=== PATIENT | male | born 1955 | race Caucasian/White ===

== ENCOUNTER 2019-09-23 20:50 | Inpatient (IN) ==
--- OUTSIDE RECORDS SUMMARY | 2019-09-23 20:54 | External Medical Summary | Continuity of Care Document ---
:1955 Author Name Todd Yan Address Unavailable Unavailable , Care Team Providers Name Role Phone Unavailable Unavailable Unavailable Manuel [email or web address] PCP, [email or web address] Unavailable Unavailable Unavailable Unavailable Unavailable Problems Gout, joint (274.00) (M10.9) Umbilical hernia (553.1) (K42.9) Restless legs syndrome (333.94) (G25.81) Allergies and Adverse Reactions No Known Drug Allergies (Allergy) Medications Allopurinol 300 MG Oral Tablet; TAKE ONE TABLET BY AG TH EVERY DAY Yuriy Escobar Start: 08-Dec-2012 Quantity: 90 Refills: 3 One-A-Day Mens Oral Tablet Yuriy Refills: 0 Potassimin TABS; as directed for leg cramps Yuriy Refills: 0 Fish Oil Concentrate 1000 MG Oral Capsule; TAKE 1 CAPSULE DAYDAY SALAS M.D. Refills: 0 Aspirin 81 MG TABS Yuriy Refills: 0 Vitamin D3 125 MCG (5000 UT) Oral Capsule; TAKE 1 CAPSULE Dayday rodriguez M.D. Start: 15-Aug-2012 Refills: 0 Procedures History of Knee Surgery Status: Complete d History of Complete Colonoscopy Status: Completed Immunizations Td On: 1996 Fluzone INJ On: 16-Jul-2015 Family History Father Family history of Ankylosing Spondylitis Status: Active Family history of Congestive Heart Failure Status: Active Mother Family history of Diabetes Mellitus (V18.0) Status: Active Brother Family history of Spondylitis Status: Active Sister Family history of Spondylitis Status: Active Family history of Spondylitis Status: Active Social History - Smoking Status Former smoker Plan of Treatment Planned Observations Planned Goals not documented Results No Known Results Results not documented
--- OUTSIDE RECORDS SUMMARY | 2019-09-23 20:54 | External Medical Summary | Continuity of Care Document ---
:1955 Author Name Todd Yan Address Unavailable Unavailable , Care Team Providers Name Role Phone Unavailable Unavailable Unavailable Manuel Escobar [email or web address] PCP, UNKNOWN Unavailable Unavailable Unavailable Unavailable Unavailable Problems Restless legs syndrome (333.94) (G25.81) Umbilical hernia (553.1) (K42.9) Gout, joint (274.00) (M10.9) Allergies and Adverse Reactions No Known Drug Allergies (Allergy) Medications Allopurinol 300 MG Oral Tablet; TAKE ONE TABLET BY GA TH EVERY DAY Yuriy Escobar Start: 08-Dec-2012 Quantity: 90 Refills: 3 Aspirin 81 MG TABS Yuriy Refills: 0 Fish Oil Concentrate 1000 MG Oral Capsule; TAKE 1 CAPSULE DAYDAY SALAS M.D. Refills: 0 Potassimin TABS; as directed for leg cramps Yuriy Refills: 0 One-A-Day Mens Oral Tablet Yuriy Refills: 0 Vitamin D3 125 MCG [...]
[2019-09-23] MEDS ORDERED: FAMOTIDINE 20MG/5ML IV PUSH IV STA (21:50)
[2019-09-23] MEDS ORDERED: SODIUM CHLORIDE 0.9% 1000ML 1,000 ML IV ONE ×2 (21:50→23:04)
[2019-09-23 21:56] LABS: Basophils # (auto) 0.03 K/uL (0-0.2); Basophils % (auto) 0.4 %; Hematocrit (blood only) 33.8 % (42-52); Hemoglobin 11.4 g/dL (14.0-18.0); Immature Granulocytes # (auto) 0.07 K/uL (0.00-0.02); Immature Granulocytes % (auto) 0.9 %; Lymphocytes # (auto) 1.48 K/uL (1.2-3.4); Lymphocytes % (auto) 18.7 %; Mean Corpuscular Hemoglobin 30.6 pg (25-34); Mean Corpuscular Hgb Conc 33.7 g/dL (32-36); Mean Corpuscular Volume 90.6 fL (80-100); Mean Platelet Volume 12.5 fL (7.4-10.4); Monocytes # (auto) 0.45 K/uL (0.11-0.59); Monocytes % (auto) 5.7 %; Neutrophils % (auto) 74.3 %; Platelet Count 176 K/uL (130-400); RDW Coefficient of Variation 13.1 % (11.5-14.5); RDW Standard Deviation 43.4 fL (36.4-46.3); Red Blood Count 3.73 M/uL (4.7-6.1); White Blood Count 7.93 K/uL (4.8-10.8)
[2019-09-23 22:10] LABS: Alanine Aminotransferase 17 U/L (12-78); Albumin Globulin Ratio 0.9 (0.9-2); Albumin Level 3.1 gm/dl (3.4-5.0); Aspartate Aminotransferase 6 U/L (15-37); BUN Creatinine Ratio 51.1 (10-20); Bilirubin,Total 0.4 mg/dl (0.2-1); Blood Urea Nitrogen 55 mg/dl (7-18); Calcium 9.5 mg/dl (8.5-10.1); Carbon Dioxide 19 mmol/L (21-32); Chloride 103 mmol/L (98-107); Creatinine Clr Calc Pharmacy 69.5 ml/min; Est GFR (African American) 86.4; Est GFR (Non-African American) 74.5; Globulin 3.6 gm/dl (2.5-4.0); Glucose 606 mg/dl (70-99); Lipase 116 U/L (73-393); Magnesium 1.8 mg/dl (1.8-2.4); Potassium 3.9 mmol/L (3.5-5.1); Sodium 136 mmol/L (136-145); Total Protein 6.7 gm/dl (6.4-8.2)
[2019-09-23] MEDS ORDERED: PANTOprazole 80 MG in DEXTROSE 5% 100 ML IV STA (22:22)
[2019-09-23] MEDS ORDERED: NovoLIN-R INSULIN PER UNIT CHARGE SC STA (22:27)
[2019-09-23 23:06] LABS: Appearance Urine Clear (Clear); Bilirubin Urine Negative (Negative); Blood Urine Negative (Negative); Color Urine Yellow; Glucose Urine UA 3+ (Negative); Ketones Urine 1+ (Negative); Leukocyte Esterase Urine Negative (Negative); Nitrite Urine Negative (Negative); Protein Urine Negative (Negative); Specific Gravity Urine 1.035 (1.000-1.030); Urobilinogen Urine Negative (Negative)
[2019-09-23 23:13] LABS: NT Pro B Type Natriuretic Pept 40 pg/ml (0-900); Troponin I < 0.015 ng/ml (0-0.045)
[2019-09-23 23:14] LABS: Alkaline Phosphatase 36 U/L (45-117)
[2019-09-23] MEDS ORDERED: IOVERSOL 100ml IV PRN (23:23)
[2019-09-23] MEDS: PANTOprazole 40 MG in DEXTROSE 5% 100 ML IV SCH (23:43)
[2019-09-24] MEDS: fentaNYL citrate 100 MCG/2 ML VIAL IV PRN ×2 (00:12→00:36)
[2019-09-24] MEDS ORDERED: NovoLIN-R INSULIN PER UNIT CHARGE SC STA (01:03)
[2019-09-24 01:09] LABS: BUN Creatinine Ratio 43.3 (10-20); Calcium 8.5 mg/dl (8.5-10.1); Creatinine Clr Calc Pharmacy 72.2 ml/min; Est GFR (African American) 90.4; Potassium 3.8 mmol/L (3.5-5.1)
[2019-09-24 01:21] LABS: Beta-Hydroxybutyrate 5.47 mg/dl (0.2-2.81)
[2019-09-24] MEDS ORDERED: LACTATED RINGER'S 1,000 ML IV ONE (01:40)
[2019-09-24] MEDS ORDERED: POTASSIUM CHLORIDE 20 MEQ TABCR PO STA (01:42)
[2019-09-24] MEDS ORDERED: MAGNESIUM SULFATE / D5W 1 GM/100 ML BAG IV ONE (01:50)
[2019-09-24] MEDS ORDERED: INSULIN PROTOCOL GOAL RANGE STA (01:51)
[2019-09-24] MEDS ORDERED: MODERATE STRESS LEVEL STA (01:51)
[2019-09-24] MEDS ORDERED: MAGNESIUM SULFATE 1GM / D5W BAG IV ONE (01:59)
[2019-09-24] MEDS ORDERED: INSULIN REGULAR 250 UNITS in SODIUM CHLORIDE 0.9% 247.5 ML IV SCH (02:00)
[2019-09-24] MEDS ORDERED: NovoLIN-R BOLUS FROM BAG IV ONE (02:00)
[2019-09-24 02:12] LABS: Thyroid Stimulating Hormone 1.89 uIu/ml (0.300-4.500)
--- NOTE | 2019-09-24 02:28 | History & Physical Report ---
Date of Service September 24, 2019 Assessment & Plan (1) UGIB (upper gastrointestinal bleed): With some degree of hemodynamic instability ddx : gastritis given history NSAID intake, PUD, tumor Anemia secondary to above Hyperglycemia DM2 on oral medications, suboptimal control as of recent outpatient hemoglobin A1c of 14, 09/2018 Outpatient steroid courses contributory for back pain mood disorder, at baseline past tobacco abuse Right lumbar disc herniation Elective surgery at [facility] scheduled 09/27/2019. PCU given hemodynamic instability IV PPI Trend H&H, anemia work-up transfuse PRBC if hemoglobin less than 7 and/or for symptomatic anemia Stop NSAIDs, patient counseled about GI side effects of NSAIDs. Stop home aspirin given lack of current clinical indication for home use. GI consult RE U GIB IVF, IV insulin appropriate while patient n.p.o. in anticipation of endoscopic procedure Diabetic education. May benefit from pharmacy glycemic control consult once diet advanced. DVT prophylaxis. SCDs RE UGIB Full code History of Present Illness Chief Complaint: Melena, not feeling well, high sugars Primary Care Provider: Jude Amezcua MD History obtained from patient, family, and records. Medical history significant for DM 2 on oral medications, hyperlipidemia as per records, osteoarthritis, mood disorder, past tobacco abuse, right hip trochanteric bursitis, right lumbar disc herniation, diverticulosis. Patient has had a poor appetite the last few months. 40 pound weight loss in about 2 months as per patient. Denies depression. 2 months ago patient noted right back discomfort with leg radiation attributed to right paracentral L4-L5 disc herniation/extrusion. Outpatient Rheumatology, pain management evaluations. Steroid course for pain. Patient taking Celebrex along with maximum of 4 tablets of OTC ibuprofen/ daily mostly with meals. Patient seen by [facility] outpatient few days ago. Surgery contemplated this week, September 27, 2019. Yesterday, patient not feeling well. Blood sugar noted to be 430 as per patient. Blood sugars at home 100s, rarely 200s as per patient/. Stools noted to be dark. No abdominal pain, chest pain, no S OB. Denies hematemesis/coffee-ground emesis. At the ER, BSG noted to be 600s. IV insulin 1 dose administered at the ER. IV PPI bolus/ drip initiated at the ER for UGI B. Medical History as above No prior EGDs. 2010 colonoscopy showed diverticulosis. 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 Allergy/AdvReac Type Severity Reaction Status Date / Time No Known Allergies Allergy Unverified 09/23/19 22:05 Home Medications Home Medications Medication Instructions Recorded Confirmed Type aspirin [Aspirin Low Dose] 81 mg PO QPM 09/23/19 09/23/19 History celecoxib 200 mg PO BID 09/23/19 09/23/19 History gabapentin 300 mg PO DIRECTED 09/23/19 09/23/19 History linagliptin [Tradjenta] 5 mg PO QPM 09/23/19 09/23/19 History metformin 1,000 mg PO DAILY 09/23/19 09/23/19 History sertraline 50 mg PO QPM 09/23/19 09/23/19 History Past Med/Surg History Medical History Arthritis Bone spur Diabetes Gout Ruptured lumbar disc Varicose vein of leg Surgical History H/O vein stripping S/P herniorrhaphy Family History Other Cancer Diabetes Heart disease Hypertension Social History Preferred Language: Malay Communication Ability: Effective Visual Impairment: No Limitations Hearing Ability: Normal Beliefs That Will Affect Care: None marital status: Current Living Situation: Spouse current occupational status: employed Other Information That Helps Us Care for You: No Feels Safe at Home: Yes Safety Concerns: Feels Safe At This Time Smoking Status: Former smoker Hx Alcohol Use: No Hx Substance Use: No Review of Systems Review of Systems: As per HPI, all 10 systems reviewed, all other ROS negative Physical Exam Physical Exam: GENERAL: Comfortable, pleasant, no respiratory distress SKIN: Pallor , warm HEENT: Pale palpebral conjunctivae, no ptosis, dry buccal mucosa NECK : Supple, no tenderness CHEST : CTA, no tenderness HEART : Tachycardic , no obvious murmurs ABDOMEN: Some distention, nontender BACK : right hip tenderness EXTREMITIES : No LE swelling/tenderness, no other conspicuous deformities noted NEUROLOGIC : Coherent, no facial asymmetry, no other gross focality Results & Data Vital Signs (Past 12 Hours) Vital Signs Temp Pulse Resp BP Pulse Ox 09/24/19 02:01 132 H 19 99/71 L 95 09/24/19 01:45 126 H 17 113/76 95 09/24/19 01:30 125 H 17 102/74 93 09/24/19 01:25 126 H 18 113/85 97 09/24/19 01:00 124 H 14 111/78 95 09/24/19 00:45 124 H 16 119/86 96 09/24/19 00:30 123 H 16 111/79 94 09/24/19 00:15 121 H 21 142/81 H 95 09/24/19 00:00 120 H 17 114/82 96 09/23/19 23:45 121 H 16 118/90 96 09/23/19 23:30 125 H 20 128/82 95 09/23/19 23:00 129 H 17 113/90 94 09/23/19 22:45 127 H 20 112/81 94 09/23/19 22:30 130 H 17 124/78 94 09/23/19 22:15 127 H 18 123/79 09/23/19 21:30 129 H 18 115/77 94 09/23/19 20:52 36.7 C 128 H 20 120/83 97 Laboratory Results Laboratory Results WBC 7.93 K/uL (4.8-10.8) 09/23/19 21:25 RBC 3.73 M/uL (4.7-6.1) L 09/23/19 21:25 Hgb 11.4 g/dL (14.0-18.0) L 09/23/19 21:25 Hct 33.8 % (42-52) L 09/23/19 21:25 MCV 90.6 fL (80-100) 09/23/19 21:25 MCH 30.6 pg (25-34) 09/23/19 21:25 MCHC 33.7 g/dL (32-36) 09/23/19 21:25 RDW Std Deviation 43.4 fL (36.4-46.3) 09/23/19 21:25 RDW Coeff of Justin 13.1 % (11.5-14.5) 09/23/19 21:25 Plt Count 176 K/uL (130-400) 09/23/19 21:25 MPV 12.5 fL (7.4-10.4) H 09/23/19 21:25 Immature Gran % (Auto) 0.9 % 09/23/19: Neut % (Auto) 74.3 % 09/23/19: Lymph % (Auto) 18.7 % 09/23/19: [place] % (Auto) 5.7 % 09/23/19: Eos % (Auto) 0.0 % 09/23/19: Baso % (Auto) 0.4 % 09/23/19: Immature Gran # (Auto) 0.07 K/uL (0.00-0.02) H 09/23/19: Neut # (Auto) 5.90 K/uL (1.4-6.5) 09/23/19: Lymph # (Auto) 1.48 K/uL (1.2-3.4) 09/23/19: [place] # (Auto) 0.45 K/uL (0.11-0.59) 09/23/19: Eos # (Auto) 0.00 K/uL (0-0.5) 09/23/19: Baso # (Auto) 0.03 K/uL (0-0.2) 09/23/19: Sodium 139 mmol/L (136-145) 09/24/19 00:08 Potassium 3.8 mmol/L (3.5-5.1) 09/24/19 00:08 Chloride 108 mmol/L (98-107) H 09/24/19 00:08 Carbon Dioxide 21 mmol/L (21-32) 09/24/19 00:08 Anion Gap 10.0 (3-11) 09/24/19 00:08 BUN 45 mg/dl (7-18) H 09/24/19 00:08 Creatinine 1.03 mg/dl (0.6-1.4) 09/24/19 00:08 Est Cr Clr Drug Dosing 72.2 ml/min 09/24/19 00:08 Est GFR ( Amer) 90.4 09/24/19 00:08 Est GFR (Non-Af Amer) 78.0 09/24/19 00:08 BUN/Creatinine Ratio 43.3 (10-20) H 09/24/19 00:08 Glucose 411 mg/dl (70-99) H* 09/24/19 00:08 POC Glucose 353 (70-99) H* 09/24/19 01:12 Calcium 8.5 mg/dl (8.5-10.1) 09/24/19 00:08 Magnesium 1.8 mg/dl (1.8-2.4) 09/23/19 21:25 Total Bilirubin 0.4 mg/dl (0.2-1) 09/23/19 21:25 AST 6 U/L (15-37) L 09/23/19 21:25 ALT 17 U/L (12-78) 09/23/19 21:25 Alkaline Phosphatase 36 U/L (45-117) L 09/23/19 21:25 Troponin I < 0.015 ng/ml (0-0.045) 09/23/19 21:25 NT-Pro-B Natriuret Pep 40 pg/ml (0-900) 09/23/19 21:25 Total Protein 6.7 gm/dl (6.4-8.2) 09/23/19 21:25 Albumin 3.1 gm/dl (3.4-5.0) L 09/23/19 21:25 Globulin 3.6 gm/dl (2.5-4.0) 09/23/19 21:25 Albumin/Globulin Ratio 0.9 (0.9-2) 09/23/19 21:25 Lipase 116 U/L (73-393) 09/23/19 21:25 Beta-Hydroxybutyric Acd 5.47 mg/dl (0.2-2.81) H 09/24/19 00:08 TSH 1.890 uIu/ml (0.300-4.500) 09/24/19 00:08 Urine Color Yellow 09/23/19 21:57 Urine Appearance Clear (Clear) 09/23/19 21:57 Urine pH 5.0 (4.5-7.5) 09/23/19 21:57 Ur Specific [place] 1.035 (1.000-1.030) H 09/23/19 21:57 Urine Protein Negative (Negative) 09/23/19 21:57 Urine Glucose (UA) 3+ (Negative) H 09/23/19 21:57 Urine Ketones 1+ (Negative) H 09/23/19 21:57 Urine Blood Negative (Negative) 09/23/19 21:57 Urine Nitrite Negative (Negative) 09/23/19 21:57 Urine Bilirubin Negative (Negative) 09/23/19 21:57 Urine Urobilinogen Negative (Negative) 09/23/19 21:57 Ur Leukocyte Esterase Negative (Negative) 09/23/19 21:57 Blood Type A Positive 09/23/19 21:39 Antibody Screen NEGATIVE 09/23/19 21:39 Diagnostic Findings See pelvis initial read:No colitis, diverticulitis, appendicitis or bowel obstruction. Chest x-ray as per my interpretation : No congestion, elevated right hemidiaphragm EKG as per my interpretation : Rate 125, sinus tachycardia, LAD, LAFB, T wave flattening inferior leads
[2019-09-24] MEDS ORDERED: GLUCOSE 40% GEL 15 GM TUBE PO PRN (02:30)
[2019-09-24] MEDS ORDERED: DEXTROSE 50% 50 ML SYRINGE IV PRN (02:30)
[2019-09-24] MEDS ORDERED: GLUCAGON FOR INJ 1 MG VIAL IM PRN (02:30)
[2019-09-24] MEDS ORDERED: GLUCOSE 10 TABS/TUBE PO PRN (02:30)
[2019-09-24] MEDS ORDERED: LORazepam 0.25 MG/0.5 ML VIAL IV PRN (03:52)
[2019-09-24] MEDS ORDERED: D5W AND LACTATED RINGERS 1,000 ML IV PRN (03:52)
[2019-09-24] MEDS ORDERED: PROMETHAZINE HCL 12.5 MG in SODIUM CHLORIDE 0.9% 50 ML IV PRN (03:52)
[2019-09-24] MEDS ORDERED: NITROGLYCERIN SL 0.4 MG/TAB TAB SL PRN (03:52)
[2019-09-24] MEDS ORDERED: SODIUM CHLORIDE 0.9% 1000ML 1,000 ML IV ONE (04:00)
[2019-09-24] MEDS: PANTOprazole 40 MG in DEXTROSE 5% 100 ML IV SCH ×2 (04:16→09:37)
[2019-09-24] MEDS: TRAMADOL HCL 50 MG TABLET PO PRN (04:19)
[2019-09-24 04:42] LABS: Hematocrit (blood only) 28.6 % (42-52); Hemoglobin 9.6 g/dL (14.0-18.0); Reticulocyte % 2.1 % (0.5-2.0); Reticulocytes # 0.07 10^6/uL (0.02-0.10)
[2019-09-24] MEDS: LIDOCAINE 5% 1 PATCH TD SCH (05:01)
[2019-09-24] MEDS: MoRPHine SULFATE 4 MG/ML 1 ML CARP\\VIAL IV PRN ×5 (05:08→22:28)
[2019-09-24 05:09] LABS: Ferritin 333.8 ng/ml (8-388)
[2019-09-24] MEDS ORDERED: POTASSIUM CHLORIDE 40 MEQ in SODIUM CHLORIDE 0.9% 1000ML 1,000 ML IV SCH (06:00)
--- NOTE | 2019-09-24 07:11 | XRay Report ---
XR chest 1V portable HISTORY: Shortness of breath. Tachycardia. COMPARISON: None. FINDINGS: The lungs are clear. Cardiac silhouette is normal in size. No pleural effusions. No pneumot horax. IMPRESSION: No acute process. ACT 112: Negative or not required by law. Electronically signed by: David Galvan M.D. 09/24/2019 7:10 AM
[2019-09-24] MEDS ORDERED: PHARMACY GLYCEMIC MGMT CONSULT PRN (07:44)
--- NOTE | 2019-09-24 07:45 | CT Scan Report ---
ABDOMEN AND PELVIS CT WITH IV CONTRAST CT DOSE: 642.59 mGy.cm HISTORY: weakness, GI bleed TECHNIQUE: Multiaxial CT images of the abdomen and pelvis were performed following the use of intrave nous contrast. A dose lowering technique was utilized adhering to the principles of ALARA. COMPARISON STUDY: None. FINDINGS: The lung bases are clear. Mild hepatic steatosis. The gallbladder, spleen, adrenal glands, and kidneys are unremarkable. No hydronephrosis. Mild bilateral perinephric edema. This is likely chr onic. No retroperitoneal lymphadenopathy. Normal caliber abdominal aorta. The bladder is unremarkable . A few colonic diverticula. No evidence for diverticulitis. No bowel wall thickening or obstruction. Normal appendix. Large disc herniation at L4-L5 resulting in severe central canal narrowing. Abnorma l density within the uncinate process of the pancreas measuring 4.4 x 1.9 cm. There are few adjacent small peripancreatic lymph nodes. IMPRESSION: 1. An abnormal density within the uncinate process of the pancreas is measures 4.4 x 1.9 cm. This cou ld represent focal acute pancreatitis or an underlying mass. GI consultation with endoscopic ultrasou nd recommended for further evaluation. 2. No bowel wall thickening or obstruction. 3. Normal appendix. 4. Large disc herniation at L4-5 resulting in severe central canal narrowing. 5. These findings were discussed with Dr. Elaine at 7:55 AM on 09/24/2019. ACT 112: Positive. There are findings on this exam that require communication between the performing entity and the patient following Patient Test Result Information Act ([place] Act 112) guidelines. Electronically signed by: David Galvan M.D. 09/24/2019 7:55 AM
[2019-09-24] MEDS ORDERED: INSULIN GLARGINE SOLOSTAR 100 UNITS/ML 3 ML PEN SC ONE ×2 (08:15→12:45)
[2019-09-24] MEDS ORDERED: D5NSS + 20MEQ KCL 20 MEQ/1,000 ML BAG IV SCH (08:15)
[2019-09-24 08:24] LABS: Folate (Folic Acid) 6.31 ng/ml (>5.38)
[2019-09-24 08:27] LABS: Basophils # (auto) 0.03 K/uL (0-0.2); Basophils % (auto) 0.4 %; Eosinophils # (auto) 0.09 K/uL (0-0.5); Eosinophils % (auto) 1.1 %; Hematocrit (blood only) 26.6 % (42-52); Hemoglobin 9.1 g/dL (14.0-18.0); Immature Granulocytes # (auto) 0.03 K/uL (0.00-0.02); Immature Granulocytes % (auto) 0.4 %; Lymphocytes # (auto) 2.58 K/uL (1.2-3.4); Lymphocytes % (auto) 31.3 %; Mean Corpuscular Hemoglobin 30.6 pg (25-34); Mean Corpuscular Hgb Conc 34.2 g/dL (32-36); Mean Corpuscular Volume 89.6 fL (80-100); Mean Platelet Volume 11.5 fL (7.4-10.4); Monocytes # (auto) 0.64 K/uL (0.11-0.59); Monocytes % (auto) 7.8 %; Neutrophils # (auto) 4.87 K/uL (1.4-6.5); Platelet Count 147 K/uL (130-400); RDW Coefficient of Variation 13.2 % (11.5-14.5); RDW Standard Deviation 42.2 fL (36.4-46.3); Red Blood Count 2.97 M/uL (4.7-6.1); White Blood Count 8.24 K/uL (4.8-10.8)
[2019-09-24] MEDS: INSULIN ASPART 100 UNITS/ML 3 ML PEN SC SCH ×5 (08:32→23:36)
[2019-09-24] MEDS: LACTATED RINGER'S 1,000 ML IV SCH ×2 (08:33→17:13)
[2019-09-24 09:08] LABS: Alanine Aminotransferase 12 U/L (12-78); Albumin Level 2.7 gm/dl (3.4-5.0); Alkaline Phosphatase 28 U/L (45-117); Aspartate Aminotransferase 7 U/L (15-37); BUN Creatinine Ratio 40.3 (10-20); Bilirubin Direct < 0.1 mg/dl (0-0.2); Bilirubin,Total 0.2 mg/dl (0.2-1); Blood Urea Nitrogen 28 mg/dl (7-18); Calcium 8.3 mg/dl (8.5-10.1); Carbon Dioxide 23 mmol/L (21-32); Chloride 112 mmol/L (98-107); Creatinine Clr Calc Pharmacy 103.6 ml/min; Est GFR (African American) 118.1; Est GFR (Non-African American) 101.9; Glucose 193 mg/dl (70-99); Lipase 120 U/L (73-393); Potassium 3.8 mmol/L (3.5-5.1); Sodium 141 mmol/L (136-145); Total Protein 5.7 gm/dl (6.4-8.2)
--- NOTE | 2019-09-24 09:54 | Gastrointestinal Consultation ---
Date of Consultation September 24, 2019 Assessment & Plan (1) Melena: (2) Anemia: (3) Mass of pancreas: Pt is a 63 y/o male admitted for hyperglycemia, symptomatic anemia and melena. Has associated poor appetite and lost 40lbs in last [address] abd/pelvis w contrast showed 4 x 2cm mass in uncinate process of pancreas. - Schedule EGD today to r/o PUD given anemia, melena increased BUN in setting of NSAIDs and Celebrex use - Keep NPO - Continue PPI gtt - Monitor H/H and transfuse prn - BSG management per primary team - Will schedule EUS eval for pancreas mass inpt vs outpt Attg add: I interviewed and examined pt, reviewed chart and labs. Pt with recent NSAID and steroid use, now with decreased appetite, anemia melena. CT showed ? HOP mass. EGD today. EUS for panc mass History of Present Illness Reason for Consultation: UGI bleed, pancreas mass Requesting Physician: Dr. Mary Elaine Attending Physician: Dr. Sade Benjamin History of Present Illness Pt is a 63 y/o male w hx of DM II, herniated lumbar disc who presented yesterday w c/o weakness and black tarry stools x 2 days. He was found to be anemic on presentation w Hgb of 11 ->9 after fluid resuscitation, BUN elevated at 55, BSG >600s -> 190s. Baseline blood ct normal a few days ago. He had been on steroid taper 1 month ago, and on Celebrex, NSAIDs (Advil, Ibuprofen) on daily basis. Not taking antiacids while on NSAIDs. He's had associated nausea w/o vomiting. Admitted to have decreased appetite in last 2 months had lost 40lbs unintentionally. He admitted to take a dose of Peptobismol 2 days ago and then Mylanta, not on iron. It's incidentally noted on his CT abd/pelvis w contrast that he has an abnormal density within the uncinate process of the pancreas is measures 4.4 x 1.9 cm. LFTs, lipase normal. He denies any hx of pancreatitis, ETOH abuses. His father has hx of prostate ca, mother has hx of liver/pancreas/stomach ca at age 88 Allergies Allergy/AdvReac Type Severity Reaction Status Date / Time No Known Allergies Allergy Unverified 09/23/19 22:05 Home Medications Home Medications Medication Instructions Recorded Confirmed Type aspirin [Aspirin Low Dose] 81 mg PO QPM 09/23/19 09/23/19 History celecoxib 200 mg PO BID 09/23/19 09/23/19 History gabapentin 300 mg PO DIRECTED 09/23/19 09/23/19 History linagliptin [Tradjenta] 5 mg PO QPM 09/23/19 09/23/19 History metformin 1,000 mg PO DAILY 09/23/19 09/23/19 History sertraline 50 mg PO QPM 09/23/19 09/23/19 History Patient History Medical History Arthritis Bone spur Diabetes Gout Ruptured lumbar disc Varicose vein of leg Surgical History H/O vein stripping S/P herniorrhaphy Family History Other Cancer Diabetes Heart disease Hypertension Social History Preferred Language: Kinyarwanda Communication Ability: Effective Visual Impairment: No Limitations Hearing Ability: Normal Beliefs That Will Affect Care: None marital status: Current Living Situation: Spouse current occupational status: employed Other Information That Helps Us Care for You: No Feels Safe at Home: Yes Safety Concerns: Feels Safe At This Time Smoking Status: Former smoker Hx Alcohol Use: No Hx Substance Use: No Review of Systems Review of Systems: All systems reviewed & are unremarkable except as noted in HPI & below Physical Exam Constitutional: WD/WN, vitals as above well groomed, cooperative and comfortable Eyes: PERRL, conjunctivae normal, anicteric sclerae ENMT: external ear and nose normal, oropharynx normal Respiratory: normal respiratory effort, lungs clear to auscultation Cardiovascular: RRR, no murmur, no edema Gastrointestinal (Abdomen): normal bowel sounds, soft, nontender, no hepatosplenomegaly Skin: no rashes, warm and dry no jaundice Neurologic: Motor/Sensory: no asterixis Psychiatric: A+Ox3, euthymic affect Lymphatic: no lymphedema Results & Data Vital Signs (Past 12 Hours) Vital Signs Temp Pulse Pulse Resp BP BP Pulse Ox 09/24/19 07:52 36.9 C 111 H 18 114/76 93 09/24/19 04:24 117 H 09/24/19 03:30 37.2 C 18 125/77 95 09/24/19 03:00 116 H 17 113/77 93 09/24/19 02:45 117 H 18 110/80 93 09/24/19 02:30 120 H 18 118/80 93 09/24/19 02:15 125 H 21 119/80 94 09/24/19 02:01 132 H 19 99/71 L 95 09/24/19 01:45 126 H 17 113/76 95 09/24/19 01:30 125 H 17 102/74 93 09/24/19 01:25 126 H 18 113/85 97 09/24/19 01:00 124 H 14 111/78 95 09/24/19 00:45 124 H 16 119/86 96 09/24/19 00:30 123 H 16 111/79 94 09/24/19 00:15 121 H 21 142/81 H 95 09/24/19 00:00 120 H 17 114/82 96 09/23/19 23:45 121 H 16 118/90 96 09/23/19 23:30 125 H 20 128/82 95 09/23/19 23:00 129 H 17 113/90 94 09/23/19 22:45 127 H 20 112/81 94 09/23/19 22:30 130 H 17 124/78 94 09/23/19 22:15 127 H 18 123/79
[2019-09-24 10:03] LABS: Estimated Average Glucose 355 mg/dl
--- NOTE | 2019-09-24 11:21 | Anesthesiology Consultation ---
Date of Service September 24, 2019 Assessment & Plan (1) Encounter for pre-operative examination: Chart Review Chart Review: Acceptable Risk for Surgery and Patient NOT seen in Pre Admission Testing Consults Requested none History Surgery Operation Date: 09/24/19 17:45 Proposed Procedures p Esophagogastroduodenoscopy Dr Homar Benjamin Height/Weight Height: 5 ft 7 in Weight: 77.8 kg Allergies Allergy/AdvReac Type Severity Reaction Status Date / Time No Known Allergies Allergy Unverified 09/23/19 22:05 Medications Home Medications Medication Instructions Recorded Confirmed Last Taken aspirin [Aspirin Low Dose] 81 mg PO QPM 09/23/19 09/23/19 09/22/19 celecoxib 200 mg PO BID 09/23/19 09/23/19 09/22/19 gabapentin 300 mg PO DIRECTED 09/23/19 09/23/19 09/22/19 linagliptin [Tradjenta] 5 mg PO QPM 09/23/19 09/23/19 09/22/19 metformin 1,000 mg PO DAILY 09/23/19 09/23/19 09/22/19 sertraline 50 mg PO QPM 09/23/19 09/23/19 09/22/19 Active Medications Generic Name Dose Route Start Last Admin Trade Name Freq PRN Reason Stop Dose Admin Pantoprazole Sodium 40 mg/ 100 mls @ 20 mls/hr 09/23/19 22:30 09/24/19 09:37 Dextrose IV 09/27/19 03:29 20 mls/hr Q5H JHON Administration Insulin Human Regular 250 250 mls @ 2.7 mls/hr 09/24/19 02:00 09/24/19 11:11 units/ Sodium Chloride IV 10/24/19 01:59 2.7 units/hr .Q24H JHON 2.7 mls/hr Titration Protocol 2.7 UNITS/HR Lactated Ringer's 1,000 mls @ 150 mls/hr 09/24/19 08:15 09/24/19 08:33 Lr IV 10/24/19 08:14 150 mls/hr .Q6H40M JHON Administration Insulin Aspart 0 units 09/24/19 07:30 09/24/19 08:32 Novolog Flexpen SC 10/24/19 07:29 Not Given ACHS JHON Lidocaine 1 patch 09/24/19 04:30 09/24/19 05:01 Lidoderm 5% TD 10/24/19 04:29 1 patch QAM JHON Administration Morphine Sulfate 4 mg 09/24/19 03:52 09/24/19 08:52 Morphine Sulfate IV 10/08/19 03:51 4 mg Q4H PRN Administration Pain Tramadol HCl 25 - 50 mg 09/24/19 03:52 09/24/19 04:19 Ultram PO 10/24/19 03:51 50 mg Q4H PRN Administration Pain NPO Date Last Intake of Fluids: 09/24/19 Time Last Intake of Fluids: 10:00 Last Intake of Fluids Comment: "few ice chips" Date Last Intake of Solids: 09/21/19 Past Medical History Medical History Arthritis Bone spur Diabetes Gout Ruptured lumbar disc Varicose vein of leg Past Family History Family History Other Cancer Diabetes Heart disease Hypertension Past Surgical History Surgical History H/O vein stripping S/P herniorrhaphy Social History Smoking Status: Former smoker Hx Alcohol Use: No Hx Substance Use: No Physical Exam Vital Signs Last Vital Signs Temp 36.9 C 09/24/19 10:59 Pulse 104 H 09/24/19 10:59 Resp 16 09/24/19 10:59 BP 120/85 09/24/19 10:59 Pulse Ox 96 09/24/19 10:59 Testing Laboratory Results 09/24/19 08:14 09/24/19 08:14 Hemoglobin A1c 14.0 % (4.5-5.6) H 09/24/19 08:14 Urine Color Yellow 09/23/19 21:57 Urine Appearance Clear (Clear) 09/23/19 21:57 Urine pH 5.0 (4.5-7.5) 09/23/19 21:57 Ur Specific [place] 1.035 (1.000-1.030) H 09/23/19 21:57 Urine Protein Negative (Negative) 09/23/19 21:57 Urine Glucose (UA) 3+ (Negative) H 09/23/19 21:57 Urine Ketones 1+ (Negative) H 09/23/19 21:57 Urine Nitrite Negative (Negative) 09/23/19 21:57 Ur Leukocyte Esterase Negative (Negative) 09/23/19 21:57 Blood Type A Positive 09/23/19 21:39 Antibody Screen NEGATIVE 09/23/19 21:39 09/24/19 09/24/19 09/24/19 10:10 08:58 08:09 POC Glucose 218 H 193 H 220 H 09/24/19 09/24/19 09/24/19 07:04 05:58 04:59 POC Glucose 219 H 222 H 234 H 09/24/19 09/24/19 09/24/19 03:56 02:25 01:12 POC Glucose 298 H 359 H* 353 H* 09/23/19 23:39 POC Glucose 448 H*
[2019-09-24] MEDS ORDERED: ePHEDrine sulfate 50 MG/ML AMP IV PRN (11:23)
[2019-09-24] MEDS ORDERED: ATROPINE SULFATE 0.1 MG/ML 10ML SYR IV PRN (11:23)
[2019-09-24] MEDS ORDERED: PROPOFOL IV EMULSION 10 MG/ML 20 ML VIAL IV ONE (13:04)
[2019-09-24] MEDS ORDERED: LIDOCAINE HCL 2% 2 ML VIAL/AMP(20MG/ML) INFIL ONE (13:04)
--- NOTE | 2019-09-24 13:13 | GI REPORT ---
Patient Name: Gwyn Agee Procedure Date: 09/24/2019 12:32 PM Date of : 1955 Admit Type: Inpatient Age: 63 Gender: Male Attending MD: Sade Benjamin MD Procedure: Upper GI endoscopy Providers: Sade Benjamin MD Referring MD: Mary Elaine Do Indications: Melena Medicines: See the Anesthesia note for documentation of the administered medications Complications: No immediate complications. Estimated Blood Loss: Estimated blood loss: none. Procedure: Pre-Anesthesia Assessment: - ASA Grade Assessment: III - A patient with severe systemic disease. After obtaining informed consent, the endoscope was passed under direct vision. Throughout the procedure, the patient's blood pressure, pulse, and oxygen saturations were monitored continuously. The Scope was introduced through the mouth, and advanced to the second part of duodenum. The upper GI endoscopy was accomplished without difficulty. The patient tolerated the procedure well. Findings: The examined esophagus was normal. There was a small linear ulcer in the pre-pyloric antrum, with marked edema of the surrouding folds. The remainder of the stomach was normal. Biopsies taken from throughout the stomach. There was edema, fissuring, and scalloping of the mucosa in the first and second portion of the duodenum. These changes were not present in the third and fourth portions of the duodenum; the mucosa of this part of the duodenum was normal. I suspect that these changes are from NSAID use, although celiac sprue remains in the differential. There was a 2 mm shallow clean ulcer in the second portion of the duodenum with a small amount of self limited oozing. There was a second large clean based ulcer at the apex of the bulb, on the anterior wall, on the sweep. The papilla was unremarkable. Recommendation: Discharge pt to floor. He is at low risk for further bleeding; will transition to oral BID PPI and adv diet as tolerated. Recommend outpt EGD in 8 weeks to confirm healing of ulceration. Will sign off, but please call with questions. Sade Benjamin M.D. Sade Benjamin MD 09/24/2019 1:12:48 PM This report has been signed electronically. Note Initiated On: 09/24/2019 12:32 PM Number of Addenda: 0 I attest to the content of the Intraoperative Record and orders documented therein, exceptions below {[id number]}
--- NOTE | 2019-09-24 15:05 | Electrocardiogram Report ---
Test Reason : Blood Pressure : / mmHG Vent. Rate : 127 BPM Atrial Rate : 127 BPM P-R Int : 154 ms QRS Dur : 096 ms QT Int : 308 ms P-R-T Axes : 028 -27 021 degrees QTc Int : 447 ms Sinus tachycardia Inferior infarct , age undetermined Cannot rule out Anterior infarct , age undetermined Abnormal ECG No previous ECGs available Confirmed by Abdiaziz Cunningham ([id number]) on 09/24/2019 3:04:41 PM Referred By: REFERRED SELF Confirmed By:Abdiaziz Cunningham
--- NOTE | 2019-09-24 15:20 | Pharmacy Report ---
Glycemic Control Consultation - Date of Service September 24, 2019 - Scope Scope: Glycemic Pharmacist consulted by Dr Elaine on 09/24 for glycemic control and to write orders per [facility] inpatient glycemic control protocol - Objective Weight: 77.8 kg Accuchecks BSG (last 24hrs): 09/23/19 09/23/19 09/23/19 20:58 21:25 23:39 Glucose 606 H* POC Glucose 583 H* 448 H* 09/24/19 09/24/19 09/24/19 00:08 01:12 02:25 Glucose 411 H* POC Glucose 353 H* 359 H* 09/24/19 09/24/19 09/24/19 03:56 04:59 05:58 Glucose POC Glucose 298 H 234 H 222 H 09/24/19 09/24/19 09/24/19 07:04 08:09 08:14 Glucose 193 H POC Glucose 219 H 220 H 09/24/19 09/24/19 09/24/19 08:58 10:10 11:04 Glucose POC Glucose 193 H 218 H 180 H 09/24/19 09/24/19 09/24/19 12:02 13:04 13:59 Glucose POC Glucose 170 H 159 H 151 H Laboratory Data (last 24hrs): 09/23/19 09/24/19 09/24/19 21:25 00:08 08:14 Potassium 3.9 3.8 3.8 Carbon Dioxide 19 L 21 23 Anion Gap 14.0 H 10.0 7.0 Creatinine 1.07 1.03 0.70 D Est Cr Clr Drug Dosing 69.5 72.2 103.6 Beta-Hydroxybutyric Acd 15.30 H 5.47 H HbA1c: Hemoglobin A1c 14.0 % (4.5-5.6) H 09/24/19 08:14 - Recent Pertinent Medications Outpatient Anti-diabetic Regimen: * Tradjenta 5 mg daily * Metformin 1 gm daily * A1c = 14 % 09/24/19 (has been the same since 09/2018) The patient is currently receiving: * Insulin drip @ ~ 2.5 units/hr Risk Factors for Insulin Resistance: * IVF: Protonix drip mixed in dextrose * Recent Surgery: EGD today * Diet: NPO -> full liquid * Baseline resistance d/t significantly elevated A1c - Assessment & Plan Assessment & Plan: ASSESSMENT: * 63 y/o male admitted for GIB and mild DKA. On admission: AG 14, bicarb 19 and BSG 600. Insulin drip was initiated. Spoke with Dr. Elaine this morning when glycemic consult received, as patient appropriate to start transition to SQ. Unable to go off of drip data this AM and patient NPO so gave 0.2 units/kg of basal insulin initially. BSG at noon remained elevated so gave another 0.2 units/kg dose to total insulin calculator estimates using weight and stress of 2. * Patient anxious to get off the drip because he's having trouble sleeping with frequent BSG checks. * Not attempting to be overly aggressive with glycemic control as A1c is so elevated. PLAN FOR INPATIENT GLYCEMIC CONTROL: * Plan for transition to SQ insulin: * Discontinue insulin drip 6 hours after Lantus, or sooner if directed per insulin drip calculator * Basal insulin * Lantus total of 30 units today (~0.4 units/kg) * Further basal dosing in AM * Bolus insulin * NovoLog per scale ACHS + 00, 04 * Goal Range: Low 140 mg/dL - High 180 mg/dL * Correction Factor: 30 mg/dL/unit * Nutritional / Prandial insulin per carb ratio of 1 unit per 10 grams CHO consumed * Please note that the plan above was derived based on current level of insulin resistance and hospital stress. These recommendations are appropriate for inpatient admission only. Plan of care upon discharge will need to be reassessed to avoid potential outpatient hypo/hyperglycemia. Thank you.
[2019-09-24] MEDS ORDERED: Nursing to Pharmacy Communication ONE (18:35)
[2019-09-24] MEDS ORDERED: DC IV INSULIN INFUSION 1 EA DEVI ONE ×2 (19:00→20:00)
--- NOTE | 2019-09-24 19:09 | Hospitalist Progress Note ---
Date of Service September 24, 2019 Assessment & Plan (1) Acute blood loss anemia: Trend CBC in a.m. (2) UGIB (upper gastrointestinal bleed): Recent NSAID use. EGD performed by GI today with shallow based ulcers that are nonbleeding. Avoid NSAIDs altogether. PPI twice daily. Repeat EGD in the future. (3) Mass of pancreas: Requires EUS as outpatient, likely in 2 weeks per GI. Would seriously avoid consideration of elective surgery until after this is performed. (4) Ruptured lumbar disc: Supportive care, orthospine consult (5) Tachycardia: Secondary to recent bleed, cardiac output is appropriate. IV fluids (6) DKA (diabetic ketoacidoses): Insulin drip with transition to basal bolus insulin today. Will likely need to evaluate the possibility of basal bolus insulin going home. (7) DVT prophylaxis: SCDs Full code Dispo-to home when medically stable Mary Elaine DO [facility] Hospitalist Subjective 63-year-old man who presented with dark stools after NSAID use for acute back pain. He has a planned disc herniation surgery later this week. His glucose is very uncontrolled and he presented in a mild DKA which is now resolved. He is tolerating p.o. 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 EGD was performed revealing shallow based ulcers, likely secondary to NSAID use which has been stopped. The patient has been educated against this. He also has used 2 courses of high-dose prednisone in an effort to calm his back pain. This along with the stress of severe pain has likely contributed to his elevated A1c of 14. However, her outpatient records reveal an uncontrolled trend over the past 4 to 5 years. A1c has wavered between 9 and 10. Basal bolus insulin would be preferred at this point. His tachycardia has improved with IV fluids which will be stopped at this time. Per GI has a low risk of bleeding so we will transfer the floor. Patient's requests an orthospine consult while in the hospital as the patient is losing his insurance in October secondary to [place] [facility]. Is unlikely we can consider surgery at this time secondary to all his acute issues. Will comply with consultation request. Review of Systems Review of Systems: All systems reviewed & are unremarkable except as noted in HPI & below Physical Exam Physical Exam: CONSTITUTIONAL: WNWD, vitals as above, generally well- appearing EYES: normal conjunctivae, no scleral icterus ENT: MMM NECK: trachea midline, no lymphadenopathy, normal thyroid RESPIRATORY: clear to auscultation bilaterally, no crackles, rales or wheezes, normal respiratory effort CARDIOVASCULAR: regular rate and rhythm, S1 and 2 heard without murmurs, gallops or rubs, no JVD, no peripheral edema GASTROINTESTINAL: normal bowel sounds, soft, nontender, nondistended MUSCULOSKELETAL: strength 5/5 throughout, head is normocephalic and atraumatic SKIN: warm and dry NEUROLOGIC: CN 2-12 grossly intact, no sensory deficit, normal cognition, normal speech PSYCHIATRIC: alert cooperative and oriented to person, place and time. Results & Data Vital Signs (Past 12 Hours) Vital Signs Temp Pulse Pulse Resp BP Pulse Ox 09/24/19 16:00 104 H 09/24/19 15:00 37.0 C 102 H 20 113/75 96 09/24/19 14:26 36.4 C L 103 H 20 106/70 96 09/24/19 14:07 36.6 C 101 H 20 120/81 97 09/24/19 13:45 36.8 C 95 H 20 119/78 98 09/24/19 13:30 95 H 16 109/71 97 09/24/19 13:15 97 H 16 104/71 98 09/24/19 13:00 97 H 16 83/62 L 96 09/24/19 10:59 36.9 C 104 H 16 120/85 96 09/24/19 08:00 110 H 09/24/19 07:52 36.9 C 111 H 18 114/76 93 Laboratory Results Short CBC 09/23/19 09/24/19 09/24/19 Range/Units 21:25 04:25 08:14 WBC 7.93 8.24 (4.8-10.8) K/uL Hgb 11.4 L 9.6 L 9.1 L (14.0-18.0) g/dL Hct 33.8 L 28.6 L 26.6 L (42-52) % Plt Count 176 147 (130-400) K/uL BMP 09/23/19 09/24/19 09/24/19 21:25 00:08 08:14 Sodium 136 139 141 Potassium 3.9 3.8 3.8 Chloride 103 108 H 112 H Carbon Dioxide 19 L 21 23 BUN 55 H 45 H 28 H Creatinine 1.07 1.03 0.70 D Glucose 606 H* 411 H* 193 H Calcium 9.5 8.5 8.3 L Cardiac Enzymes 09/23/19 Range/Units 21:25 Troponin I < 0.015 (0-0.045) ng/ml Liver Function 09/23/19 09/24/19 Range/Units 21:25 08:14 Total Bilirubin 0.4 0.2 (0.2-1) mg/dl Direct Bilirubin < 0.1 (0-0.2) mg/dl AST 6 L 7 L (15-37) U/L ALT 17 12 (12-78) U/L Alkaline Phosphatase 36 L 28 L (45-117) U/L Albumin 3.1 L 2.7 L (3.4-5.0) gm/dl Urine 09/23/19 Range/Units 21:57 Urine Color Yellow Urine Appearance Clear (Clear) Urine pH 5.0 (4.5-7.5) Ur Specific [place] 1.035 H (1.000-1.030) Urine Protein Negative (Negative) Urine Glucose (UA) 3+ H (Negative) Medications Administered Current Inpatient Medications Acetaminophen (Tylenol) 650 mg PO Q4H PRN PRN Reason: Pain or Fever Stop: 10/24/19 03:51 Dextrose (Dextrose 50%) 25 - 50 ml IV UD PRN; Protocol PRN Reason: Hypoglycemia Protocol Stop: 10/24/19 02:29 Glucagon (Glucagen) 1 mg IM UD PRN; Protocol PRN Reason: Hypoglycemia Protocol Stop: 10/24/19 02:29 Glucose (Glucose 40%) 15 - 30 gm PO UD PRN; Protocol PRN Reason: Hypoglycemia Protocol Stop: 10/24/19 02:29 Glucose (Dex4 Glucose) 4 - 8 tabs PO UD PRN; Protocol PRN Reason: Hypoglycemia Protocol Stop: 10/24/19 02:29 Promethazine HCl 12.5 mg/ (Sodium Chloride) 50.5 mls @ 202 mls/hr IV Q6H PRN PRN Reason: Nausea And Vomiting Stop: 10/24/19 03:51 Lorazepam (Ativan) 0.25 mg in 0.5 mls @ 0.5 mls/min IV Q4H PRN PRN Reason: Anxiety Stop: 10/24/19 03:51 Insulin Aspart (Novolog Flexpen) 0 units SC ACHS [facility] Stop: 09/24/19 20:30 Last Admin: 09/24/19 17:32 Dose: 2 units Documented by: Insulin Aspart (Novolog Flexpen) 0 units SC ACHS [facility] Stop: 10/24/19 20:59 Insulin Aspart (Novolog Flexpen) 0 units SC 0000,[id number] [facility] Stop: 09/25/19 04:01 Lidocaine (Lidoderm 5%) 1 patch TD QAM [facility] Stop: 10/24/19 04:29 Last Admin: 09/24/19 05:01 Dose: 1 patch Documented by: Miscellaneous (Carbohydrates For Hypoglycemia) 15 - 30 gm PO UD PRN PRN Reason: Hypoglycemia Treatment Stop: 10/24/19 02:29 Miscellaneous (Remove Lidoderm Patch) 1 ea N/A DAILY@2100 [facility] Stop: 10/24/19 16:29 Last Admin: 09/24/19 17:13 Dose: 1 ea Documented by: Miscellaneous Information (Consult Glycemic Management Pharmacy) 1 ea N/A UD PRN PRN Reason: Consult Stop: 10/24/19 07:43 Morphine Sulfate (Morphine Sulfate) 4 mg IV Q4H PRN PRN Reason: Pain Stop: 10/08/19 03:51 Last Admin: 09/24/19 18:22 Dose: 4 mg Documented by: Nitroglycerin (Nitrostat) 0.4 mg SL UD PRN PRN Reason: Chest Pain Stop: 10/24/19 03:51 Pantoprazole Sodium (Protonix) 40 mg PO BID [facility] Stop: 10/24/19 20:59 Sertraline HCl (Zoloft) 50 mg PO QPM [facility] Stop: 10/24/19 20:59 Tramadol HCl (Ultram) 25 - 50 mg PO Q4H PRN PRN Reason: Pain Stop: 10/24/19 03:51 Last Admin: 09/24/19 04:19 Dose: 50 mg Documented by:
[2019-09-24] MEDS: SERTRALINE HCL 50 MG TABLET PO SCH (20:32)
[2019-09-24] MEDS: PANTOprazole 40 MG TAB PO SCH (20:32)
[2019-09-24] MEDS: PNEUMOCOCCAL Polysaccharide Vaccine 25mcg/0.5mL vial/Syr IM ONE (23:39)
--- NOTE | 2019-09-25 02:19 | Emergency Department Note ---
Entered by Dorothea Hammond acting as a scribe for Kayla Briseno DO History of Present Illness General Chief complaint: Hyperglycemia Stated complaint: NAUSEA,BLACK STOOL,DIABETES,HIGH BS Time Seen by Provider: 09/23/19 21:16 Source: patient and family () History of Present Illness Onset (ago): day(s) 1 Location: abdomen (hyperglycemia) Maximum Pain Intensity: 10 Associated symptoms: + denies other symptoms (vomiting, abdominal pain, vomiting, abdominal bloating and distension), + diaphoresis (intermittent), + fever/chills (intermittent chills, fever began today (Tmax of 100.1)), + loss of appetite, + weakness and + other (heartburn and belching 1 day ago, incresed thirst, weight loss (40 lbs in 1.5 mo), vision changes, intermittent dizziness and lightheadedness, nausea, constipation, back pain); no chest pain and no shortness of breath The patient is a 63 year old male with a history of DM2 who presents to the Emergency Room with complaints of hyperglycemia. The patient's reports that the patient experienced melena 1 day ago and had a blood glucose of 355. states his last A1C was the highest that it has ever been. Additionally, the patient began to experience severe heartburn 1 day ago associated with belching. The patient reports recent increased thirst, weakness, loss of appetite, and weight loss (40 lbs lost in the last 1.5 months). His states that he looks "aged" and that his eyesight has not been "normal" lately. The patient also complains of recent intermittent lightheadedness, dizziness, diaphoresis, chills, and constipation. states that he began to run a fever today (Tmax 100.1 degrees at home) associated with nausea. He states that PO exacerbates his nausea. However, he was able to eat a sugar free popsicle and ice cream today without vomiting. Of note, the patient has been taking Pepto Bismol and Mylanta for relief of his nausea and constipation. He also has spinal surgery for a ruptured L4 and L5 scheduled in 4 days at [facility]. He has been in constant pain due to the rupture and has taken Tramadol (last week) and now Hydrocodone for pain. He denies abdominal pain, chest pain, shortness of breath, vomiting, and abdominal bloating or distension. Home Medications Home Medications Medication Instructions Recorded Confirmed Type aspirin [Aspirin Low Dose] 81 mg PO QPM 09/23/19 09/23/19 History celecoxib 200 mg PO BID 09/23/19 09/23/19 History gabapentin 300 mg PO DIRECTED 09/23/19 09/23/19 History linagliptin [Tradjenta] 5 mg PO QPM 09/23/19 09/23/19 History metformin 1,000 mg PO DAILY 09/23/19 09/23/19 History sertraline 50 mg PO QPM 09/23/19 09/23/19 History Allergies Allergy/AdvReac Type Severity Reaction Status Date / Time No Known Allergies Allergy Unverified 09/23/19 22:05 Past Med/Surg History Medical History Arthritis Bone spur Diabetes Gout Ruptured lumbar disc Varicose vein of leg Surgical History H/O vein stripping S/P herniorrhaphy Family History Other Cancer Diabetes Heart disease Hypertension Social History Preferred Language: Urdu Communication Ability: Effective Visual Impairment: No Limitations Hearing Ability: Normal Beliefs That Will Affect Care: None marital status: Current Living Situation: Spouse current occupational status: employed Other Information That Helps Us Care for You: No Feels Safe at Home: Yes Safety Concerns: Feels Safe At This Time Smoking Status: Former smoker Hx Alcohol Use: No Hx Substance Use: No Review of Systems See HPI for pertinent positives & negatives. and A total of 10 systems reviewed and were otherwise negative Physical Exam Vital Signs Vital Signs - 24 hr 09/24/19 02:15 09/24/19 02:30 Pulse Rate 125 H 120 H Pulse Rate from SpO2 Sensor 120 H Respiratory Rate 21 18 Blood Pressure 119/80 118/80 Blood Pressure Mean 89 94 Pulse Oximetry 94 93 Oxygen Delivery Method Room Air Room Air GENERAL: alert, well appearing, well nourished, no distress, non-toxic EYE EXAM: normal conjunctiva, PERRL and EOM's grossly intact OROPHARYNX: no exudate, no erythema, lips, buccal mucosa, and tongue normal and mucous membranes are mildly dry. NECK: supple, no nuchal rigidity, no adenopathy, non-tender LUNGS: Clear to auscultation. Normal chest wall mechanics, no w/r/r HEART: no murmurs, S1 normal and S2 normal, tachycardic rate. ABDOMEN: abdomen soft, non-tender, normo-active bowel sounds, no masses, no rebound or guarding. BACK: Back is symmetrical on inspection and there is no deformity, no midline tenderness, no CVA tenderness. SKIN: no rashes and no bruising UPPER EXTREMITIES: upper extremities are grossly normal. FROM, nml pulses b/l. LOWER EXTREMITIES: No pitting edema. FROM, nml pulses b/l. NEURO EXAM: Normal sensorium, cranial nerves II-XII grossly intact, normal speech, no gross weakness of arms, no gross weakness of legs. Course Course 2120: Past medical records reviewed. The patient was evaluated in room B09. A complete history and physical exam was performed. 2129: Rectal exam revealed heme positive melena. 2200: I checked on the patient and updated him on results. Patient still ta chycardic, although reports feeling slightly improved. 2304: I checked on the patient and updated him on test results. He is currently tachycardic at 128 bpm. 0010: I re-checked the patient and updated him on test results. He states that he is feeling improved. I am still waiting on his repeat BMP due to very mild DKA noted initially. 0138: [facility]. Administered Medications Insulin Aspart (Novolog Flexpen) 0 units SC ACHS [facility] Stop: 10/24/19 20:59 Last Admin: 09/24/19 21:14 Dose: Not Given Documented by: [id number] Cosigned by: [id number] Insulin Aspart (Novolog Flexpen) 0 units SC 0000,0400 [facility] Stop: 09/25/19 04:01 Last Admin: 09/24/19 23:36 Dose: 2 units Documented by: [id number] Cosigned by: [id number] Lidocaine (Lidoderm 5%) 1 patch TD QAM [facility] Stop: 10/24/19 04:29 Last Admin: 09/24/19 05:01 Dose: 1 patch Documented by: [id number] Miscellaneous (Remove Lidoderm Patch) 1 ea N/A DAILY@2100 [facility] Stop: 10/24/19 16:29 Last Admin: 09/24/19 17:13 Dose: 1 ea Documented by: [id number] Morphine Sulfate (Morphine Sulfate) 4 mg IV Q4H PRN PRN Reason: Pain Stop: 10/08/19 03:51 Last Admin: 09/24/19 22:28 Dose: 4 mg Documented by: [id number] Admin: 09/24/19 18:22 Dose: 4 mg Documented by: [id number] Admin: 09/24/19 14:01 Dose: 4 mg Documented by: [id number] Admin: 09/24/19 08:52 Dose: 4 mg Documented by: [id number] Admin: 09/24/19 05:08 Dose: 4 mg Documented by: [id number] Pantoprazole Sodium (Protonix) 40 mg PO BID [facility] Stop: 10/24/19 20:59 Last Admin: 09/24/19 20:32 Dose: 40 mg Documented by: [id number] Sertraline HCl (Zoloft) 50 mg PO QPM [facility] Stop: 10/24/19 20:59 Last Admin: 09/24/19 20:32 Dose: 50 mg Documented by: [id number] Tramadol HCl (Ultram) 25 - 50 mg PO Q4H PRN PRN Reason: Pain Stop: 10/24/19 03:51 Last Admin: 09/24/19 04:19 Dose: 50 mg Documented by: [id number] Discontinued Medications Famotidine (Pepcid 20mg Iv Push) 20 mg IV ONE STA Stop: 09/23/19 21:51 Last Admin: 09/23/19 22:05 Dose: 20 mg Documented by: [id number] Fentanyl Citrate (Fentanyl Citrate) 50 mcg IV Q15M PRN PRN Reason: Pain Stop: 10/07/19 23:43 Last Admin: 09/24/19 00:36 Dose: 50 mcg Documented by: [id number] Admin: 09/24/19 00:12 Dose: 50 mcg Documented by: [id number] Sodium Chloride (Nss 1000ml) 1,000 mls @ 999 mls/hr IV .Q1H1M ONE Stop: 09/23/19 22:50 Last Infusion: 09/23/19 22:47 Dose: 0 mls/hr Documented by: [id number] Admin: 09/23/19 21:52 Dose: 999 mls/hr Documented by: [id number] Pantoprazole Sodium 80 mg/ (Dextrose) 120 mls @ 480 mls/hr IV NOW STA Stop: 09/23/19 22:36 Last Infusion: 09/23/19 23:12 Dose: 0 mls/hr Documented by: [id number] Admin: 09/23/19 22:55 Dose: 480 mls/hr Documented by: [id number] Pantoprazole Sodium 40 mg/ (Dextrose) 100 mls @ 20 mls/hr IV Q5H [facility] Stop: 09/27/19 03:29 Last Infusion: 09/24/19 15:23 Dose: 0 mls/hr Documented by: [id number] Admin: 09/24/19 09:37 Dose: 20 mls/hr Documented by: [id number] Infusion: 09/24/19 09:16 Dose: 20 mls/hr Documented by: [id number] Admin: 09/24/19 04:16 Dose: 20 mls/hr Documented by: [id number] Infusion: 09/24/19 04:16 Dose: 20 mls/hr Documented by: [id number] Admin: 09/23/19 23:43 Dose: 20 mls/hr Documented by: [id number] Sodium Chloride (Nss 1000ml) 1,000 mls @ 999 mls/hr IV .Q1H1M ONE Stop: 09/24/19 00:04 Last Infusion: 09/24/19 00:31 Dose: 0 mls/hr Documented by: [id number] Admin: 09/23/19 23:43 Dose: 999 mls/hr Documented by: [id number] Lactated Ringer's (Lr) 1,000 mls @ 500 mls/hr IV .Q2H ONE Stop: 09/24/19 03:39 Last Infusion: 09/24/19 04:05 Dose: 0 mls/hr Documented by: [id number] Admin: 09/24/19 01:57 Dose: 500 mls/hr Documented by: [id number] Insulin Human Regular 250 (units/ Sodium Chloride) 250 mls @ 3.8 mls/hr IV .Q24H [facility]; Protocol Stop: 09/24/19 19:00 Last Titration: 09/24/19 19:10 Dose: 0 units/hr, 0 mls/hr Documented by: [id number] Cosigned by: [id number] Titration: 09/24/19 19:10 Dose: 0 units/hr, 0 mls/hr Documented by: [id number] Cosigned by: [id number] Titration: 09/24/19 18:14 Dose: 3.8 units/hr, 3.8 mls/hr Documented by: [id number] Cosigned by: [id number] Titration: 09/24/19 17:17 Dose: 3.8 units/hr, 3.8 mls/hr Documented by: [id number] Cosigned by: [id number] Titration: 09/24/19 16:11 Dose: 3.8 units/hr, 3.8 mls/hr Documented by: [id number] Cosigned by: [id number] Titration: 09/24/19 15:13 Dose: 3.2 units/hr, 3.2 mls/hr Documented by: [id number] Cosigned by: [id number] Titration: 09/24/19 12:00 Dose: 2.7 units/hr, 2.7 mls/hr Documented by: [id number] Cosigned by: [id number] Titration: 09/24/19 11:11 Dose: 2.7 units/hr, 2.7 mls/hr Documented by: [id number] Cosigned by: [id number] Titration: 09/24/19 10:11 Dose: 3.4 units/hr, 3.4 mls/hr Documented by: [id number] Cosigned by: [id number] Titration: 09/24/19 08:58 Dose: 2.8 units/hr, 2.8 mls/hr Documented by: [id number] Cosigned by: [id number] Titration: 09/24/19 08:10 Dose: 2.8 units/hr, 2.8 mls/hr Documented by: [id number] Cosigned by: [id number] Titration: 09/24/19 07:05 Dose: 2.3 units/hr, 2.3 mls/hr Documented by: [id number] Cosigned by: [id number] Titration: 09/24/19 06:01 Dose: 2.3 units/hr, 2.3 mls/hr Documented by: [id number] Cosigned by: [id number] Titration: 09/24/19 05:02 Dose: 2.3 units/hr, 2.3 mls/hr Documented by: [id number] Cosigned by: [id number] Titration: 09/24/19 03:59 Dose: 2.3 units/hr, 2.3 mls/hr Documented by: [id number] Cosigned by: [id number] Admin: 09/24/19 03:03 Dose: 1.9 units/hr, 1.9 mls/hr Documented by: [id number] Cosigned by: [id number] Magnesium Sulfate/Dextrose (Magnesium Sulfate / D5w) 1 gm in 100 mls @ 100 mls/hr IV ONE ONE Stop: 09/24/19 02:49 Last Admin: 09/24/19 02:10 Dose: Not Given Documented by: [id number] Sodium Chloride (Nss 1000ml) 1,000 mls @ 999 mls/hr IV .Q1H1M ONE Stop: 09/24/19 05:00 Last Infusion: 09/24/19 05:16 Dose: 0 mls/hr Documented by: [id number] Admin: 09/24/19 04:12 Dose: 999 mls/hr Documented by: [id number] Potassium Chloride 40 meq/ (Sodium Chloride) 1,020 mls @ 100 mls/hr IV .[id number] [facility] Stop: 10/24/19 05:59 Last Infusion: 09/24/19 09:38 Dose: 0 mls/hr Documented by: [id number] Admin: 09/24/19 05:15 Dose: 100 mls/hr Documented by: [id number] Lactated Ringer's (Lr) 1,000 mls @ 150 mls/hr IV .Q6H40M [facility] Stop: 10/24/19 08:14 Last Infusion: 09/24/19 19:10 Dose: 0 mls/hr Documented by: [id number] Infusion: 09/24/19 19:09 Dose: 0 mls/hr Documented by: [id number] Admin: 09/24/19 17:13 Dose: 150 mls/hr Documented by: [id number] Infusion: 09/24/19 15:14 Dose: 150 mls/hr Documented by: [id number] Admin: 09/24/19 08:33 Dose: 150 mls/hr Documented by: [id number] Insulin Aspart (Novolog Flexpen) 0 units SC ACHS [facility] Stop: 09/24/19 20:30 Last Admin: 09/24/19 17:32 Dose: 2 units Documented by: [id number] Cosigned by: [id number] Admin: 09/24/19 13:05 Dose: Not Given Documented by: [id number] Cosigned by: [id number] Admin: 09/24/19 08:32 Dose: Not Given Documented by: [id number] Cosigned by: [id number] Insulin Glargine (Lantus Solostar Pen) 15 units SC ONE ONE; Protocol Stop: 09/24/19 08:16 Last Admin: 09/24/19 08:40 Dose: 15 units Documented by: [id number] Cosigned by: [id number] Insulin Glargine (Lantus Solostar Pen) 15 units SC ONE ONE; Protocol Stop: 09/24/19 12:46 Last Admin: 09/24/19 14:03 Dose: 15 units Documented by: [id number] Cosigned by: [id number] Insulin Human Regular (Novolin R U-100 Per Unit) 10 units SC NOW STA Stop: 09/23/19 22:28 Last Admin: 09/23/19 22:46 Dose: 10 units Documented by: [id number] Cosigned by: [id number] Insulin Human Regular (Novolin R U-100 Per Unit) 10 units SC NOW STA Stop: 09/24/19 01:04 Last Admin: 09/24/19 01:39 Dose: Not Given Documented by: [id number] Insulin Human Regular (Novolin R Bolus From Bag) 2 units IV ONE ONE Stop: 09/24/19 02:01 Last Admin: 09/24/19 03:03 Dose: 2 units Documented by: [id number] Cosigned by: [id number] Ioversol (Optiray 320 100ml) 100 ml IV ONCE PRN PRN Reason: Interaction Checking Stop: 09/27/19 23:22 Last Admin: 09/23/19 23:23 Dose: 94 ml Documented by: [id number] Lidocaine HCl (Xylocaine 2%) Confirm Administered Dose 4 ml INFIL .STK-MED ONE Stop: 09/24/19 13:05 Last Admin: 09/24/19 15:35 Dose: Not Given Documented by: [id number] Magnesium Sulfate/Dextrose (Magnesium Sulfate / D5w) Confirm Administered Dose 1 gm IV .STK-MED ONE Stop: 09/24/19 02:00 Last Admin: 09/24/19 02:03 Dose: 1 gm Documented by: [id number] Miscellaneous (Insulin Protocol Goal Range) 1 ea N/A ONE STA Stop: 09/24/19 01:52 Last Admin: 09/24/19 03:07 Dose: Not Given Documented by: [id number] Miscellaneous (Insulin Protocol Moderate Stress Level) 1 ea N/A ONE STA Stop: 09/24/19 01:52 Last Admin: 09/24/19 03:07 Dose: Not Given Documented by: [id number] Miscellaneous Information (Dc Iv Insulin Infusion) 1 ea N/A ONE ONE Stop: 09/24/19 19:01 Last Admin: 09/24/19 19:08 Dose: 1 ea Documented by: [id number] Pneumococcal Polyvalent Vaccine (Pneumovax-23) 25 mcg IM .ONCE ONE Stop: 09/24/19 04:31 Last Admin: 09/24/19 23:39 Dose: Not Given Documented by: [id number] Potassium Chloride (Klor-Con M20) 40 meq PO NOW STA Stop: 09/24/19 01:43 Last Admin: 09/24/19 02:03 Dose: 40 meq Documented by: [id number] Propofol (Diprivan) Confirm Administered Dose 400 mg IV .STK-MED ONE Stop: 09/24/19 13:05 Last Admin: 09/24/19 15:35 Dose: Not Given Documented by: [id number] Critical Care Time Critical Care Time: Yes Total Critical Care Time: 45 I have personally spent 45 minutes of critical care time in the direct management of this patient. This includes bedside care, interpretation of diagnostic studies, and testing, discussion with consultants, patient, and family members, and other required patient management activities. This 45 minutes is in excess of all separately billable procedures. Medical Decision Making Differential Diagnosis Differential diagnosis includes but is not limited to etiologies such as metabolic, infection, hypo/hyperglycemia, electrolyte abnormalities, cardiac sources, intracerebral event, toxicologic, neurologic, as well as others were entertained. Medical Records Attestation: I reviewed the patient's medical records. Home Medications Current Medication List: was personally reviewed by me Laboratory Data Attestation: I reviewed the patient's lab results. Result diagrams: 09/24/19 08:14 09/24/19 08:14 Lab Results 09/23/19 09/23/19 09/23/19 Range/Units 20:58 21:25 21:25 WBC 7.93 (4.8-10.8) K/uL RBC 3.73 L (4.7-6.1) M/uL Hgb 11.4 L (14.0-18.0) g/dL Hct 33.8 L (42-52) % MCV 90.6 (80-100) fL MCH 30.6 (25-34) pg MCHC 33.7 (32-36) g/dL RDW Std Deviation 43.4 (36.4-46.3) fL RDW Coeff of Justin 13.1 (11.5-14.5) % Plt Count 176 (130-400) K/uL MPV 12.5 H (7.4-10.4) fL Immature Gran % (Auto) 0.9 % Neut % (Auto) 74.3 % Lymph % (Auto) 18.7 % [place] % (Auto) 5.7 % Eos % (Auto) 0.0 % Baso % (Auto) 0.4 % Immature Gran # (Auto) 0.07 H (0.00-0.02) K/uL Neut # (Auto) 5.90 (1.4-6.5) K/uL Lymph # (Auto) 1.48 (1.2-3.4) K/uL [place] # (Auto) 0.45 (0.11-0.59) K/uL Eos # (Auto) 0.00 (0-0.5) K/uL Baso # (Auto) 0.03 (0-0.2) K/uL Sodium 136 (136-145) mmol/L Potassium 3.9 (3.5-5.1) mmol/L Chloride 103 (98-107) mmol/L Carbon Dioxide 19 L (21-32) mmol/L Anion Gap 14.0 H (3-11) BUN 55 H (7-18) mg/dl Creatinine 1.07 (0.6-1.4) mg/dl Est Cr Clr Drug Dosing 69.5 ml/min Est GFR ( Amer) 86.4 Est GFR (Non-Af Amer) 74.5 BUN/Creatinine Ratio 51.1 H (10-20) Glucose 606 H* (70-99) mg/dl POC Glucose 583 H* (70-99) Calcium 9.5 (8.5-10.1) mg/dl Magnesium 1.8 (1.8-2.4) mg/dl Total Bilirubin 0.4 (0.2-1) mg/dl AST 6 L (15-37) U/L ALT 17 (12-78) U/L Alkaline Phosphatase 36 L (45-117) U/L Troponin I < 0.015 (0-0.045) ng/ml NT-Pro-B Natriuret Pep 40 (0-900) pg/ml Total Protein 6.7 (6.4-8.2) gm/dl Albumin 3.1 L (3.4-5.0) gm/dl Globulin 3.6 (2.5-4.0) gm/dl Albumin/Globulin Ratio 0.9 (0.9-2) Lipase 116 (73-393) U/L Beta-Hydroxybutyric Acd 15.30 H (0.2-2.81) mg/dl TSH (0.300-4.500) uIu/ml Urine Color Urine Appearance (Clear) Urine pH (4.5-7.5) Ur Specific [place] (1.000-1.030) Urine Protein (Negative) Urine Glucose (UA) (Negative) Urine Ketones (Negative) Urine Blood (Negative) Urine Nitrite (Negative) Urine Bilirubin (Negative) Urine Urobilinogen (Negative) Ur Leukocyte Esterase (Negative) Blood Type Antibody Screen 09/23/19 09/23/19 09/23/19 Range/Units 21:39 21:57 23:39 WBC (4.8-10.8) K/uL RBC (4.7-6.1) M/uL Hgb (14.0-18.0) g/dL Hct (42-52) % MCV (80-100) fL MCH (25-34) pg MCHC (32-36) g/dL RDW Std Deviation (36.4-46.3) fL RDW Coeff of Justin (11.5-14.5) % Plt Count (130-400) K/uL MPV (7.4-10.4) fL Immature Gran % (Auto) % Neut % (Auto) % Lymph % (Auto) % [place] % (Auto) % Eos % (Auto) % Baso % (Auto) % Immature Gran # (Auto) (0.00-0.02) K/uL Neut # (Auto) (1.4-6.5) K/uL Lymph # (Auto) (1.2-3.4) K/uL [place] # (Auto) (0.11-0.59) K/uL Eos # (Auto) (0-0.5) K/uL Baso # (Auto) (0-0.2) K/uL Sodium (136-145) mmol/L Potassium (3.5-5.1) mmol/L Chloride (98-107) mmol/L Carbon Dioxide (21-32) mmol/L Anion Gap (3-11) BUN (7-18) mg/dl Creatinine (0.6-1.4) mg/dl Est Cr Clr Drug Dosing ml/min Est GFR ( Amer) Est GFR (Non-Af Amer) BUN/Creatinine Ratio (10-20) Glucose (70-99) mg/dl POC Glucose 448 H* (70-99) Calcium (8.5-10.1) mg/dl Magnesium (1.8-2.4) mg/dl Total Bilirubin (0.2-1) mg/dl AST (15-37) U/L ALT (12-78) U/L Alkaline Phosphatase (45-117) U/L Troponin I (0-0.045) ng/ml NT-Pro-B Natriuret Pep (0-900) pg/ml Total Protein (6.4-8.2) gm/dl Albumin (3.4-5.0) gm/dl Globulin (2.5-4.0) gm/dl Albumin/Globulin Ratio (0.9-2) Lipase (73-393) U/L Beta-Hydroxybutyric Acd (0.2-2.81) mg/dl TSH (0.300-4.500) uIu/ml Urine Color Yellow Urine Appearance Clear (Clear) Urine pH 5.0 (4.5-7.5) Ur Specific [place] 1.035 H (1.000-1.030) Urine Protein Negative (Negative) Urine Glucose (UA) 3+ H (Negative) Urine Ketones 1+ H (Negative) Urine Blood Negative (Negative) Urine Nitrite Negative (Negative) Urine Bilirubin Negative (Negative) Urine Urobilinogen Negative (Negative) Ur Leukocyte Esterase Negative (Negative) Blood Type A Positive Antibody Screen NEGATIVE 09/24/19 09/24/19 09/24/19 Range/Units 00:08 01:12 02:25 WBC (4.8-10.8) K/uL RBC (4.7-6.1) M/uL Hgb (14.0-18.0) g/dL Hct (42-52) % MCV (80-100) fL MCH (25-34) pg MCHC (32-36) g/dL RDW Std Deviation (36.4-46.3) fL RDW Coeff of Justin (11.5-14.5) % Plt Count (130-400) K/uL MPV (7.4-10.4) fL Immature Gran % (Auto) % Neut % (Auto) % Lymph % (Auto) % [place] % (Auto) % Eos % (Auto) % Baso % (Auto) % Immature Gran # (Auto) (0.00-0.02) K/uL Neut # (Auto) (1.4-6.5) K/uL Lymph # (Auto) (1.2-3.4) K/uL [place] # (Auto) (0.11-0.59) K/uL Eos # (Auto) (0-0.5) K/uL Baso # (Auto) (0-0.2) K/uL Sodium 139 (136-145) mmol/L Potassium 3.8 (3.5-5.1) mmol/L Chloride 108 H (98-107) mmol/L Carbon Dioxide 21 (21-32) mmol/L Anion Gap 10.0 (3-11) BUN 45 H (7-18) mg/dl Creatinine 1.03 (0.6-1.4) mg/dl Est Cr Clr Drug Dosing 72.2 ml/min Est GFR ( Amer) 90.4 Est GFR (Non-Af Amer) 78.0 BUN/Creatinine Ratio 43.3 H (10-20) Glucose 411 H* (70-99) mg/dl POC Glucose 353 H* 359 H* (70-99) Calcium 8.5 (8.5-10.1) mg/dl Magnesium (1.8-2.4) mg/dl Total Bilirubin (0.2-1) mg/dl AST (15-37) U/L ALT (12-78) U/L Alkaline Phosphatase (45-117) U/L Troponin I (0-0.045) ng/ml NT-Pro-B Natriuret Pep (0-900) pg/ml Total Protein (6.4-8.2) gm/dl Albumin (3.4-5.0) gm/dl Globulin (2.5-4.0) gm/dl Albumin/Globulin Ratio (0.9-2) Lipase (73-393) U/L Beta-Hydroxybutyric Acd 5.47 H (0.2-2.81) mg/dl TSH 1.890 (0.300-4.500) uIu/ml Urine Color Urine Appearance (Clear) Urine pH (4.5-7.5) Ur Specific [place] (1.000-1.030) Urine Protein (Negative) Urine Glucose (UA) (Negative) Urine Ketones (Negative) Urine Blood (Negative) Urine Nitrite (Negative) Urine Bilirubin (Negative) Urine Urobilinogen (Negative) Ur Leukocyte Esterase (Negative) Blood Type Antibody Screen Imaging Data Radiologist's Impression: Radiology results as stated below per my review and the radiologist's interpretation: CT ABDOMEN & PELVIS With Contrast: No evidence of colitis, diverticulitis, appendicitis or bowel obstruction. No radiodense gallstones or pancreatitis. Kidneys are unremarkable. Radiologist: Wisam Jha M.D. Study ready at 23:29 and initial results transmitted at 00:00 ECG Data Attestation: I personally reviewed and interpreted this ECG as follows: Indication: + other (hyperglycemia) Rate (beats per minute): 127 Rhythm: + sinus tachycardia ECG [place]: + Left axis deviation ECG Findings: + Other (normal intervals, no acute ischemic changes) Blood Pressure Blood Pressure Findings: Normal blood pressure MDM Narrative Patient presenting here due to concerns for outpatient labs which showed hyperglycemia. Patient's checks at home have revealed elevated levels as well. Patient also admits to recent nausea, fatigue, and slight dyspnea with exertion. Patient does use a daily anti-inflammatory for his chronic back pain as well as daily aspirin. Patient stated he had had black stools recently that he felt were likely from Pepto-Bismol, rectal exam at bedside was heme positive. Due to use of anti-inflammatories, I have a high suspicion for an upper GI bleed. Patient given Protonix bolus and started on a drip. BUN abnormally elevated compared to creatinine consistent with this also. Patient in no prior history of GI bleed and no significant GI past medical history. CT of the patient's abdomen and pelvis was otherwise unremarkable for acute pathology including active bleeding. Patient's initial glucose here greater than 600 with a very small element of anion gap. Patient was given insulin subcu and IV f luids here and a repeat BMP showed resolution of his anion gap and marked improvement of his hyperglycemia. Patient's heart rate did slowly improve although he remained persistently tachycardic while in the emergency room. Patient's H&H were well-appearing on initial draw, however these are lower than the priors that I was able to see in the EMR. I do not feel patient required an insulin drip given his quick resolution of anion gap and improved hyperglycemia. Patient had a type and screen sent in case he would need blood transfusion. I did not feel that was warranted emergently in the emergency room. Case discussed with hospitalist for additional evaluation and management. Patient was otherwise hemodynamically stable. I feel likely the evolution of the patient's GI bleed probably contributed to the evolution of very mild DKA. Impression & Plan GI bleed, Hyperglycemia, Weakness, Tachycardia Discharge Plan Visit Data *Final* Discharge Date/Time: 09/24/19 03:16 Chief Complaint: Hyperglycemia Stated Complaint: NAUSEA,BLACK STOOL,DIABETES,HIGH BS ED Provider: Kayla Briseno Discharge Problem: GI bleed, Hyperglycemia, Weakness, Tachycardia Patient Disposition: Admitted As Inpatient Discharge Instructions Interventions: ED Discharge Assessment Last Done: 09/24/19 03:16 Discharge Problem: GI bleed Qualifiers: GI bleed type/associated pathology: unspecified gastrointestinal hemorrhage type Qualified Code(s): K92.2 - Gastrointestinal hemorrhage, unspecified The scribe's documentation has been prepared under my direction and personally reviewed by me in its entirety. I confirm that the note above accurately reflects all work, treatment, procedures, and medical decision making performed by me.
[2019-09-25] MEDS: INSULIN ASPART 100 UNITS/ML 3 ML PEN SC SCH ×5 (04:11→21:30)
[2019-09-25] MEDS: ACETAMINOPHEN 325 MG TAB PO PRN ×2 (05:46→19:58)
[2019-09-25 07:37] LABS: Basophils # (auto) 0.04 K/uL (0-0.2); Basophils % (auto) 0.7 %; Eosinophils # (auto) 0.19 K/uL (0-0.5); Eosinophils % (auto) 3.2 %; Hematocrit (blood only) 23.5 % (42-52); Hemoglobin 7.8 g/dL (14.0-18.0); Immature Granulocytes # (auto) 0.02 K/uL (0.00-0.02); Immature Granulocytes % (auto) 0.3 %; Lymphocytes # (auto) 1.77 K/uL (1.2-3.4); Lymphocytes % (auto) 29.9 %; Mean Corpuscular Hemoglobin 30.7 pg (25-34); Mean Corpuscular Hgb Conc 33.2 g/dL (32-36); Mean Corpuscular Volume 92.5 fL (80-100); Mean Platelet Volume 11.3 fL (7.4-10.4); Monocytes # (auto) 0.47 K/uL (0.11-0.59); Monocytes % (auto) 7.9 %; Neutrophils # (auto) 3.43 K/uL (1.4-6.5); Platelet Count 142 K/uL (130-400); RDW Coefficient of Variation 13.3 % (11.5-14.5); RDW Standard Deviation 44.8 fL (36.4-46.3); Red Blood Count 2.54 M/uL (4.7-6.1); White Blood Count 5.92 K/uL (4.8-10.8)
[2019-09-25] MEDS: LIDOCAINE 5% 1 PATCH TD SCH (07:45)
[2019-09-25] MEDS: PNEUMOCOCCAL Polysaccharide Vaccine 25mcg/0.5mL vial/Syr IM ONE (07:46)
[2019-09-25 07:56] LABS: RBC Morphology Unremarkable
[2019-09-25 08:16] LABS: BUN Creatinine Ratio 27.9 (10-20); Est GFR (African American) 124.1; Est GFR (Non-African American) 107.1; Potassium 3.4 mmol/L (3.5-5.1)
[2019-09-25] MEDS: PANTOprazole 40 MG TAB PO SCH ×2 (08:48→21:04)
[2019-09-25] MEDS ORDERED: INSULIN GLARGINE SOLOSTAR 100 UNITS/ML 3 ML PEN SC SCH (09:00)
--- NOTE | 2019-09-25 10:15 | Pharmacy Report ---
Pharmacy Glycemic Short Note 2 - Date of Service September 25, 2019 - Glycemic Short BSG Results (Last 24 hours): 09/24/19 09/24/19 09/24/19 10:10 11:04 12:02 Glucose POC Glucose 218 H 180 H 170 H 09/24/19 09/24/19 09/24/19 13:04 13:59 15:05 Glucose POC Glucose 159 H 151 H 189 H 09/24/19 09/24/19 09/24/19 16:07 16:58 18:15 Glucose POC Glucose 192 H 143 H 147 H 09/24/19 09/24/19 09/25/19 20:00 23:33 04:03 Glucose POC Glucose 135 H 216 H 202 H 09/25/19 09/25/19 07:11 08:24 Glucose 218 H POC Glucose 273 H ASSESSMENT: 09/25: * Patient transitioned off insulin drip last evening - correctional insulin added overnight. * Fasting BSG this am 218 mg/dL - received 30 units of basal insulin yesterday; will slightly decrease to 25 units this morning which is a stress of 2 full dose. A1C elevated on admission, therefore more conservative with dosing. BSG taken later in morning 273 mg/dL - will give additional 10 units of basal this morning * Tighten CF/CR with lunch time check - BSGs 250s - add overnight checks 09/24: * 63 y/o male admitted for GIB and mild DKA. On admission: AG 14, bicarb 19 and BSG 600. Insulin drip was initiated. Spoke with Dr. Elaine this morning when glycemic consult received, as patient appropriate to start transition to SQ. Unable to go off of drip data this AM and patient NPO so gave 0.2 units/kg of basal insulin initially. BSG at noon remained elevated so gave another 0.2 units/kg dose to total insulin calculator estimates using weight and stress of 2. * Patient anxious to get off the drip because he's having trouble sleeping with frequent BSG checks. * Not attempting to be overly aggressive with glycemic control as A1c is so elevated. PLAN FOR INPATIENT GLYCEMIC CONTROL: * Basal insulin * Lantus 35 total this morning * Bolus insulin - tighten * NovoLog per scale ACHS + 00, 04 * Goal Range: Low 140 mg/dL - High 180 mg/dL * Correction Factor: 20 mg/dL/unit * Nutritional / Prandial insulin per carb ratio of 1 unit per 7 grams CHO consumed PLAN FOR DISCHARGE: * A1c = 14% on 09/24/19 * A reasonable A1C goal for many non- adults is A1c less than 7% * A1C value may be falsely high in patients with anemia. Patient also reports recent prednisone use which also could be contributing to A1C value on admission * clinical document improvement educator met with patient and patient reports fasting values usually in lower 100s and rarely >200. Stressed importance of SMBG 3-4x/day post discharge to assist with further diabetes medication adjustments * During hospital admission fasting levels so far have been >200. Patient likely benefit from some basal insulin post discharge. Today only day 1 s/p insulin drip. Will trend BSGs over next day or 2 to determine outpatient needs. Would recommend close followup for titration of dose and more frequent SMBG checks throughout the day outpatient. * Please note that the plan above was derived based on current level of insulin resistance and hospital stress. These recommendations are appropriate for inpatient admission only. Plan of care upon discharge will need to be reassessed to avoid potential outpatient hypo/hyperglycemia. Thank you.
--- NOTE | 2019-09-25 11:10 | Anesthesiology Progress Note ---
Date of Service September 25, 2019 Anesthesia Post Procedure Vital Signs Vital Signs: Temp Pulse Pulse Resp BP Pulse Ox 09/25/19 07:28 36.5 C 115 H 18 137/78 97 09/24/19 22:50 37.0 C 104 H 16 119/75 95 09/24/19 22:38 36.5 C 105 H 20 126/79 98 09/24/19 19:28 37.0 C 89 19 118/80 95 09/24/19 16:00 104 H 09/24/19 15:00 37.0 C 102 H 20 113/75 96 09/24/19 14:26 36.4 C L 103 H 20 106/70 96 09/24/19 14:07 36.6 C 101 H 20 120/81 97 09/24/19 13:45 36.8 C 95 H 20 119/78 98 09/24/19 13:30 95 H 16 109/71 97 09/24/19 13:15 97 H 16 104/71 98 09/24/19 13:00 97 H 16 83/62 L 96 Pain Intensity Back: Pain Intensity: 4 Right Hip: Pain Intensity: 8 Notes Mental Status: alert / awake / arousable and participated in evaluation Patient Amnestic to Procedure: Yes Nausea / Vomiting: adequately controlled Pain: adequately controlled Airway Patency, RR, SpO2: stable & adequate BP & HR: stable & adequate Hydration State: stable & adequate Anesthetic Complications: no major complications apparent
--- NOTE | 2019-09-25 11:30 | Gastroenterology Progress Note ---
Date of Service September 25, 2019 Assessment & Plan (1) Melena: (2) Anemia: (3) Mass of pancreas: Pt is a 63 y/o male admitted for hyperglycemia, symptomatic anemia and melena. Has associated poor appetite and lost 40lbs in last [address] abd/pelvis w contrast showed 4 x 2cm mass in uncinate process of pancreas. EGD 09/24/19: small ulcer in pre-pyloric antrum and also on second portion of duodenum w self limited oozing. Large, clean based ulcer on apex of bulb. + edema and fissuring, scalloping of mucosa on 2nd portion of duodenum but not present on 3rd or 4th portions of duodenum suspect to be related to NSAIDs use, though celiac sprue remains in differential. - Will discuss with primary hospitalist about considering a unit of PRBC transfusion given drop in blood ct and pt feeling fatigues, light headed. VS stable. - Continue Protonix 40mg BID - Closely monitor H/H. - Repeat EGD to eval ulcer healing and EUS to eval pancreas mass to be scheduled in 2-4 week's time to allow ulcer time to heal. - No absolute contraindication for back surgery from our standpoint but would recommend avoidance of NSAIDs. Attg add: I interviewed and examined pt, reviewed chart and labs. Pt with tachycardia, fatigue. He does report improvement in stool color, although remains dark. His BP is stable and BUN is not increased. Will transfuse, follow hgb, and plan for repeat scope if hgb cont to fall. Subjective Pt c/o fatigue, light headed, and having abd pain, lower appetite. Had BM that's not as black/tarry. Noted H/H dropped to 7.8/23.5 but BUN normal now. Review of Systems Review of Systems: All systems reviewed & are unremarkable except as noted in HPI & below Physical Exam Constitutional: WD/WN, vitals as above well groomed and cooperative Eyes: PERRL, conjunctivae normal, anicteric sclerae ENMT: external ear and nose normal, oropharynx normal Respiratory: normal respiratory effort, lungs clear to auscultation Cardiovascular: RRR, no murmur, no edema Gastrointestinal (Abdomen): normal bowel sounds, soft, nontender, no hepatosplenomegaly Skin: no rashes, warm and dry no jaundice Neurologic: Motor/Sensory: no asterixis Psychiatric: A+Ox3, euthymic affect Lymphatic: no lymphedema Results & Data Vital Signs (Past 12 Hours) Vital Signs Temp Pulse Resp BP Pulse Ox 09/25/19 07:28 36.5 C 115 H 18 137/78 97
[2019-09-25] MEDS ORDERED: INSULIN GLARGINE SOLOSTAR 100 UNITS/ML 3 ML PEN SC ONE ×2 (12:45→21:15)
--- NOTE | 2019-09-25 15:17 | Orthopedic Consultation ---
Date of Consultation September 25, 2019 Assessment & Plan (1) Lumbar disc herniation with radiculopathy: At this time he had a discussion with the patient and his reviewing his MRI findings and treatment plan. From a surgical perspective he would require a lumbar laminotomy at L4-5 on the right with partial discectomy to relieve his nerve compression. Unfortunately it would require general aesthetic and an obviously surgical procedure in his current medical condition with a very high risk. I have explained to the patient his that I am available and what is determined that he is safe surgical candidate be more than willing to help him with this problem. They understand and agree. Please notify me if there is any changes in her status. Thank you Present on Admission?: Yes History of Present Illness Reason for Consultation: Right sciatica Attending Physician: Mumtaz Rutherford, History of Present Illness This is a 63-year-old male that unfortunately has had multiple medical issues with concurrent large disc herniation at L4-5 on the right with significant radiculopathy. He was planning to have surgery this week in [place] but unfortunately comes the hospital with bleeding ulcers as well as wildly uncontrolled diabetes. Clearly his current state was exacerbated by his underlying radiculopathy and the medical management associated with it. This point he continues to continue to complain of severe right-sided radiculopathy from the buttock posterior thigh below the knee to the lateral aspect of his lower leg. Is concurrent numbness. He is marked limitations with sleeping and prolonged standing walking. Left lower extremity is asymptomatic. He states he has lost 40 pounds since [place] which coincides with the onset of his radiculopathy. Allergies Allergy/AdvReac Type Severity Reaction Status Date / Time No Known Allergies Allergy Unverified 09/23/19 22:05 Home Medications Home Medications Medication Instructions Recorded Confirmed Type aspirin [Aspirin Low Dose] 81 mg PO QPM 09/23/19 09/23/19 History celecoxib 200 mg PO BID 09/23/19 09/23/19 History gabapentin 300 mg PO DIRECTED 09/23/19 09/23/19 History linagliptin [Tradjenta] 5 mg PO QPM 09/23/19 09/23/19 History metformin 1,000 mg PO DAILY 09/23/19 09/23/19 History sertraline 50 mg PO QPM 09/23/19 09/23/19 History Patient History Medical History Arthritis Bone spur Diabetes Gout Ruptured lumbar disc Varicose vein of leg Surgical History H/O vein stripping S/P herniorrhaphy Family History Other Cancer Diabetes Heart disease Hypertension Social History Preferred Language: Welsh Communication Ability: Effective Visual Impairment: No Limitations Hearing Ability: Normal Beliefs That Will Affect Care: None marital status: Life Partner Current Living Situation: Spouse current occupational status: employed Other Information That Helps Us Care for You: No Feels Safe at Home: Yes Safety Concerns: Feels Safe At This Time Smoking Status: Former smoker Hx Alcohol Use: No Hx Substance Use: No Physical Exam Physical Exam: On exam patient does demonstrate evidence of 4/5 extensor hallucis longus on the right compared to 5 5 on the left. Plantar flexion is 5/5 bilaterally. He is marked tension signs with straight leg raising on the right as well as contralateral signs on the left. There is sensory deficits to the right lower extremity compared to the left. She is in obvious distress throughout her exam. Results & Data Vital Signs (Past 12 Hours) Vital Signs Temp Pulse Resp BP BP Pulse Ox 09/25/19 14:56 36.7 C 134 H 18 108/72 97 09/25/19 07:28 36.5 C 115 H 18 137/78 97
[2019-09-25] MEDS ORDERED: SODIUM CHLORIDE 0.9% 250 ML IV PRN ×3 (15:52→17:15)
[2019-09-25] MEDS: TRAMADOL HCL 50 MG TABLET PO PRN (16:15)
--- NOTE | 2019-09-25 16:20 | Electrocardiogram Report ---
Test Reason : Blood Pressure : / mmHG Vent. Rate : 125 BPM Atrial Rate : 125 BPM P-R Int : 138 ms QRS Dur : 092 ms QT Int : 304 ms P-R-T Axes : 036 -14 025 degrees QTc Int : 438 ms Sinus tachycardia Otherwise normal ECG When compared with ECG of 23-SEP-2019 21:45, Minimal criteria for Anterior infarct are no longer Present No significant change was found Confirmed by Abdiaziz Cunningham ([id number]) on 09/25/2019 4:19:58 PM Referred By: REFERRED SELF Confirmed By:Abdiaziz Cunningham
--- NOTE | 2019-09-25 16:20 | Hospitalist Progress Note ---
Date of Service September 25, 2019 Assessment & Plan (1) Acute blood loss anemia: Trend CBC (2) UGIB (upper gastrointestinal bleed): Recent NSAID use. EGD performed by GI revealed shallow based ulcers that are nonbleeding. Avoid NSAIDs altogether. PPI twice daily. Repeat EGD in the future. Transfuse 2 units today (3) Mass of pancreas: Requires EUS as outpatient, likely in 2 weeks per GI. (4) Ruptured lumbar disc: Ortho spine on case, will try to get surgery done later this week c Dr Baig (5) Tachycardia: Secondary to recent bleed, cardiac output is appropriate. IV fluids, Transfuse q ubits since Hb now 7.8 (6) DKA (diabetic ketoacidoses): Insulin drip with transition to basal bolus insulin today. Will likely need to evaluate the possibility of basal bolus insulin going home. (7) DVT prophylaxis: Labs Checked SCDs Full code Dispo-to home when medically stable Add elavil at HS to help sleep, Pain control c Narcotics, Blood, GI Blood loss anemia sec to UGIB from Bleeding Gastric Ulcers ROS-No Headache, No Visual Changes, No Nausea, No Vomiting, No Fever, No Chills, No Neck Pain or Stiffness, No Chest Pain, No Palpitations, No SOB, No TOTH, No Cough, No Sputum, No Wheezing, No Abdominal Pain, + Diarrhea, No Hematemesis, No Hemoptysis, +Weight Loss, No Flank pain, + Melena, No Hematochezia, No Benny quency, No Urgency, No Burning, No Hematuria, No Rashes, No Diaphoresis. C/O Rapid HR, Not able to sleep, Back and RLE pain, Decreased Appetite, 40 lb weight loss since Aug 11 2017 Physical Exam Gen-AAO x 3, NAD, Depressed, Afebrile, Pale Head-NCAT, EOMI, PERRLA, Anicteric Sclera, No Posterior Pharyngeal Erythema Neck-Supple, No JVD, No Thyromegaly, No Masses, No LAD, No Bruits Lungs-Clear to Auscultation Bilaterally, No Rales, No Rhonchi, No Wheezing, No Crepitus Chest-Tachy, No S4, +S1, +S2, No S3, No Murmurs, No Rubs, No Gallops, No Ectopy Abdomen-Soft, Bowel Sounds Present, Non Tender, Non Distended, No Hepatomegaly, No Splenomegaly, No Palpable Masses, No Rebound, No Rigidity, No Guarding Musculoskeletal-Full Range of Motion Bilaterally, No CVAT Extremities-No Cyanosis, No Clubbing, No Edema Nuero-Cranial Nerves II-XII grossly intact, Motor WNL, DTRs WNL, Strength WNL, Non Focal Psych-Depressed Results & Data Vital Signs (Past 12 Hours) Vital Signs Temp Pulse Resp BP BP Pulse Ox 09/25/19 14:56 36.7 C 134 H 18 108/72 97 09/25/19 07:28 36.5 C 115 H 18 137/78 97
[2019-09-25 16:36] LABS: Hematocrit (blood only) 23.2 % (42-52); Hemoglobin 7.8 g/dL (14.0-18.0)
[2019-09-25] MEDS: AMITRIPTYLINE HCL 25 MG TAB PO SCH (21:04)
[2019-09-25] MEDS: SERTRALINE HCL 50 MG TABLET PO SCH (21:04)
[2019-09-25] MEDS: MoRPHine SULFATE 4 MG/ML 1 ML CARP\\VIAL IV PRN (21:39)
[2019-09-26] MEDS: INSULIN ASPART 100 UNITS/ML 3 ML PEN SC SCH ×7 (00:23→20:59)
[2019-09-26 00:39] LABS: Hematocrit (blood only) 31.2 % (42-52); Hemoglobin 10.3 g/dL (14.0-18.0)
[2019-09-26] MEDS: MoRPHine SULFATE 4 MG/ML 1 ML CARP\\VIAL IV PRN (01:41)
[2019-09-26 06:46] LABS: Hematocrit (blood only) 26.6 % (42-52); Hemoglobin 9.1 g/dL (14.0-18.0); Mean Corpuscular Hemoglobin 30.2 pg (25-34); Mean Corpuscular Hgb Conc 34.2 g/dL (32-36); Mean Corpuscular Volume 88.4 fL (80-100); Nucleated RBC # (auto) 0.04 K/uL (0-0); Nucleated RBC % (auto) 0.7 %; Platelet Count 141 K/uL (130-400); RDW Coefficient of Variation 14.4 % (11.5-14.5); RDW Standard Deviation 45.5 fL (36.4-46.3); Red Blood Count 3.01 M/uL (4.7-6.1); White Blood Count 5.85 K/uL (4.8-10.8)
[2019-09-26] MEDS: NSS + 20MEQ KCL 20 MEQ/1,000 ML BAG IV SCH ×2 (06:53→14:55)
[2019-09-26 07:16] LABS: BUN Creatinine Ratio 32.1 (10-20); Calcium 8.3 mg/dl (8.5-10.1); Creatinine Clr Calc Pharmacy 105.1 ml/min; Est GFR (African American) 118.8; Est GFR (Non-African American) 102.5; Potassium 3.1 mmol/L (3.5-5.1)
[2019-09-26] MEDS: LIDOCAINE 5% 1 PATCH TD SCH (08:21)
[2019-09-26] MEDS: PANTOprazole 40 MG TAB PO SCH ×2 (08:24→21:01)
[2019-09-26] MEDS ORDERED: Nursing to Pharmacy Communication ONE ×2 (08:26→09:02)
--- NOTE | 2019-09-26 08:58 | Hospitalist Progress Note ---
Date of Service September 26, 2019 Assessment & Plan (1) Acute blood loss anemia: Trend CBC, Hb up to 10.3 after 2 units given (2) UGIB (upper gastrointestinal bleed): Recent NSAID use. EGD performed by GI revealed shallow based ulcers that are nonbleeding. Avoid NSAIDs altogether. PPI twice daily. Repeat EGD in the future. Transfused 2 units on 09/25 (3) Mass of pancreas: Requires EUS as outpatient, likely in 2 weeks per GI. (4) Ruptured lumbar disc: Ortho spine on case, will try to get surgery done later this week c Dr Baig, May proceed to OR from IM perspective, Periop Lantus and SSI (5) Tachycardia: Secondary to recent bleed, cardiac output is appropriate. IV fluids, Blood, HR now 106 (6) DKA (diabetic ketoacidoses): Insulin Protocol (7) DVT prophylaxis: Labs Checked SCDs Full code Dispo-to home when medically stable Added elavil at HS to help sleep, Pain control c Narcotics, Blood Given on 09/25, GI Blood loss anemia sec to UGIB from Bleeding Gastric Ulcers ROS-No Headache, No Visual Changes, No Nausea, No Vomiting, No Fever, No Chills, No Neck Pain or Stiffness, No Chest Pain, No Palpitations, No SOB, No TOTH, No Cough, No Sputum, No Wheezing, No Abdominal Pain, + Diarrhea, No Hematemesis, No Hemoptysis, +Weight Loss, No Flank pain, No more Melena, No Hematochezia, No Frequency, No Urgency, No Burning, No Hematuria, No Rashes, No Diaphoresis. Feeling a lot better Physical Exam Gen-AAO x 3, NAD, Depressed, Afebrile, Color is back Head-NCAT, EOMI, PERRLA, Anicteric Sclera, No Posterior Pharyngeal Erythema Neck-Supple, No JVD, No Thyromegaly, No Masses, No LAD, No Bruits Lungs-Clear to Auscultation Bilaterally, No Rales, No Rhonchi, No Wheezing, No Crepitus Chest-Tachy, No S4, +S1, +S2, No S3, No Murmurs, No Rubs, No Gallops, No Ectopy Abdomen-Soft, Bowel Sounds Present, Non Tender, Non Distended, No Hepatomegaly, No Splenomegaly, No Palpable Masses, No Rebound, No Rigidity, No Guarding Musculoskeletal-Full Range of Motion Bilaterally, No CVAT Extremities-No Cyanosis, No Clubbing, No Edema Nuero-Cranial Nerves II-XII grossly intact, Motor WNL, DTRs WNL, Strength WNL, Non Focal Psych-Normal Results & Data Vital Signs (Past 12 Hours) Vital Signs Temp Pulse Pulse Pulse Resp BP BP 09/26/19 07:26 36.8 C 106 H 18 122/75 09/25/19 23:55 100 H 09/25/19 23:50 36.9 C 123 H 16 126/74 09/25/19 23:16 36.6 C 125 H 18 143/86 H 09/25/19 22:44 36.7 C 124 H 18 122/81 09/25/19 21:45 36.7 C 128 H 128 H 18 128/84 128/84 09/25/19 21:27 37 C 125 H 18 115/80 09/25/19 21:13 36.7 C 131 H 18 134/84 Pulse Ox 09/26/19 07:26 96 09/25/19 23:55 09/25/19 23:50 98 09/25/19 23:16 97 09/25/19 22:44 97 09/25/19 21:45 97 09/25/19 21:27 95 09/25/19 21:13 99
[2019-09-26] MEDS ORDERED: INSULIN GLARGINE SOLOSTAR 100 UNITS/ML 3 ML PEN SC SCH ×3 (09:00)
[2019-09-26] MEDS ORDERED: INSULIN GLARGINE SOLOSTAR 100 UNITS/ML 3 ML PEN SC ONE (09:00)
--- NOTE | 2019-09-26 10:04 | Gastroenterology Progress Note ---
Date of Service September 26, 2019 Assessment & Plan (1) Melena: (2) Anemia: (3) Mass of pancreas: Pt is a 63 y/o male admitted for hyperglycemia, symptomatic anemia and melena. Has associated poor appetite and lost 40lbs in last [address] abd/pelvis w contrast showed 4 x 2cm mass in uncinate process of pancreas. EGD 09/24/19: small ulcer in pre-pyloric antrum and also on second portion of duodenum w self limited oozing. Large, clean based ulcer on apex of bulb. + edema and fissuring, scalloping of mucosa on 2nd portion of duodenum but not present on 3rd or 4th portions of duodenum suspect to be related to NSAIDs use, though celiac sprue remains in differential. Yesterday received 2U PRBC transfusion w appropriate response, H/H improved, tachycardia resolved. He isn't having overt signs of GI bleeding. - Continue Protonix 40mg BID - Closely monitor H/H. - Repeat EGD to eval ulcer healing and EUS to eval pancreas mass to be scheduled in 2-4 week's time to allow ulcer time to heal. - No absolute contraindication for back surgery from our standpoint but would recommend avoidance of NSAIDs. Attg add: I interviewed and examined pt, reviewed chart and labs. Pt feels much improved post transfusion, although has persistent tachycardia. His BUN remains ok, and he describes his stool as dark but improving in color. Will cont to follow. Subjective Pt received 2U PRBC transfusion yesterday. Hgb up from 7.8 -> 9.1. He reports feeling increased energy, denies any abd pain, n/v. Feels hungry. Had BM this morning which is forming up, less black in color. Review of Systems Review of Systems: All systems reviewed & are unremarkable except as noted in HPI & below Physical Exam Constitutional: WD/WN, vitals as above well groomed and cooperative Eyes: PERRL, conjunctivae normal, anicteric sclerae ENMT: external ear and nose normal, oropharynx normal Respiratory: normal respiratory effort, lungs clear to auscultation Cardiovascular: RRR, no murmur, no edema Gastrointestinal (Abdomen): normal bowel sounds, soft, nontender, no hepatosplenomegaly Skin: no rashes, warm and dry no jaundice Neurologic: Motor/Sensory: no asterixis Psychiatric: A+Ox3, euthymic affect Lymphatic: no lymphedema Results & Data Vital Signs (Past 12 Hours) Vital Signs Temp Pulse Pulse Pulse Resp BP BP 09/26/19 07:26 36.8 C 106 H 18 122/75 09/25/19 23:55 100 H 09/25/19 23:50 36.9 C 123 H 16 126/74 09/25/19 23:16 36.6 C 125 H 18 143/86 H 09/25/19 22:44 36.7 C 124 H 18 122/81 Pulse Ox 09/26/19 07:26 96 09/25/19 23:55 09/25/19 23:50 98 09/25/19 23:16 97 09/25/19 22:44 97
[2019-09-26] MEDS ORDERED: INSULIN ASPART 100 UNITS/ML 3 ML PEN SC SCH (12:00)
[2019-09-26] MEDS: TRAMADOL HCL 50 MG TABLET PO PRN ×2 (12:00→16:00)
--- NOTE | 2019-09-26 12:15 | Pharmacy Report ---
Pharmacy Glycemic Short Note 2 - Date of Service September 26, 2019 - Glycemic Short BSG Results (Last 24 hours): 09/25/19 09/25/19 09/25/19 12:12 17:04 17:06 Glucose POC Glucose 257 H 305 H* 270 H 09/25/19 09/26/19 09/26/19 20:36 00:14 04:04 Glucose POC Glucose 240 H 224 H 227 H 09/26/19 09/26/19 06:04 08:16 Glucose 229 H POC Glucose 291 H ASSESSMENT: 09/26: * Patient received total of 77 units of insulin yesterday, of which 40 were basal insulin * Fasting this AM still elevated at 229 mg/dL - patient NPO had ordered 35 units, however changed to diet therefore ordered additional 15 units (total 50 units of basal) * CF/CR tightened overnight - will continue same 09/25: * Patient transitioned off insulin drip last evening - correctional insulin added overnight. * Fasting BSG this am 218 mg/dL - received 30 units of basal insulin yesterday; will slightly decrease to 25 units this morning which is a stress of 2 full dose. A1C elevated on admission, therefore more conservative with dosing. BSG taken later in morning 273 mg/dL - will give additional 10 units of basal this morning * Tighten CF/CR with lunch time check - BSGs 250s - add overnight checks 09/24: * 63 y/o male admitted for GIB and mild DKA. On admission: AG 14, bicarb 19 and BSG 600. Insulin drip was initiated. Spoke with Dr. Elaine this morning when glycemic consult received, as patient appropriate to start transition to SQ. Unable to go off of drip data this AM and patient NPO so gave 0.2 units/kg of basal insulin initially. BSG at noon remained elevated so gave another 0.2 units/kg dose to total insulin calculator estimates using weight and stress of 2. * Patient anxious to get off the drip because he's having trouble sleeping with frequent BSG checks. * Not attempting to be overly aggressive with glycemic control as A1c is so elevated. PLAN FOR INPATIENT GLYCEMIC CONTROL: * Basal insulin * Lantus 50 units total this morning * Bolus insulin - tighten * NovoLog per scale ACHS * Goal Range: Low 120 mg/dL - High 160 mg/dL * Correction Factor: 15 mg/dL/unit * Nutritional / Prandial insulin per carb ratio of 1 unit per 5 grams CHO consumed PLAN FOR DISCHARGE: TO BE FURTHER DETERMINED * A1c = 14% on 09/24/19 * A reasonable A1C goal for many non- adults is A1c less than 7% * A1C value may be falsely high in patients with anemia. Patient also reports recent prednisone use which also could be contributing to A1C value on admission * breastfeeding educator met with patient and patient reports fasting values usually in lower 100s and rarely >200. Stressed importance of SMBG 3-4x/day post discharge to assist with further diabetes medication adjustments * During hospital admission fasting levels so far have been >200. Patient likely benefit from some basal and bolus insulin post discharge. Would recommend close followup for titration of dose and more frequent SMBG checks throughout the day outpatient. * Per discussion with diabetic educator - patient resistant to bolus insulin but agreeable to basal. Likely will need to maximize oral agents if this is the case * Please note that the plan above was derived based on current level of insulin resistance and hospital stress. These recommendations are appropriate for inpatient admission only. Plan of care upon discharge will need to be reassessed to avoid potential outpatient hypo/hyperglycemia. Thank you.
[2019-09-26] MEDS: POTASSIUM CHLORIDE / WTR 10 MEQ/100 ML PLCT IV SCH ×4 (17:37→22:39)
[2019-09-26 20:33] LABS: Hematocrit (blood only) 23.7 % (42-52); Hemoglobin 8.2 g/dL (14.0-18.0)
[2019-09-26] MEDS: SERTRALINE HCL 50 MG TABLET PO SCH (21:01)
[2019-09-26] MEDS: AMITRIPTYLINE HCL 25 MG TAB PO SCH (21:01)
[2019-09-26] MEDS: ACETAMINOPHEN 325 MG TAB PO PRN (21:09)
[2019-09-27] MEDS: NSS + 20MEQ KCL 20 MEQ/1,000 ML BAG IV SCH ×4 (01:52→23:10)
[2019-09-27 03:09] LABS: Hematocrit (blood only) 21.6 % (42-52); Hemoglobin 7.4 g/dL (14.0-18.0); Mean Corpuscular Hemoglobin 30.6 pg (25-34); Mean Corpuscular Hgb Conc 34.3 g/dL (32-36); Mean Corpuscular Volume 89.3 fL (80-100); Mean Platelet Volume 11.3 fL (7.4-10.4); Nucleated RBC # (auto) 0.06 K/uL (0-0); Platelet Count 145 K/uL (130-400); RDW Coefficient of Variation 14.8 % (11.5-14.5); RDW Standard Deviation 46.6 fL (36.4-46.3); Red Blood Count 2.42 M/uL (4.7-6.1); White Blood Count 5.97 K/uL (4.8-10.8)
[2019-09-27 03:19] LABS: BUN Creatinine Ratio 25.9 (10-20); Calcium 7.9 mg/dl (8.5-10.1); Est GFR (African American) 127.5; Potassium 3.2 mmol/L (3.5-5.1)
[2019-09-27] MEDS ORDERED: POTASSIUM CHLORIDE 20 MEQ TABCR PO STA (03:49)
[2019-09-27] MEDS ORDERED: SODIUM CHLORIDE 0.9% 250 ML IV PRN ×2 (06:06→07:09)
[2019-09-27 08:21] LABS: Hematocrit (blood only) 22.9 % (42-52); Hemoglobin 7.8 g/dL (14.0-18.0)
[2019-09-27] MEDS ORDERED: INSULIN GLARGINE SOLOSTAR 100 UNITS/ML 3 ML PEN SC ONE ×2 (08:45→14:30)
[2019-09-27] MEDS: LIDOCAINE 5% 1 PATCH TD SCH (08:51)
--- NOTE | 2019-09-27 08:52 | Gastroenterology Progress Note ---
Date of Service September 27, 2019 Assessment & Plan (1) Melena: (2) Anemia: (3) Mass of pancreas: Pt is a 63 y/o male admitted for hyperglycemia, symptomatic anemia and melena. Has associated poor appetite and lost 40lbs in last [address] abd/pelvis w contrast showed 4 x 2cm mass in uncinate process of pancreas. EGD 09/24/19: small ulcer in pre-pyloric antrum and also on second portion of duodenum w self limited oozing. Large, clean based ulcer on apex of bulb. + edema and fissuring, scalloping of mucosa on 2nd portion of duodenum but not present on 3rd or 4th portions of duodenum suspect to be related to NSAIDs use, though celiac sprue remains in differential. 09/25/19: Received 2U PRBC transfusion w appropriate response, H/H improved, tachycardia resolved. Blood ct dropped again overnight w persistent dark sticky stools per pt's report. - Continue Protonix 40mg BID - Closely monitor H/H, transfuse prn - Plan to repeat EGD today to eval for continued bleeding - Repeat EGD to eval ulcer healing and EUS to eval pancreas mass to be scheduled in 2-4 week's time to allow ulcer time to heal. - No absolute contraindication for back surgery from our standpoint but would recommend avoidance of NSAIDs. Attg add: I interviewed and examined pt, reviewed chart and labs. Pt with dark stool, although color cont to improve. His BP has been stable, but pulse remains mildly increased. Labs show normal BUN, but drop in Hgb compared to yesterday. A/P: PUD - Possible ongoing GI blood loss -- EGD to evaluate Subjective Pt's Hgb dropped down to 7.8 again today, he's getting another unit of PRBC transfusion. He denies feeling as fatigued as 2 days prior. He denies any abd pain, n/v. Stools are dark, sticky. Review of Systems Review of Systems: All systems reviewed & are unremarkable except as noted in HPI & below Physical Exam Constitutional: WD/WN, vitals as above well groomed and cooperative Eyes: PERRL, conjunctivae normal, anicteric sclerae ENMT: external ear and nose normal, oropharynx normal Respiratory: normal respiratory effort, lungs clear to auscultation Cardiovascular: RRR, no murmur, no edema Gastrointestinal (Abdomen): normal bowel sounds, soft, nontender, no hepatosplenomegaly Skin: no rashes, warm and dry no jaundice Neurologic: Motor/Sensory: no asterixis Psychiatric: A+Ox3, euthymic affect Lymphatic: no lymphedema Results & Data Vital Signs (Past 12 Hours) Vital Signs Temp Pulse Pulse Resp BP BP Pulse Ox 09/27/19 08:30 36.6 C 97 H 16 122/80 96 09/27/19 08:11 36.7 C 99 H 16 123/71 09/27/19 07:36 36.7 C 88 15 123/75 96 09/26/19 23:35 36.7 C 102 H 18 122/75 96
[2019-09-27] MEDS: PANTOprazole 40 MG TAB PO SCH (08:54)
[2019-09-27] MEDS: INSULIN ASPART 100 UNITS/ML 3 ML PEN SC SCH ×4 (09:05→21:42)
[2019-09-27] MEDS ORDERED: PROPOFOL IV EMULSION 10 MG/ML 20 ML VIAL IV ONE (10:57)
[2019-09-27] MEDS ORDERED: LIDOCAINE HCL 2% 2 ML VIAL/AMP(20MG/ML) INFIL ONE (10:57)
[2019-09-27] MEDS ORDERED: fentaNYL citrate 100 MCG/2 ML VIAL ONE (10:57)
--- NOTE | 2019-09-27 11:20 | Hospitalist Progress Note ---
Date of Service September 27, 2019 Assessment & Plan (1) Acute blood loss anemia: Trend CBC, Hb down to 7.8 after 2 more units ordered (2) UGIB (upper gastrointestinal bleed): Recent NSAID use. EGD performed by GI revealed shallow based ulcers that are nonbleeding. Avoid NSAIDs altogether. PPI twice daily. Repeat EGD today. Transfused 2 units on 09/25, 2 more ordered today (3) Mass of pancreas: Requires EUS as outpatient, likely in 2 weeks per GI. (4) Ruptured lumbar disc: Ortho spine on case, will try to get surgery done this week c Dr Baig, May proceed to OR from IM perspective, Periop Lantus and SSI, Scope today, Possible Back surgery today or am 09/29 (5) Tachycardia: Secondary to recent bleed, cardiac output is appropriate. IV fluids, Blood, HR now 104 (6) DKA (diabetic ketoacidoses): Insulin Protocol (7) DVT prophylaxis: Labs Checked SCDs Full code Dispo-to home when medically stable Added elavil at HS to help sleep, Pain control c Narcotics, Blood Given on 09/25, GI Blood loss anemia sec to UGIB from Bleeding Gastric Ulcers, Repeat EGD, 2 more units RBCs today ROS-No Headache, No Visual Changes, No Nausea, No Vomiting, No Fever, No Chills, No Neck Pain or Stiffness, No Chest Pain, No Palpitations, No SOB, No TOTH, No Cough, No Sputum, No Wheezing, No Abdominal Pain, + Diarrhea, No Hematemesis, No Hemoptysis, +Weight Loss, No Flank pain, + Melena, No Hematochezia, No Frequency, No Urgency, No Burning, No Hematuria, No Rashes, No Diaphoresis. Feeling a lot better Physical Exam Gen-AAO x 3, NAD, Depressed, Afebrile, Color is back Head-NCAT, EOMI, PERRLA, Anicteric Sclera, No Posterior Pharyngeal Erythema Neck-Supple, No JVD, No Thyromegaly, No Masses, No LAD, No Bruits Lungs-Clear to Auscultation Bilaterally, No Rales, No Rhonchi, No Wheezing, No Crepitus Chest-Tachy, No S4, +S1, +S2, No S3, No Murmurs, No Rubs, No Gallops, No Ectopy Abdomen-Soft, Bowel Sounds Present, Non Tender, Non Distended, No Hepatomegaly, No Splenomegaly, No Palpable Masses, No Rebound, No Rigidity, No Guarding Musculoskeletal-Full Range of Motion Bilaterally, No CVAT Extremities-No Cyanosis, No Clubbing, No Edema Nuero-Cranial Nerves II-XII grossly intact, Motor WNL, DTRs WNL, Strength WNL, Non Focal Psych-Normal Results & Data Vital Signs (Past 12 Hours) Vital Signs Temp Pulse Pulse Resp BP BP Pulse Ox 09/27/19 10:53 36.8 C 104 H 18 135/84 98 09/27/19 10:29 36.6 C 102 H 18 143/79 H 97 09/27/19 09:51 36.4 C L 104 H 18 124/77 95 09/27/19 09:15 36.7 C 102 H 18 125/80 96 09/27/19 08:45 36.7 C 102 H 17 128/81 95 09/27/19 08:30 36.6 C 97 H 16 122/80 96 09/27/19 08:11 36.7 C 99 H 16 123/71 09/27/19 07:36 36.7 C 88 15 123/75 96 09/26/19 23:35 36.7 C 102 H 18 122/75 96
--- NOTE | 2019-09-27 11:37 | Anesthesiology Consultation ---
Date of Service September 27, 2019 Assessment & Plan Chart Review Chart Review: Acceptable Risk for Surgery and Patient NOT seen in Pre Admission Testing Consults Requested none History Surgery Operation Date: 09/24/19 17:45 Proposed Procedures p Esophagogastroduodenoscopy Dr Homar Benjamin Operation Date: 09/27/19 09:35 Proposed Procedures p L4-L5 Laminectomy on the Right - Emmett Baig DO Operation Date: 09/27/19 16:30 Proposed Procedures p Esophagogastroduodenoscopy Dr Homar Benjamin Height/Weight Height: 5 ft 7 in Weight: 77.8 kg Allergies Allergy/AdvReac Type Severity Reaction Status Date / Time No Known Allergies Allergy Unverified 09/23/19 22:05 Medications Home Medications Medication Instructions Recorded Confirmed Last Taken aspirin [Aspirin Low Dose] 81 mg PO QPM 09/23/19 09/23/19 09/22/19 celecoxib 200 mg PO BID 09/23/19 09/23/19 09/22/19 gabapentin 300 mg PO DIRECTED 09/23/19 09/23/19 09/22/19 linagliptin [Tradjenta] 5 mg PO QPM 09/23/19 09/23/19 09/22/19 metformin 1,000 mg PO DAILY 09/23/19 09/23/19 09/22/19 sertraline 50 mg PO QPM 09/23/19 09/23/19 09/22/19 Active Medications Generic Name Dose Route Start Last Admin Trade Name Freq PRN Reason Stop Dose Admin Acetaminophen 650 mg 09/24/19 03:52 09/26/19 21:09 Tylenol PO 10/24/19 03:51 650 mg Q4H PRN Administration Pain or Fever Amitriptyline HCl 25 mg 09/25/19 21:00 09/26/19 21:01 Elavil PO 10/25/19 20:59 25 mg HS JHON Administration Potassium Chloride/Sodium Chloride 20 meq in 1,000 mls @ 125 mls/hr 09/26/19 06:30 09/27/19 08:13 Normal Saline W/20 Meq Kcl IV 10/26/19 06:29 0 mls/hr .Q8H JHON Infusion Insulin Aspart 0 units 09/26/19 11:30 09/27/19 09:05 Novolog Flexpen SC 10/26/19 11:29 4 units ACHS JHON Administration Lidocaine 1 patch 09/24/19 04:30 09/27/19 08:51 Lidoderm 5% TD 10/24/19 04:29 1 patch QAM JHON Administration Miscellaneous 1 ea 09/24/19 16:30 09/26/19 21:01 Remove Lidoderm Patch N/A 10/24/19 16:29 1 ea DAILY@2100 JHON Administration Morphine Sulfate 4 mg 09/24/19 03:52 09/26/19 01:41 Morphine Sulfate IV 10/08/19 03:51 4 mg Q4H PRN Administration Pain Pantoprazole Sodium 40 mg 09/24/19 21:00 09/27/19 08:54 Protonix PO 10/24/19 20:59 40 mg BID JHON Administration Sertraline HCl 50 mg 09/24/19 21:00 09/26/19 21:01 Zoloft PO 10/24/19 20:59 50 mg QPM JHON Administration Tramadol HCl 25 - 50 mg 09/24/19 03:52 09/26/19 16:00 Ultram PO 10/24/19 03:51 50 mg Q4H PRN Administration Pain NPO Date Last Intake of Fluids: 09/26/19 Time Last Intake of Fluids: 12:00 Last Intake of Fluids Comment: "few ice chips" Date Last Intake of Solids: 09/26/19 Time Last Intake of Solids: 12:00 Past Medical History Medical History Arthritis Bone spur Diabetes Gout Ruptured lumbar disc Varicose vein of leg Past Family History Family History Other Cancer Diabetes Heart disease Hypertension Past Surgical History Surgical History H/O vein stripping S/P herniorrhaphy Social History Smoking Status: Former smoker Hx Alcohol Use: No Hx Substance Use: No Physical Exam Vital Signs Last Vital Signs Temp 36.8 C 09/27/19 10:53 Pulse 104 H 09/27/19 10:53 Resp 18 09/27/19 10:53 BP 135/84 09/27/19 10:53 Pulse Ox 98 09/27/19 10:53 Testing Laboratory Results 09/27/19 06:32 09/27/19 02:14 Hemoglobin A1c 14.0 % (4.5-5.6) H 09/24/19 08:14 Urine Color Yellow 09/23/19 21:57 Urine Appearance Clear (Clear) 09/23/19 21:57 Urine pH 5.0 (4.5-7.5) 09/23/19 21:57 Ur Specific [place] 1.035 (1.000-1.030) H 09/23/19 21:57 Urine Protein Negative (Negative) 09/23/19 21:57 Urine Glucose (UA) 3+ (Negative) H 09/23/19 21:57 Urine Ketones 1+ (Negative) H 09/23/19 21:57 Urine Nitrite Negative (Negative) 09/23/19 21:57 Ur Leukocyte Esterase Negative (Negative) 09/23/19 21:57 Blood Type A Positive 09/27/19 06:27 Antibody Screen NEGATIVE 09/27/19 06:27 09/27/19 06:00 POC Glucose 207 H
[2019-09-27] MEDS ORDERED: ATROPINE SULFATE 0.1 MG/ML 10ML SYR IV PRN (11:39)
--- NOTE | 2019-09-27 12:21 | GI REPORT ---
Patient Name: Gwyn Agee Procedure Date: 09/27/2019 11:09 AM Date of : 1955 Admit Type: Inpatient Age: 63 Gender: Male Attending MD: Sade Benjamin MD Procedure: Upper GI endoscopy Providers: Sade Benjamin MD Referring MD: Mumtaz Rutherford Do Indications: Melena Medicines: See the Anesthesia note for documentation of the administered medications Complications: No immediate complications. Estimated Blood Loss: Estimated blood loss: none. Procedure: Pre-Anesthesia Assessment: - ASA Grade Assessment: III - A patient with severe systemic disease. After obtaining informed consent, the endoscope was passed under direct vision. Throughout the procedure, the patient's blood pressure, pulse, and oxygen saturations were monitored continuously. The Endoscope was introduced through the mouth, and advanced to the second part of duodenum. The upper GI endoscopy was accomplished without difficulty. The patient tolerated the procedure well. Findings: The examined esophagus was normal. The stomach exam was unchanged from previous - again there was a pre-pyloric channel ulcer seen. There were no ulcers from the biopsy sites. The remainder of the stomach was normal. Again, there was fissuring and scalloping of the mucosa of the bulb and second portion of the duodenum. This was improved from previous. Again, there was a small shallow clean based ulcer in the second portion of the duodenum. There was a large shallow ulcer at the duodenal sweep, on the wall opposite to the papilla. There was a non-bleeding visible vessel seen at the base of this ulcer that was treated with 3 injections of 1 cc of 1:100,000 epinephrine. Bipolar cautery was applied to the vessel with a 7 Fr Gold probe at 15 W. Hemostasis was achieved. Impression: Duodenal ulcer with non bleeding visible vessel s/p epi injection and cautery. Recommendation: - Discharge patient to floor. PPI gtt and clear liquids. Follow hgb q 12. Yuriy Valdivia MD 09/27/2019 12:21:08 PM This report has been signed electronically. Note Initiated On: 09/27/2019 11:09 AM Number of Addenda: 0 I attest to the content of the Intraoperative Record and orders documented therein, exceptions below {[id number]}
--- NOTE | 2019-09-27 12:24 | Orthopedic Progress Note ---
Date of Service September 27, 2019 Assessment & Plan (1) Lumbar disc herniation with radiculopathy: At this time we are considering a lumbar laminotomy with excision of herniated free fragment. Unfortunately continues to struggle with gastric bleeding. Will again be available if he becomes stabilized and we feel it safe for him to proceed with surgery. In the interim we will cancel his surgery for today. Present on Admission?: Yes Subjective Patient still struggling with significant right sciatica. Physical Exam Physical Exam: Patient is in bed. Tension signs to the right lower extremity with weakness to dorsiflexion extensor hallucis longus on the right. Results & Data Vital Signs (Past 12 Hours) Vital Signs Temp Pulse Pulse Resp BP BP Pulse Ox 09/27/19 12:15 97 H 18 118/73 97 09/27/19 12:00 36.6 C 91 H 18 99/61 L 96 09/27/19 10:53 36.8 C 104 H 18 135/84 98 09/27/19 10:29 36.6 C 102 H 18 143/79 H 97 09/27/19 09:51 36.4 C L 104 H 18 124/77 95 09/27/19 09:15 36.7 C 102 H 18 125/80 96 09/27/19 08:45 36.7 C 102 H 17 128/81 95 09/27/19 08:30 36.6 C 97 H 16 122/80 96 09/27/19 08:11 36.7 C 99 H 16 123/71 09/27/19 07:36 36.7 C 88 15 123/75 96
[2019-09-27] MEDS: PANTOprazole 40 MG in DEXTROSE 5% 100 ML IV SCH ×3 (14:28→23:10)
--- NOTE | 2019-09-27 14:29 | Pharmacy Report ---
Pharmacy Glycemic Short Note 2 - Date of Service September 27, 2019 - Glycemic Short BSG Results (Last 24 hours): 09/26/19 09/26/19 09/27/19 17:20 20:38 02:14 Glucose 137 H POC Glucose 159 H 173 H 09/27/19 09/27/19 06:00 13:05 Glucose POC Glucose 207 H 193 H ASSESSMENT: 09/27: * Patient received total of 95 units of insulin yesterday, of which 50 were basal insulin. * Fasting this AM still elevated at 207 mg/dL. Patient has been NPO since midnight for EGD today. Since fasting BSG elevated, it indicates patient needs more basal insulin. * Basal insulin 35 units was ordered this AM. Lunch BSG at 193 and clear liquid diet ordered, therefore additional 15 units (to total 50 units of basal) ordered for this afternoon. Patient may need further increase in basal Lantus dose tomorrow. * Novolog bolus CR tightened with dinner tonight. PLAN FOR INPATIENT GLYCEMIC CONTROL: * Basal insulin: continued * Lantus 50 units total this morning/afternoon. * Bolus insulin - tighten CR * NovoLog per scale ACHS * Goal Range: Low 120 mg/dL - High 160 mg/dL * Correction Factor: 15 mg/dL/unit * Nutritional / Prandial insulin per carb ratio of 1 unit per 4 grams CHO consumed PLAN FOR DISCHARGE: TO BE FURTHER DETERMINED * A1c = 14% on 09/24/19 * A reasonable A1C goal for many non- adults is A1c less than 7% * A1C value may be falsely high in patients with anemia. Patient also reports recent prednisone use which also could be contributing to A1C value on admission * case specialist met with patient and patient reports fasting values usually in lower 100s and rarely >200. Stressed importance of SMBG 3-4x/day post discharge to assist with further diabetes medication adjustments * During hospital admission fasting levels so far have been >200. Patient likely benefit from some basal and bolus insulin post discharge. Would recommend close followup for titration of dose and more frequent SMBG checks throughout the day outpatient. * Per discussion with vp of customer experience strategy - patient resistant to bolus insulin but agreeable to basal. Likely will need to maximize oral agents if this is the case * Please note that the plan above was derived based on current level of insulin resistance and hospital stress. These recommendations are appropriate for inpatient admission only. Plan of care upon discharge will need to be reassessed to avoid potential outpatient hypo/hyperglycemia. Thank you.
[2019-09-27] MEDS: MoRPHine SULFATE 4 MG/ML 1 ML CARP\\VIAL IV PRN ×2 (15:25→20:12)
--- NOTE | 2019-09-27 15:38 | Anesthesiology Progress Note ---
Date of Service September 27, 2019 Anesthesia Post Procedure Vital Signs Vital Signs: Temp Pulse Pulse Resp BP BP Pulse Ox 09/27/19 14:59 36.6 C 104 H 18 135/83 97 09/27/19 14:15 36.8 C 100 H 17 127/79 96 09/27/19 13:45 36.6 C 102 H 18 127/76 95 09/27/19 13:28 36.8 C 95 H 18 126/80 96 09/27/19 13:12 36.6 C 96 H 18 121/81 09/27/19 12:29 95 H 18 123/75 96 09/27/19 12:15 97 H 18 118/73 97 09/27/19 12:00 36.6 C 91 H 18 99/61 L 96 09/27/19 10:53 36.8 C 104 H 18 135/84 98 09/27/19 10:29 36.6 C 102 H 18 143/79 H 97 09/27/19 09:51 36.4 C L 104 H 18 124/77 95 09/27/19 09:15 36.7 C 102 H 18 125/80 96 09/27/19 08:45 36.7 C 102 H 17 128/81 95 09/27/19 08:30 36.6 C 97 H 16 122/80 96 09/27/19 08:11 36.7 C 99 H 16 123/71 09/27/19 07:36 36.7 C 88 15 123/75 96 09/26/19 23:35 36.7 C 102 H 18 122/75 96 09/26/19 19:08 116 H 114/69 94 Pain Intensity Back: Pain Intensity: 0 Right Hip: Pain Intensity: 4 Transfer of Care Handoff Completed per policy Notes Mental Status: alert / awake / arousable Patient Amnestic to Procedure: Yes Nausea / Vomiting: adequately controlled Pain: adequately controlled Airway Patency, RR, SpO2: stable & adequate BP & HR: stable & adequate Hydration State: stable & adequate Anesthetic Complications: no major complications apparent and Pt Satisfied with anesthetic care
[2019-09-27 17:33] LABS: Hematocrit (blood only) 27.6 % (42-52); Hemoglobin 9.5 g/dL (14.0-18.0)
[2019-09-27] MEDS: SERTRALINE HCL 50 MG TABLET PO SCH (21:45)
[2019-09-27] MEDS: AMITRIPTYLINE HCL 25 MG TAB PO SCH (21:45)
--- NOTE | 2019-09-27 22:40 | Electrocardiogram Report ---
Test Reason : Blood Pressure : / mmHG Vent. Rate : 115 BPM Atrial Rate : 115 BPM P-R Int : 146 ms QRS Dur : 100 ms QT Int : 332 ms P-R-T Axes : 048 -11 -02 degrees QTc Int : 459 ms Sinus tachycardia Inferior infarct , age undetermined Cannot rule out Anterior infarct , age undetermined Abnormal ECG When compared with ECG of 25-SEP-2019 16:00, T wave amplitude has decreased in Anterior leads Confirmed by Joshua Colvin ([id number]) on 09/27/2019 10:40:43 PM Referred By: REFERRED SELF Confirmed By:Joshua Colvin
[2019-09-27] MEDS: ACETAMINOPHEN 325 MG TAB PO PRN (23:44)
[2019-09-28 03:36] LABS: Hemoglobin 8.9 g/dL (14.0-18.0); Mean Corpuscular Hemoglobin 30.8 pg (25-34); Mean Corpuscular Hgb Conc 34.2 g/dL (32-36); Mean Platelet Volume 10.7 fL (7.4-10.4); Nucleated RBC % (auto) 1.6 %; Platelet Count 156 K/uL (130-400); RDW Coefficient of Variation 15.6 % (11.5-14.5); RDW Standard Deviation 47.5 fL (36.4-46.3); Red Blood Count 2.89 M/uL (4.7-6.1); White Blood Count 6.34 K/uL (4.8-10.8)
[2019-09-28 04:02] LABS: BUN Creatinine Ratio 8.1 (10-20); Calcium 7.8 mg/dl (8.5-10.1); Creatinine Clr Calc Pharmacy 134.3 ml/min; Est GFR (African American) 131.3; Est GFR (Non-African American) 113.3
[2019-09-28] MEDS: PANTOprazole 40 MG in DEXTROSE 5% 100 ML IV SCH ×5 (04:22→23:12)
[2019-09-28] MEDS: POTASSIUM CHLORIDE / WTR 10 MEQ/100 ML PLCT IV SCH ×6 (06:11→14:14)
[2019-09-28] MEDS: LIDOCAINE 5% 1 PATCH TD SCH (07:50)
[2019-09-28] MEDS: INSULIN ASPART 100 UNITS/ML 3 ML PEN SC SCH ×4 (08:33→21:15)
[2019-09-28] MEDS ORDERED: INSULIN GLARGINE SOLOSTAR 100 UNITS/ML 3 ML PEN SC SCH (09:00)
--- NOTE | 2019-09-28 10:20 | Hospitalist Progress Note ---
Date of Service September 28, 2019 Assessment & Plan (1) Acute blood loss anemia: Trend CBC, Hb down to 7.8 after 2 more units ordered (2) UGIB (upper gastrointestinal bleed): Recent NSAID use. EGD performed by GI revealed shallow based ulcers that are nonbleeding. Avoid NSAIDs altogether. PPI twice daily. Repeat EGD today. Transfused 2 units on 09/25, 2 more ordered today (3) Mass of pancreas: Requires EUS as outpatient, likely in 2 weeks per GI. (4) Ruptured lumbar disc: Ortho spine on case, will try to get surgery done this week c Dr Baig, May proceed to OR from IM perspective on Sunday 10/01, Periop Lantus and SSI, Scope today, Possible Back surgery today or am 09/29 (5) Tachycardia: Secondary to recent bleed, cardiac output is appropriate. IV fluids, Blood, HR now 104 (6) DKA (diabetic ketoacidoses): Insulin Protocol (7) DVT prophylaxis: Labs Checked SCDs Full code Dispo-to home when medically stable Added Elavil at HS to help sleep, Pain control c Narcotics, Blood Given on 09/25, GI Blood loss anemia sec to UGIB from Bleeding Gastric Ulcers, Repeat EGD, 2 more units RBCs 09/27 Monitor progress through weekend-Surgery c Dr Baig Tuesday, NPO p MN Tuesday night ROS-No Headache, No Visual Changes, No Nausea, No Vomiting, No Fever, No Chills, No Neck Pain or Stiffness, No Chest Pain, No Palpitations, No SOB, No TOTH, No Cough, No Sputum, No Wheezing, No Abdominal Pain, + Diarrhea, No Hematemesis, No Hemoptysis, +Weight Loss, No Flank pain, No Melena, No Hematochezia, No Frequency, No Urgency, No Burning, No Hematuria, No Rashes, No Diaphoresis. Feeling a lot better Physical Exam Gen-AAO x 3, NAD, Depressed, Afebrile, Color is back Head-NCAT, EOMI, PERRLA, Anicteric Sclera, No Posterior Pharyngeal Erythema Neck-Supple, No JVD, No Thyromegaly, No Masses, No LAD, No Bruits Lungs-Clear to Auscultation Bilaterally, No Rales, No Rhonchi, No Wheezing, No Crepitus Chest-Tachy, No S4, +S1, +S2, No S3, No Murmurs, No Rubs, No Gallops, No Ectopy Abdomen-Soft, Bowel Sounds Present, Non Tender, Non Distended, No Hepatomegaly, No Splenomegaly, No Palpable Masses, No Rebound, No Rigidity, No Guarding Musculoskeletal-Full Range of Motion Bilaterally, No CVAT Extremities-No Cyanosis, No Clubbing, No Edema Nuero-Cranial Nerves II-XII grossly intact, Motor WNL, DTRs WNL, Strength WNL, Non Focal Psych-Normal Results & Data Vital Signs (Past 12 Hours) Vital Signs Temp Pulse Pulse Resp BP Pulse Ox 09/28/19 07:42 36.3 C L 91 H 17 124/75 97 09/28/19 03:01 36.7 C 86 16 125/78 96 09/27/19 23:25 36.8 C 99 H 16 144/78 H 97
--- NOTE | 2019-09-28 10:37 | Gastroenterology Progress Note ---
Date of Service September 28, 2019 Assessment & Plan (1) Melena: (2) Anemia: (3) Mass of pancreas: Pt is a 63 y/o male admitted for hyperglycemia, symptomatic anemia and melena. Has associated poor appetite and lost 40lbs in last [address] abd/pelvis w contrast showed 4 x 2cm mass in uncinate process of pancreas. EGD 09/24/19: small ulcer in pre-pyloric antrum and also on second portion of duodenum w self limited oozing. Large, clean based ulcer on apex of bulb. + edema and fissuring, scalloping of mucosa on 2nd portion of duodenum but not present on 3rd or 4th portions of duodenum suspect to be related to NSAIDs use, though celiac sprue remains in differential. Repeat EGD done 09/27/19: Duodenal ulcer with non bleeding visible vessel s/p epi injection and cautery. He is having now brown stools, no overt signs of GI bleeding, not tachycardic - Continue Protonix gtt x 1 more day then may convert to Protonix 40mg PO BID - Closely monitor H/H, transfuse prn. Total 4U PRBC transfusion so far this admission - Repeat EGD to eval ulcer healing and EUS to eval pancreas mass to be scheduled in 2-4 week's time to allow ulcer time to heal. - Avoid NSAIDs Attg add: I interviewed and examined pt, reviewed chart and labs. Pt feeling well, dana PO, denies abd pain. Reports brown stool, much improved from prior. BUN, Hgb both improved. Please cont PPI gtt through Tuesday and switch to oral BID PPI on Tuesday. Diet as dana. Outpt scopes as above. No contra-indication to back surgery, although will need to avoid NSAIDs in the devon-operative period. Please call with questions. Subjective Pt received additional 2U PRBC transfusion yesterday, Hgb 8.9 this AM. He is having brown, formed stools now. Denies any abd pain, n/v. Review of Systems Review of Systems: All systems reviewed & are unremarkable except as noted in HPI & below Physical Exam Constitutional: WD/WN, vitals as above well groomed and cooperative Eyes: PERRL, conjunctivae normal, anicteric sclerae ENMT: external ear and nose normal, oropharynx normal Respiratory: normal respiratory effort, lungs clear to auscultation Cardiovascular: RRR, no murmur, no edema Gastrointestinal (Abdomen): normal bowel sounds, soft, nontender, no hepatosplenomegaly Skin: no rashes, warm and dry no jaundice Neurologic: Motor/Sensory: no asterixis Psychiatric: A+Ox3, euthymic affect Lymphatic: no lymphedema Results & Data Vital Signs (Past 12 Hours) Vital Signs Temp Pulse Pulse Resp BP Pulse Ox 09/28/19 07:42 36.3 C L 91 H 17 124/75 97 09/28/19 03:01 36.7 C 86 16 125/78 96 09/27/19 23:25 36.8 C 99 H 16 144/78 H 97
[2019-09-28 11:21] LABS: Hematocrit (blood only) 28.3 % (42-52); Hemoglobin 9.7 g/dL (14.0-18.0)
[2019-09-28] MEDS: TRAMADOL HCL 50 MG TABLET PO PRN ×3 (11:54→21:50)
[2019-09-28] MEDS: NSS + 20MEQ KCL 20 MEQ/1,000 ML BAG IV SCH ×2 (11:54→19:59)
--- NOTE | 2019-09-28 13:39 | Pharmacy Report ---
Pharmacy Glycemic Short Note 2 - Date of Service September 28, 2019 - Glycemic Short BSG Results (Last 24 hours): 09/27/19 09/27/19 09/28/19 16:33 20:45 03:26 Glucose 90 POC Glucose 185 H 114 H 09/28/19 09/28/19 08:25 11:56 Glucose POC Glucose 145 H 149 H ASSESSMENT: 09/28: * Patient received total 60 units of insulin yesterday: 50 units basal and only 10 units bolus. * He was NPO until lunch yesterday. Fasting BSG today was 145 which is within goal and lower than yesterday. Post prandial today was also same. * Lantus dose was reduced by 20% this AM and Novolog carb ratio loosened since BSGs today are lower and patient received part of his Lantus dose yesterday in the afternoon. * Carb intake has been lower. 09/27: * Patient received total of 95 units of insulin yesterday, of which 50 were basal insulin. * Fasting this AM still elevated at 207 mg/dL. Patient has been NPO since midnight for EGD today. Since fasting BSG elevated, it indicates patient needs more basal insulin. * Basal insulin 35 units was ordered this AM. Lunch BSG at 193 and clear liquid diet ordered, therefore additional 15 units (to total 50 units of basal) ordered for this afternoon. Patient may need further increase in basal Lantus dose tomorrow. * Novolog bolus CR tightened with dinner tonight. PLAN FOR INPATIENT GLYCEMIC CONTROL: * Basal insulin: reduced * Lantus 40 units x1 this morning. * Bolus insulin - loosened CR * NovoLog per scale ACHS * Goal Range: Low 120 mg/dL - High 160 mg/dL * Correction Factor: 15 mg/dL/unit * Nutritional / Prandial insulin per carb ratio of 1 unit per 5 grams CHO consumed PLAN FOR DISCHARGE: TO BE FURTHER DETERMINED * A1c = 14% on 09/24/19 * A reasonable A1C goal for many non- adults is A1c less than 7% * A1C value may be falsely high in patients with anemia. Patient also reports recent prednisone use which also could be contributing to A1C value on admission * tucking machine operator met with patient and patient reports fasting values usually in lower 100s and rarely >200. Stressed importance of SMBG 3-4x/day post discharge to assist with further diabetes medication adjustments * During this hospital admission, patient has been needing between 30-50 units of Lantus every day. He would likely benefit from some basal insulin post discharge. Would recommend close followup with provider for titration of dose and frequent SMBG checks throughout the day as outpatient. * Per discussion with fitness instructor - patient resistant to bolus insulin but agreeable to basal. * Please note that the plan above was derived based on current level of insulin resistance and hospital stress. These recommendations are appropriate for inpatient admission only. Plan of care upon discharge will need to be reassessed to avoid potential outpatient hypo/hyperglycemia. Thank you.
--- NOTE | 2019-09-28 15:26 | Orthopedic Progress Note ---
Date of Service September 28, 2019 Assessment & Plan (1) Lumbar disc herniation with radiculopathy: At this time we can allow him to recover throughout the weekend. And most likely continue with the laminotomy partial discectomy L4-5 early next week. Present on Admission?: Yes Subjective Patient is seen today with his . He continues to have right sciatica. He is feeling much improved from the status yesterday. Physical Exam Physical Exam: Patient is sitting up in bed. Still tension signs to testing the right lower extremity. Results & Data Vital Signs (Past 12 Hours) Vital Signs Temp Pulse Resp BP Pulse Ox 09/28/19 07:42 36.3 C L 91 H 17 124/75 97
[2019-09-28 17:33] LABS: Hematocrit (blood only) 27.9 % (42-52); Hemoglobin 9.6 g/dL (14.0-18.0)
[2019-09-28] MEDS: CARBOHYDRATES FOR HYPOGLYCEMIA PO PRN ×2 (20:38→20:40)
[2019-09-28] MEDS: AMITRIPTYLINE HCL 25 MG TAB PO SCH (21:18)
[2019-09-28] MEDS: SERTRALINE HCL 50 MG TABLET PO SCH (21:18)
[2019-09-29 01:46] LABS: Hematocrit (blood only) 27.2 % (42-52); Hemoglobin 9.2 g/dL (14.0-18.0); Mean Corpuscular Hemoglobin 30.6 pg (25-34); Mean Corpuscular Hgb Conc 33.8 g/dL (32-36); Mean Corpuscular Volume 90.4 fL (80-100); Mean Platelet Volume 11.1 fL (7.4-10.4); Nucleated RBC # (auto) 0.07 K/uL (0-0); Nucleated RBC % (auto) 0.9 %; Platelet Count 197 K/uL (130-400); RDW Coefficient of Variation 16.4 % (11.5-14.5); RDW Standard Deviation 48.7 fL (36.4-46.3); Red Blood Count 3.01 M/uL (4.7-6.1); White Blood Count 7.57 K/uL (4.8-10.8)
[2019-09-29 02:04] LABS: BUN Creatinine Ratio 7.7 (10-20); Calcium 8.4 mg/dl (8.5-10.1); Creatinine Clr Calc Pharmacy 96.7 ml/min; Est GFR (African American) 114.8; Potassium 3.4 mmol/L (3.5-5.1)
[2019-09-29] MEDS: NSS + 20MEQ KCL 20 MEQ/1,000 ML BAG IV SCH ×3 (03:42→19:58)
[2019-09-29] MEDS: TRAMADOL HCL 50 MG TABLET PO PRN ×3 (03:45→22:45)
[2019-09-29] MEDS: PANTOprazole 40 MG in DEXTROSE 5% 100 ML IV SCH ×3 (03:49→13:20)
[2019-09-29] MEDS: LIDOCAINE 5% 1 PATCH TD SCH (08:35)
[2019-09-29] MEDS: INSULIN ASPART 100 UNITS/ML 3 ML PEN SC SCH ×4 (08:46→22:00)
[2019-09-29] MEDS: INSULIN GLARGINE SOLOSTAR 100 UNITS/ML 3 ML PEN SC SCH (08:47)
[2019-09-29] MEDS: SUCRALFATE 1 GM/10 ML UDC PO SCH ×4 (08:53→20:23)
[2019-09-29 08:59] LABS: Hematocrit (blood only) 29.2 % (42-52); Hemoglobin 9.8 g/dL (14.0-18.0)
--- NOTE | 2019-09-29 09:45 | Hospitalist Progress Note ---
Date of Service September 29, 2019 Assessment & Plan (1) Acute blood loss anemia: Trend CBC, Hb rising (2) UGIB (upper gastrointestinal bleed): Recent NSAID use. EGD performed by GI revealed shallow based ulcers that are nonbleeding. Avoid NSAIDs altogether. PPI twice daily. Repeat EGD today. Transfused 2 units on 09/25, 2 more ordered 09/28 (3) Mass of pancreas: Requires EUS as outpatient, likely in 2 weeks per GI. (4) Ruptured lumbar disc: Ortho spine on case, will try to get surgery done this week c Dr Baig, May proceed to OR from IM perspective on Sunday 10/01, Periop Lantus and SSI (5) Tachycardia: Resolved (6) DKA (diabetic ketoacidoses): Insulin Protocol (7) DVT prophylaxis: Labs Checked SCDs Full code Dispo-to home when medically stable Added Elavil at HS to help sleep, Pain control c Narcotics, Blood Given on 09/25, GI Blood loss anemia sec to UGIB from Bleeding Gastric Ulcers, Repeat EGD, 2 more units RBCs 09/27 Monitor progress through weekend-Surgery c Dr Baig Tuesday, NPO p MN Tuesday night ROS-No Headache, No Visual Changes, No Nausea, No Vomiting, No Fever, No Chills, No Neck Pain or Stiffness, No Chest Pain, No Palpitations, No SOB, No TOTH, No Cough, No Sputum, No Wheezing, No Abdominal Pain, no Diarrhea, No Hematemesis, No Hemoptysis, +Weight Loss, No Flank pain, No Melena, No Hematochezia, No Frequency, No Urgency, No Burning, No Hematuria, No Rashes, No Diaphoresis. Feeling a lot better Physical Exam Gen-AAO x 3, NAD, Depressed, Afebrile, Color is back Head-NCAT, EOMI, PERRLA, Anicteric Sclera, No Posterior Pharyngeal Erythema Neck-Supple, No JVD, No Thyromegaly, No Masses, No LAD, No Bruits Lungs-Clear to Auscultation Bilaterally, No Rales, No Rhonchi, No Wheezing, No Crepitus Chest-Tachy, No S4, +S1, +S2, No S3, No Murmurs, No Rubs, No Gallops, No Ectopy Abdomen-Soft, Bowel Sounds Present, Non Tender, Non Distended, No Hepatomegaly, No Splenomegaly, No Palpable Masses, No Rebound, No Rigidity, No Guarding Musculoskeletal-Full Range of Motion Bilaterally, No CVAT Extremities-No Cyanosis, No Clubbing, No Edema Nuero-Cranial Nerves II-XII grossly intact, Motor WNL, DTRs WNL, Strength WNL, Non Focal Psych-Normal Results & Data Vital Signs (Past 12 Hours) Vital Signs Temp Pulse Resp BP BP Pulse Ox 09/29/19 06:49 36.6 C 88 19 121/79 96 09/28/19 23:15 36.8 C 100 H 18 111/73 95
[2019-09-29] MEDS: POTASSIUM CHLORIDE / WTR 10 MEQ/100 ML PLCT IV SCH ×2 (10:45→11:48)
--- NOTE | 2019-09-29 14:50 | Pharmacy Report ---
Pharmacy Glycemic Short Note 2 - Date of Service September 29, 2019 - Glycemic Short BSG Results (Last 24 hours): 09/28/19 09/28/19 09/28/19 17:05 20:28 20:34 Glucose POC Glucose 200 H 76 67 L* 09/28/19 09/29/19 09/29/19 20:57 01:19 08:11 Glucose 118 H POC Glucose 86 140 H 09/29/19 11:50 Glucose POC Glucose 189 H ASSESSMENT: 09/29 * Patient is currently receiving an average of 70 units of insulin per day * 40 units of basal insulin * 30 units of prandial/correctional insulin * BSGs ranging 67-200 over the past 24hrs * Risk factors for insulin resistance are DECREASING over the past 24hrs * Dextrose containing IVF (Protonix drip) D/C ~1430 * Hypoglycemia last evening, which may have been the result of over-correction. All other BSGs slightly above goal range; however, would expect to improve with Protonix drip stopped 09/28: * Patient received total 60 units of insulin yesterday: 50 units basal and only 10 units bolus. * He was NPO until lunch yesterday. Fasting BSG today was 145 which is within goal and lower than yesterday. Post prandial today was also same. * Lantus dose was reduced by 20% this AM and Novolog carb ratio loosened since BSGs today are lower and patient received part of his Lantus dose yesterday in the afternoon. * Carb intake has been lower. 09/27: * Patient received total of 95 units of insulin yesterday, of which 50 were basal insulin. * Fasting this AM still elevated at 207 mg/dL. Patient has been NPO since midnight for EGD today. Since fasting BSG elevated, it indicates patient needs more basal insulin. * Basal insulin 35 units was ordered this AM. Lunch BSG at 193 and clear liquid diet ordered, therefore additional 15 units (to total 50 units of basal) ordered for this afternoon. Patient may need further increase in basal Lantus dose tomorrow. * Novolog bolus CR tightened with dinner tonight. PLAN FOR INPATIENT GLYCEMIC CONTROL: * Basal insulin * Lantus 40 units daily * May need to adjust 10/01 dose as patient scheduled for surgery * Bolus insulin - loosen CF * NovoLog per scale ACHS * Goal Range: Low 120 mg/dL - High 160 mg/dL * Correction Factor: 18 mg/dL/unit * Nutritional / Prandial insulin per carb ratio of 1 unit per 5 grams CHO consumed PLAN FOR DISCHARGE: TO BE FURTHER DETERMINED * A1c = 14% on 09/24/19 * A reasonable A1C goal for many non- adults is A1c less than 7% * A1C value may be falsely high in patients with anemia. Patient also reports recent prednisone use which also could be contributing to A1C value on admission * diabetic educator met with patient and patient reports fasting values usually in lower 100s and rarely >200. Stressed importance of SMBG 3-4x/day post discharge to assist with further diabetes medication adjustments * During this hospital admission, patient has been needing between 30-50 units o f Lantus every day. He would likely benefit from some basal insulin post discharge. Would recommend close followup with provider for titration of dose and frequent SMBG checks throughout the day as outpatient. * Per discussion with primary special educator - patient resistant to bolus insulin but agreeable to basal. * Please note that the plan above was derived based on current level of insulin resistance and hospital stress. These recommendations are appropriate for inpatient admission only. Plan of care upon discharge will need to be reassessed to avoid potential outpatient hypo/hyperglycemia. Thank you.
[2019-09-29] MEDS: SERTRALINE HCL 50 MG TABLET PO SCH (20:23)
[2019-09-29] MEDS: AMITRIPTYLINE HCL 25 MG TAB PO SCH (20:23)
[2019-09-29] MEDS: PANTOprazole 40 MG TAB PO SCH (20:23)
[2019-09-30] MEDS: MoRPHine SULFATE 4 MG/ML 1 ML CARP\\VIAL IV PRN ×2 (00:58→19:50)
[2019-09-30] MEDS: NSS + 20MEQ KCL 20 MEQ/1,000 ML BAG IV SCH ×2 (03:42→10:52)
[2019-09-30 05:49] LABS: Hematocrit (blood only) 26.7 % (42-52); Mean Corpuscular Hemoglobin 30.7 pg (25-34); Mean Corpuscular Hgb Conc 33.7 g/dL (32-36); Mean Corpuscular Volume 91.1 fL (80-100); Mean Platelet Volume 11.4 fL (7.4-10.4); Platelet Count 199 K/uL (130-400); RDW Standard Deviation 51.1 fL (36.4-46.3); Red Blood Count 2.93 M/uL (4.7-6.1); White Blood Count 5.68 K/uL (4.8-10.8)
[2019-09-30 06:13] LABS: BUN Creatinine Ratio 6.9 (10-20); Calcium 8.7 mg/dl (8.5-10.1); Creatinine Clr Calc Pharmacy 105.1 ml/min; Est GFR (African American) 118.8; Est GFR (Non-African American) 102.5; Potassium 3.6 mmol/L (3.5-5.1)
[2019-09-30] MEDS: TRAMADOL HCL 50 MG TABLET PO PRN ×3 (08:03→23:16)
[2019-09-30] MEDS: SUCRALFATE 1 GM/10 ML UDC PO SCH ×4 (08:04→20:08)
[2019-09-30] MEDS: PANTOprazole 40 MG TAB PO SCH ×2 (08:04→20:08)
[2019-09-30] MEDS: LIDOCAINE 5% 1 PATCH TD SCH (09:02)
[2019-09-30] MEDS: ACETAMINOPHEN 325 MG TAB PO PRN ×2 (09:03→23:15)
[2019-09-30] MEDS: INSULIN ASPART 100 UNITS/ML 3 ML PEN SC SCH ×4 (09:05→21:16)
[2019-09-30] MEDS: INSULIN GLARGINE SOLOSTAR 100 UNITS/ML 3 ML PEN SC SCH (09:07)
--- NOTE | 2019-09-30 09:26 | Hospitalist Progress Note ---
Date of Service September 30, 2019 Assessment & Plan (1) Acute blood loss anemia: Trend CBC, Hb down to 9 today (2) UGIB (upper gastrointestinal bleed): Recent NSAID use. EGD performed by GI revealed shallow based ulcers that are nonbleeding. Avoid NSAIDs altogether. PPI twice daily. Repeat EGD showed exposed vessel that lost its scar, it was cauterized. Transfused 2 units on 09/25, 2 more on 09/28 (3) Mass of pancreas: Requires EUS as outpatient, likely in 2 weeks per GI. (4) Ruptured lumbar disc: Ortho spine on case, will try to get surgery done this week c Dr Baig, May proceed to OR from IM perspective on Sunday 10/01, Periop Lantus and SSI, PPI (5) Tachycardia: Resolved (6) DKA (diabetic ketoacidoses): Resolved (7) DVT prophylaxis: Labs Checked SCDs Full code Dispo-to home when medically stable Added Elavil at HS to help sleep, Pain control c Narcotics, Blood Given on 09/25 and 09/27, GI Blood loss anemia sec to UGIB from Bleeding Gastric Ulcers, Repeat EGD, 2 more units RBCs 09/27 Monitor progress through weekend-Surgery c Dr Baig Tuesday, NPO p MN Tuesday night ROS-No Headache, No Visual Changes, No Nausea, No Vomiting, No Fever, No Chills, No Neck Pain or Stiffness, No Chest Pain, No Palpitations, No SOB, No TOTH, No Cough, No Sputum, No Wheezing, No Abdominal Pain, no Diarrhea, No Hematemesis, No Hemoptysis, +Weight Loss, No Flank pain, No Melena, No Hematochezia, No Frequency, No Urgency, No Burning, No Hematuria, No Rashes, No Diaphoresis. Feeling a lot better Physical Exam Gen-AAO x 3, NAD, Depressed, Afebrile, Color is back Head-NCAT, EOMI, PERRLA, Anicteric Sclera, No Posterior Pharyngeal Erythema Neck-Supple, No JVD, No Thyromegaly, No Masses, No LAD, No Bruits Lungs-Clear to Auscultation Bilaterally, No Rales, No Rhonchi, No Wheezing, No Crepitus Chest-Tachy, No S4, +S1, +S2, No S3, No Murmurs, No Rubs, No Gallops, No Ectopy Abdomen-Soft, Bowel Sounds Present, Non Tender, Non Distended, No Hepatomegaly, No Splenomegaly, No Palpable Masses, No Rebound, No Rigidity, No Guarding Musculoskeletal-Full Range of Motion Bilaterally, No CVAT Extremities-No Cyanosis, No Clubbing, No Edema Nuero-Cranial Nerves II-XII grossly intact, Motor WNL, DTRs WNL, Strength WNL, Non Focal Psych-Normal Results & Data Vital Signs (Past 12 Hours) Vital Signs Temp Pulse Resp BP BP Pulse Ox 09/30/19 07:25 36.6 C 89 18 121/79 95 09/29/19 22:28 36.7 C 92 H 16 124/74 96
--- NOTE | 2019-09-30 11:34 | Orthopedic Progress Note ---
Date of Service September 30, 2019 Assessment & Plan (1) Lumbar disc herniation with radiculopathy: This time we will be made n.p.o. after midnight tonight hopefully we can proceed with a lumbar laminectomy L4-5 Present on Admission?: Yes Subjective Patient continues complain of right leg pain Physical Exam Physical Exam: Continues to have tension signs to the right lower extremity. Results & Data Vital Signs (Past 12 Hours) Vital Signs Temp Pulse Resp BP Pulse Ox 09/30/19 07:25 36.6 C 89 18 121/79 95
--- NOTE | 2019-09-30 13:53 | Pharmacy Report ---
Pharmacy Glycemic Short Note 2 - Date of Service September 30, 2019 - Glycemic Short BSG Results (Last 24 hours): 09/29/19 09/29/19 09/30/19 17:06 20:35 04:46 Glucose 125 H POC Glucose 102 H 121 H 09/30/19 09/30/19 08:14 12:07 Glucose POC Glucose 131 H 159 H ASSESSMENT: 09/30 * Mr. Agee' BSGs have ranged from 102-159 mg/dL in the past 24 hours * He's receiving 40 units of basal and 30-35 units of bolus insulin * Plan for lumbar laminectomy on Tuesday, 10/01 so will reduce basal dose by 20% (closer to 50% of TDD) 09/29 * Patient is currently receiving an average of 70 units of insulin per day * 40 units of basal insulin * 30 units of prandial/correctional insulin * BSGs ranging 67-200 over the past 24hrs * Risk factors for insulin resistance are DECREASING over the past 24hrs * Dextrose containing IVF (Protonix drip) D/C ~1430 * Hypoglycemia last evening, which may have been the result of over-correction. All other BSGs slightly above goal range; however, would expect to improve with Protonix drip stopped 09/28: * Patient received total 60 units of insulin yesterday: 50 units basal and only 10 units bolus. * He was NPO until lunch yesterday. Fasting BSG today was 145 which is within goal and lower than yesterday. Post prandial today was also same. * Lantus dose was reduced by 20% this AM and Novolog carb ratio loosened since BSGs today are lower and patient received part of his Lantus dose yesterday in the afternoon. * Carb intake has been lower. 09/27: * Patient received total of 95 units of insulin yesterday, of which 50 were basal insulin. * Fasting this AM still elevated at 207 mg/dL. Patient has been NPO since midnight for EGD today. Since fasting BSG elevated, it indicates patient needs more basal insulin. * Basal insulin 35 units was ordered this AM. Lunch BSG at 193 and clear liquid diet ordered, therefore additional 15 units (to total 50 units of basal) ordered for this afternoon. Patient may need further increase in basal Lantus dose tomorrow. * Novolog bolus CR tightened with dinner tonight. PLAN FOR INPATIENT GLYCEMIC CONTROL: * Basal insulin * Lantus 40 units daily * Give 32 units on 10/01 for NPO status * Bolus insulin - no change * NovoLog per scale ACHS * Goal Range: Low 120 mg/dL - High 160 mg/dL * Correction Factor: 18 mg/dL/unit * Nutritional / Prandial insulin per carb ratio of 1 unit per 5 grams CHO consumed PLAN FOR DISCHARGE: * A1c = 14% on 09/24/19 * A reasonable A1C goal for many non- adults is A1c less than 7% * A1C value may be falsely high in patients with anemia. Patient also reports recent prednisone use which also could be contributing to A1C value on admission * asthma educator met with patient and patient reports fasting values usually in lower 100s and rarely >200. Stressed importance of SMBG 3-4x/day post discharge to assist with further diabetes medication adjustments * During this hospital admission, patient has been needing between 30-50 units of Lantus every day. He would likely benefit from some basal insulin post discharge. Would recommend close followup with provider for titration of dose and frequent SMBG checks throughout the day as outpatient. * Per discussion with conservation educator - patient resistant to bolus insulin but agreeable to basal. * Update 09/30: Recommend Lantus/Basaglar 40 units once daily on discharge Thank you.
[2019-09-30] MEDS: SERTRALINE HCL 50 MG TABLET PO SCH (20:08)
[2019-09-30] MEDS: AMITRIPTYLINE HCL 25 MG TAB PO SCH (20:08)
[2019-10-01] MEDS: MoRPHine SULFATE 4 MG/ML 1 ML CARP\\VIAL IV PRN ×3 (00:33→14:25)
[2019-10-01] MEDS ORDERED: Nursing to Pharmacy Communication ONE ×2 (01:10→20:09)
[2019-10-01] MEDS: INSULIN ASPART 100 UNITS/ML 3 ML PEN SC SCH ×4 (05:52→21:07)
[2019-10-01 06:58] LABS: Hematocrit (blood only) 28.7 % (42-52); Hemoglobin 9.4 g/dL (14.0-18.0); Mean Corpuscular Hgb Conc 32.8 g/dL (32-36); Mean Corpuscular Volume 91.7 fL (80-100); Mean Platelet Volume 10.7 fL (7.4-10.4); Platelet Count 226 K/uL (130-400); RDW Coefficient of Variation 16.6 % (11.5-14.5); RDW Standard Deviation 53.3 fL (36.4-46.3); Red Blood Count 3.13 M/uL (4.7-6.1)
[2019-10-01 07:26] LABS: BUN Creatinine Ratio 12.8 (10-20); Calcium 8.6 mg/dl (8.5-10.1); Creatinine Clr Calc Pharmacy 103.6 ml/min; Est GFR (African American) 118.1; Est GFR (Non-African American) 101.9; Potassium 3.3 mmol/L (3.5-5.1)
[2019-10-01] MEDS: SUCRALFATE 1 GM/10 ML UDC PO SCH ×4 (08:40→21:01)
[2019-10-01] MEDS: PANTOprazole 40 MG TAB PO SCH ×2 (08:40→21:01)
[2019-10-01] MEDS: LIDOCAINE 5% 1 PATCH TD SCH (08:40)
[2019-10-01] MEDS ORDERED: INSULIN GLARGINE SOLOSTAR 100 UNITS/ML 3 ML PEN SC SCH (09:00)
[2019-10-01] MEDS ORDERED: POTASSIUM CHLORIDE 40 MEQ in SODIUM CHLORIDE 0.9% 1000ML 1,000 ML IV SCH (10:15)
--- NOTE | 2019-10-01 14:36 | Anesthesiology Consultation ---
Date of Service October 01, 2019 Assessment & Plan (1) Encounter for pre-operative examination: Chart Review Chart Review: Acceptable Risk for Surgery and Patient NOT seen in Pre Admission Testing Consults Requested none History Surgery Operation Date: 09/24/19 17:45 Proposed Procedures p Esophagogastroduodenoscopy Dr Homar Benjamin Operation Date: 09/27/19 09:35 Proposed Procedures p L4-L5 Laminectomy on the Right - Emmett Baig DO Operation Date: 09/27/19 16:30 Proposed Procedures p Esophagogastroduodenoscopy Dr Homar Benjamin Operation Date: 10/01/19 07:15 Proposed Procedures p L4-L5 Right Lumbar Laminectomy - Emmett Baig DO Height/Weight Height: 5 ft 7 in Weight: 77.8 kg Allergies Allergy/AdvReac Type Severity Reaction Status Date / Time No Known Allergies Allergy Unverified 09/23/19 22:05 Medications Home Medications Medication Instructions Recorded Confirmed Last Taken aspirin [Aspirin Low Dose] 81 mg PO QPM 09/23/19 09/23/19 09/22/19 celecoxib 200 mg PO BID 09/23/19 09/23/19 09/22/19 gabapentin 300 mg PO DIRECTED 09/23/19 09/23/19 09/22/19 linagliptin [Tradjenta] 5 mg PO QPM 09/23/19 09/23/19 09/22/19 metformin 1,000 mg PO DAILY 09/23/19 09/23/19 09/22/19 sertraline 50 mg PO QPM 09/23/19 09/23/19 09/22/19 Active Medications Generic Name Dose Route Start Last Admin Trade Name Freq PRN Reason Stop Dose Admin Acetaminophen 650 mg 09/24/19 03:52 09/30/19 23:15 Tylenol PO 10/24/19 03:51 650 mg Q4H PRN Administration Pain or Fever Amitriptyline HCl 25 mg 09/25/19 21:00 09/30/19 20:08 Elavil PO 10/25/19 20:59 25 mg HS JHON Administration Potassium Chloride 40 meq/ 1,020 mls @ 100 mls/hr 10/01/19 10:15 10/01/19 11:11 Sodium Chloride IV 10/01/19 20:26 100 mls/hr .[id number] JHON Administration Insulin Aspart 0 units 10/01/19 06:00 10/01/19 12:46 Novolog Flexpen SC 10/31/19 05:59 Not Given Q6 JHON Insulin Glargine 40 units 09/29/19 09:00 09/30/19 09:07 Lantus Solostar Pen SC 10/29/19 08:59 40 units QAM JHON Administration Protocol Lidocaine 1 patch 09/24/19 04:30 10/01/19 08:40 Lidoderm 5% TD 10/24/19 04:29 1 patch QAM JHON Administration Miscellaneous 15 - 30 gm 09/24/19 02:30 09/28/19 20:40 Carbohydrates For Hypoglycemia PO 10/24/19 02:29 15 gm UD PRN Administration Hypoglycemia Treatment Miscellaneous 1 ea 09/24/19 16:30 09/30/19 20:08 Remove Lidoderm Patch N/A 10/24/19 16:29 1 ea DAILY@2100 JHON Administration Morphine Sulfate 4 mg 09/24/19 03:52 10/01/19 14:25 Morphine Sulfate IV 10/08/19 03:51 4 mg Q4H PRN Administration Pain Pantoprazole Sodium 40 mg 09/29/19 21:00 10/01/19 08:40 Protonix PO 10/29/19 20:59 Not Given BID JHON Sertraline HCl 50 mg 09/24/19 21:00 09/30/19 20:08 Zoloft PO 10/24/19 20:59 50 mg QPM JHON Administration Sucralfate 1 gm 09/29/19 07:30 10/01/19 11:18 Carafate PO 10/29/19 07:29 Not Given ACHS JHON Tramadol HCl 25 - 50 mg 09/24/19 03:52 09/30/19 23:16 Ultram PO 10/24/19 03:51 50 mg Q4H PRN Administration Pain NPO Date Last Intake of Fluids: 09/30/19 Time Last Intake of Fluids: 23:59 Last Intake of Fluids Comment: "few ice chips" Date Last Intake of Solids: 09/30/19 Time Last Intake of Solids: 23:59 Past Medical History Medical History Arthritis Bone spur Diabetes Gout Ruptured lumbar disc Varicose vein of leg Past Family History Family History Other Cancer Diabetes Heart disease Hypertension Past Surgical History Surgical History H/O vein stripping S/P herniorrhaphy Social History Smoking Status: Former smoker Hx Alcohol Use: No Hx Substance Use: No Physical Exam Vital Signs Last Vital Signs Temp 36.4 C L 10/01/19 07:37 Pulse 87 10/01/19 07:37 Resp 15 10/01/19 07:37 BP 121/82 10/01/19 07:37 Pulse Ox 94 10/01/19 07:37 Testing Laboratory Results 10/01/19 06:31 10/01/19 06:31 Hemoglobin A1c 14.0 % (4.5-5.6) H 09/24/19 08:14 Urine Color Yellow 09/23/19 21:57 Urine Appearance Clear (Clear) 09/23/19 21:57 Urine pH 5.0 (4.5-7.5) 09/23/19 21:57 Ur Specific [place] 1.035 (1.000-1.030) H 09/23/19 21:57 Urine Protein Negative (Negative) 09/23/19 21:57 Urine Glucose (UA) 3+ (Negative) H 09/23/19 21:57 Urine Ketones 1+ (Negative) H 09/23/19 21:57 Urine Nitrite Negative (Negative) 09/23/19 21:57 Ur Leukocyte Esterase Negative (Negative) 09/23/19 21:57 Blood Type A Positive 10/01/19 09:38 Antibody Screen NEGATIVE 10/01/19 09:38 10/01/19 10/01/19 11:49 05:32 POC Glucose 144 H 195 H Electrocardiogram Date: 09/26/19 Findings: + ST @ (115) Inferior infarct, age undetermined, cannot rule out anterior infarct, age unde termined, when compared to ECG 09/25/2019, T wave amplitude has decreased in Anterior leads Chest X-Ray Date: 09/27/19 Findings: + NAD
[2019-10-01] MEDS ORDERED: HYDROmorphone INJ 2 MG/ML SYR/VIAL IV PRN (15:37)
[2019-10-01] MEDS ORDERED: ePHEDrine sulfate 50 MG/ML AMP IV PRN (15:37)
[2019-10-01] MEDS ORDERED: fentaNYL citrate 100 MCG/2 ML VIAL IV PRN (15:37)
[2019-10-01] MEDS ORDERED: ONDANSETRON INJ 2 MG/ML 2 ML VIAL IV PRN (15:37)
[2019-10-01] MEDS ORDERED: ATROPINE SULFATE 0.1 MG/ML 10ML SYR IV PRN (15:37)
[2019-10-01] MEDS ORDERED: PROMETHAZINE HCL 6.25 MG in SODIUM CHLORIDE 0.9% 50 ML IV PRN (15:37)
[2019-10-01] MEDS ORDERED: PROPOFOL IV EMULSION 10 MG/ML 20 ML VIAL IV ONE (16:15)
[2019-10-01] MEDS ORDERED: LIDOCAINE HCL 2% 2 ML VIAL/AMP(20MG/ML) INFIL ONE (16:15)
[2019-10-01] MEDS ORDERED: DEXAMETHASONE SOD INJ 4 MG/ML VIAL ONE (16:15)
[2019-10-01] MEDS ORDERED: PHENYLEPHRINE 100MCG/ML 5ML SYR ONE (16:15)
[2019-10-01] MEDS ORDERED: NEOSTIGMINE METHYLSULFATE 5 MG/5 ML SYR ONE (16:15)
[2019-10-01] MEDS ORDERED: GLYCOPYRROLATE 0.2 MG/ML VIAL ONE (16:15)
[2019-10-01] MEDS ORDERED: ONDANSETRON INJ 2 MG/ML 2 ML VIAL ONE (16:15)
[2019-10-01] MEDS ORDERED: ePHEDrine sulfate 50 MG/ML SYR ONE (16:15)
[2019-10-01] MEDS ORDERED: LARYING-O-JET KIT (LTA) ONE (16:16)
[2019-10-01] MEDS ORDERED: ROCURONIUM BROMIDE 10 MG/ML 5 ML VIAL ONE (16:16)
[2019-10-01] MEDS ORDERED: fentaNYL citrate 100 MCG/2 ML VIAL ONE (16:20)
[2019-10-01] MEDS ORDERED: MIDAZOLAM HCL 1 MG/ML 2ML VIAL ONE (16:20)
[2019-10-01] MEDS ORDERED: BACITRACIN INJ 50,000 UNIT VIAL ONE (16:21)
[2019-10-01] MEDS ORDERED: BUPIVACAINE/EPINEPHRINE 0.5% MPF 1:200,000 10 ML VIAL ONE (16:21)
--- NOTE | 2019-10-01 16:58 | History & Physical Bridge Note ---
Date of Service October 01, 2019 History & Physical Bridge Note I have examined the patient, reviewed the History & Physical and in the interval since the performance of the History & Physical I have noted the following changes of clinical significance: no changes noted
[2019-10-01] MEDS ORDERED: CEFAZOLIN 2,000 MG/15 ML IV PUSH IV ONE (17:02)
[2019-10-01] MEDS ORDERED: HYDROmorphone INJ 2 MG/ML SYR/VIAL ONE (17:26)
[2019-10-01] MEDS ORDERED: FLOSEAL HEMOSTATIC MATRIX 10ML TOP ONE (17:42)
--- NOTE | 2019-10-01 18:18 | Operative Report ---
Post Operative Report Pre & Post Diagnosis Operation Date: 09/24/19 17:45 Pre-Op Diagnosis: ANEMIA, GI BLEED, HYPOTENSION Post-Op Diagnosis: Duodenal and gastric ulcers, duodenitis Operation Date: 09/27/19 09:35 <No data on this case meets the specified criteria> Operation Date: 09/27/19 16:30 Pre-Op Diagnosis: ANEMIA, GI BLEED Post-Op Diagnosis: duodenal ulcer Operation Date: 10/01/19 07:15 Pre-Op Diagnosis: Lumbar disc herniation with radiculopathy L4-L5 Post-Op Diagnosis: Lumbar disc herniation with radiculopathy L4-L5 I identified the patient and participated in the time-out.: Yes Procedure Operation Date: 09/24/19 17:45 Actual Procedures p EGD Biopsy Cytology - Irphan E Gaslightwala Operation Date: 09/27/19 09:35 <No data on this case meets the specified criteria> Operation Date: 09/27/19 16:30 Actual Procedures p EGD Hemostasis - Irphan E Gaslightwala Operation Date: 10/01/19 07:15 Actual Procedures p L4-L5 Right Lumbar Laminectomy(Right) - Emmett Baig DO Surgeon Emmett Baig DO [employer] Kesha Little Estimated Blood Loss 25 Findings Consistent with Post-Op Diagnosis Specimens L4-5 disc fragments Indications This is a 63-year-old male presents with above-mentioned diagnosis after failing extensive course of nonoperative care having continued decline in ability to ambulate and uncontrolled pain elected to go with above-mentioned procedure. Description of Procedure Patient was met with identified informed consent obtained. Patient was then taken to the operative suite underwent intubation placed in a prone position the Jamal table on top of the Kain frame. All bony prominences well-padded eyes inspected to ensure no external pressure placed upon the peer at this point the lumbar spine was prepped and draped in a sterile fashion. The assistance of fluoroscopy identified the L4-5 disc space and a midline incision was created overlying this region. Sharp dissection with the assistance of Bovie cautery was performed down to and exposing the interlaminar space at L4-5 on the right. We created a small laminotomy partial medial facetectomy to expose it markedly compressed traversing nerve root. It was mobilized medially and several cartilaginous fragments of disc material identified and removed. This created significant decompression. The area was explored several times to ensure all fragments were addressed. Was then copiously irrigated and closed with 1 Vicryl in the fascia 2-0 Vicryl subcutaneously and 4 Monocryl for final skin closure. Steri-Strips dressings placed. Patient will continue PACU stable condition. Please note Kesha Little was present at the entire procedure involved the patient positioning complex portions of the surgery and final skin closure. I attest to the content of the Intraoperative Record and any orders documented therein. Any exceptions are noted below.
--- NOTE | 2019-10-01 18:29 | Fluoroscopy Report ---
FL spine 1V any level HISTORY: Laminectomy. FLUOROSCOPY TIME: 3 seconds. FINDINGS: Intraoperative fluoroscopy was provided for the lumbar spine. 1 fluoroscopic spot images we re obtained. IMPRESSION: Fluoroscopy provided for a L4-L5 laminectomy. ACT 112: Negative or not required by law. The above report was generated using voice recognition software. It may contain grammatical, syntax or spelling errors. Electronically signed by: Ehsan Soto M.D. 10/01/2019 6:28 PM
--- NOTE | 2019-10-01 18:58 | Anesthesiology Progress Note ---
Date of Service October 01, 2019 Anesthesia Post Procedure Vital Signs Vital Signs: Temp Pulse Pulse Resp BP Pulse Ox 10/01/19 18:55 75 12 115/70 97 10/01/19 18:45 74 15 102/55 L 100 10/01/19 18:35 79 12 119/81 100 10/01/19 18:26 36.7 C 76 12 90/64 L 91 10/01/19 15:07 36.7 C 102 H 18 138/81 94 10/01/19 07:37 36.4 C L 87 15 121/82 94 09/30/19 23:05 36.6 C 95 H 16 123/73 96 Pain Intensity Back: Pain Intensity: 0 Right Hip: Pain Intensity: 3 Transfer of Care Handoff Completed per policy Notes Mental Status: alert / awake / arousable Patient Amnestic to Procedure: Yes Nausea / Vomiting: adequately controlled Pain: adequately controlled Airway Patency, RR, SpO2: stable & adequate BP & HR: stable & adequate Hydration State: stable & adequate Anesthetic Complications: no major complications apparent
--- NOTE | 2019-10-01 19:50 | Hospitalist Progress Note ---
Date of Service October 01, 2019 Assessment & Plan (1) Acute blood loss anemia: Acute blood loss anemia Upper gastrointestinal bleeding Likely related to NSAIDs use S/P EGD:Duodenal ulcer with non bleeding visible vessel s/p epi injection and cautery. S/P 4 units PRBCs --Continue PPI twice daily --Monitor H&H, transfuse as needed Appreciate GI input Avoid NSAIDs Needs repeat to evaluate ulcer healing and EUS to evaluate pancreatic mass (2) UGIB (upper gastrointestinal bleed): As above (3) Mass of pancreas: Requires EUS as outpatient, likely in 2 weeks per GI. (4) Ruptured lumbar disc: Lumbar disc herniation with radiculopathy L4-L5 S/P L4-L5 Right Lumbar Laminectomy POD #0 Orthopedics on board Pain control Avoid NSAIDs (5) Tachycardia: Resolved (6) DKA (diabetic ketoacidoses): DM II: Uncontrolled Hb A1C: 14.0 Continue insulin sliding scale, Lantus Monitor BGs Appreciate pharmacy glycemic management (7) DVT prophylaxis: SCDs Re: GI bleed Code Status Full code Disposition Expect to discharge home when medically stable Subjective Patient seen and examined at bedside Complains of right hip pain radiating down the leg Plan for right lumbar laminectomy today No recurrence of bleeding issues Denies any chest pain, shortness of breath, dizziness, nausea, abdominal pain Family at bedside Review of Systems Review of Systems: All systems reviewed & are unremarkable except as noted in HPI & below Physical Exam Physical Exam: Physical Exam: Vitals signs as noted above General Appearance:Moderately built and nourished, no apparent distress Head: normocephalic, Atraumatic Eyes: normal inspection, EOMI Neck: supple, Trachea midline Respiratory/Chest: Normal breath sounds, CTA Cardiovascular: S1, S2, No murmur Abdomen/GI:Soft, Non tender, Bowel sounds present Extremities/Musculoskelatal:normal inspection, no edema Neurologic/Psych:AAOX3, grossly no focal neurological deficits Skin: normal color, warm Results & Data Vital Signs (Past 12 Hours) Vital Signs Temp Pulse Pulse Resp BP Pulse Ox 10/01/19 19:10 82 13 124/81 98 10/01/19 19:05 36.6 C 76 12 122/77 98 10/01/19 18:55 75 12 115/70 97 10/01/19 18:45 74 15 102/55 L 100 10/01/19 18:35 79 12 119/81 100 10/01/19 18:26 36.7 C 76 12 90/64 L 91 10/01/19 15:07 36.7 C 102 H 18 138/81 94 Laboratory Results Short CBC 10/01/19 Range/Units 06:31 WBC 5.90 (4.8-10.8) K/uL Hgb 9.4 L (14.0-18.0) g/dL Hct 28.7 L (42-52) % Plt Count 226 (130-400) K/uL BMP 10/01/19 06:31 Sodium 138 Potassium 3.3 L Chloride 106 Carbon Dioxide 26 BUN 9 Creatinine 0.70 Glucose 186 H Calcium 8.6
[2019-10-01] MEDS: HYDROmorphone INJ 1 MG/ML SYRINGE IV PRN (20:54)
[2019-10-01] MEDS: SERTRALINE HCL 50 MG TABLET PO SCH (21:01)
[2019-10-01] MEDS: AMITRIPTYLINE HCL 25 MG TAB PO SCH (21:01)
[2019-10-02] MEDS: HYDROmorphone INJ 1 MG/ML SYRINGE IV PRN ×3 (00:30→22:40)
[2019-10-02] MEDS: CEFAZOLIN 2000MG 2,000 MG/15 ML SYR IV SCH ×3 (01:44→19:05)
[2019-10-02] MEDS: OXYCODONE/ACETAMINOPHEN 5mg/325mg TAB PO PRN ×3 (01:44→13:11)
[2019-10-02 06:48] LABS: Hematocrit (blood only) 30.8 % (42-52)
[2019-10-02 07:12] LABS: Calcium 8.9 mg/dl (8.5-10.1); Creatinine Clr Calc Pharmacy 102.1 ml/min; Est GFR (African American) 117.4; Est GFR (Non-African American) 101.3; Potassium 3.6 mmol/L (3.5-5.1)
--- NOTE | 2019-10-02 07:38 | Anesthesiology Progress Note ---
Date of Service October 02, 2019 Anesthesia Post Procedure Vital Signs Vital Signs: Temp Pulse Pulse Resp BP Pulse Ox 10/02/19 06:48 36.6 C 117 H 18 111/68 91 10/02/19 03:24 36.7 C 100 H 18 110/69 91 10/01/19 23:57 36.8 C 109 H 17 107/65 90 10/01/19 22:20 36.5 C 107 H 16 115/72 93 10/01/19 21:18 36.6 C 108 H 16 119/74 92 10/01/19 20:25 36.5 C 107 H 16 127/82 98 10/01/19 19:54 36.4 C L 91 H 16 126/81 97 10/01/19 19:10 82 13 124/81 98 10/01/19 19:05 36.6 C 76 12 122/77 98 10/01/19 18:55 75 12 115/70 97 10/01/19 18:45 74 15 102/55 L 100 10/01/19 18:35 79 12 119/81 100 10/01/19 18:26 36.7 C 76 12 90/64 L 91 10/01/19 15:07 36.7 C 102 H 18 138/81 94 Pain Intensity Back: Pain Intensity: 5 Right Hip: Pain Intensity: 3 Notes Mental Status: alert / awake / arousable and participated in evaluation Patient Amnestic to Procedure: Yes Nausea / Vomiting: adequately controlled Pain: adequately controlled Airway Patency, RR, SpO2: stable & adequate BP & HR: stable & adequate Hydration State: stable & adequate Anesthetic Complications: no major complications apparent and Pt Satisfied with anesthetic care
[2019-10-02] MEDS: PANTOprazole 40 MG TAB PO SCH ×2 (08:59→20:47)
[2019-10-02] MEDS: LIDOCAINE 5% 1 PATCH TD SCH (08:59)
[2019-10-02] MEDS: SUCRALFATE 1 GM/10 ML UDC PO SCH ×4 (08:59→20:47)
[2019-10-02] MEDS ORDERED: INSULIN GLARGINE SOLOSTAR 100 UNITS/ML 3 ML PEN SC ONE (09:00)
--- NOTE | 2019-10-02 09:01 | Orthopedic Progress Note ---
Date of Service October 02, 2019 Assessment & Plan (1) Lumbar disc herniation with radiculopathy: This time we continue with physical therapy avoid any heavy bending lifting or twisting. Present on Admission?: Yes Subjective Patient's back pain is controlled right leg symptoms are markedly improved. Physical Exam Physical Exam: Patient is in bed but has good strength testing to the right lower extremity. Results & Data Vital Signs (Past 12 Hours) Vital Signs Temp Pulse Pulse Resp BP Pulse Ox 10/02/19 06:48 36.6 C 117 H 18 111/68 91 10/02/19 03:24 36.7 C 100 H 18 110/69 91 10/01/19 23:57 36.8 C 109 H 17 107/65 90 10/01/19 22:20 36.5 C 107 H 16 115/72 93 10/01/19 21:18 36.6 C 108 H 16 119/74 92
[2019-10-02] MEDS: INSULIN ASPART 100 UNITS/ML 3 ML PEN SC SCH ×4 (09:03→20:49)
--- NOTE | 2019-10-02 11:52 | Pharmacy Report ---
Pharmacy Glycemic Short Note 2 - Date of Service October 02, 2019 - Glycemic Short BSG Results (Last 24 hours): 10/01/19 10/01/19 10/01/19 11:49 18:30 19:59 Glucose POC Glucose 144 H 150 H 146 H 10/02/19 10/02/19 06:00 07:52 Glucose 196 H POC Glucose 221 H ASSESSMENT: 10/02 * Mr. Agee received 32 units of basal and 16 units of bolus insulin yesterday * He was NPO for a majority of the day for lumbar laminectomy * BSGs were stable yesterday with 80% of usual basal dose administered (remained in the 140s for a majority of the day) * Fasting BSG now 221 mg/dL, due to intraop dose of Decadron 4 mg IV administer ed * Will increase basal dose for today by 20% (from usual dose of 40 units) and tighten bolus parameters for breakfast and lunch, then resume previous parameters since Decadron will start to wear off 09/30 * Mr. Agee' BSGs have ranged from 102-159 mg/dL in the past 24 hours * He's receiving 40 units of basal and 30-35 units of bolus insulin * Plan for lumbar laminectomy on Tuesday, 10/01 so will reduce basal dose by 20% (closer to 50% of TDD) 09/29 * Patient is currently receiving an average of 70 units of insulin per day * 40 units of basal insulin * 30 units of prandial/correctional insulin * BSGs ranging 67-200 over the past 24hrs * Risk factors for insulin resistance are DECREASING over the past 24hrs * Dextrose containing IVF (Protonix drip) D/C ~1430 * Hypoglycemia last evening, which may have been the result of over-correction. All other BSGs slightly above goal range; however, would expect to improve with Protonix drip stopped 09/28: * Patient received total 60 units of insulin yesterday: 50 units basal and only 10 units bolus. * He was NPO until lunch yesterday. Fasting BSG today was 145 which is within goal and lower than yesterday. Post prandial today was also same. * Lantus dose was reduced by 20% this AM and Novolog carb ratio loosened since BSGs today are lower and patient received part of his Lantus dose yesterday in the afternoon. * Carb intake has been lower. 09/27: * Patient received total of 95 units of insulin yesterday, of which 50 were basal insulin. * Fasting this AM still elevated at 207 mg/dL. Patient has been NPO since midnight for EGD today. Since fasting BSG elevated, it indicates patient needs more basal insulin. * Basal insulin 35 units was ordered this AM. Lunch BSG at 193 and clear liquid diet ordered, therefore additional 15 units (to total 50 units of basal) ordered for this afternoon. Patient may need further increase in basal Lantus dose tomorrow. * Novolog bolus CR tightened with dinner tonight. PLAN FOR INPATIENT GLYCEMIC CONTROL: * Basal insulin * Lantus 40 units daily (give 48 units today for steroid coverage) * Bolus insulin - tighten for breakfast and lunch to cover steroid dose * NovoLog per scale ACHS * Goal Range: Low 120 mg/dL - High 160 mg/dL * Correction Factor: 15 mg/dL/unit -> 18 mg/dL/unit starting at dinner * Nutritional / Prandial insulin per carb ratio of 1 unit per 4 grams (3 with lunch) CHO consumed -> 1 unit per 5 gm CHO starting at dinner PLAN FOR DISCHARGE: * A1c = 14% on 09/24/19 * A reasonable A1C goal for many non- adults is A1c less than 7% * A1C value may be falsely high in patients with anemia. Patient also reports recent prednisone use which also could be contributing to A1C value on admission * nurse informatics educator met with patient and patient reports fasting values usually in lower 100s and rarely >200. Stressed importance of SMBG 3-4x/day post discharge to assist with further diabetes medication adjustments * During this hospital admission, patient has been needing between 30-50 units of Lantus every day. He would likely benefit from some basal insulin post discharge. Would recommend close followup with provider for titration of dose and frequent SMBG checks throughout the day as outpatient. * Per discussion with informatics educator - patient resistant to bolus insulin but agreeable to basal. * Update 09/30: Recommend Lantus/Basaglar 40 units once daily on discharge IN ADDITION TO Tradjenta + metformin Thank you.
[2019-10-02] MEDS ORDERED: NSS + 20MEQ KCL 20 MEQ/1,000 ML BAG IV ONE (14:45)
[2019-10-02] MEDS: TRAMADOL HCL 50 MG TABLET PO PRN (14:49)
--- NOTE | 2019-10-02 14:58 | Electrocardiogram Report ---
Test Reason : Blood Pressure : / mmHG Vent. Rate : 113 BPM Atrial Rate : 113 BPM P-R Int : 154 ms QRS Dur : 100 ms QT Int : 332 ms P-R-T Axes : 037 -10 033 degrees QTc Int : 455 ms Sinus tachycardia Minimal voltage criteria for LVH, may be normal variant ( R in aVL ) Cannot rule out Anterior infarct (cited on or before 23-SEP-2019) Abnormal ECG When compared with ECG of 26-SEP-2019 18:40, No significant change was found Confirmed by Nirmal Sharma ([id number]) on 10/02/2019 2:58:21 PM Referred By: REFERRED SELF Confirmed By:Nirmal Sharma
--- NOTE | 2019-10-02 15:12 | Hospitalist Progress Note ---
Date of Service October 02, 2019 Assessment & Plan (1) Acute blood loss anemia: Acute blood loss anemia Upper gastrointestinal bleeding Likely related to NSAIDs use S/P EGD:Duodenal ulcer with non bleeding visible vessel s/p epi injection and cautery. S/P 4 units PRBCs --Continue PPI 40mg BID --Also on Sucralfate --Monitor H&H, transfuse as needed Appreciate GI input Avoid NSAIDs Monitor CBC Needs repeat to evaluate ulcer healing and EUS to evaluate pancreatic mass (2) UGIB (upper gastrointestinal bleed): As above (3) Mass of pancreas: Requires EUS as outpatient, likely in 2 weeks per GI. (4) Ruptured lumbar disc: Lumbar disc herniation with radiculopathy L4-L5 S/P L4-L5 Right Lumbar Laminectomy POD #1 Appreciate Orthopedics help Pain control Avoid NSAIDs Needs FU with Ortho upon discharge Continue PT/OT (5) Tachycardia: Resolved (6) DKA (diabetic ketoacidoses): DM II: Uncontrolled Hb A1C: 14.0 Continue insulin sliding scale, Lantus Monitor BGs Appreciate pharmacy glycemic management Plan to discharge on Lantus upon discharge (7) DVT prophylaxis: SCDs Re: GI bleed Code Status Full code Disposition Expect to discharge home when medically stable Subjective Patient seen and examined at bedside No significant back pain at surgical site Right leg pain improved No bleeding issues Denies any chest pain, shortness of breath, dizziness, nausea, abdominal pain Family at bedside No other complaints Review of Systems Review of Systems: All systems reviewed & are unremarkable except as noted in HPI & below Physical Exam Physical Exam: Physical Exam: Vitals signs as noted above General Appearance:Moderately built and nourished, no apparent distress Head: normocephalic, Atraumatic Eyes: normal inspection, EOMI Neck: supple, Trachea midline Respiratory/Chest: Normal breath sounds, CTA Cardiovascular: S1, S2, No murmur Abdomen/GI:Soft, Non tender, Bowel sounds present Back: Surgical site in dressing Extremities/Musculoskelatal:normal inspection, no edema Neurologic/Psych:AAOX3, grossly no focal neurological deficits Skin: normal color, warm Results & Data Vital Signs (Past 12 Hours) Vital Signs Temp Pulse Resp BP Pulse Ox 10/02/19 15:03 37.1 C 119 H 18 104/59 L 96 10/02/19 14:12 113 H 10/02/19 11:35 36.7 C 137 H 18 102/50 L 95 10/02/19 06:48 36.6 C 117 H 18 111/68 91 10/02/19 03:24 36.7 C 100 H 18 110/69 91 Laboratory Results Short CBC 10/02/19 Range/Units 06:00 Hgb 10.0 L (14.0-18.0) g/dL Hct 30.8 L (42-52) % BMP 10/02/19 06:00 Sodium 137 Potassium 3.6 Chloride 102 Carbon Dioxide 30 BUN 9 Creatinine 0.71 Glucose 196 H Calcium 8.9
[2019-10-02] MEDS: ACETAMINOPHEN 325 MG TAB PO PRN (18:51)
[2019-10-02] MEDS: OXYCODONE HCL IR 5 MG TAB (IMMEDIATE RELEASE) PO PRN (18:51)
[2019-10-02] MEDS ORDERED: PIPERACILL/TAZOBAC CONSULT ACTIVE PRN (19:48)
[2019-10-02] MEDS ORDERED: PIPERACILLIN/TAZOBACTAM 3.375 GM in DEXTROSE 5% 100 ML IV ONE (20:00)
[2019-10-02] MEDS: AMITRIPTYLINE HCL 25 MG TAB PO SCH (20:47)
[2019-10-02] MEDS: SERTRALINE HCL 50 MG TABLET PO SCH (20:47)
--- NOTE | 2019-10-02 22:33 | Ultrasound Report ---
ULTRASOUND BILATERAL LOWER EXTREMITY VENOUS CLINICAL HISTORY: Bilateral leg pain. COMPARISON STUDY: No priors. TECHNIQUE: Real-time, grayscale, and color Doppler sonography of the deep veins of the right and left lower extremity was performed from the inguinal crease to the calf. Compression and augmentation wer e utilized. FINDINGS: There is no sonographic evidence of deep venous thrombosis identified in the right or left lower extremity. The common femoral, superficial femoral, and popliteal veins are patent and normally compressible bilaterally. The greater saphenous vein and the profunda femoris vein at the junction w ith the common femoral vein are clear in both legs. The visualized calf veins are patent bilaterally. IMPRESSION: There is no sonographic evidence of deep venous thrombosis identified in the right or lef t lower extremity. ACT 112: Negative or not required by law. Electronically signed by: Joe Fritz M.D. 10/02/2019 10:32 PM
[2019-10-03] MEDS: OXYCODONE/ACETAMINOPHEN 5mg/325mg TAB PO PRN ×3 (00:03→12:04)
[2019-10-03] MEDS: OXYCODONE HCL IR 5 MG TAB (IMMEDIATE RELEASE) PO PRN (02:24)
[2019-10-03] MEDS: PIPERACILLIN/TAZOBACTAM 3.375 GM in DEXTROSE 5% 100 ML IV SCH ×2 (02:24→13:26)
[2019-10-03] MEDS ORDERED: POLYETHYLENE (MIRALAX) 17 GM PACK PO PRN (05:09)
[2019-10-03 05:34] LABS: Hematocrit (blood only) 29.9 % (42-52); Hemoglobin 9.9 g/dL (14.0-18.0)
[2019-10-03] MEDS: HYDROmorphone INJ 1 MG/ML SYRINGE IV PRN (05:38)
[2019-10-03 05:59] LABS: BUN Creatinine Ratio 10.9 (10-20); Calcium 8.9 mg/dl (8.5-10.1); Creatinine Clr Calc Pharmacy 80.6 ml/min; Est GFR (African American) 106.5; Est GFR (Non-African American) 91.9; Potassium 3.5 mmol/L (3.5-5.1)
[2019-10-03] MEDS: LIDOCAINE 5% 1 PATCH TD SCH (07:46)
[2019-10-03] MEDS: PANTOprazole 40 MG TAB PO SCH (07:46)
[2019-10-03] MEDS: SUCRALFATE 1 GM/10 ML UDC PO SCH ×2 (07:46→12:04)
[2019-10-03] MEDS: INSULIN ASPART 100 UNITS/ML 3 ML PEN SC SCH ×2 (07:51→13:27)
[2019-10-03] MEDS: TRAMADOL HCL 50 MG TABLET PO PRN (07:54)
[2019-10-03] MEDS ORDERED: INSULIN GLARGINE SOLOSTAR 100 UNITS/ML 3 ML PEN SC SCH (09:00)
[2019-10-03] MEDS ORDERED: DOCUSATE SODIUM 100 MG CAP PO SCH (09:00)
--- NOTE | 2019-10-03 09:47 | Pharmacy Report ---
Pharmacy Glycemic Short Note 2 - Date of Service October 03, 2019 - Glycemic Short BSG Results (Last 24 hours): 10/02/19 10/02/19 10/02/19 11:39 17:11 20:42 Glucose POC Glucose 233 H 97 174 H 10/03/19 10/03/19 04:52 06:31 Glucose 165 H POC Glucose 189 H ASSESSMENT: 10/03 * Mr. Agee received 48 units of basal and 54 units of bolus insulin yesterday (TDD = 102) * His requirements were higher secondary to Decadron given on 10/01 * Fasting BSG = 189 this AM; ? if this is caused by a new infection. Zosyn initiated overnight for postop fevers. Insulins given early this AM due to early PT/breakfast tray so changes could not be made this AM. If BSGs remain high at lunch, will adjust then. * -> BSG improved at lunchtime so no further changes necessary 10/02 * Mr. Agee received 32 units of basal and 16 units of bolus insulin yesterday * He was NPO for a majority of the day for lumbar laminectomy * BSGs were stable yesterday with 80% of usual basal dose administered (remained in the 140s for a majority of the day) * Fasting BSG now 221 mg/dL, due to intraop dose of Decadron 4 mg IV administered * Will increase basal dose for today by 20% (from usual dose of 40 units) and tighten bolus parameters for breakfast and lunch, then resume previous parameters since Decadron will start to wear off 09/30 * Mr. Agee' BSGs have ranged from 102-159 mg/dL in the past 24 hours * He's receiving 40 units of basal and 30-35 units of bolus insulin * Plan for lumbar laminectomy on Tuesday, 10/01 so will reduce basal dose by 20% (closer to 50% of TDD) 09/29 * Patient is currently receiving an average of 70 units of insulin per day * 40 units of basal insulin * 30 units of prandial/correctional insulin * BSGs ranging 67-200 over the past 24hrs * Risk factors for insulin resistance are DECREASING over the past 24hrs * Dextrose containing IVF (Protonix drip) D/C ~1430 * Hypoglycemia last evening, which may have been the result of over-correction. All other BSGs slightly above goal range; however, would expect to improve with Protonix drip stopped 09/28: * Patient received total 60 units of insulin yesterday: 50 units basal and only 10 units bolus. * He was NPO until lunch yesterday. Fasting BSG today was 145 which is within goal and lower than yesterday. Post prandial today was also same. * Lantus dose was reduced by 20% this AM and Novolog carb ratio loosened since BSGs today are lower and patient received part of his Lantus dose yesterday in the afternoon. * Carb intake has been lower. 09/27: * Patient received total of 95 units of insulin yesterday, of which 50 were basal insulin. * Fasting this AM still elevated at 207 mg/dL. Patient has been NPO since midnight for EGD today. Since fasting BSG elevated, it indicates patient needs more basal insulin. * Basal insulin 35 units was ordered this AM. Lunch BSG at 193 and clear liquid diet ordered, therefore additional 15 units (to total 50 units of basal) ordered for this afternoon. Patient may need further increase in basal Lantus dose tomorrow. * Novolog bolus CR tightened with dinner tonight. PLAN FOR INPATIENT GLYCEMIC CONTROL: * Basal insulin - no change * Lantus 40 units daily * Bolus insulin - tighten goal range only * NovoLog per scale ACHS * Goal Range: Low 120 mg/dL - High 150 mg/dL * Correction Factor: 18 mg/dL/unit * Nutritional / Prandial insulin per carb ratio of 1 unit per 5 gm CHO PLAN FOR DISCHARGE: * A1c = 14% on 09/24/19 * A reasonable A1C goal for many non- adults is A1c less than 7% * A1C value may be falsely high in patients with anemia. Patient also reports recent prednisone use which also could be contributing to A1C value on admission * silk worker met with patient and patient reports fasting values usually in lower 100s and rarely >200. Stressed importance of SMBG 3-4x/day post discharge to assist with further diabetes medication adjustments * During this hospital admission, patient has been needing between 30-50 units of Lantus every day. He would likely benefit from some basal insulin post discharge. Would recommend close followup with provider for titration of dose and frequent SMBG checks throughout the day as outpatient. * Per discussion with concrete floor installer - patient resistant to bolus insulin but agreeable to basal. * Update 09/30: Recommend Lantus/Basaglar 40 units once daily on discharge IN ADDITION TO Tradjenta + metformin. Could also consider increasing metformin ER to 1500 mg daily, with a goal of increasing to max of 2000 mg daily. Thank you.
--- NOTE | 2019-10-03 10:40 | Orthopedic Progress Note ---
Date of Service October 03, 2019 Assessment & Plan (1) Lumbar disc herniation with radiculopathy: From an orthopedic standpoint he is safe for discharge home. He is to follow-up in the office in the next 2 weeks. Present on Admission?: Yes Subjective Patient's right leg symptoms are markedly improved. Back pain controlled. Physical Exam Physical Exam: Patient is in the chair at the bedside. Is good strength testing. No tension signs. Results & Data Vital Signs (Past 12 Hours) Vital Signs Temp Pulse Resp BP Pulse Ox 10/03/19 06:23 36.7 C 107 H 17 114/68 93 10/02/19 23:00 36.9 C 110 H 18 117/73 93
--- NOTE | 2019-10-03 12:51 | Hospitalist Progress Note ---
Date of Service October 03, 2019 Assessment & Plan (1) Acute blood loss anemia: Acute blood loss anemia Upper gastrointestinal bleeding Likely related to NSAIDs use S/P EGD:Duodenal ulcer with non bleeding visible vessel s/p epi injection and cautery. S/P 4 units PRBCs --Continue PPI 40mg BID --Also on Sucralfate --Monitor H&H, transfuse as needed Appreciate GI input Avoid NSAIDs Monitor CBC Needs repeat to evaluate ulcer healing and EUS to evaluate pancreatic mass No recurrence of bleeding (2) UGIB (upper gastrointestinal bleed): As above (3) Mass of pancreas: Requires EUS as outpatient, likely in 2 weeks per GI. (4) Ruptured lumbar disc: Lumbar disc herniation with radiculopathy L4-L5 S/P L4-L5 Right Lumbar Laminectomy POD #2 Appreciate Orthopedics help Pain control Avoid NSAIDs Needs FU with Ortho upon discharge Continue PT/OT (5) Tachycardia: Resolved (6) DKA (diabetic ketoacidoses): DM II: Uncontrolled Hb A1C: 14.0 Continue insulin sliding scale, Lantus Monitor BGs Appreciate pharmacy glycemic management Plan to discharge on Lantus upon discharge (7) DVT prophylaxis: SCDs Re: GI bleed Code Status Full code Disposition Plan to discharge home today Subjective Patient seen and examined at bedside Have fever overnight which resolved No new complaints Back pain is controlled No bleeding issues Denies any chest pain, SOB, dizziness, nausea, abdominal pain Family at bedside Eager to get discharged Review of Systems Review of Systems: All systems reviewed & are unremarkable except as noted in HPI & below Physical Exam Physical Exam: Physical Exam: Vitals signs as noted above General Appearance:Moderately built and nourished, no apparent distress Head: normocephalic, Atraumatic Eyes: normal inspection, EOMI Neck: supple, Trachea midline Respiratory/Chest: Normal breath sounds, CTA Cardiovascular: S1, S2, No murmur Abdomen/GI:Soft, Non tender, Bowel sounds present Back: Surgical site in dressing Extremities/Musculoskelatal:normal inspection, Trace edema Neurologic/Psych:AAOX3, grossly no focal neurological deficits Skin: normal color, warm Results & Data Vital Signs (Past 12 Hours) Vital Signs Temp Pulse Resp BP Pulse Ox 10/03/19 06:23 36.7 C 107 H 17 114/68 93 Laboratory Results Short CBC 10/03/19 Range/Units 04:52 Hgb 9.9 L (14.0-18.0) g/dL Hct 29.9 L (42-52) % BMP 10/03/19 04:52 Sodium 137 Potassium 3.5 Chloride 102 Carbon Dioxide 29 BUN 10 Creatinine 0.90 Glucose 165 H Calcium 8.9
--- NOTE | 2019-10-03 16:35 | Discharge Summary ---
Date of Service October 03, 2019 Admission HPI Per Admitting Provider History obtained from patient, family, and records. Medical history significant for DM 2 on oral medications, hyperlipidemia as per records, osteoarthritis, mood disorder, past tobacco abuse, right hip trochanteric bursitis, right lumbar disc herniation, diverticulosis. Patient has had a poor appetite the last few months. 40 pound weight loss in about 2 months as per patient. Denies depression. 2 months ago patient noted right back discomfort with leg radiation attributed to right paracentral L4-L5 disc herniation/extrusion. Outpatient Rheumatology, pain management evaluations. Steroid course for pain. Patient taking Celebrex along with maximum of 4 tablets of OTC ibuprofen/ daily mostly with meals. Patient seen by [facility] [place] Orthopedics outpatient few days ago. Surgery contemplated this week, September 27, 2019. Yesterday, patient not feeling well. Blood sugar noted to be 430 as per patient. Blood sugars at home 100s, rarely 200s as per patient/. Stools noted to be dark. No abdominal pain, chest pain, no S OB. Denies hematemesis/coffee-ground emesis. At the ER, BSG noted to be 600s. IV insulin 1 dose administered at the ER. IV PPI bolus/ drip initiated at the ER for UGI B. Medical History as above No prior EGDs. 2010 colonoscopy showed diverticulosis. 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 Exam Per Admitting Provider Physical Exam Physical Exam: GENERAL: Comfortable, pleasant, no respiratory distress SKIN: Pallor , warm HEENT: Pale palpebral conjunctivae, no ptosis, dry buccal mucosa NECK : Supple, no tenderness CHEST : CTA, no tenderness HEART : Tachycardic , no obvious murmurs ABDOMEN: Some distention, nontender BACK : right hip tenderness EXTREMITIES : No LE swelling/tenderness, no other conspicuous deformities noted NEUROLOGIC : Coherent, no facial asymmetry, no other gross focality Principal Diagnosis Acute Gastrointestinal bleeding Pancreatic Mass Lumbar disc herniation with radiculopathy L4-L5 Diabetic Ketoacidosis Discharge Data Allergies Allergy/AdvReac Type Severity Reaction Status Date / Time No Known Allergies Allergy Unverified 09/23/19 22:05 Consultations 09/24/19 01:36 ED Decision to Admit Stat 09/24/19 03:52 Consult Gastroenterology Routine 09/24/19 19:09 Consult Orthopedic Surgery Routine ABD CT: 1. An abnormal density within the uncinate process of the pancreas is measures 4.4 x 1.9 cm. This could represent focal acute pancreatitis or an underlying mass. GI consultation with endoscopic ultrasound recommended for further evaluation. 2. No bowel wall thickening or obstruction. 3. Normal appendix. 4. Large disc herniation at L4-5 resulting in severe central canal narrowing. 5. These findings were discussed with Dr. Elaine at 7:55 AM on 09/24/2019. Venous Doppler: There is no sonographic evidence of deep venous thrombosis identified in the right or left lower extremity. EGD: Impression: Duodenal ulcer with non bleeding visible vessel s/p epi injection and cautery. Recommendation: - Discharge patient to floor. PPI gtt and clear liquids. Follow hgb q 12. Procedures Performed Operation Date: 09/24/19 17:45 Actual Procedures p EGD Biopsy Cytology - Irsonia E Gaslightwala Operation Date: 09/27/19 09:35 <No data on this case meets the specified criteria> Operation Date: 09/27/19 16:30 Actual Procedures p EGD Hemostasis - Irphan E Gaslightwala Operation Date: 10/01/19 07:15 Actual Procedures p L4-L5 Right Lumbar Laminectomy(Right) - Emmett Baig DO Ordered Studies 09/23/19 22:28 CT abd pelvis IV con only Urgent 10/01/19 14:00 FL fluoroscopy <1hr Routine FL spine 1V any level Routine 10/02/19 19:27 US venous doppler LE BI Routine Hospital Course (1) Acute blood loss anemia: Acute blood loss anemia Upper gastrointestinal bleeding Likely related to NSAIDs use S/P EGD:Duodenal ulcer with non bleeding visible vessel s/p epi injection and cautery. S/P 4 units PRBCs --Continue PPI 40mg BID --Also on Sucralfate --Monitor H&H, transfuse as needed Appreciate GI input Avoid NSAIDs Monitor CBC Needs repeat to evaluate ulcer healing and EUS to evaluate pancreatic mass No recurrence of bleeding (2) UGIB (upper gastrointestinal bleed): As above (3) Mass of pancreas: Requires EUS as outpatient, likely in 2 weeks per GI. (4) Ruptured lumbar disc: Lumbar disc herniation with radiculopathy L4-L5 S/P L4-L5 Right Lumbar Laminectomy POD #2 Appreciate Orthopedics help Pain control Avoid NSAIDs Needs FU with Ortho upon discharge Continue PT/OT (5) Tachycardia: Resolved (6) DKA (diabetic ketoacidoses): DM II: Uncontrolled Hb A1C: 14.0 Continue insulin sliding scale, Lantus Monitor BGs Appreciate pharmacy glycemic management Plan to discharge on Lantus upon discharge (7) DVT prophylaxis: SCDs Re: GI bleed Code Status Full code Disposition Plan to discharge home today Total Time Total Time Spent Total Time Spent (In Minutes): 42 Total Time Includes: Examination of the Patient, Discharge Planning, Medication Reconciliation, Communication With Other Providers and Other Discharge Plan Discharge Items Patient Disposition: Home - Self-Care Reason For Visit: ANEMIA, GI BLEED, HYPOTENSION Discharge Diagnosis: Acute Gastrointestinal bleeding Pancreatic Mass Lumbar disc herniation with radiculopathy L4-L5 Diabetic Ketoacidosis Activity: Per Instructions section Exercise/Sports: Gradually increase as tolerated Non-emergency contact: Primary Care Provider, Surgeon and Charter Coach Driver Call non-emergency contact if: you have any medication questions, your symptoms worsen, your pain is not controlled, your pain is worsening, your pain is unusual for you, your pain is concerning for you and you have a fever Follow-up/Referrals: Jude Amezcua MD [Primary Care Provider] - Diet: Carb Consistent or DM2, Heart Healthy and Low Sodium (2gm) Addtl Attending Provider Instructions: Follow up with your Primary Care Physician on Oct 05, 2019 at 10:45AM Follow up with your Charter Coach Driver for repeat Endoscopy scheduled on Oct 19 2019 Follow up with your Surgeon as recommended Your Blood Cultures are pending at the time of discharge. Follow up with your physician for results Check your Blood sugar levels regularly as advised/ Further adjustment of your medications as per your Primary Care physician Avoid NSAIDs as advised Seek immediate medical attention if your symptoms reoccur or worsen ACTIVITY RECOMMENDATIONS: SELF CARE INSTRUCTIONS AFTER A LAMINECTOMY 1. No prolonged sitting (less than 30 minutes for the first 3 weeks after surgery). 2. No bending, lifting more than 5 pounds, or twisting (roll like a log when turning in bed). 3. You may shower 3 days after surgery if no drainage from wound. Thoroughly dry wound. Do not soak in the tub. 4. Please walk as much as you can for exercise. Gradually increase the distance that you walk as your endurance increases. 5. You may drive in 7-10 days if you are comfortable and no longer requiring pain medications. SPECIAL CARE INSTRUCTIONS: VERY IMPORTANT TO READ AND REVIEW A. Your surgical incision has been closed with a cosmetic suture under the skin that will dissolve in about 6 weeks. In 14 days, you can use a pair of clean scissors and cut the suture that is left outside of the skin at the ends of your incision. B. Complications are uncommon, but please contact us if you have any signs or symptoms of: 1. wound infection (fever higher than 102.5 degrees F, redness, separation of wound, drainage, or increasing pain from the incision) 2. blood clots in legs (pain, swelling, redness and warmth in legs) 3. urinary tract infection (fever higher than 102.5 degrees, burning upon urination or increased frequency of urination) 4. nerve problems (inability to walk on your toes or heels, numbness, loss of bowel or bladder control) 5. any other symptoms that concern you. C. Please call the office at if you have any concerns or questions about your operation or recovery. MANAGING PAIN AFTER SPINAL SURGERY 1. Narcotic medication is intended for short-term use and will be provided for surgical pain. Surgical pain usually lasts for a period of 4-6 weeks. Narcotic medication includes Percocet, Vicodin, Darvocet, Tylenol #3 or Lortab. 2. Longer-term pain is more appropriately treated with non-narcotic medication such as Tylenol ES. 3. Muscle spasm is not appropriately treated with narcotics. Muscle relaxers such as Soma, Flexeril or Skelaxin can be used along with Tylenol ES. 4. Remember that we all live with some "aches and pains". This is not unusual or uncommon after an injury or as we get older. 5. We will provide appropriate medication within the normal guidelines of their prescribed use. We will also be very cautious and aware of potential abuse and extended duration of patients' medication needs. 6. Please allow 2-3 days to process refills. Prescriptions will not be mailed but must be picked up at the office. FOLLOW UP VISIT: Keep your scheduled follow-up appointment. Any questions, please call the office at . Pending Studies at Discharge: Yes Studies:: Blood Cultures Stand-Alone Forms: [facility], Opioid Pain Management, Smoking Cessation Medications and DC Order Prescriptions: New polyethylene glycol 3350 [Miralax] 17 gram Powder In Packet 17 g PO DAILY PRN (Reason: constipation) Qty: 30 RF: 0 pantoprazole 40 mg Tablet,Delayed Release (Dr/Ec) 40 mg PO BID Qty: 60 RF: 1 docusate sodium 100 mg Capsule 100 mg PO BID PRN (Reason: Constipation) Qty: 30 RF: 0 oxycodone 5 mg Tablet 5 mg PO Q8H PRN (Reason: pain) Qty: 12 RF: 0 Lantus Solostar U-100 Insulin 100 unit/mL (3 mL) Insulin Pen 40 unit SC QAM 30 Days Qty: 12 RF: 0 sucralfate 1 gram tablet 1 gm PO BID Qty: 60 RF: 0 Continued gabapentin 300 mg capsule 300 mg PO DIRECTED RF: 0 metformin 500 mg tablet extended release 24 hr 1,000 mg PO DAILY RF: 0 sertraline 50 mg tablet 50 mg PO QPM RF: 0 Tradjenta 5 mg tablet 5 mg PO QPM RF: 0 Discontinued celecoxib 200 mg capsule 200 mg PO BID RF: 0 aspirin [Aspirin Low Dose] 81 mg Tablet,Delayed Release (Dr/Ec) 81 mg PO QPM RF: 0 Discharge Orders: Discharge Order (Routine); Ordered 10/03/19 Ordered By: Ike De La Vega/Other Patient Handouts: Hyperglycemia, Hypoglycemia, Diabetes Type 2 Coping, Diabetes Healthy Meals, Diabetes Meal Planning Admission Data Admit Date/Time: 09/24/19 02:32 Attending Provider: Ike Nieto Admit Provider: Jamie Tadeo Primary Care Provider: Jude Amezcua Other Providers: Jamie Tadeo ; Abdiaziz Husain ; Emmett Baig Other Interventions: Discharge Summary Assessment (RN) Last Done: 10/03/19 07:40 DC Date/Time DO NOT enter until pt leaves facility: 10/03/19 14:19
== END 2019-10-03 14:19 | disposition home or self-care (01) | DRG 987 ==
LOC: ED 20:50 → SUATTDRO 09-24 02:32 → 2S 09-24 02:32 → 3W 09-24 19:07

== ENCOUNTER 2019-10-15 11:00 | Inpatient (IN) ==
[2019-10-15] MEDS ORDERED: ONDANSETRON INJ 2 MG/ML 2 ML VIAL IV STA (11:43)
[2019-10-15] MEDS: HYDROmorphone INJ 1 MG/ML SYRINGE IV PRN ×3 (12:01→20:59)
[2019-10-15 12:05] LABS: Basophils # (auto) 0.05 K/uL (0-0.2); Basophils % (auto) 0.9 %; Eosinophils # (auto) 0.14 K/uL (0-0.5); Eosinophils % (auto) 2.6 %; Hematocrit (blood only) 34.7 % (42-52); Hemoglobin 11.3 g/dL (14.0-18.0); Immature Granulocytes # (auto) 0.01 K/uL (0.00-0.02); Immature Granulocytes % (auto) 0.2 %; Lymphocytes # (auto) 1.86 K/uL (1.2-3.4); Lymphocytes % (auto) 34.3 %; Mean Corpuscular Hemoglobin 29.5 pg (25-34); Mean Corpuscular Hgb Conc 32.6 g/dL (32-36); Mean Corpuscular Volume 90.6 fL (80-100); Mean Platelet Volume 9.7 fL (7.4-10.4); Monocytes # (auto) 0.46 K/uL (0.11-0.59); Monocytes % (auto) 8.5 %; Neutrophils # (auto) 2.91 K/uL (1.4-6.5); Neutrophils % (auto) 53.5 %; Platelet Count 279 K/uL (130-400); RDW Coefficient of Variation 15.6 % (11.5-14.5); RDW Standard Deviation 51.3 fL (36.4-46.3); Red Blood Count 3.83 M/uL (4.7-6.1); White Blood Count 5.43 K/uL (4.8-10.8)
[2019-10-15 12:24] LABS: Albumin Level 3.6 gm/dl (3.4-5.0); BUN Creatinine Ratio 17.1 (10-20); Calcium 9.8 mg/dl (8.5-10.1); Creatinine Clr Calc Pharmacy 120.3 ml/min; Est GFR (African American) 120.8; Est GFR (Non-African American) 104.3; Potassium 3.4 mmol/L (3.5-5.1)
[2019-10-15 12:26] LABS: Albumin Globulin Ratio 0.9 (0.9-2); Bilirubin,Total 0.5 mg/dl (0.2-1); Globulin 4.1 gm/dl (2.5-4.0); Total Protein 7.7 gm/dl (6.4-8.2)
--- NOTE | 2019-10-15 13:48 | Magnetic Resonance Report ---
LUMBAR SPINE MRI HISTORY: low back pain, right sciatica, recent lami 2 wks TECHNIQUE: Multiplanar multisequence MRI of the lumbar spine was performed without the use of contras t. COMPARISON: Outside hospital lumbar spine MRI 09/13/2019. FINDINGS: For the purpose of the report the L5-S1 disc space will be located on axial image 27 of 30. No fracture or subluxation. Mild disc space narrowing at L3-L4. Severe disc space narrowing at L4-5 a nd L5-S1, unchanged. Mild facet degenerative changes throughout the upper lumbar spine with moderate facet degenerative changes within the lower lumbar spine. Interval right-sided L4-L5 hemilaminectomy. This likely accounts for the edema/fluid within the right distal paraspinal muscles. Retroperitoneal soft tissues appear unremarkable. L1-L2: Tiny broad-based posterior disc bulge with a small right paracentral annular tear. No signific ant central canal or neural foraminal narrowing. L2-L3: No significant central canal or neural foraminal narrowing. L3-L4: No significant central canal or neural foraminal narrowing. L4-L5: Broad-based posterior disc bulge with a large right paracentral disc extrusion demonstrating i nferior subligamentous migration. This is similar in appearance compared to prior study and measures approximately 15 x 12 x 9 mm. This results in moderate to severe right-sided central canal narrowing. This compresses the transiting L5 and S1 nerve roots. There is mild bilateral neural foraminal narro wing. L5-S1: Small broad-based posterior disc osteophyte complex without significant central canal narrowin g. There is severe bilateral neural foraminal narrowing due to the disc bulge and facet hypertrophy. IMPRESSION: 1. Status post right L4-5 hemilaminectomy. However, the large right paracentral disc extrusion at thi s level is not significantly changed and results in moderate to severe right-sided central canal narr owing with compression of the right L5 and S1 nerve roots. 2. Additional degenerative changes as described above. ACT 112: Negative or not required by law. Electronically signed by: David Galvan M.D. 10/15/2019 1:47 PM
--- NOTE | 2019-10-15 14:54 | History & Physical Report ---
Date of Service October 15, 2019 Assessment & Plan (1) Lumbar disc herniation: MRI performed today in emergency room is demonstrates evidence of a massive recurrent disc herniation at L4-5 on the right consistent with his pain patterns. I had a long discussion with this patient and his reviewing the MRI findings and his clinical presentation. This point he is quite miserable and like to pursue surgery. In this case disease had a recurrent disc and only 2 weeks after his laminectomy we could consider complete discectomy and fusion. Risk benefits pros cons and alternatives were outlined in detail. At this time they would like to pursue lumbar decompression and fusion L4-5. I will admit him to the hospital have him evaluated by medicine ensure he is appropriately fit for surgery and will perform surgery soon as possible. Patient stands agrees. Present on Admission?: Yes History of Present Illness Chief Complaint: This is a 64-year-old male well-known to the presents to the emergency room with severe back and right leg pain. He states the symptoms began on Tuesday. He denies any specific trauma fall or event. It is markedly limiting in nature. Left lower extremities asymptomatic. He denies loss of bowel bladder control. Denies any perineal numbness. His symptoms are as described involving the right buttock posterior thigh extending to the dorsum of his right foot. Primary Care Provider: Jude Amezcua MD Allergies Allergy/AdvReac Type Severity Reaction Status Date / Time No Known Allergies Allergy Unverified 10/15/19 11:37 Home Medications Home Medications Medication Instructions Recorded Confirmed Type Tradjenta 5 mg PO QPM 09/23/19 10/15/19 History gabapentin 300 mg PO TID 09/23/19 10/15/19 History metformin 1,000 mg PO QAM 09/23/19 10/15/19 History insulin glargine [Lantus Solostar 40 unit SC QAM 30 Days #12 ml 10/03/19 10/15/19 Rx U-100 Insulin] oxycodone 5 mg PO Q8H PRN #12 tab 10/03/19 10/15/19 Rx pantoprazole 40 mg PO BID #60 tab 10/03/19 10/15/19 Rx polyethylene glycol 3350 [Miralax] 17 g PO DAILY PRN #30 ea 10/03/19 10/15/19 Rx sucralfate 1 gm PO BID #60 tab 10/03/19 10/15/19 Rx Past Med/Surg History Medical History Anemia S/p blood transfusion x 2 (09/23/19 and 09/27/19). Subsequent Hgb checks stable in 9.2-10.0 range Arthritis Diabetes IDDM Gout History of bleeding peptic ulcer Pancreatic mass NEWLY FOUND AND NEEDS EUS ON 10/19 Surgical History H/O vein stripping RIGHT AND LEFT History of esophagogastroduodenoscopy (EGD) Hx of colonoscopy Hx of laminectomy LUMBAR FOR HERNIATED DISC 10/01/19 Hx of right knee surgery BONE SPUR REMOVED S/P herniorrhaphy UMBILICAL HERNIA REPAIR Family History Other Cancer Diabetes Heart disease Hypertension Social History Preferred Language: Greek Communication Ability: Effective Visual Impairment: No Limitations Hearing Ability: Normal Tax Associate Attorney Required: No Beliefs That Will Affect Care: None marital status: Life Partner Current Living Situation: Spouse current occupational status: employed Feels Safe at Home: Yes Smoking Status: Former smoker Second Hand Exposure: No ; Hx Alcohol Use: No Hx Substance Use: No Physical Exam Physical Exam: On exam he is in obvious distress. He exhibits a 4/5 right extensor pollicis longus compared to 5/5 on the left. He has marked tension signs with straight leg raising on the right negative on the left. Sensory is diminished to the right lower extremity compared to the left. He is well-healed incision to the lumbar spine there is no erythema drainage or tenderness. Results & Data Vital Signs (Past 12 Hours) Vital Signs Temp Pulse Pulse Resp BP BP Pulse Ox 10/15/19 14:30 89 20 126/78 96 10/15/19 13:00 97 H 20 130/90 96 10/15/19 11:04 36.7 C 105 H 20 146/90 H 97
--- NOTE | 2019-10-15 15:24 | Emergency Department Note ---
Entered by Nasrin Armstrong acting as a scribe for ED Provider Note CHIEF COMPLAINT: Back pain HISTORY OF PRESENT ILLNESS: The patient is a 64 year old male who presents to the Emergency Room with complaints of worsening back pain starting 2 weeks ago. The patients reports that the patient has lower back pain that is radiating down his right leg. She states that when the patient walks or lays flat the patients back pain worsens. She explains that the patient had back surgery done by Dr. Baig orthopedist about 2 weeks ago. She notes that she called Dr. Haynes office PRISONER CLASSIFICATION INTERVIEWER and was recommended to bring the patient to the [facility] Emergency Department as he was not in the office. She adds that the patient was prescribed pain medication after his surgery but has since run out of this pain medication. The patients reports that the patient has experienced these symptomDr. Safia explained that the patients back pain would most likely not improve with the patients recent surgery and that he would have to have a spinal fusion. She states that the patient took no pain medication for his back pain PRISONER CLASSIFICATION INTERVIEWER today. Pt denies LOC, headache, fevers, chills, diaphoresis, visual changes, neck pain, chest pain, breathing difficulties, nausea, vomiting, abdominal pain, melena, hematochezia, urinary symptoms, numbness, weakness, lymphadenopathy, rash, or other complaints. REVIEW OF SYSTEMS: See HPI for pertinent positives and negatives. A total of ten systems were reviewed and were otherwise negative. PMHx/PSHx: Anemia, Arthritis, DM, Gout, Bleeding peptic ulcer, Pancreatic mass, Vein stripping, EGD, Colonoscopy, Laminectomy, Right knee surgery, Herniorrhaphy. SOCIAL HISTORY: Patient lives at home with spouse. Former smoker. . PHYSICAL EXAM: GENERAL: Awake, alert, uncomfortable-appearing, in no distress HENT: Normocephalic, atraumatic. Oropharynx unremarkable. EYES: PERRL. Normal conjunctiva. Sclera non-icteric. NECK: Inspection normal. Non-tender. Supple. No nuchal rigidity. FROM. No masses. RESPIRATORY: Clear to auscultation. No wheezes. No rales. Normal respiratory effort. CARDIAC: Normal rate. Normal rhythm. No murmurs. No rubs. Extremities warm and well perfused. Pulses equal. No JVD. GI: Soft, non-distended. No tenderness to palpation. No rebound or guarding. No masses. RECTAL: Deferred. MUSCULOSKELETAL: Incision on back C/D/I. Atraumatic. Chest examination reveals no tenderness. The back is symmetrical on inspection without obvious abnormality. There is no CVA tenderness to palpation. No joint edema. LOWER EXTREMITIES: Calves are equal size bilaterally and non-tender. No edema. No discoloration. NEURO: No addle anesthesia. Normal sensorium. No sensory or motor deficits noted. SKIN: No rash or jaundice noted. EMERGENCY DEPARTMENT COURSE: 1132: Past medical records reviewed. The patient was evaluated in room C5, and a complete history and physical examination were performed. 1200: I discussed the patients case with Dr. Baig Orthopedist. He requested that the patient gets an MRI and that he will then come evaluate the patient at bedside as he is currently in the operating room. 1210: I updated the patient at this time. 1420: I reevaluated the patient at this time who reports that he is feeling better. 1439: I discussed the patient's case with Dr. Baig - orthopedist. He will evaluate the patient for further management. 1445: I updated the patient at this time. MEDICAL DECISION MAKING: Prior records/ancillary studies reviewed. Triage Nursing notes reviewed and agree them. Additional history obtained from the family. The patient's history was concerning for back pain. Differential diagnosis: Etiologies such as herniated disc, fracture, aortic disease, metastatic disease, cord compression, discitis, infection, renal colic, gastrointestinal, lumbago, cauda equina, as well as others were entertained. Physical findings: As above. The patient was very uncomfortable. ER treatment provided: IV Zofran IV Dilaudid On reassessment the patient felt better. Diagnostics interpreted by me: The labs revealed an unremarkable CBC and chemistry panel except for mild anemia and slight hyperglycemia Imaging studies: MRI as noted below. Disc herniation with nerve root compression. Consultation: A consultation was placed with the patient surgeon, Dr. Baig. The case was discussed and diagnostics were reviewed. The patient was evaluated in the ER for further treatment. He is going to admit the patient. IMPRESSION: Lumbar disc herniation, Intractable back pain PLAN: Being Evaluated by Hospitalist The scribe's documentation has been prepared under my direction and personally reviewed by me in its entirety. I confirm that the note above accurately reflects all work, treatment, procedures, and medical decision making performed by me. Impression & Plan Lumbar disc herniation, Intractable back pain Past Med/Surg History Medical History Anemia S/p blood transfusion x 2 (09/23/19 and 09/27/19). Subsequent Hgb checks stable in 9.2-10.0 range Arthritis Diabetes IDDM Gout History of bleeding peptic ulcer Pancreatic mass NEWLY FOUND AND NEEDS EUS ON 10/19 Surgical History H/O vein stripping RIGHT AND LEFT History of esophagogastroduodenoscopy (EGD) Hx of colonoscopy Hx of laminectomy LUMBAR FOR HERNIATED DISC 10/01/19 Hx of right knee surgery BONE SPUR REMOVED S/P herniorrhaphy UMBILICAL HERNIA REPAIR Family History Other Cancer Diabetes Heart disease Hypertension Social History Preferred Language: Japanese Communication Ability: Effective Visual Impairment: No Limitations Hearing Ability: Normal Homeowner Association Manager Required: No Beliefs That Will Affect Care: None marital status: Life Partner Current Living Situation: Spouse current occupational status: employed Feels Safe at Home: Yes Smoking Status: Former smoker Second Hand Exposure: No ; Hx Alcohol Use: No Hx Substance Use: No Results & Data Vital Signs Vital Signs - 24 hr 10/15/19 11:04 10/15/19 13:00 10/15/19 14:30 Temperature 36.7 C Temperature Source Oral Pulse Rate 105 H Pulse Rate [Right Finger] 97 H 89 Respiratory Rate 20 20 20 Respiratory Effort / Characteristics Non-Labored Spontaneous Respiratory Depth Normal Respiratory Pattern Regular Blood Pressure 146/90 H Blood Pressure [Right Arm] 130/90 126/78 Blood Pressure Mean 108 Blood Pressure Mean [Right Arm] 103 94 Pulse Oximetry 97 96 96 Oxygen Delivery Method Room Air Room Air Room Air Sepsis Recent Fever Within 48 Hours No Sepsis Action Taken by Nursing No Action Required Home Medications Current Medication List: was personally reviewed by me Laboratory Data Attestation: I reviewed the patient's lab results. Result diagrams: 10/15/19 11:55 10/15/19 11:55 Lab Results 10/15/19 10/15/19 Range/Units 11:55 11:55 WBC 5.43 (4.8-10.8) K/uL RBC 3.83 L (4.7-6.1) M/uL Hgb 11.3 L (14.0-18.0) g/dL Hct 34.7 L (42-52) % MCV 90.6 (80-100) fL MCH 29.5 (25-34) pg MCHC 32.6 (32-36) g/dL RDW Std Deviation 51.3 H (36.4-46.3) fL RDW Coeff of Justin 15.6 H (11.5-14.5) % Plt Count 279 (130-400) K/uL MPV 9.7 (7.4-10.4) fL Immature Gran % (Auto) 0.2 % Neut % (Auto) 53.5 % Lymph % (Auto) 34.3 % Logan % (Auto) 8.5 % Eos % (Auto) 2.6 % Baso % (Auto) 0.9 % Immature Gran # (Auto) 0.01 (0.00-0.02) K/uL Neut # (Auto) 2.91 (1.4-6.5) K/uL Lymph # (Auto) 1.86 (1.2-3.4) K/uL Logan # (Auto) 0.46 (0.11-0.59) K/uL Eos # (Auto) 0.14 (0-0.5) K/uL Baso # (Auto) 0.05 (0-0.2) K/uL Sodium 137 (136-145) mmol/L Potassium 3.4 L (3.5-5.1) mmol/L Chloride 102 (98-107) mmol/L Carbon Dioxide 28 (21-32) mmol/L Anion Gap 7.0 (3-11) BUN 11 (7-18) mg/dl Creatinine 0.65 (0.6-1.4) mg/dl Est Cr Clr Drug Dosing 120.3 ml/min Est GFR ( Amer) 120.8 Est GFR (Non-Af Amer) 104.3 BUN/Creatinine Ratio 17.1 (10-20) Glucose 121 H (70-99) mg/dl Calcium 9.8 (8.5-10.1) mg/dl Total Bilirubin 0.5 (0.2-1) mg/dl AST 9 L (15-37) U/L ALT 15 (12-78) U/L Alkaline Phosphatase 37 L (45-117) U/L Total Protein 7.7 (6.4-8.2) gm/dl Albumin 3.6 (3.4-5.0) gm/dl Globulin 4.1 H (2.5-4.0) gm/dl Albumin/Globulin Ratio 0.9 (0.9-2) Administered Medications Hydromorphone HCl (Dilaudid) 1 mg IV Q15M PRN PRN Reason: Pain Stop: 10/29/19 11:42 Last Admin: 10/15/19 13:51 Dose: 1 mg Documented by: [id number] Admin: 10/15/19 12:01 Dose: 1 mg Documented by: [id number] Discontinued Medications Ondansetron HCl (Zofran) 4 mg IV NOW STA Stop: 10/15/19 11:44 Last Admin: 10/15/19 12:01 Dose: 4 mg Documented by: [id number] Imaging Data Radiologist's Impression: Radiology results as stated below per my review and the radiologist's interpretation: LUMBAR SPINE MRI HISTORY: low back pain, right sciatica, recent lami 2 wks TECHNIQUE: Multiplanar multisequence MRI of the lumbar spine was performed without the use of contrast. COMPARISON: Outside hospital lumbar spine MRI 09/13/2019. FINDINGS: For the purpose of the report the L5-S1 disc space will be located on axial image 27 of 30. No fracture or subluxation. Mild disc space narrowing at L3-L4. Severe disc space narrowing at L4-5 and L5-S1, unchanged. Mild facet degenerative changes throughout the upper lumbar spine with moderate facet degenerative changes within the lower lumbar spine. Interval right-sided L4-L5 hemilaminectomy. This likely accounts for the edema/fluid within the right distal paraspinal muscles. Retroperitoneal soft tissues appear unremarkable. L1-L2: Tiny broad-based posterior disc bulge with a small right paracentral annular tear. No significant central canal or neural foraminal narrowing. L2-L3: No significant central canal or neural foraminal narrowing. L3-L4: No significant central canal or neural foraminal narrowing. L4-L5: Broad-based posterior disc bulge with a large right paracentral disc extrusion demonstrating inferior subligamentous migration. This is similar in appearance compared to prior study and measures approximately 15 x 12 x 9 mm. This results in moderate to severe right-sided central canal narrowing. This compresses the transiting L5 and S1 nerve roots. There is mild bilateral neural foraminal narrowing. L5-S1: Small broad-based posterior disc osteophyte complex without significant central canal narrowing. There is severe bilateral neural foraminal narrowing due to the disc bulge and facet hypertrophy. IMPRESSION: 1. Status post right L4-5 hemilaminectomy. However, the large right paracentral disc extrusion at this level is not significantly changed and results in moderate to severe right-sided central canal narrowing with compression of the right L5 and S1 nerve roots. 2. Additional degenerative changes as described above. ACT 112: Negative or not required by law. Electronically signed by: David Galvan M.D. 10/15/2019 1:47 PM Blood Pressure Blood Pressure Findings: Elevated blood pressure Blood Pressure Disposition: further management by hospitalist Discharge Plan Visit Data Chief Complaint: Back Injury/Pain Stated Complaint: BACK SURGERY [id number],BACK AND LEG PAIN ED Provider: Osmar Daniel Discharge Problem: Lumbar disc herniation, Intractable back pain Patient Disposition: Being Evaluated by Hospitalist Forms Stand Alone Forms: My [facility] [employer] Prescriptions Prescriptions: No Action gabapentin 300 mg capsule 300 mg PO TID RF: 0 metformin 500 mg tablet extended release 24 hr 1,000 mg PO QAM RF: 0 Tradjenta 5 mg tablet 5 mg PO QPM RF: 0 polyethylene glycol 3350 [Miralax] 17 gram Powder In Packet 17 g PO DAILY PRN (Reason: constipation) Qty: 30 RF: 0 pantoprazole 40 mg Tablet,Delayed Release (Dr/Ec) 40 mg PO BID Qty: 60 RF: 1 oxycodone 5 mg Tablet 5 mg PO Q8H PRN (Reason: pain) Qty: 12 RF: 0 Lantus Solostar U-100 Insulin 100 unit/mL (3 mL) Insulin Pen 40 unit SC QAM 30 Days Qty: 12 RF: 0 sucralfate 1 gram tablet 1 gm PO BID Qty: 60 RF: 0 Referrals Referrals: Jude Amezcua MD [Primary Care Provider] - The scribe's documentation has been prepared under my direction and personally reviewed by me in its entirety. I confirm that the note above accurately reflects all work, treatment, procedures, and medical decision making performed by me.
[2019-10-15] MEDS ORDERED: ONDANSETRON 4 MG OD TAB PO PRN (17:04)
[2019-10-15] MEDS ORDERED: PROMETHAZINE HCL 12.5 MG in SODIUM CHLORIDE 0.9% 50 ML IV PRN (17:04)
[2019-10-15] MEDS ORDERED: ACETAMINOPHEN 500 MG TAB PO PRN (17:04)
[2019-10-15] MEDS ORDERED: HYDROmorphone INJ 0.5 MG/0.5 ML SYR IV PRN (17:04)
[2019-10-15] MEDS ORDERED: ONDANSETRON INJ 2 MG/ML 2 ML VIAL IV PRN (17:04)
[2019-10-15] MEDS ORDERED: LORazepam 1 MG TAB PO PRN (17:04)
[2019-10-15] MEDS ORDERED: OXYCODONE HCL IR 5 MG TAB (IMMEDIATE RELEASE) PO PRN (17:04)
[2019-10-15] MEDS ORDERED: METOCLOPRAMIDE HCL INJ 5 MG/ML 2 ML VIAL IV PRN (17:04)
[2019-10-15] MEDS ORDERED: HYDROmorphone INJ 1 MG/ML SYRINGE ONE (17:07)
--- NOTE | 2019-10-15 17:50 | Consultation ---
Date of Consultation October 15, 2019 Assessment & Plan (1) Back pain: (2) Lumbar disc herniation: H/O lumbar L4-L5 laminectomy on 10/01/[address] Baig. Has had back pain with radiation to right leg and ankle since with some tingling sensation to right foot. -10/15/2019 MRI Lumbar spine: Status post right L4-5 hemilaminectomy. However, the large right paracentral disc extrusion at this level is not significantly changed and results in moderate to severe right-sided central canal narrowing with compression of the right L5 and S1 nerve roots. -Admitted for pain control by ortho spine -Pain management per ortho -Recommend avoiding NSAIDs -Plan for possible procedure on 10/17/[address] Baig -DVT prophylaxis per ortho - SCDs (3) Anemia: (4) History of GI bleed: S/P Recent duodenal ulcer with nonbleeding vessel s/p epinephrine injectio n and cautery. Received 4 units PRBCs during recent admission No melena, hematochezia since recent admission H/H: 11.3/34. Hgb has been stable at 9-10 over the past 2 weeks -Continue PPI BID -Continue sucralfate -Avoid NSAIDs -Was scheduled to have repeat EGD on 10/19/[address] Fuchs. Would plan to contact GI to inform of current admission, pt may need to be rescheduled (5) Diabetes mellitus, type II: A1c: 14 on 09/24/2019 -Hold metformin, Tradjenta -Continue Lantus -Novolog sliding scale per protocol DVT Prophylaxis -SCDs per ortho Disposition per primary service Follows with Dr Amezcua for routine care Pt was seen and care coordinated with Dr Donovan. See addendum Pt will be followed by Dr Arredondo starting 10/16/2019 Thank you for this consultation. We will follow the patient with you during their hospital stay. You can reach a member of the [facility] Hospitalist Team 11/04 via pager @ [phone]. Supervising Physician Co-Signing Physician Notes 64year old man with history of DM2,Anemia with GIB who presented for persistent back pain. History as detailed by Senia Courtney PA-C. History significant for lumbar disc herniation with radiculopathy L4-5 s/p L4-5 lumbar laminectomy (Right) on 10/01/2019. Patient continues to have low back pain radiating to right leg post op, with some paraesthesia. Lumbar MRI today shows 1. Status post right L4-5 hemilaminectomy. However, the large right paracentral disc extrusion at this level is not significantly changed and results in moderate to severe right-sided central canal narrowing with compression of the right L5 and S1 nerve roots. On physical exam, General: Well nourished, well hydrated, no acute distress and not ill appearing Eyes: PERRL, conjunctivae normal, not pale, anicteric sclerae, EOM intact bilaterally ENMT: External ear and nose normal, oropharynx normal Neck: Normal visual inspection, no tracheal deviation, no swelling noted Respiratory: Normal respiratory effort, no respiratory distress, lungs clear to auscultation, no crackles and no wheezes Cardiovascular: Pulse is RRR. S1 S2. No pedal edema Chest (Breasts): Chest: normal inspection of chest Gastrointestinal (Abdomen): Abdomen is not distended, soft, non-tender to palpation, no guarding, no palpable hepatosplenomegaly, normal bowel sounds Musculoskeletal: No cyanosis or clubbing, all extremities motor strength 5/5 Genitourinary: No CVA tenderness Skin: No rash noted on gross inspection, No ulcers noted Neurologic: Alert and oriented x 3, No focal weakness, sensation grossly intact Psychiatric: Euthymic affect, normal judgement Lymphatic: No cervical lymphadenopathy Lumbar disc herniation Pain control per Primary Surgery Team Planned for possible procedure on 10/17/2019 Continue home lantus for now. Hold oral antidiabetic agents. Insulin sliding scale Dose of lantus will need to be adjusted on morning of procedure once procedure date is confirmed. Has recent GI bleed from duodenal ulcer. Continue PPI BID and sucralfate for now. Per , patient is scheduled to have EGD on 10/18/2019 and was asking if that can be done inpatient. Will need to clarify with GI if that can still be done on planned date if patient is still inpatient or rescheduled. History of Present Illness Requesting Physician: Dr Baig Reason for Consultation: Medical consultation Attending Physician: Emmett Baig DO History of Present Illness Pt is 64 y/o M with PMH DM II, dyslipidemia, mood disorder seen in medical consultation. Pt with back pain with radiation to right ankle. Recent history hospitalization 09/24/2019 for DKA, anemia, upper GI bleed with duodenal ulcer with nonbleeding visible vessel s/p epinephrine injection and cautery. Had received 4 units PRBCs. Also had lumbar L4-L5 laminectomy on 10/01/[address] Baig. Has had back pain with radiation to right leg and ankle since with some tingling sensation to right foot. Denies fever/chills, diaphoresis, N/V/D/C, melena, hematochezia, LOUIE, dizziness, syncope, vision changes, neck pain, CP, SOB, orthopnea, palpitations, cough, sore throat, choking, otalgia, rhinorrhea, abdominal pain, weakness, extremity weakness, extremity edema, rashes, urinary symptoms. Allergies Allergy/AdvReac Type Severity Reaction Status Date / Time No Known Allergies Allergy Unverified 10/15/19 11:37 Home Medications Home Medications Medication Instructions Recorded Confirmed Type Tradjenta 5 mg PO QPM 09/23/19 10/15/19 History gabapentin 300 mg PO TID 09/23/19 10/15/19 History metformin 1,000 mg PO QAM 09/23/19 10/15/19 History insulin glargine [Lantus Solostar 40 unit SC QAM 30 Days #12 ml 10/03/19 10/15/19 Rx U-100 Insulin] oxycodone 5 mg PO Q8H PRN #12 tab 10/03/19 10/15/19 Rx pantoprazole 40 mg PO BID #60 tab 10/03/19 10/15/19 Rx polyethylene glycol 3350 [Miralax] 17 g PO DAILY PRN #30 ea 10/03/19 10/15/19 Rx sucralfate 1 gm PO BID #60 tab 10/03/19 10/15/19 Rx Patient History Medical History Anemia S/p blood transfusion x 2 (09/23/19 and 09/27/19). Subsequent Hgb checks stable in 9.2-10.0 range Arthritis Diabetes IDDM Diabetes mellitus, type II Dyslipidemia Gout History of bleeding peptic ulcer Mood disorder Pancreatic mass NEWLY FOUND AND NEEDS EUS ON 10/19 Surgical History H/O vein stripping RIGHT AND LEFT History of esophagogastroduodenoscopy (EGD) Hx of colonoscopy Hx of laminectomy LUMBAR FOR HERNIATED DISC 10/01/19 Hx of right knee surgery BONE SPUR REMOVED S/P herniorrhaphy UMBILICAL HERNIA REPAIR Family History Other Cancer Diabetes Heart disease Hypertension Social History Preferred Language: Swedish Communication Ability: Effective Visual Impairment: No Limitations Hearing Ability: Normal Cardiology Nurse Required: No Beliefs That Will Affect Care: None marital status: Life Partner Current Living Situation: Spouse current occupational status: employed Other Information That Helps Us Care for You: No Feels Safe at Home: Yes Safety Concerns: Feels Safe At This Time Smoking Status: Former smoker Do You Dip or Chew Tobacco: No ; Second Hand Exposure: No ; Hx Alcohol Use: No Hx Substance Use: No Review of Systems Review of Systems: All systems reviewed & are unremarkable except as noted in HPI & below Physical Exam Physical Exam: General: no distress, WDWN Head: normocephalic, atraumatic Eyes: conjunctiva non-injected, anicteric ENT: normal inspection external ears, nose, mucous membranes moist Neck: supple, trachea midline Lungs: clear, no respiratory distress, no wheezing/rhonchi/rales CV: RRR, no murmur, no pretibial edema Abd: normal BS, soft, non-tender Back: healed surgical incision lower lumbar spine, non-tender to palpation; able to ambulate Ext: no cyanosis, no calf tenderness; distal pulses intact, sensation to light touch intact Neuro: A&O x 3, no focal deficits noted, normal affect Skin: warm, dry Results & Data Vital Signs (Past 12 Hours) Vital Signs Temp Pulse Pulse Resp BP BP Pulse Ox 10/15/19 16:40 86 20 96 10/15/19 15:48 89 20 112/77 96 10/15/19 14:30 89 20 126/78 96 10/15/19 13:00 97 H 20 130/90 96 10/15/19 11:04 36.7 C 105 H 20 146/90 H 97 Laboratory Results Short CBC 10/15/19 Range/Units 11:55 WBC 5.43 (4.8-10.8) K/uL Hgb 11.3 L (14.0-18.0) g/dL Hct 34.7 L (42-52) % Plt Count 279 (130-400) K/uL BMP 10/15/19 11:55 Sodium 137 Potassium 3.4 L Chloride 102 Carbon Dioxide 28 BUN 11 Creatinine 0.65 Glucose 121 H Calcium 9.8 Liver Function 10/15/19 Range/Units 11:55 Total Bilirubin 0.5 (0.2-1) mg/dl AST 9 L (15-37) U/L ALT 15 (12-78) U/L Alkaline Phosphatase 37 L (45-117) U/L Albumin 3.6 (3.4-5.0) gm/dl Diagnostic Findings MRI Lumbar Spine: IMPRESSION: 1. Status post right L4-5 hemilaminectomy. However, the large right paracentral disc extrusion at this level is not significantly changed and results in moderate to severe right-sided central canal narrowing with compression of the right L5 and S1 nerve roots. 2. Additional degenerative changes as described above.
[2019-10-15] MEDS ORDERED: LACTATED RINGER'S 1,000 ML IV SCH (18:00)
[2019-10-15] MEDS ORDERED: GLUCAGON FOR INJ 1 MG VIAL SQ PRN (18:17)
[2019-10-15] MEDS ORDERED: GLUCOSE 10 TABS/TUBE PO PRN (18:17)
[2019-10-15] MEDS ORDERED: DEXTROSE 50% 50 ML SYRINGE IV PRN (18:17)
[2019-10-15] MEDS ORDERED: GLUCOSE 40% GEL 15 GM TUBE PO PRN (18:17)
[2019-10-15] MEDS ORDERED: CARBOHYDRATES FOR HYPOGLYCEMIA PO PRN (18:17)
[2019-10-15] MEDS ORDERED: SODIUM CHLORIDE 0.9% 250 ML IV PRN (19:43)
[2019-10-15] MEDS ORDERED: NON-FORMULARY MEDICATION (Linagliptin [Tradjenta] 5 MG) PO SCH (21:00)
[2019-10-15] MEDS: INSULIN ASPART 100 UNITS/ML 3 ML PEN SC SCH (21:22)
[2019-10-15] MEDS: DOCUSATE SODIUM 100 MG CAP PO SCH (21:24)
[2019-10-15] MEDS: SUCRALFATE 1 GM TAB PO SCH (21:24)
[2019-10-15] MEDS: PANTOprazole 40 MG TAB PO SCH (21:24)
[2019-10-15] MEDS: GABAPENTIN 300 MG CAP PO SCH (21:24)
[2019-10-16] MEDS: HYDROmorphone INJ 1 MG/ML SYRINGE IV PRN ×6 (00:18→23:55)
[2019-10-16] MEDS: SUCRALFATE 1 GM TAB PO SCH ×2 (08:23→20:07)
[2019-10-16] MEDS: DOCUSATE SODIUM 100 MG CAP PO SCH ×2 (08:23→20:07)
[2019-10-16] MEDS: GABAPENTIN 300 MG CAP PO SCH ×3 (08:24→20:07)
[2019-10-16] MEDS: PANTOprazole 40 MG TAB PO SCH ×2 (08:24→20:08)
[2019-10-16] MEDS ORDERED: POTASSIUM CHLORIDE 20 MEQ TABCR PO STA (08:30)
[2019-10-16] MEDS ORDERED: METFORMIN HCL ER 500 MG TABCR PO SCH (09:00)
[2019-10-16] MEDS: INSULIN ASPART 100 UNITS/ML 3 ML PEN SC SCH ×4 (09:10→20:12)
[2019-10-16] MEDS: INSULIN GLARGINE SOLOSTAR 100 UNITS/ML 3 ML PEN SC SCH (09:10)
--- NOTE | 2019-10-16 10:16 | Hospitalist Progress Note ---
Date of Service October 16, 2019 Assessment & Plan (1) Back pain: (2) Lumbar disc herniation: -s/p lumbar L4-L5 laminectomy on 10/01/[address] Baig. Has had back pain with radiation to right leg and ankle since with some tingling sensation to right foot. -10/15/2019 MRI Lumbar spine: Status post right L4-5 hemilaminectomy. However, the large right paracentral disc extrusion at this level is not significantly changed and results in moderate to severe right-sided central canal narrowing with compression of the right L5 and S1 nerve roots. -Admitted for pain control by ortho spine -Pain management per ortho -Recommend avoiding NSAIDs due to recent GI bleed -Plan for possible procedure on 10/17/[address] Baig (3) Anemia: (4) History of GI bleed: -history of recent duodenal ulcer with nonbleeding vessel s/p epinephrine injection and cautery. Received 4 units PRBCs during recent admission -no signs of re-bleeding -hgb stable at 11.3 -Continue PPI BID and sucralfate -Avoid NSAIDs -Was scheduled to have repeat EGD on 10/19/[address] Fuchs. Would plan to contact GI to inform of current admission, pt may need to be rescheduled (5) Diabetes mellitus, type II: -hgb a1c 14.0 09/24/2019 -Hold metformin, Tradjenta -Continue Lantus -Novolog sliding scale per protocol (6) DVT prophylaxis: -SCDs as per spine ortho Supervising Physician Co-Signing Physician Notes Attending addendum: The patient was seen and examined in medical floor He complains to have some back pain but no radiation at rest He denies any cardiac symptoms with exertion as an outpatient Denies any other significant symptoms On examination Lying in bed comfortably Hemodynamically stable Chest-clear to auscultate bilaterally Heart-regular Abdomen-benign His labs and imaging studies reviewed Case discussed with Dr. Baig No current indication for proposed surgery I agree with assessment and plan as outlined above by Jeanne benedict Subjective Patient seen and examined. Resting in bed, no acute distress. Pain well controlled with current pain med regimen. Denies chest pain and shortness of breath. No abdominal pain or nausea. Urinating and moving bowels without difficulty. Physical Exam Constitutional: no acute distress resting in bed Respiratory: normal respiratory effort, lungs clear to auscultation Cardiovascular: Rate/Rhythm: regular rate and regular rhythm Extremities: no edema Gastrointestinal (Abdomen): Inspection/Auscultation: normal bowel sounds Percussion/Palpation: abdomen soft; abdomen nontender Musculoskeletal: no cyanosis or clubbing, extremities motor strength 5/5 Psychiatric: Orientation: alert and oriented x 3 Results & Data Vital Signs (Past 12 Hours) Vital Signs Temp Pulse Resp BP Pulse Ox 10/16/19 07:45 36.4 C L 97 H 16 114/77 93 10/15/19 23:20 36.8 C 98 H 15 118/86 95
--- NOTE | 2019-10-16 13:07 | Orthopedic Progress Note ---
Date of Service October 16, 2019 Assessment & Plan (1) Ruptured lumbar disc: At this time we will make him n.p.o. after midnight and plan for revision decompression fusion L4-5. All questions were addressed. He was made n.p.o. after midnight. Present on Admission?: Yes Subjective Patient has significant right leg pain he does get some relief from IV narcotics. Physical Exam Physical Exam: Patient still exhibits marked discomfort with straight leg raising and deficits to dorsiflexion on the right. Results & Data ([facility]) Vital Signs (Past 12 Hours) Vital Signs Temp Pulse Resp BP Pulse Ox 10/16/19 07:45 36.4 C L 97 H 16 114/77 93
--- NOTE | 2019-10-16 14:49 | Anesthesiology Consultation ---
Date of Service October 16, 2019 Assessment & Plan (1) Encounter for pre-operative examination: Chart Review Chart Review: Acceptable Risk for Surgery History Surgery Operation Date: 10/17/19 13:05 Proposed Procedures p L4-L5 Decompression Fusion with Spinal Cord Monitoring - Emmett Baig DO Height/Weight Height: 5 ft 7 in Weight: 79.5 kg Allergies Allergy/AdvReac Type Severity Reaction Status Date / Time No Known Allergies Allergy Unverified 10/15/19 11:37 Medications Home Medications Medication Instructions Recorded Confirmed Last Taken Tradjenta 5 mg PO QPM 09/23/19 10/15/19 09/22/19 gabapentin 300 mg PO TID 09/23/19 10/15/19 09/22/19 metformin 1,000 mg PO QAM 09/23/19 10/15/19 09/22/19 insulin glargine [Lantus Solostar 40 unit SC QAM 30 Days #12 ml 10/03/19 10/15/19 Unknown U-100 Insulin] oxycodone 5 mg PO Q8H PRN #12 tab 10/03/19 10/15/19 Unknown pantoprazole 40 mg PO BID #60 tab 10/03/19 10/15/19 Unknown polyethylene glycol 3350 [Miralax] 17 g PO DAILY PRN #30 ea 10/03/19 10/15/19 Unknown sucralfate 1 gm PO BID #60 tab 10/03/19 10/15/19 Unknown Active Medications Generic Name Dose Route Start Last Admin Trade Name Freq PRN Reason Stop Dose Admin Acetaminophen 1,000 mg 10/15/19 17:04 10/16/19 00:19 Tylenol PO 11/14/19 17:03 1,000 mg Q8H PRN Administration MILD Pain Rating 1,2,3 Docusate Sodium 100 mg 10/15/19 21:00 10/16/19 08:23 Colace PO 11/14/19 20:59 100 mg BID JHON Administration Gabapentin 300 mg 10/15/19 21:00 10/16/19 14:06 Neurontin PO 11/14/19 20:59 300 mg TID JHON Administration Hydromorphone HCl 1 mg 10/15/19 17:04 10/16/19 12:20 Dilaudid IV 10/29/19 17:03 1 mg Q3H PRN Administration severe pain (scale 7-10) Insulin Aspart 0 units 10/15/19 21:00 10/16/19 13:44 Novolog Flexpen SC 11/14/19 20:59 11 units ACHS JHON Administration Insulin Glargine 40 units 10/16/19 09:00 10/16/19 09:10 Lantus Solostar Pen SC 11/15/19 08:59 40 units QAM JHON Administration Oxycodone HCl 5 - 10 mg 10/15/19 17:04 10/15/19 20:18 Roxicodone Immediate Rel PO 10/29/19 17:03 10 mg Q4H PRN Administration Moderate-Severe Pain Pantoprazole Sodium 40 mg 10/15/19 21:00 10/16/19 08:24 Protonix PO 11/14/19 20:59 40 mg BID JHON Administration Sucralfate 1 gm 10/15/19 21:00 10/16/19 08:23 Carafate Tab PO 11/14/19 20:59 1 gm BID JHON Administration Past Medical History Medical History (Updated 10/16/19 @ 14:48 by Poncho Díaz MD) Anemia S/p blood transfusion x 2 (09/23/19 and 09/27/19). Subsequent Hgb checks stable in 9.2-10.0 range Arthritis Diabetes IDDM Diabetes mellitus, type II Dyslipidemia Gout History of bleeding peptic ulcer History of GI bleed Mood disorder Pancreatic mass NEWLY FOUND AND NEEDS EUS ON 10/19 Past Family History Family History Other Cancer Diabetes Heart disease Hypertension Past Surgical History Surgical History H/O vein stripping RIGHT AND LEFT History of esophagogastroduodenoscopy (EGD) Hx of colonoscopy Hx of laminectomy LUMBAR FOR HERNIATED DISC 10/01/19 Hx of right knee surgery BONE SPUR REMOVED S/P herniorrhaphy UMBILICAL HERNIA REPAIR Social History Smoking Status: Former smoker Do You Dip or Chew Tobacco: No Hx Alcohol Use: No Hx Substance Use: No substance use type: does not use Physical Exam Vital Signs Last Vital Signs Temp 36.4 C L 10/16/19 07:45 Pulse 97 H 10/16/19 07:45 Resp 16 10/16/19 07:45 BP 114/77 10/16/19 07:45 Pulse Ox 93 10/16/19 07:45 Testing Laboratory Results 10/15/19 11:55 10/15/19 11:55 10/16/19 10/16/19 12:07 08:19 POC Glucose 233 H 164 H Electrocardiogram Date: 10/02/19 Findings: + ST @ (113) Chest X-Ray Date: 09/24/19 Findings: + NAD
[2019-10-16] MEDS: LORazepam 1 MG/2 ML VIAL IV PRN (17:52)
[2019-10-16] MEDS ORDERED: GADOBUTROL 65ML VIAL IV PRN (18:48)
--- NOTE | 2019-10-16 19:02 | Magnetic Resonance Report ---
MR abdomen wo/w con CLINICAL HISTORY: Pancreatic head mass ABNORMAL CT SCAN TECHNIQUE: Imaging was performed prior to and following IV contrast injection. Images were obtained i n the axial and coronal planes before and after the administration of 8 cc of intravenous Gadavist. COMPARISON STUDY: CT scan dated 09/23/2019 FINDINGS: No hepatic masses are visualized. There is no ductal dilatation. No gallbladder abnormalities are visualized. The spleen is the upper limits of normal in size. There are no solid renal masses. There is no hydronephrosis. No adrenal masses are visualized. There is no pancreatic ductal dilatation. There is ill-defined 41 x 18 mm mass in the region of the uncinate process of the pancreas. This demo nstrates minimal enhancement. The findings remain similar to the preceding study. This lesion could b e neoplastic, or represent the sequela of pancreatitis. IMPRESSION: 1. No significant change from the prior September 23, 2019 CT scan 2. Ill-defined 41 x 18 mm lesion in the region of the uncinate process of the pancreas. This could be neoplastic represents sequela of prior pancreatitis 3. No evidence of biliary or pancreatic ductal dilatation 4. No hepatic masses. No evidence of pathologic adenopathy. ACT 112: Negative or not required by law. Electronically signed by: Sarmad Hammer M.D. 10/16/2019 7:01 PM
[2019-10-17] MEDS: LORazepam 1 MG/2 ML VIAL IV PRN (00:41)
[2019-10-17] MEDS ORDERED: Nursing to Pharmacy Communication ONE ×2 (05:51→16:57)
[2019-10-17] MEDS: HYDROmorphone INJ 1 MG/ML SYRINGE IV PRN ×4 (05:57→23:25)
[2019-10-17] MEDS: INSULIN ASPART 100 UNITS/ML 3 ML PEN SC SCH ×4 (06:33→20:46)
[2019-10-17 07:49] LABS: Hematocrit (blood only) 34.8 % (42-52); Hemoglobin 11.4 g/dL (14.0-18.0); Mean Corpuscular Hemoglobin 29.6 pg (25-34); Mean Corpuscular Hgb Conc 32.8 g/dL (32-36); Mean Corpuscular Volume 90.4 fL (80-100); Mean Platelet Volume 10.4 fL (7.4-10.4); Platelet Count 258 K/uL (130-400); RDW Coefficient of Variation 15.4 % (11.5-14.5); RDW Standard Deviation 51.2 fL (36.4-46.3); Red Blood Count 3.85 M/uL (4.7-6.1); White Blood Count 5.68 K/uL (4.8-10.8)
[2019-10-17] MEDS: PANTOprazole 40 MG TAB PO SCH ×2 (08:11→20:42)
[2019-10-17] MEDS: GABAPENTIN 300 MG CAP PO SCH ×3 (08:11→20:42)
[2019-10-17] MEDS: SUCRALFATE 1 GM TAB PO SCH ×2 (08:11→20:42)
[2019-10-17] MEDS: DOCUSATE SODIUM 100 MG CAP PO SCH ×2 (08:11→20:43)
[2019-10-17 08:15] LABS: BUN Creatinine Ratio 12.9 (10-20); Calcium 9.4 mg/dl (8.5-10.1); Est GFR (African American) 115.2; Est GFR (Non-African American) 99.4; Potassium 3.4 mmol/L (3.5-5.1)
[2019-10-17] MEDS: INSULIN GLARGINE SOLOSTAR 100 UNITS/ML 3 ML PEN SC SCH (09:03)
[2019-10-17] MEDS ORDERED: POTASSIUM CHLORIDE / WTR 10 MEQ/100 ML PLCT IV ONE (09:15)
--- NOTE | 2019-10-17 09:33 | Hospitalist Progress Note ---
Date of Service October 17, 2019 Results & Data Vital Signs (Past 12 Hours) Vital Signs Temp Pulse Resp BP Pulse Ox 10/17/19 07:24 36.4 C L 94 H 16 120/79 95 10/16/19 23:33 36.6 C 100 H 18 112/75 95
[2019-10-17] MEDS ORDERED: fentaNYL citrate 100 MCG/2 ML VIAL ONE (11:49)
[2019-10-17] MEDS ORDERED: MIDAZOLAM HCL 1 MG/ML 2ML VIAL ONE (11:49)
[2019-10-17] MEDS ORDERED: VANCOMYCIN HCL 1000MG/20ML VIAL ONE (12:31)
[2019-10-17] MEDS ORDERED: GENTAMICIN SULFATE 40 MG/ML 2 ML VIAL ONE (12:31)
[2019-10-17] MEDS ORDERED: ePHEDrine sulfate 50 MG/ML AMP IV PRN (12:38)
[2019-10-17] MEDS ORDERED: ONDANSETRON INJ 2 MG/ML 2 ML VIAL IV PRN ×2 (12:38→16:15)
[2019-10-17] MEDS ORDERED: ATROPINE SULFATE 0.1 MG/ML 10ML SYR IV PRN (12:38)
--- NOTE | 2019-10-17 12:39 | History & Physical Bridge Note ---
Date of Service October 17, 2019 History & Physical Bridge Note I have examined the patient, reviewed the History & Physical and in the interval since the performance of the History & Physical I have noted the following changes of clinical significance: no changes noted
[2019-10-17] MEDS ORDERED: BUPIVACAINE/EPINEPHRINE 0.25% 1:200,000 30 ML VIAL ONE (13:19)
[2019-10-17] MEDS ORDERED: BACITRACIN INJ 50,000 UNIT VIAL ONE (13:19)
[2019-10-17] MEDS ORDERED: HYDROmorphone INJ 2 MG/ML SYR/VIAL ONE (13:57)
[2019-10-17] MEDS ORDERED: LIDOCAINE HCL 2% 2 ML VIAL/AMP(20MG/ML) INFIL ONE (14:04)
[2019-10-17] MEDS ORDERED: PROPOFOL IV EMULSION 10 MG/ML 20 ML VIAL IV ONE (14:04)
[2019-10-17] MEDS ORDERED: DEXAMETHASONE SOD INJ 4 MG/ML VIAL ONE (14:04)
[2019-10-17] MEDS ORDERED: GLYCOPYRROLATE 0.2 MG/ML VIAL ONE (14:04)
[2019-10-17] MEDS ORDERED: ROCURONIUM BROMIDE 10 MG/ML 5 ML VIAL ONE (14:04)
[2019-10-17] MEDS ORDERED: ONDANSETRON INJ 2 MG/ML 2 ML VIAL ONE (14:04)
[2019-10-17] MEDS ORDERED: NEOSTIGMINE METHYLSULFATE 1 MG/ML 10ML VIAL ONE (14:04)
[2019-10-17] MEDS ORDERED: PHENYLEPHRINE HCL 10 MG/ML VIAL ONE (14:06)
[2019-10-17] MEDS ORDERED: CEFAZOLIN 2000MG 2,000 MG/15 ML SYR IV ONE (14:33)
[2019-10-17] MEDS ORDERED: FLOSEAL HEMOSTATIC MATRIX 10ML TOP ONE (14:33)
--- NOTE | 2019-10-17 15:03 | Operative Report ---
Post Operative Report Pre & Post Diagnosis Operation Date: 10/17/19 13:05 Pre-Op Diagnosis: Ruptured lumbar disc Post-Op Diagnosis: Ruptured lumbar disc I identified the patient and participated in the time-out.: Yes Procedure Operation Date: 10/17/19 13:05 Actual Procedures #1 revision decompression bilateral medial facetectomy foraminotomies L4-5. #2 posterior spinal fusion L4-5 per #3 placement posterior instrumentation L4-5. #4 interbody fusion L4-5 per #5 placement of peek cage 11 x 26 mm at L4-5. #6 placement locally harvested morselized autograft in the posterior lateral gutters. #7 placement infuse collagen sponge bone mass graft in the posterior gutters and ostial amp and interbody space. Surgeon Emmett Baig DO Compilation Clerk Kesha Little Estimated Blood Loss 300 Findings Consistent with Post-Op Diagnosis Specimens None Indications This is a 64-year-old male well-known to me that presents with above-mentioned diagnosis after failing a course of nonoperative care having recurrent severe radiculopathy elected to go above-mentioned procedure. Description of Procedure Patient was met with identified informed consent obtained. Patient was then taken to the operative suite underwent intubation placed in a prone position on the Jamal table top Kain frame. All bony prominences well-padded eyes inspected to ensure no external pressure placed upon. This point the lumbar spine is prepped and draped in a sterile fashion. Sharp dissection was perfo rmed down to and exposing the remaining lamina and transverse processes of L4 and L5 bilaterally. From a caudal cephalad fashion revision complete laminectomy of L4 was performed with bilateral medial facetectomies and foraminotomies. Also identified a massive free fragment of disc material migrated caudally on the right. After this complete pedicle screws were placed in L4 and L5 bilaterally with assistance of fluoroscopy the purposes jeffery placed. By way of transfer approach and ready complete discectomy was performed endplates curetted to subcortical mean bone and 11 x 26 mm peek cage filled with osteo-bone graft tapped in position. The rods were then locked in final position bilaterally. Transverse processes of L4 and L5 bur to subcortical bleeding bone. Infuse collagen sponge master graft local autograft placed in the posterior lateral gutters. 15 round MAG drain inserted. The incision was then closed with 1 Vicryl fascia 2-0 Vicryl subcutaneously and 4 Monocryl for final skin closure. Steri-Strip sterile dressings placed. Patient will continue PACU stable disc. Please note spinal cord monitoring was utilized that the procedure no changes noted. Lastly Kesha Little was present at the entire procedure involved the patient positioning complex portions of the surgery and final skin closure. I attest to the content of the Intraoperative Record and any orders documented therein. Any exceptions are noted below.
--- NOTE | 2019-10-17 15:12 | Fluoroscopy Report ---
INTRAOPERATIVE RADIOGRAPHS CLINICAL HISTORY: L4-L5 spinal fusion. Fluoroscopy time: 15 seconds. FINDINGS: 2 spot for fluoroscopic views of the lumbar spine are presented. There has been discectomy at L4-L5 with laminectomy and posterior fusion at this level. Interpedicular screws are in place. The orthopedic hardware appears intact. IMPRESSION: Intraoperative images from L4-L5 spinal fusion as above. Electronically signed by: Joe Fritz M.D. 10/17/2019 3:10 PM
[2019-10-17] MEDS: fentaNYL citrate 100 MCG/2 ML VIAL IV PRN ×4 (15:30→15:45)
--- NOTE | 2019-10-17 15:52 | Anesthesiology Progress Note ---
Date of Service October 17, 2019 Anesthesia Post Procedure Vital Signs Vital Signs: Temp Pulse Pulse Resp BP Pulse Ox 10/17/19 15:50 96 H 15 117/77 98 10/17/19 15:40 90 12 127/81 99 10/17/19 15:30 87 12 126/81 100 10/17/19 15:20 97.3 F L 97 H 18 131/73 97 10/17/19 12:28 98.2 F 101 H 18 121/89 94 10/17/19 07:24 97.5 F L 94 H 16 120/79 95 10/16/19 23:33 97.9 F 100 H 18 112/75 95 Pain Intensity Hip: Pain Intensity: 8 Right Hip: Pain Intensity: 8 Back: Pain Intensity: 5 Transfer of Care Handoff Completed per policy Notes Mental Status: alert / awake / arousable and participated in evaluation Patient Amnestic to Procedure: Yes Nausea / Vomiting: adequately controlled Pain: adequately controlled Airway Patency, RR, SpO2: stable & adequate BP & HR: stable & adequate Hydration State: stable & adequate Anesthetic Complications: no major complications apparent and Pt Satisfied with anesthetic care
[2019-10-17] MEDS ORDERED: HYDROmorphone INJ 0.5 MG/0.5 ML SYR IV PRN (16:15)
[2019-10-17] MEDS ORDERED: ACETAMINOPHEN 500 MG TAB PO PRN (16:15)
[2019-10-17] MEDS ORDERED: METOCLOPRAMIDE HCL INJ 5 MG/ML 2 ML VIAL IV PRN (16:15)
[2019-10-17] MEDS ORDERED: PROMETHAZINE HCL 12.5 MG in SODIUM CHLORIDE 0.9% 50 ML IV PRN (16:15)
[2019-10-17] MEDS ORDERED: ONDANSETRON 4 MG OD TAB PO PRN (16:15)
[2019-10-17] MEDS ORDERED: FAMOTIDINE 20 MG TAB PO PRN (16:15)
[2019-10-17] MEDS ORDERED: NALOXONE HCL 0.4 MG/1 ML VIAL/CARP IV PRN (16:15)
[2019-10-17] MEDS ORDERED: DO NOT ADMINISTER PNEUMOCOCCAL VACCINE PRN (16:15)
[2019-10-17] MEDS ORDERED: TRAMADOL HCL 50 MG TABLET PO PRN (16:15)
[2019-10-17] MEDS ORDERED: ALUMINUM/MAGNESIUM SUSP 30 ML UDC PO PRN (16:15)
[2019-10-17] MEDS ORDERED: ACETAMINOPHEN 1,000 MG/100 ML VIAL IV PRN (16:15)
[2019-10-17] MEDS ORDERED: bisacodyL 10 MG SUPP PR PRN (16:15)
[2019-10-17] MEDS ORDERED: SOD PHOSPHATE/SOD BIPHOSPHATE ENEMA 132 ML BTL PR PRN (16:15)
[2019-10-17] MEDS ORDERED: DO NOT ADMINISTER FLU VACCINE PRN (16:15)
[2019-10-17] MEDS ORDERED: LORazepam 0.5 MG/1 ML VIAL IV PRN (16:15)
[2019-10-17] MEDS ORDERED: MAGNESIUM HYDROXIDE SUSP 30 ML UDC PO PRN (16:15)
[2019-10-17] MEDS: OXYCODONE HCL IR 5 MG TAB (IMMEDIATE RELEASE) PO PRN ×2 (17:42→22:11)
[2019-10-17] MEDS: SODIUM CHLORIDE 0.9% 1000ML 1,000 ML IV SCH (17:45)
[2019-10-17] MEDS: DOCUSATE SODIUM/SENNA 50/8.6MG TAB PO SCH (20:42)
[2019-10-17] MEDS: CEFAZOLIN 2000MG 2,000 MG/15 ML SYR IV SCH (20:46)
--- NOTE | 2019-10-17 20:49 | Hospitalist Progress Note ---
Date of Service October 17, 2019 Assessment & Plan (1) Back pain: (2) Lumbar disc herniation: S/p lumbar L4-L5 laminectomy on 10/01/[address] Baig. Has had back pain with radiation to right leg and ankle since with some tingling sensation to right foot. 10/15/2019 MRI Lumbar spine: Status post right L4-5 hemilaminectomy. However, the large right paracentral disc extrusion at this level is not significantly changed and results in moderate to severe right-sided central canal narrowing wi th compression of the right L5 and S1 nerve roots. S/P decompression bilateral medial facetectomy foraminotomies and fusion done by Dr. Baig 10/17/19 No post op complication Pain management as per Ortho PT/OT evel Monitor H/H Incentive spirometry (3) Anemia: (4) History of GI bleed: History of recent duodenal ulcer with nonbleeding vessel s/p epinephrine injection and cautery. Received 4 units PRBCs during recent admission Hgb stable at 11.4 today Continue PPI BID and sucralfate Will avoid NSAIDs Scheduled to have repeat EGD on 10/19/[address] Fuchs, will let GI know that pt is in the hospital Pancreatic Lesion MRI abdomen showed No significant change from the prior September 23, 2019 CT scan Ill-defined 41 x 18 mm lesion in the region of the uncinate process of the pancreas. Scheduled to have EGD done as an outpatient with GI on 10/19 (5) Diabetes mellitus, type II: Hgb a1c 14.0 09/24/2019 Uncontrolled DM Continue to hold metformin, Tradjenta Continue Lantus ON Novolog sliding scale per protocol Monitor BS (6) DVT prophylaxis: SCDs as per spine ortho Subjective Pt was seen and examined Lying in bed with no distress with at bedside Pt just came back from OR He said that he does not have pain in his LE anymore He said that his pain now located in his back from the incision area Denies any chest pain, palpitation, dizziness and SOB Physical Exam Physical Exam: General- No acute distress Head- atraumatic Eyes- PERRL, EOMI, ENT- oropharynx clear Neck- supple, no JVD Lungs- clear to auscultation Heart- regular rhythm; no murmur Abdomen- normal bowel sounds, soft, nontender Extremities- no calf tenderness Neuro- alert, oriented x 3; PERRL, EOMI; no facial palsy; no dysarthria Skin- warm & dry Results & Data Vital Signs (Past 12 Hours) Vital Signs Temp Pulse Pulse Resp BP Pulse Ox 10/17/19 19:15 36.6 C 124 H 18 126/86 93 10/17/19 18:15 36.2 C L 128 H 16 109/69 95 10/17/19 17:12 36.4 C L 106 H 16 122/84 96 10/17/19 16:48 36.4 C L 102 H 20 132/85 96 10/17/19 16:16 36.3 C L 104 H 14 120/78 93 10/17/19 16:00 36.4 C L 95 H 13 118/73 96 10/17/19 15:50 96 H 15 117/77 98 10/17/19 15:40 90 12 127/81 99 10/17/19 15:30 87 12 126/81 100 10/17/19 15:20 36.3 C L 97 H 18 131/73 97 10/17/19 12:28 36.8 C 101 H 18 121/89 94
[2019-10-18] MEDS ORDERED: MAGNESIUM SULFATE / D5W 1 GM/100 ML BAG IV ONE ×2 (00:36→03:30)
[2019-10-18] MEDS ORDERED: POTASSIUM CHLORIDE 20 MEQ TABCR PO STA (00:36)
[2019-10-18] MEDS ORDERED: SODIUM CHLORIDE 0.9% 500 ML IV ONE (00:37)
[2019-10-18 01:26] LABS: Basophils # (auto) 0.01 K/uL (0-0.2); Basophils % (auto) 0.1 %; Hematocrit (blood only) 33.2 % (42-52); Hemoglobin 10.8 g/dL (14.0-18.0); Immature Granulocytes # (auto) 0.02 K/uL (0.00-0.02); Immature Granulocytes % (auto) 0.2 %; Lymphocytes # (auto) 0.96 K/uL (1.2-3.4); Lymphocytes % (auto) 9.8 %; Mean Corpuscular Hemoglobin 29.1 pg (25-34); Mean Corpuscular Hgb Conc 32.5 g/dL (32-36); Mean Corpuscular Volume 89.5 fL (80-100); Mean Platelet Volume 10.7 fL (7.4-10.4); Monocytes # (auto) 0.51 K/uL (0.11-0.59); Monocytes % (auto) 5.2 %; Neutrophils # (auto) 8.26 K/uL (1.4-6.5); Neutrophils % (auto) 84.7 %; Platelet Count 244 K/uL (130-400); RDW Coefficient of Variation 15.4 % (11.5-14.5); RDW Standard Deviation 50.1 fL (36.4-46.3); Red Blood Count 3.71 M/uL (4.7-6.1); White Blood Count 9.76 K/uL (4.8-10.8)
[2019-10-18 01:42] LABS: BUN Creatinine Ratio 13.9 (10-20); Creatinine Clr Calc Pharmacy 91.1 ml/min; Est GFR (African American) 108.2; Est GFR (Non-African American) 93.4; Magnesium 1.6 mg/dl (1.8-2.4); Potassium 3.7 mmol/L (3.5-5.1)
[2019-10-18] MEDS: OXYCODONE HCL IR 5 MG TAB (IMMEDIATE RELEASE) PO PRN ×2 (02:08→08:01)
[2019-10-18] MEDS: SODIUM CHLORIDE 0.9% 1000ML 1,000 ML IV SCH (02:54)
[2019-10-18] MEDS: HYDROmorphone INJ 1 MG/ML SYRINGE IV PRN ×4 (03:55→21:31)
[2019-10-18] MEDS: CEFAZOLIN 2000MG 2,000 MG/15 ML SYR IV SCH (05:00)
[2019-10-18] MEDS: POLYETHYLENE (MIRALAX) 17 GM PACK PO SCH ×4 (05:34→23:29)
[2019-10-18] MEDS: DOCUSATE SODIUM 100 MG CAP PO SCH ×2 (08:03→20:54)
[2019-10-18] MEDS: SUCRALFATE 1 GM TAB PO SCH ×2 (08:03→20:54)
[2019-10-18] MEDS: GABAPENTIN 300 MG CAP PO SCH ×3 (08:03→20:54)
[2019-10-18] MEDS: PANTOprazole 40 MG TAB PO SCH ×2 (08:03→20:55)
--- NOTE | 2019-10-18 08:05 | Anesthesiology Progress Note ---
Date of Service October 18, 2019 Anesthesia Post Procedure Vital Signs Vital Signs: Temp Pulse Pulse Resp BP Pulse Ox 10/18/19 07:30 36.7 C 114 H 16 121/85 97 10/18/19 03:39 37.1 C 101 H 16 108/70 95 10/17/19 23:50 120 H 10/17/19 23:17 37.1 C 128 H 16 113/70 95 10/17/19 19:15 36.6 C 124 H 18 126/86 93 10/17/19 18:15 36.2 C L 128 H 16 109/69 95 10/17/19 17:12 36.4 C L 106 H 16 122/84 96 10/17/19 16:48 36.4 C L 102 H 20 132/85 96 10/17/19 16:16 36.3 C L 104 H 14 120/78 93 10/17/19 16:00 36.4 C L 95 H 13 118/73 96 10/17/19 15:50 96 H 15 117/77 98 10/17/19 15:40 90 12 127/81 99 10/17/19 15:30 87 12 126/81 100 10/17/19 15:20 36.3 C L 97 H 18 131/73 97 10/17/19 12:28 36.8 C 101 H 18 121/89 94 Pain Intensity Right Hip: Pain Intensity: 8 Notes Mental Status: alert / awake / arousable and participated in evaluation Patient Amnestic to Procedure: Yes Nausea / Vomiting: adequately controlled Pain: adequately controlled Airway Patency, RR, SpO2: stable & adequate BP & HR: stable & adequate Hydration State: stable & adequate Anesthetic Complications: no major complications apparent
--- NOTE | 2019-10-18 08:47 | Orthopedic Progress Note ---
Date of Service October 18, 2019 Assessment & Plan (1) Lumbar disc herniation with radiculopathy: This time will initiate physical therapy monitor his MAG output over the discharge home in the next few days. I will discontinue oxycodone and transition to oral Dilaudid. Present on Admission?: Yes Subjective Back pain significant right leg symptoms markedly improved Physical Exam Physical Exam: Patient is in the chair at the bedside is good strength testing appears comfortable. Results & Data ([facility]) Vital Signs (Past 12 Hours) Vital Signs Temp Pulse Pulse Resp BP Pulse Ox 10/18/19 07:30 36.7 C 114 H 16 121/85 97 10/18/19 03:39 37.1 C 101 H 16 108/70 95 10/17/19 23:50 120 H 10/17/19 23:17 37.1 C 128 H 16 113/70 95
[2019-10-18] MEDS: INSULIN ASPART 100 UNITS/ML 3 ML PEN SC SCH ×4 (09:16→21:55)
[2019-10-18] MEDS: INSULIN GLARGINE SOLOSTAR 100 UNITS/ML 3 ML PEN SC SCH (09:17)
[2019-10-18] MEDS: HYDROmorphone HCL 2 MG TAB PO PRN ×4 (09:18→23:29)
[2019-10-18] MEDS: LORazepam 0.5 MG TAB PO PRN (15:59)
--- NOTE | 2019-10-18 17:24 | Electrocardiogram Report ---
Test Reason : Blood Pressure : / mmHG Vent. Rate : 117 BPM Atrial Rate : 117 BPM P-R Int : 158 ms QRS Dur : 096 ms QT Int : 326 ms P-R-T Axes : 042 -04 018 degrees QTc Int : 454 ms Sinus tachycardia Inferior infarct , age undetermined Nonspecific ST abnormality Abnormal ECG When compared with ECG of 02-OCT-2019 14:28, No significant change was found Confirmed by Phan Em ([id number]) on 10/18/2019 5:23:50 PM Referred By: REFERRED SELF Confirmed By:Ryan Em
--- NOTE | 2019-10-18 19:05 | Hospitalist Progress Note ---
Date of Service October 18, 2019 Assessment & Plan (1) Back pain: (2) Lumbar disc herniation: S/p lumbar L4-L5 laminectomy on 10/01/[address] Baig. Has had back pain with radiation to right leg and ankle since with some tingling sensation to right foot. 10/15/2019 MRI Lumbar spine: Status post right L4-5 hemilaminectomy. However, the large right paracentral disc extrusion at this level is not significantly changed and results in moderate to severe right-sided central canal narrowing wi th compression of the right L5 and S1 nerve roots. S/P decompression bilateral medial facetectomy foraminotomies and fusion done by Dr. Baig 10/17/19 No post op complication Pain management as per Ortho Toradolx1 given since pt was in pain, but will try to avoid any additional NSAID due to hx of GI bleed PT/OT evel Monitor H/H Incentive spirometry (3) Anemia: (4) History of GI bleed: History of recent duodenal ulcer with nonbleeding vessel s/p epinephrine injection and cautery. Received 4 units PRBCs during recent admission Hgb stable at 11.4 today Continue PPI BID and sucralfate Will avoid NSAIDs Scheduled to have repeat EGD on 10/19/[address] Fuchs Case discussed with Dr. Fuchs and procedure was postponed Pancreatic Lesion MRI abdomen showed No significant change from the prior September 23, 2019 CT scan Ill-defined 41 x 18 mm lesion in the region of the uncinate process of the pancreas. Scheduled to have EGD done as an outpatient with GI on 10/19 (5) Sinus tachycardia: Possible related to pain and anxiety EKG showed sinus tachy Will continue monitor (6) Diabetes mellitus, type II: Hgb a1c 14.0 09/24/2019 Uncontrolled DM Continue to hold metformin, Tradjenta Continue Lantus ON Novolog sliding scale per protocol Monitor BS (7) DVT prophylaxis: SCDs as per spine ortho Subjective Pt was seen and examined Lying in bed with no distress Pt said that he is having so much pain and muscle spasm He said that the pain med does not seem to last He said that is very anxious and wants to get discharged by tomorrow Denies any chest pain, palpitation, dizziness and SOB Physical Exam Physical Exam: General- No acute distress Head- atraumatic Eyes- PERRL, EOMI, ENT- oropharynx clear Neck- supple, no JVD Lungs- clear to auscultation Heart- regular rhythm; no murmur Abdomen- normal bowel sounds, soft, nontender Extremities- no calf tenderness Neuro- alert, oriented x 3; PERRL, EOMI; no facial palsy; no dysarthria Skin- warm & dry Results & Data ([facility]) Vital Signs (Past 12 Hours) Vital Signs Temp Pulse Resp BP Pulse Ox 10/18/19 15:20 36.8 C 105 H 16 116/70 95 10/18/19 11:16 96 10/18/19 11:01 36.7 C 115 H 16 115/75 94 10/18/19 07:30 36.7 C 114 H 16 121/85 97
[2019-10-18] MEDS: DOCUSATE SODIUM/SENNA 50/8.6MG TAB PO SCH (20:54)
[2019-10-19] MEDS: HYDROmorphone INJ 1 MG/ML SYRINGE IV PRN (01:56)
[2019-10-19] MEDS: POLYETHYLENE (MIRALAX) 17 GM PACK PO SCH (06:06)
[2019-10-19] MEDS: HYDROmorphone HCL 2 MG TAB PO PRN ×2 (07:37→11:33)
[2019-10-19] MEDS ORDERED: KETOROLAC TROMETHAMINE 15 MG/ML VIAL IV ONE (07:56)
[2019-10-19] MEDS: LORazepam 0.5 MG TAB PO PRN (07:57)
[2019-10-19] MEDS: INSULIN ASPART 100 UNITS/ML 3 ML PEN SC SCH (08:58)
[2019-10-19] MEDS: INSULIN GLARGINE SOLOSTAR 100 UNITS/ML 3 ML PEN SC SCH (08:59)
[2019-10-19] MEDS: GABAPENTIN 300 MG CAP PO SCH (09:01)
[2019-10-19] MEDS: DOCUSATE SODIUM 100 MG CAP PO SCH (09:01)
[2019-10-19] MEDS: SUCRALFATE 1 GM TAB PO SCH (09:01)
[2019-10-19] MEDS: PANTOprazole 40 MG TAB PO SCH (09:02)
--- NOTE | 2019-10-19 13:34 | Discharge Summary ---
Date of Service October 19, 2019 Principal Diagnosis Recurrent disc condition with radiculopathy Discharge Data Allergies Allergy/AdvReac Type Severity Reaction Status Date / Time No Known Allergies Allergy Unverified 10/15/19 11:37 Consultations 10/15/19 15:09 ED Decision to Admit Stat 10/15/19 17:04 Consult Internal Medicine Routine 10/17/19 16:15 Consult Case Management - Discharge Planning Routine Procedures Performed Operation Date: 10/17/19 13:05 Actual Procedures p L4-L5 Decompression Fusion Use of Infuse and Osteoamp, with Spinal Cord Monitoring(Not Applicable) - Emmett Baig DO Ordered Studies 10/15/19 12:10 MR lumbar spine wo con Stat 10/16/19 15:07 MRI Abdomen [MR abdomen wo/w con] Urgent 10/17/19 13:05 FL fluoroscopy <1hr Routine FL lumbar spine 2-3V Routine Hospital Course (1) Lumbar disc herniation with radiculopathy: Patient was admitted with recurrent disc herniation significant radic ulopathy the next day underwent lumbar decompression fusion tolerated well taken to orthopedic floor postoperative. Postop day 1 he was up and ambulating leg symptoms improved progressively stable #2 MAG drain decreasing probably. Subsequently discharged home. Discharge orders instructions from the chart for review. Total Time Total Time Spent Total Time Spent (In Minutes): 30 minutes Discharge Plan Discharge Items Patient Disposition: Home - Self-Care Reason For Visit: BACK SURGERY [id number],BACK AND LEG PAIN Discharge Diagnosis: Recurrent disc herniation lumbar spine Activity: As commented below Non-emergency contact: Primary Care Provider Call non-emergency contact if: you have any medication questions Follow-up/Referrals: Jude Amezcua MD [Primary Care Provider] - Diet: Regular Addtl Attending Provider Instructions: ACTIVITY RECOMMENDATIONS: SELF CARE INSTRUCTIONS AFTER THORACIC/LUMBAR FUSIONS 1. You may walk to your tolerance. It is good exercise for your legs and back. Expect some back and intermittent leg aches and pains. 2. You may perform "counter-top" level activities (make a sandwich, sosa with a project, etc.). 3. No bending or lifting of more than 10 pounds or back twisting of any nature (roll like a log when turning in bed). 4. You may ride in a car for 20-30 minutes at a time. No driving until after your first visit with your doctor. 5. Frequent changes of position and restricting sitting to 30 minutes at a time will help limit the amount of back spasms and stiffness you may experience. 6. You may discontinue the use of ambulatory aids (cane, crutches, etc.) once your strength and confidence allow. 7. You may filing or registry clerk the shower and let water strike your incision when you arrive home at least once daily. Do not take a tub bath, sit in a hot tub or go into a swimming pool until after your first recheck in the office. SPECIAL CARE INSTRUCTIONS: VERY IMPORTANT TO READ AND REVIEW A. Your surgical incision has been closed with a cosmetic suture under the skin that will dissolve in about 6 weeks. In 14 days, you can use a pair of clean scissors and cut the suture that is left outside of the skin at the ends of your incision. 1. The small skin tapes can be removed 7 days after surgery if they have not fallen off by that point. 2. You may keep the wound open to air as much as possible to promote healing after post-op day number 5 unless told otherwise by your doctor. 3. If you think the wound looks like it is becoming infected (redness or worsening drainage) and/or you are experiencing fever, chill or worsening back pain and muscle spasms, contact the office so that we may evaluate you as soon as possible. B. Complications are uncommon, but please contact us if you have any signs or symptoms of: 1. wound infection (fever higher than 102.5 degrees F, redness, separation of wound, drainage, or increasing pain from the incision) 2. blood clots in legs (pain, swelling, redness and warmth in legs) 3. urinary tract infection (fever higher than 102.5 degrees F, burning upon urination or increased frequency of urination) 4. nerve problems (inability to walk on your toes or heels, numbness, loss of bowel or bladder control) 5. any other symptoms that concern you C. Please call the office at if you have any concerns or questio ns about your operation or recovery. D. No smoking! Smoking drastically decreases the chance of a solid fusion. E. Do not take any anti-inflammatory medications (Indocin, Advil, Motrin, Aspirin, Naprosyn, etc.) as these may inhibit the chance of a solid fusion. Tylenol is okay to take for pain. MANAGING PAIN AFTER SPINAL SURGERY 1. Narcotic medication is intended for short-term use and will be provided for surgical pain. Surgical pain usually lasts for a period of 4-6 weeks. Narcotic medication includes Percocet, Vicodin, Darvocet, Tylenol #3 or Lortab. 2. Longer-term pain is more appropriately treated with non-narcotic medication such as Tylenol ES. 3. Muscle spasm is not appropriately treated with narcotics. Muscle relaxers such as Soma, Flexeril or Skelaxin can be used along with Tylenol ES. 4. Remember that we all live with some "aches and pains". This is not unusual or uncommon after an injury or as we get older. a. Back pain is expected and may include muscle spasms for 4 to 6 weeks after surgery. The pain should gradually improve. If the pain worsens for no apparent reason, please contact the office. b. Intermittent leg pain may also be experienced and should not be concerned about unless it worsens for no apparent reason. If so, please contact the office. 5. We will provide appropriate medication within the normal guidelines of their prescribed use. We will also be very cautious and aware of potential abuse and extended duration of patients' medication needs. a. Pain medications are for your comfort and to assist with sleep and rest so that the tissue can heal. They are not provided in order to return to normal activity and should not be used through the day. To do so or worsening pain at night can result from ongoing tissue damage and development of tolerance to the prescribed medicine. 6. Please allow 2-3 days to process refills. Prescriptions will not be mailed but must be picked up at the office. FOLLOW UP VISIT: Keep your scheduled follow-up appointment. Any questions, please call the office at . Pending Studies at Discharge: No Stand-Alone Forms: [facility], Opioid Pain Management, Smoking Cessation Medications and DC Order Prescriptions: New tramadol 50 mg tablet 50 mg PO Q6H PRN (Reason: pain, moderate) Qty: 30 RF: 0 hydromorphone [Dilaudid] 2 mg tablet 2 mg PO Q6H PRN (Reason: pain) Qty: 20 RF: 0 Continued gabapentin 300 mg capsule 300 mg PO TID RF: 0 metformin 500 mg tablet extended release 24 hr 1,000 mg PO QAM RF: 0 Tradjenta 5 mg tablet 5 mg PO QPM RF: 0 polyethylene glycol 3350 [Miralax] 17 gram Powder In Packet 17 g PO DAILY PRN (Reason: constipation) Qty: 30 RF: 0 pantoprazole 40 mg Tablet,Delayed Release (Dr/Ec) 40 mg PO BID Qty: 60 RF: 1 oxycodone 5 mg Tablet 5 mg PO Q8H PRN (Reason: pain) Qty: 12 RF: 0 Lantus Solostar U-100 Insulin 100 unit/mL (3 mL) Insulin Pen 40 unit SC QAM 30 Days Qty: 12 RF: 0 sucralfate 1 gram tablet 1 gm PO BID Qty: 60 RF: 0 Discharge Orders: Discharge Order (Routine); Ordered 10/19/19 Ordered By: Emmett De La Vega/Other Patient Handouts: DVT Prevent Admission Data Admit Date/Time: 10/15/19 14:56 Attending Provider: Emmett Baig Admit Provider: Emmett Baig Primary Care Provider: Jude Amezcua Other Providers: Bunny Benitez ; Emmett Baig ; Mary Elaine. Other Interventions: Discharge Summary Assessment (RN) Last Done: 10/19/19 10:44 DC Date/Time DO NOT enter until pt leaves facility: 10/19/19 12:07
== END 2019-10-19 12:07 | disposition home or self-care (01) | DRG 455 ==
LOC: ED 11:00 → 3W 14:56

== ENCOUNTER 2021-06-23 14:11 | Inpatient (IN) ==
[2021-06-23] MEDS ORDERED: SODIUM CHLORIDE 0.9% 1000ML 1,000 ML IV STA (16:08)
[2021-06-23] MEDS ORDERED: ONDANSETRON INJ 2 MG/ML 2 ML VIAL IV STA (16:08)
--- NOTE | 2021-06-23 16:08 | Electrocardiogram Report ---
Test Reason : Blood Pressure : / mmHG Vent. Rate : 116 BPM Atrial Rate : 116 BPM P-R Int : 146 ms QRS Dur : 094 ms QT Int : 312 ms P-R-T Axes : 042 000 020 degrees QTc Int : 433 ms Sinus tachycardia Abnormal ECG When compared with ECG of 18-OCT-2019 00:54, No significant change was found Confirmed by Phan Em ([id number]) on 06/23/2021 4:08:15 PM Referred By: Confirmed By:Ryan Em
[2021-06-23] MEDS ORDERED: LORazepam 1 MG/2 ML VIAL IV STA (16:09)
[2021-06-23] MEDS: MoRPHine SULFATE 4 MG/ML 1 ML CARP\\VIAL IV PRN ×4 (16:15→21:27)
--- NOTE | 2021-06-23 16:17 | Emergency Department Note ---
Impression & Plan Lumbar disc herniation with radiculopathy, Back pain ED Provider Note NAME: ANDRESSA AUSTIN AGE: 65 SEX: M : 1955 ARRIVES VIA: Walk-In INFORMANT: Patient, ED PROVIDER(S): Abdiaziz Shen DO CHIEF COMPLAINT: Low back pain HPI: The patient is a 65-year-old male who presented to the emergency department for low back pain. The patient has had symptoms since March. He starts to notice worsening low back pain and now he starting to notice difficulty ambulating decreased sensation in the legs bowel and bladder difficulties as well as atrophy in his left thigh. The patient states the symptoms have been ongoing since they began. He was seen here 2 weeks ago and had a work-up which included a CAT scan of the lower back. At that time he was started on steroids which he continues to take without any resolution of his symptoms. He has tried to call his primary orthopedic spinal specialist as well as primary care phys colinan. He has been unable to see either 1 and today was advised to come the emergency department by his primary care physician. He denies having any chest pain or difficulty breathing. He has no headache. He denies having any falls. He states his symptoms are moderate to severe. He denies having any recent traveling. He has been compliant with all of his usual outpatient medications. He does a history of surgery on his lumbar spine a few years ago. The patient notices no fever. ROS: See above HPI for pertinent positives & negatives. A total of 10 systems reviewed and were otherwise negative. PAST MEDICAL HISTORY: See Below PAST SURGICAL HISTORY: See Below FAMILY HISTORY: See Below SOCIAL HISTORY: See Below HOME MEDICATIONS: See Below ALLERGIES: See Below VITALS: See Below PHYSICAL EXAMINATION: GENERAL: The patient is awake and alert. He appears uncomfortable. EYES: The conjunctivae are clear. The pupils are round and reactive. EARS, NOSE, MOUTH AND THROAT: The nose is without any evidence of any deformity. NECK: The neck is nontender and supple. RESPIRATORY: Normal respiratory effort is noted there is no evidence of wheezing rhonchi or rales CARDIOVASCULAR: Regular rate and rhythm noted there no murmurs rubs or gallops normal S1 normal S2. GASTROINTESTINAL: The abdomen is soft and mildly distended. There is no tenderness guarding rigidity. BACK: Low lumbar spine tenderness was noted to palpation. Range of motion elicits pain. MUSCULOSKELETAL/EXTREMITIES: There is no evidence of gross deformity full range of motion is noted in the hips and shoulders. SKIN: There is no obvious evidence of any rash. There are no petechiae, pallor or cyanosis noted. NEUROLOGIC: Patient is awake alert and oriented x3 strength is symmetric patell ar reflexes are absent bilaterally MEDICAL DECISION MAKING: The patient is a 65-year-old male who presented to the emergency department for evaluation of low back pain. The patient had progressive low back pain ever since March. He states symptoms only continue to worsen and now he appears to have involvement of bowel and bladder as well as complains of atrophy on his extremities. The patient has had no trauma. The patient's physical exam was worrisome for radiculopathy with decreased patellar tendon reflexes bilaterally. I discussed patient's laboratory and radiographic studies with him. I also discussed his case with the patient's primary orthopedic spinal specialist. Given the patient's findings on MRI he was felt to be a good candidate for inpatient management and possibly surgical management. The patient was feeling somewhat improved on reevaluation. I discussed the patient's pain with him. He may be a candidate for surgical intervention. He was started on steroids and pain medication in the emergency department. Triage Nursing notes reviewed. Prior medical records reviewed Vital Signs: reviewed and remarkable for no significant abnormalities Differential diagnosis: Musculoskeletal, disc herniation, fracture, metastatic disease, cord compression, discitis, sciatica, cauda equina, infection, aortic disease, renal colic, gastrointestinal, as well as other pathologies. ER treatment provided: See below Diagnostics interpreted by me: ECG: An EKG was obtained in triage. My interpretation is sinus tachycardia at 116 bpm. There is no ectopy. Inferior Q waves were noted. This was compared to a tracing from October 182019. There is an increase in the rate however no other changes were noted. Cardiac Monitoring: An order was placed for continuous cardiac monitoring. The monitor shows a rate of 106 bpm with sinus tachycardia rhythm. Laboratory studies: As stated above and show below. Imaging studies: See below Consultation(s): I discussed this case with Dr. Baig who is the patient's primary orthopedic spinal specialist. He will evaluate the patient for possible surgical management but would recommend inpatient treatment at this time. Past Med/Surg History Medical History (Updated 06/23/21 @ 22:49 by Abdiaziz Shen DO) Anemia S/p blood transfusion x 2 (09/23/19 and 09/27/19). Subsequent Hgb checks stable in 9.2-10.0 range Arthritis Diabetes IDDM Diabetes mellitus, type II Dyslipidemia Gout History of bleeding peptic ulcer History of GI bleed Mood disorder Pancreatic mass NEWLY FOUND AND NEEDS EUS ON 10/19 Surgical History H/O vein stripping RIGHT AND LEFT History of esophagogastroduodenoscopy (EGD) Hx of colonoscopy Hx of laminectomy LUMBAR FOR HERNIATED DISC 10/01/19 Hx of right knee surgery BONE SPUR REMOVED S/P herniorrhaphy UMBILICAL HERNIA REPAIR Family History Other Cancer Diabetes Heart disease Hypertension Denies family history of No pertinent family history Social History Smoking Status: Former smoker Second Hand Exposure: No; Do You Dip or Chew Tobacco: No; Tobacco Cessation Education Requested by Patient: No Hx Alcohol Use: No Hx Substance Use: No Preferred Language: Faroese Communication Ability: Effective Visual Impairment: No Limitations Hearing Ability: Normal Registered Physical Therapist Required: No Beliefs That Will Affect Care: None marital status: Current Living Situation: Spouse Current Living Situation Comment: home current occupational status: employed Other Information That Helps Us Care for You: No Feels Safe at Home: Yes Safety Concerns: Feels Safe At This Time Assistive Devices: Glasses Allergies Allergies Allergy/AdvReac Type Severity Reaction Status Date / Time NSAIDS (Non-Steroidal AdvReac GI bleed Verified 06/24/21 05:30 Anti-Inflamma Home Meds Home Medications Medication Instructions Recorded Confirmed gabapentin 300 mg capsule 300 mg PO TID 09/23/19 06/23/21 metformin 500 mg tablet,extended 1,000 mg PO BID 09/23/19 06/23/21 release 24 hr acetaminophen 500 mg tablet 1,000 mg PO QID PRN 06/10/21 06/23/21 (Tylenol Extra Strength) semaglutide 1 mg/dose (2 mg/1.5 1 mg SUBCUT WK 06/10/21 06/23/21 mL) subcutaneous pen injector (Ozempic) metoprolol succinate 25 mg 25 mg PO DAILY 06/23/21 06/23/21 tablet,extended release 24 hr sertraline 25 mg tablet 25 mg PO DAILY 06/23/21 06/23/21 Previous Rx's Medication Instructions Recorded pantoprazole 40 mg tablet,delayed 40 mg PO BID #60 tab 10/03/19 release Results & Data (ED) Vital Signs Vital Signs - 24 hr 06/23/21 14:16 06/23/21 16:06 06/23/21 16:30 Temperature 36.8 C Temperature Source Temporal Artery Scan Pulse Rate 130 H 111 H 107 H Pulse Rate from SpO2 Sensor 110 H 107 H Respiratory Rate 20 18 23 Respiratory Effort / Characteristics Non-Labored Spontaneous Respiratory Depth Normal Respiratory Pattern Regular Blood Pressure 130/89 141/95 H 151/100 H Blood Pressure Mean 102 110 117 Pulse Oximetry 95 96 94 Oxygen Delivery Method Room Air Sepsis Recent Fever Within 48 Hours No Sepsis New/Unexplained Change in Mental Status No Sepsis Action Taken by Nursing No Action Required 06/23/21 17:00 06/23/21 17:30 06/23/21 18:00 Temperature Temperature Source Pulse Rate 104 H 106 H 105 H Pulse Rate from SpO2 Sensor 103 H 106 H 105 H Respiratory Rate 14 14 13 Respiratory Effort / Characteristics Respiratory Depth Respiratory Pattern Blood Pressure 138/93 135/96 127/95 Blood Pressure Mean 108 109 105 Pulse Oximetry 93 93 92 Oxygen Delivery Method Sepsis Recent Fever Within 48 Hours Sepsis New/Unexplained Change in Mental Status Sepsis Action Taken by Nursing 06/23/21 18:54 06/23/21 19:01 Temperature Temperature Source Pulse Rate Pulse Rate from SpO2 Sensor 109 H 109 H Respiratory Rate Respiratory Effort / Characteristics Respiratory Depth Respiratory Pattern Blood Pressure 141/88 H 142/98 H Blood Pressure Mean 105 112 Pulse Oximetry 95 94 Oxygen Delivery Method Sepsis Recent Fever Within 48 Hours Sepsis New/Unexplained Change in Mental Status Sepsis Action Taken by Longterm Medications Current Medication List: was personally reviewed by me Laboratory Data Attestation: I reviewed the patient's lab results. Result diagrams: 06/23/21 16:13 06/23/21 16:13 Lab Results 06/23/21 06/23/21 06/23/21 Range/Units 16:13 16:13 16:13 WBC 8.86 (4.8-10.8) K/uL RBC 5.02 (4.7-6.1) M/uL Hgb 15.3 (14.0-18.0) g/dL Hct 44.8 (42-52) % MCV 89.2 (80-100) fL MCH 30.5 (25-34) pg MCHC 34.2 (32-36) g/dL RDW Std Deviation 45.2 (36.4-46.3) fL RDW Coeff of Justin 13.8 (11.5-14.5) % Plt Count 203 (130-400) K/uL MPV 11.8 H (7.4-10.4) fL Immature Gran % (Auto) 0.3 % Neut % (Auto) 72.9 % Lymph % (Auto) 15.8 % [place] % (Auto) 9.5 % Eos % (Auto) 1.0 % Baso % (Auto) 0.5 % Neut # (Auto) 6.46 (1.4-6.5) K/uL Lymph # (Auto) 1.40 (1.2-3.4) K/uL [place] # (Auto) 0.84 H (0.11-0.59) K/uL Eos # (Auto) 0.09 (0-0.5) K/uL Baso # (Auto) 0.04 (0-0.2) K/uL Immature Gran # (Auto) 0.03 H (0.00-0.02) K/uL Sodium 138 (136-145) mmol/L Potassium 4.0 (3.5-5.1) mmol/L Chloride 105 (98-107) mmol/L Carbon Dioxide 23 (21-32) mmol/L Anion Gap 10.0 (3-11) BUN 24 H (7-18) mg/dl Creatinine 1.24 (0.6-1.4) mg/dl Est Cr Clr Drug Dosing 65.0 ml/min Est GFR ( Amer) 71.3 ml/min Est GFR (Non-Af Amer) 61.5 ml/min BUN/Creatinine Ratio 19.2 (10-20) Glucose 143 H (70-99) mg/dl Calcium 9.7 (8.5-10.1) mg/dl Magnesium 2.2 (1.8-2.4) mg/dl Total Bilirubin 0.5 (0.2-1) mg/dl AST 24 (15-37) U/L ALT 41 (12-78) U/L Alkaline Phosphatase 46 (45-117) U/L Troponin I < 0.015 (0-0.045) ng/ml Total Protein 8.4 H (6.4-8.2) gm/dl Albumin 4.1 (3.4-5.0) gm/dl Globulin 4.3 H (2.5-4.0) gm/dl Albumin/Globulin Ratio 0.9 (0.9-2) Lipase 351 (73-393) U/L TSH 1.970 (0.300-4.500) uIu/ml Urine Color Urine Appearance (Clear) Urine pH (4.5-7.5) Ur Specific [place] (1.000-1.030) Urine Protein (Negative) Urine Glucose (UA) (Negative) Urine Ketones (Negative) Urine Blood (Negative) Urine Nitrite (Negative) Urine Bilirubin (Negative) Urine Urobilinogen (Negative) Ur Leukocyte Esterase (Negative) Urine WBC (Auto) (0-5) /hpf Urine RBC (Auto) (0-4) /hpf U Hyaline Cast (Auto) (0-5) /lpf U Epithel Cells (Auto) (0-5) /lpf Urine Bacteria (Auto) (Negative) COVID-19 Eval Order SARS-CoV-2 (PCR) (Negative) SARS-CoV-2 RNA ([facility]) 06/23/21 06/23/21 06/23/21 Range/Units 16:25 19:03 19:03 WBC (4.8-10.8) K/uL RBC (4.7-6.1) M/uL Hgb (14.0-18.0) g/dL Hct (42-52) % MCV (80-100) fL MCH (25-34) pg MCHC (32-36) g/dL RDW Std Deviation (36.4-46.3) fL RDW Coeff of Justin (11.5-14.5) % Plt Count (130-400) K/uL MPV (7.4-10.4) fL Immature Gran % (Auto) % Neut % (Auto) % Lymph % (Auto) % [place] % (Auto) % Eos % (Auto) % Baso % (Auto) % Neut # (Auto) (1.4-6.5) K/uL Lymph # (Auto) (1.2-3.4) K/uL [place] # (Auto) (0.11-0.59) K/uL Eos # (Auto) (0-0.5) K/uL Baso # (Auto) (0-0.2) K/uL Immature Gran # (Auto) (0.00-0.02) K/uL Sodium (136-145) mmol/L Potassium (3.5-5.1) mmol/L Chloride (98-107) mmol/L Carbon Dioxide (21-32) mmol/L Anion Gap (3-11) BUN (7-18) mg/dl Creatinine (0.6-1.4) mg/dl Est Cr Clr Drug Dosing ml/min Est GFR ( Amer) ml/min Est GFR (Non-Af Amer) ml/min BUN/Creatinine Ratio (10-20) Glucose (70-99) mg/dl Calcium (8.5-10.1) mg/dl Magnesium (1.8-2.4) mg/dl Total Bilirubin (0.2-1) mg/dl AST (15-37) U/L ALT (12-78) U/L Alkaline Phosphatase (45-117) U/L Troponin I (0-0.045) ng/ml Total Protein (6.4-8.2) gm/dl Albumin (3.4-5.0) gm/dl Globulin (2.5-4.0) gm/dl Albumin/Globulin Ratio (0.9-2) Lipase (73-393) U/L TSH (0.300-4.500) uIu/ml Urine Color Yellow Urine Appearance Clear (Clear) Urine pH 5.0 (4.5-7.5) Ur Specific [place] 1.019 (1.000-1.030) Urine Protein 1+ H (Negative) Urine Glucose (UA) Negative (Negative) Urine Ketones Trace H (Negative) Urine Blood Negative (Negative) Urine Nitrite Negative (Negative) Urine Bilirubin Negative (Negative) Urine Urobilinogen Negative (Negative) Ur Leukocyte Esterase Negative (Negative) Urine WBC (Auto) 1-5 (0-5) /hpf Urine RBC (Auto) 0-4 (0-4) /hpf U Hyaline Cast (Auto) 1-5 (0-5) /lpf U Epithel Cells (Auto) 20-30 H (0-5) /lpf Urine Bacteria (Auto) Negative (Negative) COVID-19 Eval Order Covid19 at [facility] SARS-CoV-2 (PCR) (Negative) SARS-CoV-2 RNA ([facility]) Cancelled 06/23/21 Range/Units 19:03 WBC (4.8-10.8) K/uL RBC (4.7-6.1) M/uL Hgb (14.0-18.0) g/dL Hct (42-52) % MCV (80-100) fL MCH (25-34) pg MCHC (32-36) g/dL RDW Std Deviation (36.4-46.3) fL RDW Coeff of Justin (11.5-14.5) % Plt Count (130-400) K/uL MPV (7.4-10.4) fL Immature Gran % (Auto) % Neut % (Auto) % Lymph % (Auto) % [place] % (Auto) % Eos % (Auto) % Baso % (Auto) % Neut # (Auto) (1.4-6.5) K/uL Lymph # (Auto) (1.2-3.4) K/uL [place] # (Auto) (0.11-0.59) K/uL Eos # (Auto) (0-0.5) K/uL Baso # (Auto) (0-0.2) K/uL Immature Gran # (Auto) (0.00-0.02) K/uL Sodium (136-145) mmol/L Potassium (3.5-5.1) mmol/L Chloride (98-107) mmol/L Carbon Dioxide (21-32) mmol/L Anion Gap (3-11) BUN (7-18) mg/dl Creatinine (0.6-1.4) mg/dl Est Cr Clr Drug Dosing ml/min Est GFR ( Amer) ml/min Est GFR (Non-Af Amer) ml/min BUN/Creatinine Ratio (10-20) Glucose (70-99) mg/dl Calcium (8.5-10.1) mg/dl Magnesium (1.8-2.4) mg/dl Total Bilirubin (0.2-1) mg/dl AST (15-37) U/L ALT (12-78) U/L Alkaline Phosphatase (45-117) U/L Troponin I (0-0.045) ng/ml Total Protein (6.4-8.2) gm/dl Albumin (3.4-5.0) gm/dl Globulin (2.5-4.0) gm/dl Albumin/Globulin Ratio (0.9-2) Lipase (73-393) U/L TSH (0.300-4.500) uIu/ml Urine Color Urine Appearance (Clear) Urine pH (4.5-7.5) Ur Specific [place] (1.000-1.030) Urine Protein (Negative) Urine Glucose (UA) (Negative) Urine Ketones (Negative) Urine Blood (Negative) Urine Nitrite (Negative) Urine Bilirubin (Negative) Urine Urobilinogen (Negative) Ur Leukocyte Esterase (Negative) Urine WBC (Auto) (0-5) /hpf Urine RBC (Auto) (0-4) /hpf U Hyaline Cast (Auto) (0-5) /lpf U Epithel Cells (Auto) (0-5) /lpf Urine Bacteria (Auto) (Negative) COVID-19 Eval Order SARS-CoV-2 (PCR) NEGATIVE (Negative) SARS-CoV-2 RNA ([facility]) Administered Medications Gabapentin (Gabapentin 300 Mg Cap) 300 mg PO TID [facility] Stop: 07/23/21 22:12 Last Admin: 06/24/21 08:59 Dose: 300 mg Documented by: [id number] Admin: 06/23/21 23:14 Dose: 300 mg Documented by: [id number] Hydromorphone HCl (Hydromorphone Inj 1 Mg/Ml Syringe) 1 mg IV Q3H PRN PRN Reason: severe pain (scale 7-10) Stop: 07/07/21 22:12 Last Admin: 06/24/21 07:33 Dose: 1 mg Documented by: [id number] Admin: 06/24/21 03:43 Dose: 1 mg Documented by: [id number] Lactated Ringer's (Lr) 1,000 mls @ 100 mls/hr IV .Q10H [facility] Stop: 07/23/21 22:12 Last Admin: 06/24/21 07:36 Dose: 100 mls/hr Documented by: [id number] Infusion: 06/24/21 07:36 Dose: 100 mls/hr Documented by: [id number] Admin: 06/23/21 22:48 Dose: 100 mls/hr Documented by: [id number] Insulin Aspart (Insulin Aspart 100 Units/Ml 3 Ml Pen) 0 units SC Q6 [facility] Stop: 07/23/21 22:44 Last Admin: 06/24/21 06:10 Dose: 2 units Documented by: [id number] Cosigned by: [id number] Admin: 06/23/21 23:28 Dose: 8 units Documented by: [id number] Cosigned by: [id number] Insulin Glargine (Insulin Glargine Solostar 100 Units/Ml 3 Ml Pen) 5 units SC BID [facility] Stop: 07/24/21 08:59 Last Admin: 06/24/21 08:59 Dose: 5 units Documented by: [id number] Cosigned by: [id number] Metoprolol Succinate (Metoprolol Succ 25mg Ext Rel Tab) 25 mg PO DAILY [facility] Stop: 07/24/21 08:59 Last Admin: 06/24/21 09:00 Dose: 25 mg Documented by: [id number] Morphine Sulfate (Morphine Sulfate 4 Mg/Ml 1 Ml Carp\Vial) 4 mg IV Q15M PRN PRN Reason: Pain Stop: 07/07/21 16:07 Last Admin: 06/23/21 21:27 Dose: 4 mg Documented by: [id number] Admin: 06/23/21 19:22 Dose: 4 mg Documented by: [id number] Admin: 06/23/21 17:37 Dose: 4 mg Documented by: [id number] Admin: 06/23/21 16:15 Dose: 4 mg Documented by: [id number] Oxycodone HCl (Oxycodone Hcl Ir 5 Mg Tab (Immediate Release)) 5 - 10 mg PO Q4H PRN PRN Reason: mod to severe pain Stop: 07/07/21 22:12 Last Admin: 06/24/21 10:32 Dose: 10 mg Documented by: [id number] Admin: 06/23/21 23:08 Dose: 5 mg Documented by: [id number] Pantoprazole Sodium (Pantoprazole 40 Mg Tab) 40 mg PO BID [facility] Stop: 07/23/21 22:12 Last Admin: 06/24/21 09:00 Dose: 40 mg Documented by: [id number] Admin: 06/23/21 23:15 Dose: 40 mg Documented by: [id number] Sertraline HCl (Sertraline Hcl 50 Mg Tablet) 25 mg PO DAILY [facility] Stop: 07/24/21 08:59 Last Admin: 06/24/21 09:00 Dose: 25 mg Documented by: [id number] Discontinued Medications Dexamethasone Sodium Phosphate (DexamethasonePf 10 Mg/Ml Vial) 10 mg IV NOW ONE Stop: 06/23/21 18:46 Last Admin: 06/23/21 19:09 Dose: 10 mg Documented by: [id number] Sodium Chloride (Nss 1000ml) 1,000 mls @ 999 mls/hr IV .Q1H1M STA Stop: 06/23/21 17:08 Last Infusion: 06/23/21 17:47 Dose: 999 mls/hr Documented by: [id number] Admin: 06/23/21 16:16 Dose: 999 mls/hr Documented by: [id number] Lorazepam (Ativan) 1 mg in 2 mls @ 2 mls/min IV NOW STA Stop: 06/23/21 16:10 Last Admin: 06/23/21 18:01 Dose: 2 mls/min Documented by: [id number] Influenza Virus Vaccine Quadrival (Fluarix Quadrivalent 0.5 Ml Syr) 0.5 ml IM .ONCE ONE Stop: 06/24/21 08:01 Last Admin: 06/24/21 08:57 Dose: Not Given Documented by: [id number] Insulin Glargine (Insulin Glargine Solostar 100 Units/Ml 3 Ml Pen) 5 units SC NOW STA Stop: 06/23/21 22:43 Last Admin: 06/23/21 23:28 Dose: 5 units Documented by: [id number] Cosigned by: [id number] Metoprolol Tartrate (Metoprolol Tartrate 25 Mg Tab) 25 mg PO NOW STA Stop: 06/23/21 22:32 Last Admin: 06/23/21 23:15 Dose: 25 mg Documented by: [id number] Ondansetron HCl (Ondansetron Inj 2 Mg/Ml 2 Ml Vial) 4 mg IV NOW STA Stop: 06/23/21 16:09 Last Admin: 06/23/21 16:15 Dose: 4 mg Documented by: [id number] Imaging Data Radiologist's Impression: Lumbar Spine MRI 06/23/21 16:08 MR lumbar spine wo con INDICATION: Injury to back in March 2020. Low back pain, worsening. Numbness in toes, radiculopathy into the legs, right worse than left. History of laminectomy surgery in September 2019. TECHNIQUE: 3 plane localizer images, sagittal T2, sagittal T1, sagittal STIR, axial T1, axial T2 along with postcontrast axial T1 and sagittal T1 fat- saturated sequences were obtained of the lumbar spine, before and after int ravenous administration of 12 mL of MultiHance. Comparison: Comparison is made to MRI lumbar spine 10/15/2019 FINDINGS: Posterior fixation hardware is seen at L4-L5. Multifocal disc disease is noted. L1-L2: There is a small midline posterior disc bulge with mild canal stenosis. L2-L3: No neuroforaminal or canal stenosis. L3-L4: -L4, previously measured 12 x 10 mm, now measures 20 x 13 mm. There is resultant severe spinal canal stenosis with no free space anterior and posterior of the nerve roots. L4-L5: Small posterior disc bulge with mild canal stenosis. L5-S1: Small posterior disc bulge with mild canal stenosis. The spinal ligaments are intact, without evidence of disruption or abnormal signal intensity. Within the limits of evaluation due to susceptibility artifact, no spinal cord edema is definitely visualized. There is no evidence of an extradural, intradural, extramedullary or intramedullary lesion. Visualized soft tissues are normal. IMPRESSION: Interval enlargement of disc extrusion at L3-L4 with resultant severe spinal canal narrowing and cord impingement. No definite evidence of cord edema, although evaluation is limited by adjacent susceptibility artifact. ACT 112: Negative or not required by law. Electronically signed by: Ilan Cardoza M.D. 06/23/2021 6:59 PM Discharge Plan Visit Data Chief Complaint: Back Injury/Pain Stated Complaint: BACK PAIN/LEGS NUMB/HIP PAIN,LOSS BLADDER CONTROL ED Provider: Abdiaziz Shen Discharge Problem: Lumbar disc herniation with radiculopathy, Back pain Patient Disposition: Admitted As Inpatient Discharge Instructions Interventions: ED Discharge Assessment Last Done: 06/23/21 21:01 Discharge Problem: Back pain Qualifiers: Back pain location: low back pain Chronicity: acute Back pain laterality: bilateral Sciatica presence: with sciatica Sciatica laterality: bilateral sciatica Qualified Code(s): M54.42 - Lumbago with sciatica, left side
[2021-06-23 16:32] LABS: Basophils # (auto) 0.04 K/uL (0-0.2); Basophils % (auto) 0.5 %; Eosinophils # (auto) 0.09 K/uL (0-0.5); Hematocrit (blood only) 44.8 % (42-52); Hemoglobin 15.3 g/dL (14.0-18.0); Immature Granulocytes # (auto) 0.03 K/uL (0.00-0.02); Immature Granulocytes % (auto) 0.3 %; Lymphocytes % (auto) 15.8 %; Mean Corpuscular Hemoglobin 30.5 pg (25-34); Mean Corpuscular Hgb Conc 34.2 g/dL (32-36); Mean Corpuscular Volume 89.2 fL (80-100); Mean Platelet Volume 11.8 fL (7.4-10.4); Monocytes # (auto) 0.84 K/uL (0.11-0.59); Monocytes % (auto) 9.5 %; Neutrophils # (auto) 6.46 K/uL (1.4-6.5); Neutrophils % (auto) 72.9 %; Platelet Count 203 K/uL (130-400); RDW Coefficient of Variation 13.8 % (11.5-14.5); RDW Standard Deviation 45.2 fL (36.4-46.3); Red Blood Count 5.02 M/uL (4.7-6.1); White Blood Count 8.86 K/uL (4.8-10.8)
[2021-06-23 16:44] LABS: Appearance Urine Clear (Clear); Bacteria Urine Automated Negative (Negative); Bilirubin Urine Negative (Negative); Blood Urine Negative (Negative); Color Urine Yellow; Epithelial Cell Urine Auto 20-30 /lpf (0-5); Glucose Urine UA Negative (Negative); Ketones Urine Trace (Negative); Leukocyte Esterase Urine Negative (Negative); Nitrite Urine Negative (Negative); Protein Urine 1+ (Negative); RBC Urine Automated 0-4 /hpf (0-4); Specific Gravity Urine 1.019 (1.000-1.030); Urobilinogen Urine Negative (Negative)
[2021-06-23 16:52] LABS: Alanine Aminotransferase 41 U/L (12-78); Albumin Level 4.1 gm/dl (3.4-5.0); Aspartate Aminotransferase 24 U/L (15-37); BUN Creatinine Ratio 19.2 (10-20); Blood Urea Nitrogen 24 mg/dl (7-18); Calcium 9.7 mg/dl (8.5-10.1); Carbon Dioxide 23 mmol/L (21-32); Chloride 105 mmol/L (98-107); Est GFR (African American) 71.3 ml/min; Est GFR (Non-African American) 61.5 ml/min; Glucose 143 mg/dl (70-99); Lipase 351 U/L (73-393); Sodium 138 mmol/L (136-145)
[2021-06-23 16:56] LABS: Albumin Globulin Ratio 0.9 (0.9-2); Alkaline Phosphatase 46 U/L (45-117); Bilirubin,Total 0.5 mg/dl (0.2-1); Globulin 4.3 gm/dl (2.5-4.0); Total Protein 8.4 gm/dl (6.4-8.2); Troponin I < 0.015 ng/ml (0-0.045)
[2021-06-23] MEDS ORDERED: dexAMETHasone**PF** 10 MG/ML VIAL IV ONE (18:45)
--- NOTE | 2021-06-23 19:00 | Magnetic Resonance Report ---
MR lumbar spine wo con INDICATION: Injury to back in March 2020. Low back pain, worsening. Numbness in toes, radiculopathy in to the legs, right worse than left. History of laminectomy surgery in September 2019. TECHNIQUE: 3 plane localizer images, sagittal T2, sagittal T1, sagittal STIR, axial T1, axial T2 starr g with postcontrast axial T1 and sagittal T1 fat-saturated sequences were obtained of the lumbar spin e, before and after intravenous administration of 12 mL of MultiHance. Comparison: Comparison is made to MRI lumbar spine 10/15/2019 FINDINGS: Posterior fixation hardware is seen at L4-L5. Multifocal disc disease is noted. L1-L2: There is a small midline posterior disc bulge with mild canal stenosis. L2-L3: No neuroforaminal or canal stenosis. L3-L4: -L4, previously measured 12 x 10 mm, now measures 20 x 13 mm. There is resultant severe spinal canal stenosis with no free space anterior and posterior of the nerve roots. L4-L5: Small posterior disc bulge with mild canal stenosis. L5-S1: Small posterior disc bulge with mild canal stenosis. The spinal ligaments are intact, without evidence of disruption or abnormal signal intensity. Within the limits of evaluation due to susceptibility artifact, no spinal cord edema is definitely visualize d. There is no evidence of an extradural, intradural, extramedullary or intramedullary lesion. Visual ized soft tissues are normal. IMPRESSION: Interval enlargement of disc extrusion at L3-L4 with resultant severe spinal canal narrowing and cord impingement. No definite evidence of cord edema, although evaluation is limited by adjacent suscepti bility artifact. ACT 112: Negative or not required by law. Electronically signed by: Ilan Cardoza M.D. 06/23/2021 6:59 PM
[2021-06-23] MEDS ORDERED: traMADol HCL 50 MG TABLET PO PRN (22:13)
[2021-06-23] MEDS ORDERED: ALUMINUM/MAGNESIUM SUSP 30 ML UDC PO PRN (22:13)
[2021-06-23] MEDS ORDERED: HYDROmorphone INJ 0.5 MG/0.5 ML SYR IV PRN (22:13)
[2021-06-23] MEDS ORDERED: MAGNESIUM HYDROXIDE SUSP 30 ML UDC PO PRN (22:13)
[2021-06-23] MEDS ORDERED: SOD PHOSPHATE/SOD BIPHOSPHATE ENEMA 132 ML BTL PR PRN (22:13)
[2021-06-23] MEDS ORDERED: ONDANSETRON INJ 2 MG/ML 2 ML VIAL IV PRN (22:13)
[2021-06-23] MEDS ORDERED: ACETAMINOPHEN 1,000 MG/100 ML VIAL IV PRN (22:13)
[2021-06-23] MEDS ORDERED: NALOXONE HCL 0.4 MG/1 ML VIAL/CARP IV PRN (22:13)
[2021-06-23] MEDS ORDERED: METOCLOPRAMIDE HCL INJ 5 MG/ML 2 ML VIAL IV PRN (22:13)
[2021-06-23] MEDS ORDERED: diphenhydrAMINE Capsule 25 MG CAP PO PRN (22:13)
[2021-06-23] MEDS ORDERED: ACETAMINOPHEN 500 MG TAB PO PRN (22:13)
[2021-06-23] MEDS ORDERED: hydrOXYzine HCl 25 MG TAB PO PRN (22:13)
[2021-06-23] MEDS ORDERED: LORazepam 0.5 MG TAB PO PRN (22:13)
[2021-06-23] MEDS ORDERED: ONDANSETRON 4 MG OD TAB PO PRN (22:13)
[2021-06-23] MEDS ORDERED: PROMETHAZINE HCL 12.5 MG in SODIUM CHLORIDE 0.9% 50 ML IV PRN (22:13)
[2021-06-23] MEDS ORDERED: LORazepam 0.5 MG/1 ML VIAL IV PRN (22:13)
[2021-06-23] MEDS ORDERED: GLUCOSE 40% GEL 15 GM TUBE PO PRN (22:28)
[2021-06-23] MEDS ORDERED: DEXTROSE 50% 50 ML SYRINGE IV PRN (22:28)
[2021-06-23] MEDS ORDERED: GLUCAGON FOR INJ 1 MG VIAL SQ PRN (22:28)
[2021-06-23] MEDS ORDERED: GLUCOSE 10 TABS/TUBE PO PRN (22:28)
[2021-06-23] MEDS ORDERED: CARBOHYDRATES FOR HYPOGLYCEMIA PO PRN (22:28)
[2021-06-23] MEDS ORDERED: METOPROLOL TARTRATE 25 MG TAB PO STA (22:31)
[2021-06-23] MEDS ORDERED: INSULIN GLARGINE SOLOSTAR 100 UNITS/ML 3 ML PEN SC STA (22:42)
[2021-06-23] MEDS: LACTATED RINGER'S 1,000 ML IV SCH (22:48)
[2021-06-23 22:55] LABS: Magnesium 2.2 mg/dl (1.8-2.4)
[2021-06-23] MEDS: oxyCODONE HCL IR 5 MG TAB (IMMEDIATE RELEASE) PO PRN (23:08)
[2021-06-23] MEDS: GABAPENTIN 300 MG CAP PO SCH (23:14)
[2021-06-23] MEDS: PANTOprazole 40 MG TAB PO SCH (23:15)
--- NOTE | 2021-06-23 23:16 | Hospitalist Consultation ---
Date of Consultation June 23, 2021 Assessment & Plan (1) Lumbar disc herniation with radiculopathy: Final Assessment and Recommendations as follows : Lumbar radiculopathy hx LSS status post surgery HTN, stable Hyperlipidemia statin Rx DM 2 on oral medications, suboptimal control as of recent hemoglobin A1c of 26 March 2021 anxiety/mood disorder, at baseline History PUD/diverticulosis past tobacco abuse Analgesia No NSAIDs please given history of PUD Basal insulin adjusted for n.p.o. status, ISS BG goal 1 10-1 40, carb count coverage when patient eating DVT prophylaxis. SCDs as per Orthopedics orders on admission Thank you very much for this consultation. Dr. Nieto will follow patient's progress. Text document was generated using [employer] voice recognition software. It may contain grammatical or spelling errors. Kindly contact undersigned for clarification of any documentation item in question. History of Present Illness Reason for Consultation: Medical management Requesting Physician: Dr. Baig Attending Physician: Emmett Baig DO History of Present Illness PCP : Dr. Ginny Carvalho History obtained from patient and records. Medical history significant for HTN, DM 2 on oral medications, hyperlipidemia, osteoarthritis, anxiety/mood disorder, past tobacco abuse, PUD/diverticulosis. Last confinement September 2019 under Orthopedics spine service for elective lumbar laminectomy. 3 months ago, patient noted a popping sensation on his right low back going down the right lower leg causing numbness while working in his wood shop at home. Incomplete improvement with outpatient analgesics and steroid courses. 2 weeks ago, patient noted worsening back pain. Patient evaluated at the ER. CT lumbar spine as follows : 1. No acute lumbar spine fracture or subluxation. 2. Status post L4-L5 discectomy, L4 laminectomy and L4-L5 bilateral pedicle screw fusion. 3. Suboptimal evaluation of the central canal and neural foramen given CT technique and streak artifact from hardware. Suspected stenosis of the right L3- L4 and L4-L5 neural foramen, as described above. This could be further assessed with MRI. 4. Possible central canal stenosis at L3-L4. Patient discharged on steroid course. Today, patient noted worsening discomfort associated with decreased sensation in the legs as well as bowel/bladder incontinence. Patient denies chest pain, S OB. Patient consulted ER and was subsequently admitted by Orthopedics spine service after abnormal lumbar spine MRI noted.. Surgery contemplated tomorrow morning. 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 Allergies Allergy/AdvReac Type Severity Reaction Status Date / Time NSAIDS (Non-Steroidal AdvReac GI bleed Verified 06/24/21 05:30 Anti-Inflamma Home Medications Medication Instructions Recorded Confirmed Type gabapentin 300 mg capsule 300 mg PO TID 09/23/19 06/23/21 History metformin 500 mg tablet,extended 1,000 mg PO BID 09/23/19 06/23/21 History release 24 hr pantoprazole 40 mg tablet,delayed 40 mg PO BID #60 tab 10/03/19 06/23/21 Rx release acetaminophen 500 mg tablet 1,000 mg PO QID PRN 06/10/21 06/23/21 History (Tylenol Extra Strength) semaglutide 1 mg/dose (2 mg/1.5 1 mg SUBCUT WK 06/10/21 06/23/21 History mL) subcutaneous pen injector (LinquetempWebbynode) metoprolol succinate 25 mg 25 mg PO DAILY 06/23/21 06/23/21 History tablet,extended release 24 hr sertraline 25 mg tablet 25 mg PO DAILY 06/23/21 06/23/21 History Patient History Medical History (Updated 06/23/21 @ 22:49 by Abdiaziz Shen DO) Anemia S/p blood transfusion x 2 (09/23/19 and 09/27/19). Subsequent Hgb checks stable in 9.2-10.0 range Arthritis Diabetes IDDM Diabetes mellitus, type II Dyslipidemia Gout History of bleeding peptic ulcer History of GI bleed Mood disorder Pancreatic mass NEWLY FOUND AND NEEDS EUS ON 10/19 Surgical History H/O vein stripping RIGHT AND LEFT History of esophagogastroduodenoscopy (EGD) Hx of colonoscopy Hx of laminectomy LUMBAR FOR HERNIATED DISC 10/01/19 Hx of right knee surgery BONE SPUR REMOVED S/P herniorrhaphy UMBILICAL HERNIA REPAIR Family History Other Cancer Diabetes Heart disease Hypertension Denies family history of No pertinent family history Social History (Reviewed 10/05/21 @ 16:14 by ZOFIA Warren Smoking Status: Former smoker Second Hand Exposure: No; Do You Dip or Chew Tobacco: No; Tobacco Cessation Education Requested by Patient: No Hx Alcohol Use: No Hx Substance Use: No Preferred Language: Yakut Communication Ability: Effective Visual Impairment: No Limitations Hearing Ability: Normal Cook Mayonnaise Required: No Beliefs That Will Affect Care: None marital status: Current Living Situation: Spouse Current Living Situation Comment: home current occupational status: employed Other Information That Helps Us Care for You: No Feels Safe at Home: Yes Safety Concerns: Feels Safe At This Time Assistive Devices: Cane and Crutches Review of Systems Review of Systems: As per HPI, all 10 systems reviewed, all other ROS negative Physical Exam Physical Exam: GENERAL: Comfortable, pleasant, eating dinner, no respiratory distress SKIN: Normal color, warm HEENT: Bespectacled, pink palpebral conjunctivae, no ptosis, dry buccal mucosa NECK : Supple, no tenderness CHEST : CTA, no tenderness HEART : Tachycardic , no obvious murmurs ABDOMEN: Some distention, nontender BACK : Low back tenderness with positive SLR, R EXTREMITIES : No LE swelling/tenderness, no other conspicuous deformities noted NEUROLOGIC : Coherent, no facial asymmetry, gait and stance not assessed Results & Data Results & Data ([facility]) Vital Signs (Past 12 Hours) Vital Signs Temp Pulse Pulse Resp BP BP Pulse Ox 06/23/21 22:17 36.4 C L 106 H 18 131/89 96 06/23/21 22:14 36.4 C L 106 H 18 131/89 96 06/23/21 20:30 128/88 92 06/23/21 20:00 118/87 93 06/23/21 19:30 142/99 H 94 06/23/21 19:01 142/98 H 94 06/23/21 18:54 141/88 H 95 06/23/21 18:00 105 H 13 127/95 92 06/23/21 17:30 106 H 14 135/96 93 06/23/21 17:00 104 H 14 138/93 93 06/23/21 16:30 107 H 23 151/100 H 94 06/23/21 16:06 111 H 18 141/95 H 96 06/23/21 14:16 36.8 C 130 H 20 130/89 95 Laboratory Results Laboratory Results WBC 8.86 K/uL (4.8-10.8) 06/23/21 16:13 RBC 5.02 M/uL (4.7-6.1) 06/23/21 16:13 Hgb 15.3 g/dL (14.0-18.0) 06/23/21 16:13 Hct 44.8 % (42-52) 06/23/21 16:13 MCV 89.2 fL (80-100) 06/23/21 16:13 MCH 30.5 pg (25-34) 06/23/21 16:13 MCHC 34.2 g/dL (32-36) 06/23/21 16:13 RDW Std Deviation 45.2 fL (36.4-46.3) 06/23/21 16:13 RDW Coeff of Justin 13.8 % (11.5-14.5) 06/23/21 16:13 Plt Count 203 K/uL (130-400) 06/23/21 16:13 MPV 11.8 fL (7.4-10.4) H 06/23/21 16:13 Immature Gran % (Auto) 0.3 % 06/23/21 16:13 Neut % (Auto) 72.9 % 06/23/21 16:13 Lymph % (Auto) 15.8 % 06/23/21 16:13 [place] % (Auto) 9.5 % 06/23/21 16:13 Eos % (Auto) 1.0 % 06/23/21 16:13 Baso % (Auto) 0.5 % 06/23/21 16:13 Neut # (Auto) 6.46 K/uL (1.4-6.5) 06/23/21 16:13 Lymph # (Auto) 1.40 K/uL (1.2-3.4) 06/23/21 16:13 [place] # (Auto) 0.84 K/uL (0.11-0.59) H 06/23/21 16:13 Eos # (Auto) 0.09 K/uL (0-0.5) 06/23/21 16:13 Baso # (Auto) 0.04 K/uL (0-0.2) 06/23/21 16:13 Immature Gran # (Auto) 0.03 K/uL (0.00-0.02) H 06/23/21 16:13 Sodium 138 mmol/L (136-145) 06/23/21 16:13 Potassium 4.0 mmol/L (3.5-5.1) 06/23/21 16:13 Chloride 105 mmol/L (98-107) 06/23/21 16:13 Carbon Dioxide 23 mmol/L (21-32) 06/23/21 16:13 Anion Gap 10.0 (3-11) 06/23/21 16:13 BUN 24 mg/dl (7-18) H 06/23/21 16:13 Creatinine 1.24 mg/dl (0.6-1.4) 06/23/21 16:13 Est Cr Clr Drug Dosing 65.0 ml/min 06/23/21 16:13 Est GFR ( Amer) 71.3 ml/min 06/23/21 16:13 Est GFR (Non-Af Amer) 61.5 ml/min 06/23/21 16:13 BUN/Creatinine Ratio 19.2 (10-20) 06/23/21 16:13 Glucose 143 mg/dl (70-99) H 06/23/21 16:13 POC Glucose 234 mg/dl (70-99) H 06/23/21 22:18 Calcium 9.7 mg/dl (8.5-10.1) 06/23/21 16:13 Magnesium 2.2 mg/dl (1.8-2.4) 06/23/21 16:13 Total Bilirubin 0.5 mg/dl (0.2-1) 06/23/21 16:13 AST 24 U/L (15-37) 06/23/21 16:13 ALT 41 U/L (12-78) 06/23/21 16:13 Alkaline Phosphatase 46 U/L (45-117) 06/23/21 16:13 Troponin I < 0.015 ng/ml (0-0.045) 06/23/21 16:13 Total Protein 8.4 gm/dl (6.4-8.2) H 06/23/21 16:13 Albumin 4.1 gm/dl (3.4-5.0) 06/23/21 16:13 Globulin 4.3 gm/dl (2.5-4.0) H 06/23/21 16:13 Albumin/Globulin Ratio 0.9 (0.9-2) 06/23/21 16:13 Lipase 351 U/L (73-393) 06/23/21 16:13 Urine Color Yellow 06/23/21 16:25 Urine Appearance Clear (Clear) 06/23/21 16:25 Urine pH 5.0 (4.5-7.5) 06/23/21 16:25 Ur Specific [place] 1.019 (1.000-1.030) 06/23/21 16:25 Urine Protein 1+ (Negative) H 06/23/21 16:25 Urine Glucose (UA) Negative (Negative) 06/23/21 16:25 Urine Ketones Trace (Negative) H 06/23/21 16:25 Urine Blood Negative (Negative) 06/23/21 16:25 Urine Nitrite Negative (Negative) 06/23/21 16:25 Urine Bilirubin Negative (Negative) 06/23/21 16:25 Urine Urobilinogen Negative (Negative) 06/23/21 16:25 Ur Leukocyte Esterase Negative (Negative) 06/23/21 16:25 Urine WBC (Auto) 1-5 /hpf (0-5) 06/23/21 16:25 Urine RBC (Auto) 0-4 /hpf (0-4) 06/23/21 16:25 U Hyaline Cast (Auto) 1-5 /lpf (0-5) 06/23/21 16:25 U Epithel Cells (Auto) 20-30 /lpf (0-5) H 06/23/21 16:25 Urine Bacteria (Auto) Negative (Negative) 06/23/21 16:25 COVID-19 Eval Order Covid19 at [facility] 06/23/21 19:03 SARS-CoV-2 (PCR) NEGATIVE (Negative) 06/23/21 19:03 SARS-CoV-2 RNA ([facility]) Cancelled 06/23/21 19:03 Impressions Lumbar Spine MRI 06/23/21 16:08 MR lumbar spine wo con INDICATION: Injury to back in March 2020. Low back pain, worsening. Numbness in toes, radiculopathy into the legs, right worse than left. History of laminectomy surgery in September 2019. TECHNIQUE: 3 plane localizer images, sagittal T2, sagittal T1, sagittal STIR, axial T1, axial T2 along with postcontrast axial T1 and sagittal T1 fat- saturated sequences were obtained of the lumbar spine, before and after intravenous administration of 12 mL of MultiHance. Comparison: Comparison is made to MRI lumbar spine 10/15/2019 FINDINGS: Posterior fixation hardware is seen at L4-L5. Multifocal disc disease is noted. L1-L2: There is a small midline posterior disc bulge with mild canal stenosis. L2-L3: No neuroforaminal or canal stenosis. L3-L4: -L4, previously measured 12 x 10 mm, now measures 20 x 13 mm. There is resultant severe spinal canal stenosis with no free space anterior and posterior of the nerve roots. L4-L5: Small posterior disc bulge with mild canal stenosis. L5-S1: Small posterior disc bulge with mild canal stenosis. The spinal ligaments are intact, without evidence of disruption or abnormal signal intensity. Within the limits of evaluation due to susceptibility artifact, no spinal cord edema is definitely visualized. There is no evidence of an extradural, intradural, extramedullary or intramedullary lesion. Visualized soft tissues are normal. IMPRESSION: Interval enlargement of disc extrusion at L3-L4 with resultant severe spinal canal narrowing and cord impingement. No definite evidence of cord edema, although evaluation is limited by adjacent susceptibility artifact. ACT 112: Negative or not required by law. Electronically signed by: Ilan Cardoza M.D. 06/23/2021 6:59 PM
[2021-06-23] MEDS: INSULIN ASPART 100 UNITS/ML 3 ML PEN SC SCH (23:28)
[2021-06-23 23:44] LABS: Thyroid Stimulating Hormone 1.97 uIu/ml (0.300-4.500)
[2021-06-24] MEDS: HYDROmorphone INJ 1 MG/ML SYRINGE IV PRN ×2 (03:43→07:33)
[2021-06-24] MEDS ORDERED: ceFAZolin 2000MG 2,000 MG/15 ML SYR IV SCH (06:00)
[2021-06-24] MEDS: INSULIN ASPART 100 UNITS/ML 3 ML PEN SC SCH ×4 (06:10→20:42)
[2021-06-24] MEDS: LACTATED RINGER'S 1,000 ML IV SCH (07:36)
[2021-06-24] MEDS ORDERED: FLUARIX QUADRIVALENT 0.5 ML SYR IM ONE (08:00)
[2021-06-24] MEDS: GABAPENTIN 300 MG CAP PO SCH ×3 (08:59→20:40)
[2021-06-24] MEDS: METOPROLOL SUCC 25MG EXT REL TAB PO SCH (09:00)
[2021-06-24] MEDS: SERTRALINE HCL 50 MG TABLET PO SCH (09:00)
[2021-06-24] MEDS ORDERED: INSULIN GLARGINE SOLOSTAR 100 UNITS/ML 3 ML PEN SC SCH (09:00)
[2021-06-24] MEDS: PANTOprazole 40 MG TAB PO SCH ×2 (09:00→20:40)
--- NOTE | 2021-06-24 09:31 | History & Physical Report ---
Date of Service June 24, 2021 Assessment & Plan (1) Lumbar disc herniation with radiculopathy: Plan: Assessment lumbar disc condition with caudal migration and a free fragment extending to the right L4 neural foramina. Plan this time he has severe spinal stenosis secondary to massive disc herniation occupying a significant component of the spinal canal with caudal migration affecting the right L4 nerve root. In light of his severe pain and progressive motor deficit I am recommending urgent lumbar decompression and fusion L3-L4 with removal of instrumentation L4-L5. Hopefully this will prevent further neurologic decline and in time allow improvement of his function. Risk benefits pros cons and alternatives were outlined in detail. Risk include but not limited to anesthesia blindness stroke paralysis nerve damage blood loss requiring transfusion infection requiring reoperation benefits of the marked improvement of radiculopathy and hopefully in time improvement of strength deficit. Try to have surgery performed as soon as possible. Admission and Anticipated Discharge Date Admission Date: June 23, 2021 History of Present Illness Chief Complaint: Severe back pain with right leg pain and weakness Primary Care Provider: Ginny Carvalho DO This is a 65-year-old male who well-known to me having undergone a previous decompression fusion over a year ago. He states that beginning in March he began noticing marked decline in status with back pain radiating into the bilateral extremities particularly in the right. This has been progressive in nature. He now presents with severe pain rating to the right buttock lateral thigh to the knee and anterior tibia on the right. He notes significant deficits to the quadricep on the right unable to stand and ambulate with any comfort or a center descend stairs without his leg giving way. Left lower extremity is stable. He notes significant numbness involving the entire right lower extremity. Allergies Allergy/AdvReac Type Severity Reaction Status Date / Time NSAIDS (Non-Steroidal AdvReac GI bleed Verified 06/24/21 05:30 Anti-Inflamma Home Medications Medication Instructions Recorded Confirmed Type gabapentin 300 mg capsule 300 mg PO TID 09/23/19 06/23/21 History metformin 500 mg tablet,extended 1,000 mg PO BID 09/23/19 06/23/21 History release 24 hr pantoprazole 40 mg tablet,delayed 40 mg PO BID #60 tab 10/03/19 06/23/21 Rx release acetaminophen 500 mg tablet 1,000 mg PO QID PRN 06/10/21 06/23/21 History (Tylenol Extra Strength) semaglutide 1 mg/dose (2 mg/1.5 1 mg SUBCUT WK 06/10/21 06/23/21 History mL) subcutaneous pen injector (Ozempic) metoprolol succinate 25 mg 25 mg PO DAILY 06/23/21 06/23/21 History tablet,extended release 24 hr sertraline 25 mg tablet 25 mg PO DAILY 06/23/21 06/23/21 History Past Med/Surg History Medical History (Updated 06/23/21 @ 22:49 by Abdiaziz Shen DO) Anemia S/p blood transfusion x 2 (09/23/19 and 09/27/19). Subsequent Hgb checks stable in 9.2-10.0 range Arthritis Diabetes IDDM Diabetes mellitus, type II Dyslipidemia Gout History of bleeding peptic ulcer History of GI bleed Mood disorder Pancreatic mass NEWLY FOUND AND NEEDS EUS ON 10/19 Surgical History H/O vein stripping RIGHT AND LEFT History of esophagogastroduodenoscopy (EGD) Hx of colonoscopy Hx of laminectomy LUMBAR FOR HERNIATED DISC 10/01/19 Hx of right knee surgery BONE SPUR REMOVED S/P herniorrhaphy UMBILICAL HERNIA REPAIR Family History Other Cancer Diabetes Heart disease Hypertension Denies family history of No pertinent family history Social History Smoking Status: Former smoker Second Hand Exposure: No; Do You Dip or Chew Tobacco: No; Tobacco Cessation Education Requested by Patient: No Hx Alcohol Use: No Hx Substance Use: No Preferred Language: Yoruba Communication Ability: Effective Visual Impairment: No Limitations Hearing Ability: Normal Supervisory It Specialist Required: No Beliefs That Will Affect Care: None marital status: Current Living Situation: Spouse Current Living Situation Comment: home current occupational status: employed Other Information That Helps Us Care for You: No Feels Safe at Home: Yes Safety Concerns: Feels Safe At This Time Assistive Devices: Glasses Physical Exam Physical Exam: On physical exam he is in obvious distress. He has severe tension signs straight leg raising on the right contralateral signs on the left. He has plus out of 5 bilateral plantar flexion. Is a 4-/5 right dorsi flexion and 3+/5 right quadricep. He has a 5 or 5 strength to detailed testing left lower extremity. Is dense numbness to his light touch and cold sensation involving the right lower extremity compared to left. Results & Data ([facility]) Vital Signs (Past 12 Hours) Vital Signs Temp Pulse Resp BP Pulse Ox 06/24/21 07:58 36.4 C L 99 H 18 138/93 98 06/23/21 22:17 36.4 C L 106 H 18 131/89 96 06/23/21 22:14 36.4 C L 106 H 18 131/89 96 Code Status & VTE Plan VTE Prophylaxis Plan VTE Prophylaxis will be ordered: Yes
[2021-06-24] MEDS: oxyCODONE HCL IR 5 MG TAB (IMMEDIATE RELEASE) PO PRN ×3 (10:32→20:39)
--- NOTE | 2021-06-24 13:29 | Hospitalist Progress Note ---
Date of Service June 24, 2021 Assessment & Plan (1) Lumbar disc herniation with radiculopathy: Plan: This is a 65-year-old male who has significant past medical history of T2DM, HLD, Cohn syndrome, sinus tachycardia, depression, hx of duodenal ulcer 2/2 to NSAIDS, history of prior lumbar disc herniation L4-L5 requiring laminectomy by Dr. Baig, who presents to ED secondary to persistent low back pain with bilateral radicular symptoms and MRI findings confirming an L3-L4 lumbar disc herniation with severe canal narrowing and nerve impingement. MRI: Interval enlargement of disc extrusion at L3-L4 with resultant severe spinal canal narrowing and cord impingement. L3-4 disc herniation with severe canal narrowing and cord impingement Plan: Urgent lumbar decompression and fusion L3-L4 with removal of instrumentation of L4-L5 by Dr. Baig tomorrow 06/25/21 EKG reviewed which revealed sinus tachycardia, unchanged. He is able to perform 4 METS of activity at baseline. Obtain chest x-ray. pain/wound management per ortho encourage incentive spirometry T2DM A1c on 04/13/2021 8.0, suboptimal control given age Hold Metformin and Ozempic Lantus/NovoLog per protocol Consult glycemic pharmacy for pre and postoperative management Sinus tachycardia continue metoprolol Depression mood stable continue zoloft Hx of PUD continue PPI avoid nsaids Dispo: med/surg, to undergo lumbar surgery tomorrow PCP: Ginny Carvalho FULL CODE Pt was seen and examined in collaboration with Dr. Nieto, please see addendum Thank you for this consultation. We will follow the patient with you during their hospital stay. You can reach a member of the [facility] Hospitalist Team 11/04 via hospitalist role on tiger text. Admission and Anticipated Discharge Date Admission Date: June 23, 2021 Supervising Physician Co-Signing Physician Notes Patient is seen and examined at bedside. States having lower back pain radiating to bilateral lower extremities associated with numbness of legs. Admits to having bladder incontinence. Denies any chest pain, shortness breath, dizziness, nausea, abdominal pain. Reports having chronic nausea which he associates with pain. Plan for lumbar decompression fusion surgery by Dr. Baig today. On exam patient is moderately built and nourished, normocephalic atraumatic, EOMI, normal breath sounds, clear to auscultation, S1-S2, no murmur, no pedal edema, abdomen soft, nontender, normal bowel sounds, alert, awake, oriented, + bilateral lower extremity numbness present. Lumbar disc herniation with radiculopathy. Plan for decompression fusion surgery. Monitor for postop anemia. Pain control, activity, wound care as per primary team. Continue home medications for sinus tachycardia, depression, peptic ulcer disease. I personally reviewed the record. Patient is interviewed and examined at bedside. Patient's care is coordinated with Danielle Segal PA-C. Please refer to the documentation above for details of patient's presentation and for discussion of other issues. Subjective Pt was seen and examined in room 385-1. Follow up low back pain and MRI findings of: Interval enlargement of disc extrusion at L3-L4 with resultant severe spinal canal narrowing and cord impingement. Pt states he has been experiencing pain to his low back with radiation to lateral R leg and numbness going down b/l shins since March. He is known to Dr. Baig due to having a previous fusion in the past. Over the last two months he has noted a gradual declining in functionality as well as increased and persistent pain. Yesterday he had episode of incontinence of urine and he states, "this was the last straw." He denies any incontinence of stool. He denies f/c/s, chest pain, sob, n/v/d, abdominal pain. He states he would normally be able to walk a flight of stairs without experiencing CP or SOB, but today could not walk a flight of stairs due to his back. Review of Systems Review of Systems: All systems reviewed & are unremarkable except as noted in HPI & below Physical Exam Physical Exam: Gen: WD/WN, M, NAD, A&O x3 HEENT: Normocephalic, atraumatic, conjunctivae moist, sclerae anicteric, mucous membranes moist. Lung: Clear to Auscultation bilaterally, no wheezes/rales/rhonchi Heart: Regular rate, regular rhythm, no murmurs, rubs, or gallops Abdomen: Soft, NT, ND +BS x 4 Extremities: No edema Skin: Warm, no rash, negative turgor. Results & Data Results & Data ([facility]) Vital Signs (Past 12 Hours) Vital Signs Temp Pulse Resp BP Pulse Ox 06/24/21 07:58 36.4 C L 99 H 18 138/93 98 Laboratory Results Short CBC 06/23/21 Range/Units 16:13 WBC 8.86 (4.8-10.8) K/uL Hgb 15.3 (14.0-18.0) g/dL Hct 44.8 (42-52) % Plt Count 203 (130-400) K/uL BMP 06/23/21 16:13 Sodium 138 Potassium 4.0 Chloride 105 Carbon Dioxide 23 BUN 24 H Creatinine 1.24 Glucose 143 H Calcium 9.7 Cardiac Enzymes 06/23/21 Range/Units 16:13 Troponin I < 0.015 (0-0.045) ng/ml Liver Function 06/23/21 Range/Units 16:13 Total Bilirubin 0.5 (0.2-1) mg/dl AST 24 (15-37) U/L ALT 41 (12-78) U/L Alkaline Phosphatase 46 (45-117) U/L Albumin 4.1 (3.4-5.0) gm/dl Urine 06/23/21 Range/Units 16:25 Urine Color Yellow Urine Appearance Clear (Clear) Urine pH 5.0 (4.5-7.5) Ur Specific [place] 1.019 (1.000-1.030) Urine Protein 1+ H (Negative) Urine Glucose (UA) Negative (Negative) Diagnostic Findings Lumbar Spine MRI 06/23/21 16:08 MR lumbar spine wo con INDICATION: Injury to back in March 2020. Low back pain, worsening. Numbness in toes, radiculopathy into the legs, right worse than left. History of laminectomy surgery in September 2019. TECHNIQUE: 3 plane localizer images, sagittal T2, sagittal T1, sagittal STIR, axial T1, axial T2 along with postcontrast axial T1 and sagittal T1 fat- saturated sequences were obtained of the lumbar spine, before and after intravenous administration of 12 mL of MultiHance. Comparison: Comparison is made to MRI lumbar spine 10/15/2019 FINDINGS: Posterior fixation hardware is seen at L4-L5. Multifocal disc disease is noted. L1-L2: There is a small midline posterior disc bulge with mild canal stenosis. L2-L3: No neuroforaminal or canal stenosis. L3-L4: -L4, previously measured 12 x 10 mm, now measures 20 x 13 mm. There is resultant severe spinal canal stenosis with no free space anterior and posterior of the nerve roots. L4-L5: Small posterior disc bulge with mild canal stenosis. L5-S1: Small posterior disc bulge with mild canal stenosis. The spinal ligaments are intact, without evidence of disruption or abnormal signal intensity. Within the limits of evaluation due to susceptibility artifact, no spinal cord edema is definitely visualized. There is no evidence of an extradural, intradural, extramedullary or intramedullary lesion. Visualized soft tissues are normal. IMPRESSION: Interval enlargement of disc extrusion at L3-L4 with resultant severe spinal canal narrowing and cord impingement. No definite evidence of cord edema, although evaluation is limited by adjacent susceptibility artifact. ACT 112: Negative or not required by law. Electronically signed by: Ilan Cardoza M.D. 06/23/2021 6:59 PM Medications Administered Current Inpatient Medications Acetaminophen (Acetaminophen 500 Mg Tab) 1,000 mg PO Q8H PRN PRN Reason: MILD Pain Scale 1,2,3 & Pre PT Stop: 07/23/21 22:12 Al Hydrox/Mg Hydrox/Simethicone (Aluminum/Magnesium Susp 30 Ml Udc) 30 ml PO Q6H PRN PRN Reason: Dyspepsia Stop: 07/23/21 22:12 Bisacodyl (Bisacodyl 10 Mg Supp) 10 mg FL DAILY PRN PRN Reason: Constipation Stop: 07/25/21 18:50 Dextrose (Dextrose 50% 50 Ml Syringe) 25 - 50 ml IV UD PRN; Protocol PRN Reason: Hypoglycemia Protocol Stop: 07/23/21 22:27 Diphenhydramine HCl (Diphenhydramine Capsule 25 Mg Cap) 25 mg PO Q6H PRN PRN Reason: Allergic Rhinitis/Insomnia Stop: 07/23/21 22:12 Gabapentin (Gabapentin 300 Mg Cap) 300 mg PO TID JHON Stop: 07/23/21 22:12 Last Admin: 06/24/21 13:00 Dose: 300 mg Documented by: Glucagon (Glucagon For Inj 1 Mg Vial) 1 mg SQ UD PRN; Protocol PRN Reason: Hypoglycemia Protocol Stop: 07/23/21 22:27 Glucose (Glucose 10 Tabs/Tube) 4 - 8 tabs PO UD PRN; Protocol PRN Reason: Hypoglycemia Protocol Stop: 07/23/21 22:27 Glucose (Glucose 40% Gel 15 Gm Tube) 15 - 30 gm PO UD PRN; Protocol PRN Reason: Hypoglycemia Protocol Stop: 07/23/21 22:27 Hydromorphone HCl (Hydromorphone Inj 0.5 Mg/0.5 Ml Syr) 0.5 mg IV Q3H PRN PRN Reason: MOD pain (scale 4-6) & Pre PT Stop: 07/07/21 22:12 Hydromorphone HCl (Hydromorphone Inj 1 Mg/Ml Syringe) 1 mg IV Q3H PRN PRN Reason: severe pain (scale 7-10) Stop: 07/07/21 22:12 Last Admin: 06/24/21 07:33 Dose: 1 mg Documented by: Hydroxyzine HCl (Hydroxyzine Hcl 25 Mg Tab) 25 mg PO Q8H PRN PRN Reason: Anxiety Stop: 07/23/21 22:12 Cefazolin Sodium (Ancef 2000mg) 2,000 mg in 15 mls @ 3.75 mls/min IV PREOP JHON; Protocol Stop: 06/24/21 18:00 Lactated Ringer's (Lr) 1,000 mls @ 100 mls/hr IV .Q10H JHON Stop: 07/23/21 22:12 Last Admin: 06/24/21 07:36 Dose: 100 mls/hr Documented by: Promethazine HCl 12.5 mg/ (Sodium Chloride) 50.5 mls @ 202 mls/hr IV Q6H PRN PRN Reason: Nausea &/or Vomiting Stop: 07/23/21 22:12 Acetaminophen (Ofirmev) 1,000 mg in 100 mls @ 400 mls/hr IV Q8H PRN PRN Reason: Pain Rating 1-3 & Pre PT Stop: 06/26/21 22:12 Lorazepam (Ativan) 0.5 mg in 1 mls @ 1 mls/min IV Q8H PRN PRN Reason: Sedation/Anxiety Stop: 07/23/21 22:12 Insulin Aspart (Insulin Aspart 100 Units/Ml 3 Ml Pen) 0 units SC Q6 JHON Stop: 07/23/21 22:44 Last Admin: 06/24/21 12:59 Dose: 2 units Documented by: Insulin Glargine (Insulin Glargine Solostar 100 Units/Ml 3 Ml Pen) 5 units SC BID JHON Stop: 07/24/21 08:59 Last Admin: 06/24/21 08:59 Dose: 5 units Documented by: Lorazepam (Lorazepam 0.5 Mg Tab) 0.5 mg PO Q8H PRN PRN Reason: sedation/anxiety Stop: 07/23/21 22:12 Magnesium Hydroxide (Magnesium Hydroxide Susp 30 Ml Udc) 30 ml PO Q24H PRN PRN Reason: Constipation Stop: 07/23/21 22:12 Metoclopramide HCl (Metoclopramide Hcl Inj 5 Mg/Ml 2 Ml Vial) 10 mg IV Q6H PRN PRN Reason: Nausea &/or Vomiting Stop: 07/23/21 22:12 Metoprolol Succinate (Metoprolol Succ 25mg Ext Rel Tab) 25 mg PO DAILY JHON Stop: 07/24/21 08:59 Last Admin: 06/24/21 09:00 Dose: 25 mg Documented by: Miscellaneous (Carbohydrates For Hypoglycemia ) 15 - 30 gm PO UD PRN PRN Reason: Hypoglycemia Protocol Stop: 07/23/21 22:27 Morphine Sulfate (Morphine Sulfate 4 Mg/Ml 1 Ml Carp\\Vial) 4 mg IV Q15M PRN PRN Reason: Pain Stop: 07/07/21 16:07 Last Admin: 06/23/21 21:27 Dose: 4 mg Documented by: Naloxone HCl (Naloxone Hcl 0.4 Mg/1 Ml Vial/Carp) 0.1 mg IV Q5M PRN PRN Reason: Oversedation/respiratory dep Stop: 07/23/21 22:12 Ondansetron HCl (Ondansetron Inj 2 Mg/Ml 2 Ml Vial) 4 mg IV Q6H PRN PRN Reason: Nausea &/or Vomiting Stop: 07/23/21 22:12 Ondansetron HCl (Ondansetron 4 Mg Od Tab) 4 mg PO Q6H PRN PRN Reason: Nausea Stop: 07/23/21 22:12 Oxycodone HCl (Oxycodone Hcl Ir 5 Mg Tab (Immediate Release)) 5 - 10 mg PO Q4H PRN PRN Reason: mod to severe pain Stop: 07/07/21 22:12 Last Admin: 06/24/21 10:32 Dose: 10 mg Documented by: Pantoprazole Sodium (Pantoprazole 40 Mg Tab) 40 mg PO BID JHON Stop: 07/23/21 22:12 Last Admin: 06/24/21 09:00 Dose: 40 mg Documented by: Sertraline HCl (Sertraline Hcl 50 Mg Tablet) 25 mg PO DAILY JHON Stop: 07/24/21 08:59 Last Admin: 06/24/21 09:00 Dose: 25 mg Documented by: Sodium Biphosphate/Sodium Phosphate (Sod Phosphate/Sod Biphosphate Enema 132 Ml Btl) 132 ml FL ONE PRN PRN Reason: Constipation Stop: 07/23/21 22:12 Tramadol HCl (Tramadol Hcl 50 Mg Tablet) 50 - 100 mg PO Q4H PRN PRN Reason: Moderate-Severe pain & Pre PT Stop: 07/23/21 22:12 ECG Rate (beats per minute): 116 Rhythm: sinus tachycardia Additional Comments: unchanged from 10/18/19
[2021-06-24] MEDS ORDERED: PHARMACY GLYCEMIC MGMT CONSULT PRN (13:42)
--- NOTE | 2021-06-24 14:20 | Pharmacy Report ---
Pharmacy Glycemic Short Note 2 - Date of Service June 24, 2021 - Glycemic Short BSG Results (Last 24 hours): 06/23/21 06/23/21 06/24/21 16:13 22:18 06:02 Glucose 143 H POC Glucose 234 H 177 H 06/24/21 12:02 Glucose POC Glucose 140 H OUTPATIENT ANTIDIABETIC REGIMEN: * Ozempic 1 mg SQ weekly on Saturdays * Metformin ER 1000 mg PO BID ASSESSMENT: * 65 y/o M admitted with back and leg pain, plan for lumber decompression/fusion surgery tomorrow. Patient is a Type 2 diabetic managed at home on Ozempic SQ and oral Metformin. * Will hold Ozempic and Metformin while admitted and manage patient's diabetes with basal and bolus insulin. * He received Lantus 5 units last night and this AM. BSG was elevated up to 234 last night due to IV Dexamethasone 10 mg given in ED earlier. * Fasting BSG was 177 mg/dl today AM and pre-lunch BSG came down to 140 mg/dl. * Patient took his last dose of Ozempic on 06/20/21 which should still be working for him. * Added a scale to basal insulin for tonight and tightened Novolog CF/CR to a moderate stress between 2 and 3. PLAN FOR INPATIENT GLYCEMIC CONTROL: * Hold outpatient oral diabetes medications * Basal insulin * Lantus 5-10 units scale SQ BID based on BSG * Bolus insulin * NovoLog per scale ACHS or Q6hrs while NPO * Goal Range: Low 120 mg/dL - High 150 mg/dL * Correction Factor: 25 mg/dL/unit * Nutritional / Prandial insulin per carb ratio of 1 unit per 9 grams CHO consumed PLAN FOR DISCHARGE: * TBD
--- NOTE | 2021-06-24 14:27 | XRay Report ---
XR chest 1V portable INDICATION: MN ^pre op. TECHNIQUE: Single frontal radiograph of the chest was obtained. Comparison: Comparison is made to chest one view 09/24/2019 FINDINGS: No lines and tubes are seen. The cardiomediastinal silhouette is normal. Lungs are underinflated but clear. No evidence of pleural effusion or pneumothorax. IMPRESSION: No acute chest disease. ACT 112: Negative or not required by law. Electronically signed by: Ilan Cardoza M.D. 06/24/2021 2:25 PM
[2021-06-24] MEDS: INSULIN GLARGINE SOLOSTAR 100 UNITS/ML 3 ML PEN SC SCH (20:41)
[2021-06-25] MEDS: INSULIN ASPART 100 UNITS/ML 3 ML PEN SC SCH ×5 (00:11→20:58)
[2021-06-25] MEDS: LACTATED RINGER'S 1,000 ML IV SCH (03:56)
[2021-06-25 06:07] LABS: Hematocrit (blood only) 38.5 % (42-52); Hemoglobin 12.9 g/dL (14.0-18.0); Mean Corpuscular Hgb Conc 33.5 g/dL (32-36); Mean Corpuscular Volume 89.5 fL (80-100); Mean Platelet Volume 11.8 fL (7.4-10.4); Platelet Count 163 K/uL (130-400); RDW Coefficient of Variation 13.4 % (11.5-14.5); RDW Standard Deviation 43.7 fL (36.4-46.3); White Blood Count 9.01 K/uL (4.8-10.8)
[2021-06-25 06:43] LABS: BUN Creatinine Ratio 23.9 (10-20); Calcium 9.2 mg/dl (8.5-10.1); Est GFR (African American) 110.8 ml/min; Est GFR (Non-African American) 95.6 ml/min; Potassium 3.5 mmol/L (3.5-5.1)
[2021-06-25] MEDS ORDERED: ceFAZolin 2,000 MG/15 ML IV PUSH IV ONE (07:10)
[2021-06-25 07:27] LABS: Estimated Average Glucose 183 mg/dl
[2021-06-25] MEDS ORDERED: Nursing to Pharmacy Communication SCH ×2 (07:30→12:15)
[2021-06-25] MEDS ORDERED: EPINEPHrine INJ 1 MG/ML AMP ONE (07:52)
[2021-06-25] MEDS ORDERED: BUPIVACAINE 0.5 % 5 MG/1 ML MPF 30ML VIAL ONE (07:52)
[2021-06-25] MEDS ORDERED: LIDOCAINE 2% 2 ML VIAL/AMP(20MG/ML) INFIL ONE (07:55)
[2021-06-25] MEDS ORDERED: PROPOFOL IV EMULSION 10 MG/ML 20 ML VIAL IV ONE (07:55)
[2021-06-25] MEDS ORDERED: MIDAZOLAM HCL 1 MG/ML 2ML VIAL ONE (08:05)
[2021-06-25] MEDS ORDERED: fentaNYL citrate 100 MCG/2 ML VIAL ONE (08:05)
[2021-06-25] MEDS ORDERED: ROCURONIUM BROMIDE 10 MG/ML 5 ML VIAL IV ONE ×4 (08:07→09:52)
--- NOTE | 2021-06-25 08:11 | History & Physical Bridge Note ---
Date of Service June 25, 2021 History & Physical Bridge Note I have examined the patient, reviewed the History & Physical and in the interval since the performance of the History & Physical I have noted the following changes of clinical significance: no changes noted Decompression fusion L3-L4, removal of L4-L5 hardware
--- NOTE | 2021-06-25 08:22 | Anesthesiology Consultation ---
Date of Service June 25, 2021 Assessment & Plan Chart Review Chart Review: Acceptable Risk for Surgery Consults Requested none History Surgery Operation Date: 06/25/21 08:15 Proposed Procedures p L3-L4 Lumbar Decompression Fusion with Hardware Removal - Emmett Baig DO Height/Weight Height: 5 ft 8 in Weight: 85.7 kg Allergies Allergy/AdvReac Type Severity Reaction Status Date / Time NSAIDS (Non-Steroidal AdvReac GI bleed Verified 06/24/21 05:30 Anti-Inflamma Medications Home Medications Medication Instructions Recorded Confirmed Last Taken gabapentin 300 mg capsule 300 mg PO TID 09/23/19 06/23/21 06/23/21 metformin 500 mg tablet,extended 1,000 mg PO BID 09/23/19 06/23/21 06/23/21 release 24 hr pantoprazole 40 mg tablet,delayed 40 mg PO BID #60 tab 10/03/19 06/23/21 06/23/21 release acetaminophen 500 mg tablet 1,000 mg PO QID PRN 06/10/21 06/23/21 06/10/21 07:00 (Tylenol Extra Strength) 1000 mg semaglutide 1 mg/dose (2 mg/1.5 1 mg SUBCUT WK 06/10/21 06/23/21 06/20/21 mL) subcutaneous pen injector (Ozempic) metoprolol succinate 25 mg 25 mg PO DAILY 06/23/21 06/23/21 06/23/21 tablet,extended release 24 hr sertraline 25 mg tablet 25 mg PO DAILY 06/23/21 06/23/21 06/23/21 Active Medications Generic Name Dose Route Start Last Admin Trade Name Amadeo PRN Reason Stop Dose Admin Gabapentin 300 mg 06/23/21 22:13 06/24/21 20:40 Gabapentin 300 Mg Cap PO 07/23/21 22:12 300 mg TID JHON Administration Hydromorphone HCl 1 mg 06/23/21 22:13 06/24/21 07:33 Hydromorphone Inj 1 Mg/Ml Syringe IV 07/07/21 22:12 1 mg Q3H PRN Administration severe pain (scale 7-10) Lactated Ringer's 1,000 mls @ 100 mls/hr 06/23/21 22:13 06/25/21 03:56 Lr IV 07/23/21 22:12 100 mls/hr .Q10H JHON Administration Insulin Glargine 0 units 06/24/21 21:00 06/24/21 20:41 Insulin Glargine Solostar 100 Units/Ml 3 Ml Pen SC 07/24/21 20:59 10 units BID JHON Administration Protocol Metoprolol Succinate 25 mg 06/24/21 09:00 06/24/21 09:00 Metoprolol Succ 25mg Ext Rel Tab PO 07/24/21 08:59 25 mg DAILY JHON Administration Morphine Sulfate 4 mg 06/23/21 16:08 06/23/21 21:27 Morphine Sulfate 4 Mg/Ml 1 Ml Carp\Vial IV 07/07/21 16:07 4 mg Q15M PRN Administration Pain Oxycodone HCl 5 - 10 mg 06/23/21 22:13 06/24/21 20:39 Oxycodone Hcl Ir 5 Mg Tab (Immediate Release) PO 07/07/21 22:12 10 mg Q4H PRN Administration mod to severe pain Pantoprazole Sodium 40 mg 06/23/21 22:13 06/24/21 20:40 Pantoprazole 40 Mg Tab PO 07/23/21 22:12 40 mg BID JHON Administration Sertraline HCl 25 mg 06/24/21 09:00 06/24/21 09:00 Sertraline Hcl 50 Mg Tablet PO 07/24/21 08:59 25 mg DAILY JHON Administration NPO Date Last Intake of Fluids: 06/24/21 Time Last Intake of Fluids: 19:00 Date Last Intake of Solids: 06/24/21 Time Last Intake of Solids: 19:00 Past Medical History Medical History (Updated 06/25/21 @ 00:09 by Ildefonso Trimble) Anemia S/p blood transfusion x 2 (09/23/19 and 09/27/19). Subsequent Hgb checks stable in 9.2-10.0 range Arthritis Diabetes IDDM Diabetes mellitus, type II Dyslipidemia Gout History of bleeding peptic ulcer History of GI bleed Mood disorder Pancreatic mass NEWLY FOUND AND NEEDS EUS ON 10/19 Past Family History Family History Other Cancer Diabetes Heart disease Hypertension Denies family history of No pertinent family history Past Surgical History Surgical History H/O vein stripping RIGHT AND LEFT History of esophagogastroduodenoscopy (EGD) Hx of colonoscopy Hx of laminectomy LUMBAR FOR HERNIATED DISC 10/01/19 Hx of right knee surgery BONE SPUR REMOVED S/P herniorrhaphy UMBILICAL HERNIA REPAIR Social History Smoking Status: Former smoker Do You Dip or Chew Tobacco: No Hx Alcohol Use: No Hx Substance Use: No substance use type: does not use Physical Exam Vital Signs Last Vital Signs Temp 36.8 C 06/25/21 07:19 Pulse 87 06/25/21 07:19 Resp 20 06/25/21 07:19 BP 137/95 06/25/21 07:19 Pulse Ox 98 06/25/21 07:19 Testing Laboratory Results 06/25/21 05:36 06/25/21 05:36 Hemoglobin A1c 8.0 % (4.5-5.6) H 06/25/21 05:36 Urine Color Yellow 06/23/21 16:25 Urine Appearance Clear (Clear) 06/23/21 16:25 Urine pH 5.0 (4.5-7.5) 06/23/21 16:25 Ur Specific [place] 1.019 (1.000-1.030) 06/23/21 16:25 Urine Protein 1+ (Negative) H 06/23/21 16:25 Urine Glucose (UA) Negative (Negative) 06/23/21 16:25 Urine Ketones Trace (Negative) H 06/23/21 16:25 Urine Nitrite Negative (Negative) 06/23/21 16:25 Ur Leukocyte Esterase Negative (Negative) 06/23/21 16:25 Urine WBC (Auto) 1-5 /hpf (0-5) 06/23/21 16:25 Urine RBC (Auto) 0-4 /hpf (0-4) 06/23/21 16:25 U Hyaline Cast (Auto) 1-5 /lpf (0-5) 06/23/21 16:25 U Epithel Cells (Auto) 20-30 /lpf (0-5) H 06/23/21 16:25 Urine Bacteria (Auto) Negative (Negative) 06/23/21 16:25 Blood Type A Positive 06/24/21 14:57 Antibody Screen NEGATIVE 06/24/21 14:57 06/25/21 06/25/21 06/24/21 06:56 03:44 23:59 POC Glucose 128 H 161 H 148 H 06/24/21 20:30 POC Glucose 181 H
[2021-06-25] MEDS ORDERED: HYDROmorphone INJ 2 MG/ML SYR/VIAL IV PRN (08:46)
[2021-06-25] MEDS ORDERED: fentaNYL citrate 100 MCG/2 ML VIAL IV PRN (08:46)
[2021-06-25] MEDS ORDERED: ONDANSETRON INJ 2 MG/ML 2 ML VIAL IV PRN ×2 (08:46→11:58)
[2021-06-25] MEDS ORDERED: ATROPINE SULFATE 0.1 MG/ML 10ML SYR IV PRN (08:46)
[2021-06-25] MEDS ORDERED: ePHEDrine sulfate 50 MG/ML AMP IV PRN (08:46)
[2021-06-25] MEDS ORDERED: HYDROmorphone INJ 2 MG/ML SYR/VIAL ONE (09:10)
[2021-06-25] MEDS ORDERED: ONDANSETRON INJ 2 MG/ML 2 ML VIAL ONE (09:12)
[2021-06-25] MEDS ORDERED: DEXAMETHASONE SOD INJ 4 MG/ML VIAL ONE (09:12)
[2021-06-25] MEDS ORDERED: GLYCOPYRROLATE 0.2 MG/ML VIAL ONE ×2 (09:13)
[2021-06-25] MEDS ORDERED: NEOSTIGMINE METHYLSULFATE 1 MG/ML 10ML VIAL ONE (09:13)
[2021-06-25] MEDS: INSULIN GLARGINE SOLOSTAR 100 UNITS/ML 3 ML PEN SC SCH ×2 (09:26→20:59)
--- NOTE | 2021-06-25 10:01 | Hospitalist Progress Note ---
Date of Service June 25, 2021 Assessment & Plan (1) Lumbar disc herniation with radiculopathy: Plan: This is a 65-year-old male who has significant past medical history of T2DM, HLD, Cohn syndrome, sinus tachycardia, depression, hx of duodenal ulcer 2/2 to NSAIDS, history of prior lumbar disc herniation L4-L5 requiring laminectomy by Dr. Baig, who presents to ED secondary to persistent low back pain with bilateral radicular symptoms and MRI findings confirming an L3-L4 lumbar disc herniation with severe canal narrowing and nerve impingement. MRI: Interval enlargement of disc extrusion at L3-L4 with resultant severe spinal canal narrowing and cord impingement. POD #0 s/p removal of posterior instrumentation L4-5, exploration of fusion L4- 5, revision decompression L3-L4 L4-5 and posterior spinal fusion L3-L Per ortho for pain control, wound care, anticoagulation and activities Monitor H&H, continue incentive spirometry, PT/OT when appropriate T2DM A1c on 04/13/2021 8.0, suboptimal control given age Hold Metformin and Ozempic Lantus/NovoLog per protocol Consult glycemic pharmacy for pre and postoperative management Sinus tachycardia Longstanding. Continue metoprolol Depression mood stable Continue zoloft Hx of PUD continue PPI Avoid nsaids Dispo: med/surg PCP: Ginny Carvalho FULL CODE Patient was seen and examined in collaboration with Dr. Nieto, please see addendum Thank you for this consultation. We will follow the patient with you during their hospital stay. You can reach a member of the [facility] Hospitalist Team 11/04 via hospitalist role on tiger text. Admission and Anticipated Discharge Date Admission Date: June 23, 2021 Supervising Physician Co-Signing Physician Notes Patient is seen and examined at bedside. Patient had Lumbar surgery for lumbar disc herniation with radiculopathy today. Leg numbness improved. Denies any chest pain, shortness breath, dizziness, nausea, abdominal pain. On exam patient is moderately built and nourished, normocephalic atraumatic, EOMI, normal breath sounds, clear to auscultation, S1-S2, no murmur, no pedal edema, abdomen soft, nontender, normal bowel sounds, alert, awake, oriented, + bilateral lower extremity numbness present. Lumbar disc herniation with radiculopathy. S/P surgery. POD #0 Monitor for postop anemia. Pain control, activity, wound care as per primary team. Continue home medications for sinus tachycardia, depression, peptic ulcer disease. Bowel regimen to prevent constipation. I personally reviewed the record. Patient is interviewed and examined at bedside. Patient's care is coordinated with Soledad Padilla PA-C. Please refer to the documentation above for details of patient's presentation and for discussion of other issues. Subjective Pt was seen and examined in room 385-1. POD #0 s/p removal of posterior instrumentation L4-5, exploration of fusion L4- 5, revision decompression L3-L4 L4-5 and posterior spinal fusion L3-L by Dr. Baig Feeling well post-operatively. Paresthesias in BLE already improved. Tolerating clears without issue. No fever, chills, lightheadedness, CP, SOB, N/V/D. Winston catheter in place Review of Systems Review of Systems: At least ten systems reviewed and negative except as noted in the HPI. Physical Exam Physical Exam: General Appearance: WD/WN, vitals as above, NAD, sitting up in bed, pleasant, conversing easily Head: normocephalic, atraumatic Eyes: normal inspection, PERRL, conjunctivae normal, anicteric sclerae ENT: external ear and nose normal, oropharynx normal Neck: normal visual inspection, trachea midline, no thyromegaly Respiratory: normal respiratory effort, lungs clear to auscultation, no wheeze, rales, rhonchi. No accessory muscle use Cardiovascular: regular rate, rhythm, no murmur, normal peripheral pulses, no BLE edema. Vessels: no JVD Chest: normal inspection of chest Abdomen/GI: normal bowel sounds, soft, nontender, no hepatosplenomegaly : Winston catheter draining light yellow urine Extremities/Musculoskeletal: +spinal dressing c/d/i. MAG drain visualized. No cyanosis or clubbing, extremities motor strength 5/5 Neurologic: PERRL, EOMI, accommodation nl, no face palsy, no dysarthria, CN's II-XI intact bilaterally and moves all extremities Psychiatric: A+Ox3, euthymic affect Skin: no rashes, normal color, warm/dry Results & Data Results & Data ([facility]) Vital Signs (Past 12 Hours) Vital Signs Temp Pulse Resp BP Pulse Ox 06/25/21 07:19 36.8 C 87 20 137/95 98 06/24/21 22:33 36.6 C 92 H 18 120/83 94 Laboratory Results Short CBC 06/25/21 Range/Units 05:36 WBC 9.01 (4.8-10.8) K/uL Hgb 12.9 L (14.0-18.0) g/dL Hct 38.5 L (42-52) % Plt Count 163 (130-400) K/uL BMP 06/25/21 05:36 Sodium 135 L Potassium 3.5 Chloride 102 Carbon Dioxide 27 BUN 19 H Creatinine 0.79 D Glucose 151 H Calcium 9.2 Diagnostic Findings Lumbar Spine MRI 06/23/21 16:08 MR lumbar spine wo con INDICATION: Injury to back in March 2020. Low back pain, worsening. Numbness in toes, radiculopathy into the legs, right worse than left. History of laminectomy surgery in September 2019. TECHNIQUE: 3 plane localizer images, sagittal T2, sagittal T1, sagittal STIR, axial T1, axial T2 along with postcontrast axial T1 and sagittal T1 fat- saturated sequences were obtained of the lumbar spine, before and after intravenous administration of 12 mL of MultiHance. Comparison: Comparison is made to MRI lumbar spine 10/15/2019 FINDINGS: Posterior fixation hardware is seen at L4-L5. Multifocal disc disease is noted. L1-L2: There is a small midline posterior disc bulge with mild canal stenosis. L2-L3: No neuroforaminal or canal stenosis. L3-L4: -L4, previously measured 12 x 10 mm, now measures 20 x 13 mm. There is resultant severe spinal canal stenosis with no free space anterior and posterior of the nerve roots. L4-L5: Small posterior disc bulge with mild canal stenosis. L5-S1: Small posterior disc bulge with mild canal stenosis. The spinal ligaments are intact, without evidence of disruption or abnormal signal intensity. Within the limits of evaluation due to susceptibility artifact, no spinal cord edema is definitely visualized. There is no evidence of an extradural, intradural, extramedullary or intramedullary lesion. Visualized soft tissues are normal. IMPRESSION: Interval enlargement of disc extrusion at L3-L4 with resultant severe spinal canal narrowing and cord impingement. No definite evidence of cord edema, although evaluation is limited by adjacent susceptibility artifact. ACT 112: Negative or not required by law. Electronically signed by: Ilan Cardoza M.D. 06/23/2021 6:59 PM Chest X-Ray 06/24/21 13:39 XR chest 1V portable INDICATION: MN ^pre op. TECHNIQUE: Single frontal radiograph of the chest was obtained. Comparison: Comparison is made to chest one view 09/24/2019 FINDINGS: No lines and tubes are seen. The cardiomediastinal silhouette is normal. Lungs are underinflated but clear. No evidence of pleural effusion or pneumothorax. IMPRESSION: No acute chest disease. ACT 112: Negative or not required by law. Electronically signed by: Ilan Cardoza M.D. 06/24/2021 2:25 PM Lumbar Spine X-Ray 06/25/21 08:15 FL lumbar spine 2-3V CLINICAL HISTORY: L3-4 decompression and fusion COMPARISON STUDY: MR lumbar spine 06/23/2021. FLUOROSCOPY TIME: 10 seconds. FINDINGS: 2 fluoroscopic spot images of the lumbar spine demonstrate interval posterior decompression and fusion at L3-L4 with pedicle screws and rods. The hardware appears intact. There is pre-existing posterior fusion at L4-5. IMPRESSION: Fluoroscopy provided for L3-L4 posterior decompression and fusion. ACT 112: Negative or not required by law. Electronically signed by: David Galvan M.D. 06/25/2021 11:35 AM
[2021-06-25] MEDS ORDERED: FLOSEAL HEMOSTATIC MATRIX 10ML TOP ONE (10:26)
--- NOTE | 2021-06-25 10:38 | Operative Report ---
Post Operative Report Pre & Post Diagnosis Operation Date: 06/25/21 08:15 Pre-Op Diagnosis: Lumbar disc herniation with radiculopathy Post-Op Diagnosis: Lumbar disc herniation with radiculopathy I identified the patient and participated in the time-out.: Yes Procedure Operation Date: 06/25/21 08:15 Actual Procedures #1 removal of posterior instrumentation L4-5. #2 exploration of fusion L4-5. #3 revision decompression L3-L4 L4-5. #4 posterior spinal fusion L3-L4. #5 placed posterior instrumentation 8 placement locally harvested morselized autograft in the posterior gutters. #9 placement of I factor combined with Vitoss in the interbody space and posterior gutters. L3-L5. #6 interbody fusion L3-L4. #7 placement peek cage 11 x 26 mm at L3-L4. #8 placement of locally harvested morselized autograft in the posterior gutters. Surgeon Emmett Baig, DO Cutter And Edge Trimmer Kesha Little Estimated Blood Loss 450 Findings Consistent with Post-Op Diagnosis Specimens None Indications This is a 65-year-old male who presents with severe leg pain and is here for urgent decompression fusion. Description of Procedure Patient met with identified informed consent obtained. Patient was then taken to the operative suite underwent a patient placed in a prone position the Jamal table Kain frame. Opening prominences well-padded eyes inspected to ensure no external pressure placed upon them. This time the lumbar spine was prepped and draped in a sterile fashion. Sharp dissection with assistance of Bovie cautery performed down to exposing the lamina and transverse processes of L3 and the instrumentation at L4-L5 bilaterally. Then proceeded move the hardware bilaterally explore the fusion mass noting it to be mature and intact. Then performed a complete laminectomy of L3 including bilateral medial facetectomies and foraminotomies. And then I dissected through the scar remaining fusion mass at L4-L5 to expose the exiting L4 nerve root on the right. I identified massive amounts of disc material that migrated caudally along the entire L4 pedicle as well as a far lateral disc herniation outside of the foramina at L4-5 on the right. Pedicle screws then placed in L3 L4-5 bilaterally with assistance of fluoroscopy the proper sized jeffery placed. By way of a transforaminal approach on the right complete discectomy of L3-L4 was performed endplates curetted to subcortically bone and 11 x 26 mm peek cage filled with I factor tapped in position. The rods were then compressed locked in final position bilaterally. The transverse processes of L3 and L4 burred to subcortical being bone. I factor combined with Vitoss and locally harvested morselized autograft was placed in the posterior gutters. 15 round MAG drain inserted. Incision was then closed with 1 Vicryl fascia 2-0 Vicryl subcutaneously and 4 Monocryl for final skin closure. Steri-Strip Steri-Strips placed. Patient will continue PACU stable condition. Please note spinal cord monitoring was utilized at the procedure no changes noted. Lastly Kesha Little was present at the entire surgery and while the patient positioning complex portions of the surgery and fascial closure. I attest to the content of the Intraoperative Record and any orders documented therein. Any exceptions are noted below.
--- NOTE | 2021-06-25 11:37 | Fluoroscopy Report ---
FL lumbar spine 2-3V CLINICAL HISTORY: L3-4 decompression and fusion COMPARISON STUDY: MR lumbar spine 06/23/2021. FLUOROSCOPY TIME: 10 seconds. FINDINGS: 2 fluoroscopic spot images of the lumbar spine demonstrate interval posterior decompression and fusion at L3-L4 with pedicle screws and rods. The hardware appears intact. There is pre-existing posterior fusion at L4-5. IMPRESSION: Fluoroscopy provided for L3-L4 posterior decompression and fusion. ACT 112: Negative or not required by law. Electronically signed by: David Galvan M.D. 06/25/2021 11:35 AM
--- NOTE | 2021-06-25 11:38 | Anesthesiology Progress Note ---
Date of Service June 25, 2021 Anesthesia Post Procedure Vital Signs Vital Signs: Temp Pulse Pulse Resp BP Pulse Ox 06/25/21 11:25 36.8 C 88 12 138/87 94 06/25/21 11:15 85 16 140/90 96 06/25/21 11:05 90 14 135/93 94 06/25/21 10:55 86 10 L 147/94 H 95 06/25/21 10:49 36.3 C L 96 H 12 155/85 H 95 06/25/21 07:19 36.8 C 87 20 137/95 98 06/24/21 22:33 36.6 C 92 H 18 120/83 94 06/24/21 15:50 36.5 C 96 H 16 114/71 94 Pain Intensity Back: Pain Intensity: 1 Transfer of Care Handoff Completed per policy Notes Mental Status: alert / awake / arousable and participated in evaluation Patient Amnestic to Procedure: Yes Nausea / Vomiting: adequately controlled Pain: adequately controlled Airway Patency, RR, SpO2: stable & adequate BP & HR: stable & adequate Hydration State: stable & adequate Anesthetic Complications: no major complications apparent
[2021-06-25] MEDS ORDERED: HYDROmorphone INJ 0.5 MG/0.5 ML SYR IV PRN (11:58)
[2021-06-25] MEDS ORDERED: DO NOT ADMINISTER PNEUMOCOCCAL VACCINE PRN (11:58)
[2021-06-25] MEDS ORDERED: LORazepam 0.5 MG/1 ML VIAL IV PRN (11:58)
[2021-06-25] MEDS ORDERED: ALUMINUM/MAGNESIUM SUSP 30 ML UDC PO PRN (11:58)
[2021-06-25] MEDS ORDERED: PROMETHAZINE HCL 12.5 MG in SODIUM CHLORIDE 0.9% 50 ML IV PRN (11:58)
[2021-06-25] MEDS ORDERED: bisacodyL 10 MG SUPP PR PRN ×2 (11:58→18:51)
[2021-06-25] MEDS ORDERED: diphenhydrAMINE Capsule 25 MG CAP PO PRN (11:58)
[2021-06-25] MEDS ORDERED: ACETAMINOPHEN 1,000 MG/100 ML VIAL IV PRN (11:58)
[2021-06-25] MEDS ORDERED: MAGNESIUM HYDROXIDE SUSP 30 ML UDC PO PRN (11:58)
[2021-06-25] MEDS ORDERED: FAMOTIDINE 20 MG TAB PO PRN (11:58)
[2021-06-25] MEDS ORDERED: METOCLOPRAMIDE HCL INJ 5 MG/ML 2 ML VIAL IV PRN (11:58)
[2021-06-25] MEDS ORDERED: SOD PHOSPHATE/SOD BIPHOSPHATE ENEMA 132 ML BTL PR PRN (11:58)
[2021-06-25] MEDS ORDERED: LORazepam 0.5 MG TAB PO PRN (11:58)
[2021-06-25] MEDS ORDERED: ONDANSETRON 4 MG OD TAB PO PRN (11:58)
[2021-06-25] MEDS ORDERED: ACETAMINOPHEN 500 MG TAB PO PRN (11:58)
[2021-06-25] MEDS ORDERED: hydrOXYzine HCl 25 MG TAB PO PRN (11:58)
[2021-06-25] MEDS ORDERED: DO NOT ADMINISTER FLU VACCINE PRN (11:58)
[2021-06-25] MEDS ORDERED: NALOXONE HCL 0.4 MG/1 ML VIAL/CARP IV PRN (11:58)
[2021-06-25] MEDS ORDERED: INSULIN ASPART 100 UNITS/ML 3 ML PEN SC SCH (12:00)
[2021-06-25] MEDS: GABAPENTIN 300 MG CAP PO SCH ×3 (12:08→20:55)
[2021-06-25] MEDS: SERTRALINE HCL 50 MG TABLET PO SCH (12:08)
[2021-06-25] MEDS: PANTOprazole 40 MG TAB PO SCH ×2 (12:08→20:54)
[2021-06-25] MEDS: METOPROLOL SUCC 25MG EXT REL TAB PO SCH (12:08)
[2021-06-25] MEDS: SODIUM CHLORIDE 0.9% 1000ML 1,000 ML IV SCH ×2 (12:11→21:02)
[2021-06-25] MEDS ORDERED: INSULIN GLARGINE SOLOSTAR 100 UNITS/ML 3 ML PEN SC ONE (12:45)
[2021-06-25] MEDS: HYDROmorphone INJ 0.5 MG/0.5 ML SYR IV PRN ×2 (14:14→23:25)
[2021-06-25] MEDS: ceFAZolin 2000MG 2,000 MG/15 ML SYR IV SCH ×2 (17:06→23:25)
[2021-06-25] MEDS: oxyCODONE HCL IR 5 MG TAB (IMMEDIATE RELEASE) PO PRN (19:25)
[2021-06-25] MEDS: DOCUSATE SODIUM/SENNA 50/8.6MG TAB PO SCH (20:57)
[2021-06-26] MEDS: HYDROmorphone INJ 0.5 MG/0.5 ML SYR IV PRN ×2 (04:52→13:26)
[2021-06-26] MEDS: POLYETHYLENE (MIRALAX) 17 GM PACK PO SCH ×3 (04:52→17:14)
[2021-06-26 06:33] LABS: Basophils # (auto) 0.01 K/uL (0-0.2); Basophils % (auto) 0.1 %; Hemoglobin 11.4 g/dL (14.0-18.0); Immature Granulocytes # (auto) 0.05 K/uL (0.00-0.02); Immature Granulocytes % (auto) 0.4 %; Lymphocytes # (auto) 1.49 K/uL (1.2-3.4); Lymphocytes % (auto) 12.1 %; Mean Corpuscular Hemoglobin 30.4 pg (25-34); Mean Corpuscular Hgb Conc 33.5 g/dL (32-36); Mean Corpuscular Volume 90.7 fL (80-100); Mean Platelet Volume 11.9 fL (7.4-10.4); Monocytes # (auto) 1.05 K/uL (0.11-0.59); Monocytes % (auto) 8.5 %; Neutrophils # (auto) 9.74 K/uL (1.4-6.5); Neutrophils % (auto) 78.9 %; Platelet Count 165 K/uL (130-400); RDW Coefficient of Variation 13.7 % (11.5-14.5); RDW Standard Deviation 45.2 fL (36.4-46.3); Red Blood Count 3.75 M/uL (4.7-6.1); White Blood Count 12.34 K/uL (4.8-10.8)
[2021-06-26] MEDS: oxyCODONE HCL IR 5 MG TAB (IMMEDIATE RELEASE) PO PRN ×3 (06:49→19:21)
[2021-06-26 06:57] LABS: BUN Creatinine Ratio 15.9 (10-20); Calcium 8.4 mg/dl (8.5-10.1); Creatinine Clr Calc Pharmacy 86.6 ml/min; Est GFR (African American) 100.9 ml/min; Est GFR (Non-African American) 87.1 ml/min; Potassium 3.6 mmol/L (3.5-5.1)
[2021-06-26] MEDS: INSULIN ASPART 100 UNITS/ML 3 ML PEN SC SCH ×4 (09:56→20:49)
[2021-06-26] MEDS: INSULIN GLARGINE SOLOSTAR 100 UNITS/ML 3 ML PEN SC SCH ×2 (09:58→20:51)
[2021-06-26] MEDS: METOPROLOL SUCC 25MG EXT REL TAB PO SCH (09:59)
[2021-06-26] MEDS: SERTRALINE HCL 50 MG TABLET PO SCH (09:59)
[2021-06-26] MEDS: GABAPENTIN 300 MG CAP PO SCH ×3 (10:00→20:48)
[2021-06-26] MEDS: PANTOprazole 40 MG TAB PO SCH ×2 (10:00→20:48)
--- NOTE | 2021-06-26 10:00 | Orthopedic Progress Note ---
Date of Service June 26, 2021 Assessment & Plan (1) Lumbar disc herniation with radiculopathy: Plan: This when she physical therapy monitor his MAG output but hopefully discharge home this weekend. Admission and Anticipated Discharge Date Admission Date: June 23, 2021 Subjective Back pain controlled leg pain markedly improved Physical Exam Physical Exam: Patient is good strength testing appears comfortable. Results & Data ([facility]) Vital Signs (Past 12 Hours) Vital Signs Temp Pulse Resp BP Pulse Ox 06/26/21 09:52 116 H 127/87 06/26/21 06:44 36.6 C 96 H 17 124/82 94 06/26/21 03:52 36.6 C 95 H 17 131/76 92 06/26/21 03:00 36.8 C 102 H 16 128/77 93 06/25/21 22:07 36.8 C 101 H 17 127/86 94
--- NOTE | 2021-06-26 12:15 | Hospitalist Progress Note ---
Date of Service June 26, 2021 Assessment & Plan (1) Lumbar disc herniation with radiculopathy: Plan: This is a 65-year-old male who has significant past medical history of T2DM, HLD, Cohn syndrome, sinus tachycardia, depression, hx of duodenal ulcer 2/2 to NSAIDS, history of prior lumbar disc herniation L4-L5 requiring laminectomy by Dr. Baig, who presents to ED secondary to persistent low back pain with bilateral radicular symptoms and MRI findings confirming an L3-L4 lumbar disc herniation with severe canal narrowing and nerve impingement. MRI: Interval enlargement of disc extrusion at L3-L4 with resultant severe spinal canal narrowing and cord impingement. POD #1 s/p removal of posterior instrumentation L4-5, exploration of fusion L4- 5, revision decompression L3-L4 L4-5 and posterior spinal fusion L3-L Per ortho for pain control, wound care, anticoagulation and activities Monitor Hgb - 11.4 today (pre-op hgb 12.9) Continue incentive spirometry, PT/OT when appropriate T2DM A1c on 04/13/2021 8.0, suboptimal control given age Hold Metformin and Ozempic Lantus/NovoLog per protocol Consult glycemic pharmacy for pre and postoperative management Sinus tachycardia Longstanding. Continue metoprolol Depression Mood stable Continue zoloft Hx of PUD continue PPI Avoid nsaids Dispo: med/surg PCP: Ginny Carvalho FULL CODE Patient was seen and examined in collaboration with Dr. Nieto, please see addendum Thank you for this consultation. We will follow the patient with you during their hospital stay. You can reach a member of the [facility] Hospitalist Team 11/04 via hospitalist role on tiger text. Admission and Anticipated Discharge Date Admission Date: June 23, 2021 Supervising Physician Co-Signing Physician Notes Patient is seen and examined at bedside. Did well with PT earlier today. Had BM. Back pain at surgical site is controlled. Leg numbness almost resolved. Denies any chest pain, shortness breath, dizziness, nausea, abdominal pain. On exam patient is moderately built and nourished, normocephalic atraumatic, EOMI, normal breath sounds, clear to auscultation, S1-S2, no murmur, no pedal edema, abdomen soft, nontender, normal bowel sounds, alert, awake, oriented, + bilateral lower extremity numbness present. Lumbar disc herniation with radic ulopathy. S/P surgery. POD #1 acute blood loss postoperative anemia. No indications for transfusion currently. Pain control, activity, wound care as per primary team. Continue home medications for sinus tachycardia, depression, peptic ulcer disease. Continue bowel regimen to prevent constipation. I personally reviewed the record. Patient is interviewed and examined at bedside. Patient's care is coordinated with Soledad Padilla PA-C. Please refer to the documentation above for details of patient's presentation and for discussion of other issues. Subjective Seen and examined in 386-2. Feeling well today. Some surgical site pain with movement. Continued improvement with bilateral lower extremity paresthesias postoperatively. Ambulating with therapy without issue. Tolerating diet, no nausea or vomiting. No fever, chills, lightheadedness, chest pain, shortness of breath, abdominal pain. Urinating without issue now that Winston catheter removed. Passing flatus, no bowel movement yet. Review of Systems Review of Systems: At least ten systems reviewed and negative except as noted in the HPI. Physical Exam Physical Exam: General Appearance: WD/WN, vitals as above, NAD, sitting up in bed, pleasant, conversing easily Head: normocephalic, atraumatic Eyes: normal inspection, PERRL, conjunctivae normal, anicteric sclerae ENT: external ear and nose normal, oropharynx normal Neck: normal visual inspection, trachea midline, no thyromegaly Respiratory: normal respiratory effort, lungs clear to auscultation, no wheeze, rales, rhonchi. No accessory muscle use Cardiovascular: regular rate, rhythm, no murmur, normal peripheral pulses, no BLE edema. Vessels: no JVD Abdomen/GI: normal bowel sounds, soft, nontender, no hepatosplenomegaly Extremities/Musculoskeletal: +Spinal dressing c/d/i. MAG drain visualized. No cyanosis or clubbing, extremities motor strength 5/5 Neurologic: PERRL, CN's II-XI intact bilaterally and moves all extremities Psychiatric: A+Ox3, euthymic affect Skin: no rashes, normal color, warm/dry Results & Data Results & Data ([facility]) Vital Signs (Past 12 Hours) Vital Signs Temp Pulse Resp BP Pulse Ox 06/26/21 09:52 116 H 127/87 06/26/21 06:44 36.6 C 96 H 17 124/82 94 06/26/21 03:52 36.6 C 95 H 17 131/76 92 06/26/21 03:00 36.8 C 102 H 16 128/77 93 Laboratory Results Short CBC 06/26/21 Range/Units 05:31 WBC 12.34 H (4.8-10.8) K/uL Hgb 11.4 L (14.0-18.0) g/dL Hct 34.0 L (42-52) % Plt Count 165 (130-400) K/uL BMP 06/26/21 05:31 Sodium 134 L Potassium 3.6 Chloride 100 Carbon Dioxide 29 BUN 15 Creatinine 0.93 Glucose 168 H Calcium 8.4 L Diagnostic Findings Lumbar Spine MRI 06/23/21 16:08 MR lumbar spine wo con INDICATION: Injury to back in March 2020. Low back pain, worsening. Numbness in toes, radiculopathy into the legs, right worse than left. History of laminectomy surgery in September 2019. TECHNIQUE: 3 plane localizer images, sagittal T2, sagittal T1, sagittal STIR, axial T1, axial T2 along with postcontrast axial T1 and sagittal T1 fat- saturated sequences were obtained of the lumbar spine, before and after intravenous administration of 12 mL of MultiHance. Comparison: Comparison is made to MRI lumbar spine 10/15/2019 FINDINGS: Posterior fixation hardware is seen at L4-L5. Multifocal disc disease is noted. L1-L2: There is a small midline posterior disc bulge with mild canal stenosis. L2-L3: No neuroforaminal or canal stenosis. L3-L4: -L4, previously measured 12 x 10 mm, now measures 20 x 13 mm. There is resultant severe spinal canal stenosis with no free space anterior and posterior of the nerve roots. L4-L5: Small posterior disc bulge with mild canal stenosis. L5-S1: Small posterior disc bulge with mild canal stenosis. The spinal ligaments are intact, without evidence of disruption or abnormal signal intensity. Within the limits of evaluation due to susceptibility artifact, no spinal cord edema is definitely visualized. There is no evidence of an extradural, intradural, extramedullary or intramedullary lesion. Visualized soft tissues are normal. IMPRESSION: Interval enlargement of disc extrusion at L3-L4 with resultant severe spinal canal narrowing and cord impingement. No definite evidence of cord edema, although evaluation is limited by adjacent susceptibility artifact. ACT 112: Negative or not required by law. Electronically signed by: Ilan Cardoza M.D. 06/23/2021 6:59 PM Chest X-Ray 06/24/21 13:39 XR chest 1V portable INDICATION: MN ^pre op. TECHNIQUE: Single frontal radiograph of the chest was obtained. Comparison: Comparison is made to chest one view 09/24/2019 FINDINGS: No lines and tubes are seen. The cardiomediastinal silhouette is normal. Lungs are underinflated but clear. No evidence of pleural effusion or pneumothorax. IMPRESSION: No acute chest disease. ACT 112: Negative or not required by law. Electronically signed by: Ilan Cardoza M.D. 06/24/2021 2:25 PM Lumbar Spine X-Ray 06/25/21 08:15 FL lumbar spine 2-3V CLINICAL HISTORY: L3-4 decompression and fusion COMPARISON STUDY: MR lumbar spine 06/23/2021. FLUOROSCOPY TIME: 10 seconds. FINDINGS: 2 fluoroscopic spot images of the lumbar spine demonstrate interval posterior decompression and fusion at L3-L4 with pedicle screws and rods. The hardware appears intact. There is pre-existing posterior fusion at L4-5. IMPRESSION: Fluoroscopy provided for L3-L4 posterior decompression and fusion. ACT 112: Negative or not required by law. Electronically signed by: David Galvan M.D. 06/25/2021 11:35 AM
--- NOTE | 2021-06-26 14:40 | Pharmacy Report ---
Pharmacy Glycemic Short Note 2 - Date of Service June 26, 2021 - Glycemic Short BSG Results (Last 24 hours): 06/25/21 06/25/21 06/26/21 17:04 20:31 05:31 Glucose 168 H POC Glucose 202 H 229 H 06/26/21 06/26/21 08:17 12:25 Glucose POC Glucose 145 H 181 H OUTPATIENT ANTIDIABETIC REGIMEN: * Ozempic 1 mg SQ weekly on Saturdays * Metformin ER 1000 mg PO BID ASSESSMENT: 06/26 * Patient received total of 33 units of insulin yesterday, of which 15 units were basal * Fasting BSG 145 mg/dL - will titrate up basal more today as PO intake improves * Continue same CF/CR for now 06/25 * 65 y/o M admitted with back and leg pain, plan for lumber decompression/fusion surgery tomorrow. Patient is a Type 2 diabetic managed at home on Ozempic SQ and oral Metformin. * Will hold Ozempic and Metformin while admitted and manage patient's diabetes with basal and bolus insulin. * He received Lantus 5 units last night and this AM. BSG was elevated up to 234 last night due to IV Dexamethasone 10 mg given in ED earlier. * Fasting BSG was 177 mg/dl today AM and pre-lunch BSG came down to 140 mg/dl. * Patient took his last dose of Ozempic on 06/20/21 which should still be working for him. * Added a scale to basal insulin for tonight and tightened Novolog CF/CR to a moderate stress between 2 and 3. PLAN FOR INPATIENT GLYCEMIC CONTROL: * Hold outpatient oral diabetes medications * Basal insulin * Lantus 5-10 units scale SQ BID based on BSG * Bolus insulin * NovoLog per scale ACHS or Q6hrs while NPO * Goal Range: Low 120 mg/dL - High 150 mg/dL * Correction Factor: 25 mg/dL/unit * Nutritional / Prandial insulin per carb ratio of 1 unit per 9 grams CHO consumed PLAN FOR DISCHARGE: * A1c 8.0% - goal <7% * Reasonable to continue home diabetic medications at discharge as long as no contraindications exist
[2021-06-26] MEDS: DOCUSATE SODIUM/SENNA 50/8.6MG TAB PO SCH (20:48)
[2021-06-27] MEDS: oxyCODONE HCL IR 5 MG TAB (IMMEDIATE RELEASE) PO PRN ×4 (00:01→21:46)
[2021-06-27] MEDS: POLYETHYLENE (MIRALAX) 17 GM PACK PO SCH ×4 (00:04→17:45)
[2021-06-27 07:14] LABS: Hematocrit (blood only) 36.1 % (42-52); Hemoglobin 12.3 g/dL (14.0-18.0); Mean Corpuscular Hemoglobin 30.8 pg (25-34); Mean Corpuscular Hgb Conc 34.1 g/dL (32-36); Mean Corpuscular Volume 90.3 fL (80-100); Mean Platelet Volume 11.8 fL (7.4-10.4); Platelet Count 179 K/uL (130-400); RDW Coefficient of Variation 13.8 % (11.5-14.5); RDW Standard Deviation 45.4 fL (36.4-46.3); White Blood Count 12.87 K/uL (4.8-10.8)
[2021-06-27 07:32] LABS: BUN Creatinine Ratio 14.9 (10-20); Creatinine Clr Calc Pharmacy 78.2 ml/min; Est GFR (African American) 89.2 ml/min; Est GFR (Non-African American) 76.9 ml/min; Potassium 3.2 mmol/L (3.5-5.1)
[2021-06-27] MEDS: GABAPENTIN 300 MG CAP PO SCH ×3 (08:02→20:33)
[2021-06-27] MEDS: PANTOprazole 40 MG TAB PO SCH ×2 (08:02→20:33)
[2021-06-27] MEDS: SERTRALINE HCL 50 MG TABLET PO SCH (08:03)
[2021-06-27] MEDS: METOPROLOL SUCC 25MG EXT REL TAB PO SCH (08:03)
--- NOTE | 2021-06-27 08:05 | Orthopedic Progress Note ---
Date of Service June 27, 2021 Assessment & Plan (1) Lumbar disc herniation with radiculopathy: Plan: Patient stable postop day #2. We will continue with GI and DVT prophylaxis as well as pain control. We will continue mobilize with physical therapy. We will see how he does throughout the day and likely discharge him to home tomorrow. Admission and Anticipated Discharge Date Admission Date: June 23, 2021 Subjective Patient seen bedside in room 386 he is doing well at this point. His pain is well controlled. He had a restful night. His leg symptoms have significantly proved has some soreness in the back itself. He denies any other numbness, tingling, paresthesias. Physical Exam Physical Exam: On exam he is alert and oriented. His lower extreme motor exam reveals no focal atrophy. His strength and sensation are both intact. His abdomen soft nontender his calves are supple nontender. His dressings clean dry and intact. Results & Data ([facility]) Vital Signs (Past 12 Hours) Vital Signs Temp Pulse Resp BP Pulse Ox 06/27/21 07:32 36.9 C 119 H 16 123/82 91 06/26/21 22:15 38.1 C H 115 H 18 118/77 95
[2021-06-27] MEDS ORDERED: INSULIN GLARGINE SOLOSTAR 100 UNITS/ML 3 ML PEN SC SCH ×2 (09:00)
[2021-06-27] MEDS ORDERED: POTASSIUM CHLORIDE CRTAB 20 MEQ TABCR PO ONE (09:15)
[2021-06-27] MEDS: INSULIN ASPART 100 UNITS/ML 3 ML PEN SC SCH ×4 (09:35→20:34)
--- NOTE | 2021-06-27 11:47 | Pharmacy Report ---
Pharmacy Glycemic Short Note 2 - Date of Service June 27, 2021 - Glycemic Short BSG Results (Last 24 hours): 06/26/21 06/26/21 06/26/21 12:25 17:01 20:27 Glucose POC Glucose 181 H 163 H 163 H 06/27/21 06/27/21 06:55 08:27 Glucose 232 H POC Glucose 216 H OUTPATIENT ANTIDIABETIC REGIMEN: * Ozempic 1 mg SQ weekly on Saturdays * Metformin ER 1000 mg PO BID ASSESSMENT: 06/27 * Pt has received 39 units of insulin over the past 24hrs * 18 units of basal with Lantus * 21 units of bolus with NovoLog * BSGs [phone] mg/dl * AM fasting BSG elevated - will increase basal insulin * Post-prandials are in range but higher than desired for post-op glycemic control targets - will tighten CR slightly * Goal is to maintain BSGs <180 (ideally <150) to prevent post-op infectious complications. 06/26 * Patient received total of 33 units of insulin yesterday, of which 15 units were basal * Fasting BSG 145 mg/dL - will titrate up basal more today as PO intake improves * Continue same CF/CR for now 06/25 * 65 y/o M admitted with back and leg pain, plan for lumber decompression/fusion surgery tomorrow. Patient is a Type 2 diabetic managed at home on Ozempic SQ and oral Metformin. * Will hold Ozempic and Metformin while admitted and manage patient's diabetes with basal and bolus insulin. * He received Lantus 5 units last night and this AM. BSG was elevated up to 234 last night due to IV Dexamethasone 10 mg given in ED earlier. * Fasting BSG was 177 mg/dl today AM and pre-lunch BSG came down to 140 mg/dl. * Patient took his last dose of Ozempic on 06/20/21 which should still be working for him. * Added a scale to basal insulin for tonight and tightened Novolog CF/CR to a moderate stress between 2 and 3. PLAN FOR INPATIENT GLYCEMIC CONTROL: * Hold outpatient oral diabetes medications * Basal insulin * Lantus 15 units SQ x 1 dose this AM then 10 units SQ BID * Bolus insulin * NovoLog per scale ACHS or Q6hrs while NPO * Goal Range: Low 110 mg/dL - High 140 mg/dL * Correction Factor: 25 mg/dL/unit * Nutritional / Prandial insulin per carb ratio of 1 unit per 8 grams CHO consumed PLAN FOR DISCHARGE: * A1c 8.0% - goal <7% * Reasonable to continue home diabetic medications at discharge as long as no contraindications exist * Tight glycemic control crucial for healing post-op * Could consider adding additional agent on DC to achieve goal <7% * SGLT2 inhibitor: Decreases major adverse cardiovascular events, intermediate efficacy, low hypo risk, weight loss, /dehydration and risk of amputation (canagliflozin) side effects, high cost * Sulfonylurea: high efficacy, high hypo risk, weight gain, low cost * Thiazolidinedione (TZD): high efficacy, low hypo risk, weight gain, significant side effects (edema, HF, fxs), low cost * Support Patient Self-Management o Healthy Lifestyle (diet, exercise, and smoking cessation) o Disease self-management (SMBG) o Prevention of complications (BP, Lipid goals, Immunizations) o Consider outpatient Diabetes Self-Management Education & Support
[2021-06-27] MEDS: DOCUSATE SODIUM/SENNA 50/8.6MG TAB PO SCH (20:27)
[2021-06-27] MEDS: INSULIN GLARGINE SOLOSTAR 100 UNITS/ML 3 ML PEN SC SCH (20:35)
--- NOTE | 2021-06-27 21:39 | Hospitalist Progress Note ---
Date of Service June 27, 2021 Assessment & Plan (1) Lumbar disc herniation with radiculopathy: Plan: Patient is a 65 yr male with H/O DM II, HLD, Cohn syndrome, sinus tachycardia, depression, hx of duodenal ulcer 2/2 to NSAIDS, history of prior lumbar disc herniation L4-L5 requiring laminectomy by Dr. Baig, who presents to ED secondary to persistent low back pain with bilateral radicular symptoms and MRI findings confirming an L3-L4 lumbar disc herniation with severe canal narrowing and nerve impingement. Lumbar disc herniation with radiculopathy - MRI: Interval enlargement of disc extrusion at L3-L4 with resultant severe spinal canal narrowing and cord impingement. POD #2 s/p removal of posterior instrumentation L4-5, exploration of fusion L4- 5, revision decompression L3-L4 L4-5 and posterior spinal fusion L3-L Per ortho for pain control, wound care, anticoagulation and activities Continue incentive spirometry, PT/OT when appropriate Bowel regimen to prevent constipation Hemoglobin 12.3 today DM II A1c on 04/13/2021 8.0, suboptimal control given age Hold Metformin and Ozempic Lantus/NovoLog per protocol Consult glycemic pharmacy for pre and postoperative management Sinus tachycardia Chronic Continue metoprolol Asymptomatic Depression Mood stable Continue zoloft Hx of PUD continue PPI Avoid nsaids Dispo: med/surg PCP: Ginny Carvalho FULL CODE Thank you for this consultation. We will follow the patient with you during their hospital stay. You can reach a member of the [facility] Hospitalist Team 11/04 via hospitalist role on tiger text. Admission and Anticipated Discharge Date Admission Date: June 23, 2021 Subjective Patient is seen and examined at bedside States having back pain at surgical site + Flatus but no bowel movement yet Denies chest pain, shortness breath, dizziness, nausea, abdominal pain Feels slightly bloated today Review of Systems Review of Systems: All systems reviewed & are unremarkable except as noted in Subjective Physical Exam Physical Exam: Physical Exam: Vitals signs as noted above General Appearance:Moderately built and nourished, no apparent distress Head: normocephalic, Atraumatic Eyes: normal inspection, EOMI Neck: supple, Trachea midline Respiratory/Chest: Normal breath sounds, CTA, No accessory muscle use Cardiovascular: S1, S2, No murmur Abdomen/GI:Soft, Non tender, Bowel sounds present Back: Surgical site in dressing Extremities/Musculoskeletal:normal inspection, no edema Neurologic/Psych:AAOX3, grossly no focal neurological deficits Skin: normal color, warm Results & Data Results & Data ([facility]) Vital Signs (Past 12 Hours) Vital Signs Temp Pulse Resp BP Pulse Ox 06/27/21 14:39 37.3 C 115 H 16 119/79 93 Laboratory Results Short CBC 06/27/21 Range/Units 06:55 WBC 12.87 H (4.8-10.8) K/uL Hgb 12.3 L (14.0-18.0) g/dL Hct 36.1 L (42-52) % Plt Count 179 (130-400) K/uL BMP 06/27/21 06:55 Sodium 133 L Potassium 3.2 L Chloride 97 L Carbon Dioxide 27 BUN 15 Creatinine 1.03 Glucose 232 H Calcium 9.0
[2021-06-28] MEDS: oxyCODONE HCL IR 5 MG TAB (IMMEDIATE RELEASE) PO PRN ×3 (01:53→11:27)
--- NOTE | 2021-06-28 07:17 | Orthopedic Progress Note ---
Date of Service June 28, 2021 Assessment & Plan (1) Lumbar disc herniation with radiculopathy: Plan: Patient is doing well postop day #3. He is independent. His pain is well controlled. This point he is ready for home discharge I reviewed his discharge instructions. His pain medications have been sent to his pharmacy. We will see him in the office for routine follow-up in approximately 2 weeks. Admission and Anticipated Discharge Date Admission Date: June 23, 2021 Subjective Patient is seen bedside in room 386. He rested well overnight. Has been up and walking. He has been independent to transfer. His pain is well controlled. He has no abdominal discomfort. He denies any other numbness, tingling, or paresthesias. Physical Exam Physical Exam: On exam he is alert and oriented. His MAG drain is in place and is holding suction. He has had 30 cc of drainage overnight and 25 on day shift his strength and sensation both intact his dressing is clean dry and intact his abdomen soft nontender his calves are supple nontender. Results & Data ([facility]) Vital Signs (Past 12 Hours) Vital Signs Temp Pulse Resp BP Pulse Ox 06/27/21 23:44 37.0 C 114 H 16 118/81 93
[2021-06-28] MEDS: SERTRALINE HCL 50 MG TABLET PO SCH (07:58)
[2021-06-28] MEDS: PANTOprazole 40 MG TAB PO SCH (08:10)
[2021-06-28] MEDS: METOPROLOL SUCC 25MG EXT REL TAB PO SCH (08:11)
[2021-06-28] MEDS: GABAPENTIN 300 MG CAP PO SCH (08:11)
[2021-06-28] MEDS ORDERED: INSULIN GLARGINE SOLOSTAR 100 UNITS/ML 3 ML PEN SC SCH (09:00)
[2021-06-28 09:10] LABS: BUN Creatinine Ratio 20.2 (10-20); Calcium 9.1 mg/dl (8.5-10.1); Creatinine Clr Calc Pharmacy 110.3 ml/min; Est GFR (African American) 114.4 ml/min; Est GFR (Non-African American) 98.7 ml/min; Magnesium 1.9 mg/dl (1.8-2.4); Potassium 3.3 mmol/L (3.5-5.1)
[2021-06-28] MEDS: INSULIN ASPART 100 UNITS/ML 3 ML PEN SC SCH (09:37)
[2021-06-28] MEDS ORDERED: POTASSIUM CHLORIDE CRTAB 20 MEQ TABCR PO ONE (10:00)
--- NOTE | 2021-06-28 11:36 | Hospitalist Progress Note ---
Date of Service June 28, 2021 Assessment & Plan (1) Lumbar disc herniation with radiculopathy: Plan: Patient is a 65 yr male with H/O DM II, HLD, Cohn syndrome, sinus tachycardia, depression, hx of duodenal ulcer 2/2 to NSAIDS, history of prior lumbar disc herniation L4-L5 requiring laminectomy by Dr. Baig, who presents to ED secondary to persistent low back pain with bilateral radicular symptoms and MRI findings confirming an L3-L4 lumbar disc herniation with severe canal narrowing and nerve impingement. Lumbar disc herniation with radiculopathy - MRI: Interval enlargement of disc extrusion at L3-L4 with resultant severe spinal canal narrowing and cord impingement. POD #3 s/p removal of posterior instrumentation L4-5, exploration of fusion L4- 5, revision decompression L3-L4 L4-5 and posterior spinal fusion L3-L Per ortho for pain control, wound care, anticoagulation and activities Continue incentive spirometry, PT/OT when appropriate Bowel regimen to prevent constipation Hemoglobin 12.3 Had BM Plan to be discharged home by Ortho Hypokalemia Replace electrolytes as needed Advised to follow-up with PCP with a repeat BMP in 1 week DM II A1c on 04/13/2021 8.0, suboptimal control given age Hold Metformin and Ozempic Lantus/NovoLog per protocol Consult glycemic pharmacy for pre and postoperative management Sinus tachycardia Chronic Continue metoprolol Asymptomatic Advised to follow up with Cardiology as outpatient Depression Mood stable Continue Zoloft Hx of PUD continue PPI Avoid nsaids Dispo: med/surg PCP: Ginny Carvalho FULL CODE Thank you for this consultation. We will follow the patient with you during their hospital stay. You can reach a member of the [facility] Hospitalist Team 11/04 via hospitalist role on tiger text. Admission and Anticipated Discharge Date Admission Date: June 23, 2021 Subjective Patient is seen and examined at bedside Had BM Back pain is controlled Denies chest pain, shortness breath, dizziness, nausea, abdominal pain No new complaints Review of Systems Review of Systems: All systems reviewed & are unremarkable except as noted in Subjective Physical Exam Physical Exam: Physical Exam: Vitals signs as noted above General Appearance:Moderately built and nourished, no apparent distress Head: normocephalic, Atraumatic Eyes: normal inspection, EOMI Neck: supple, Trachea midline Respiratory/Chest: Normal breath sounds, CTA, No accessory muscle use Cardiovascular: S1, S2, No murmur Abdomen/GI:Soft, Non tender, Bowel sounds present Back: Surgical site in dressing, + Drain Extremities/Musculoskeletal:normal inspection, no edema Neurologic/Psych:AAOX3, grossly no focal neurological deficits Skin: normal color, warm Results & Data Results & Data ([facility]) Vital Signs (Past 12 Hours) Vital Signs Temp Pulse Resp BP Pulse Ox 06/28/21 08:41 37 C 112 H 16 128/81 93 06/28/21 07:49 37 C 112 H 16 128/81 93 06/27/21 23:44 37.0 C 114 H 16 118/81 93 Laboratory Results [facility] 06/28/21 08:18 Sodium 133 L Potassium 3.3 L Chloride 99 Carbon Dioxide 27 BUN 15 Creatinine 0.73 D Glucose 195 H Calcium 9.1
--- NOTE | 2021-06-30 09:16 | Discharge Summary ---
Date of Service June 30, 2021 Admission HPI Per Admitting Provider This is a 65-year-old male who well-known to me having undergone a previous decompression fusion over a year ago. He states that beginning in March he began noticing marked decline in status with back pain radiating into the bilateral extremities particularly in the right. This has been progressive in nature. He now presents with severe pain rating to the right buttock lateral thigh to the knee and anterior tibia on the right. He notes significant deficits to the quadricep on the right unable to stand and ambulate with any comfort or a center descend stairs without his leg giving way. Left lower extremity is stable. He notes significant numbness involving the entire right lower extremity. Admission Exam (Per Admitting) Constitutional + acute distress Eyes normal visual santos by confrontation ENMT external ear and nose normal, oropharynx normal Neck normal visual inspection Respiratory normal respiratory effort Cardiovascular Extremities: normal capillary refill Gastrointestinal (Abdomen) Inspection/Auscultation: abdomen normal to inspection Musculoskeletal Extremities: extremities normal to inspection Skin no rashes, warm and dry Neurologic normal touch/pain/proprioception, moves all extremities and + focal motor deficit Psychiatric A+Ox3, euthymic affect Orientation: alert and oriented x 3 Discharge Data Consultations 06/23/21 18:58 ED Decision to Admit Stat 06/23/21 22:13 Consult Anesthesiology Routine Consult Internal Medicine Routine Procedures Performed Operation Date: 06/25/21 08:15 Actual Procedures p L3-L4 Lumbar Decompression Fusion, Spinal Cord Monitoring - Emmett Baig DO s L4-L5 Hardware Removal - Emmett Baig DO Hospital Course (1) Lumbar disc herniation with radiculopathy: Patient was admitted to the hospital via the emergency room due to intractable lower back pain with disc herniation resulting in severe lower extremity pain and weakness. He underwent above-mentioned surgical procedure. Postoperatively he did well. Made great progress in physical therapy. Pain was well controlled. Lab values stable. He was discharged home on postoperative day 3. Patient is doing well postop day #3. He is independent. His pain is well controlled. This point he is ready for home discharge I reviewed his discharge instructions. His pain medications have been sent to his pharmacy. We will see him in the office for routine follow-up in approximately 2 weeks. Discharge Instructions ACTIVITY RECOMMENDATIONS: SELF CARE INSTRUCTIONS AFTER THORACIC/LUMBAR FUSIONS 1. You may walk to your tolerance. It is good exercise for your legs and back. Expect some back and intermittent leg aches and pains. 2. You may perform "counter-top" level activities (make a sandwich, sosa with a project, etc.). 3. No bending or lifting of more than 10 pounds or back twisting of any nature (roll like a log when turning in bed). 4. You may ride in a car for 20-30 minutes at a time. No driving until after your first visit with your doctor. 5. Frequent changes of position and restricting sitting to 30 minutes at a time will help limit the amount of back spasms and stiffness you may experience. 6. You may discontinue the use of ambulatory aids (cane, crutches, etc.) once your strength and confidence allow. 7. You may unemployment inspector the shower and let water strike your incision when you arrive home at least once daily. Do not take a tub bath, sit in a hot tub or go into a swimming pool until after your first recheck in the office. SPECIAL CARE INSTRUCTIONS: VERY IMPORTANT TO READ AND REVIEW A. Your surgical incision has been closed with a cosmetic suture under the skin that will dissolve in about 6 weeks. In 14 days, you can use a pair of clean scissors and cut the suture that is left outside of the skin at the ends of your incision. 1. The small skin tapes can be removed 7 days after surgery if they have not fallen off by that point. 2. You may keep the wound open to air as much as possible to promote healing after post-op day number 5 unless told otherwise by your doctor. 3. If you think the wound looks like it is becoming infected (redness or worsening drainage) and/or you are experiencing fever, chill or worsening back pain and muscle spasms, contact the office so that we may evaluate you as soon as possible. B. Complications are uncommon, but please contact us if you have any signs or symptoms of: 1. wound infection (fever higher than 102.5 degrees F, redness, separation of wound, drainage, or increasing pain from the incision) 2. blood clots in legs (pain, swelling, redness and warmth in legs) 3. urinary tract infection (fever higher than 102.5 degrees F, burning upon urination or increased frequency of urination) 4. nerve problems (inability to walk on your toes or heels, numbness, loss of bowel or bladder control) 5. any other symptoms that concern you C. Please call the office at if you have any concerns or questions about your operation or recovery. D. No smoking! Smoking drastically decreases the chance of a solid fusion. E. Do not take any anti-inflammatory medications (Indocin, Advil, Motrin, Aspirin, Naprosyn, etc.) as these may inhibit the chance of a solid fusion. Tylenol is okay to take for pain. MANAGING PAIN AFTER SPINAL SURGERY 1. Narcotic medication is intended for short-term use and will be provided for surgical pain. Surgical pain usually lasts for a period of 4-6 weeks. Narcotic medication includes Percocet, Vicodin, Darvocet, Tylenol #3 or Lortab. 2. Longer-term pain is more appropriately treated with non-narcotic medication such as Tylenol ES. 3. Muscle spasm is not appropriately treated with narcotics. Muscle relaxers such as Soma, Flexeril or Skelaxin can be used along with Tylenol ES. 4. Remember that we all live with some "aches and pains". This is not unusual or uncommon after an injury or as we get older. a. Back pain is expected and may include muscle spasms for 4 to 6 weeks after surgery. The pain should gradually improve. If the pain worsens for no apparent reason, please contact the office. b. Intermittent leg pain may also be experienced and should not be concerned about unless it worsens for no apparent reason. If so, please contact the office. 5. We will provide appropriate medication within the normal guidelines of their prescribed use. We will also be very cautious and aware of potential abuse and extended duration of patients' medication needs. a. Pain medications are for your comfort and to assist with sleep and rest so that the tissue can heal. They are not provided in order to return to normal activity and should not be used through the day. To do so or worsening pain at night can result from ongoing tissue damage and development of tolerance to the prescribed medicine. 6. Please allow 2-3 days to process refills. Prescriptions will not be mailed but must be picked up at the office. FOLLOW UP VISIT: Keep your scheduled follow-up appointment. Any questions, please call the office at .
== END 2021-06-28 12:15 | disposition home or self-care (01) | DRG 455 ==
LOC: ED 14:11 → 3N 19:09
DX: M51.16 Intervertebral disc disorders with radiculopathy, lumbar region; E87.6 Hypokalemia; Z83.3 Family history of diabetes mellitus; Z79.84 Long term (current) use of oral hypoglycemic drugs; Z88.6 Allergy status to analgesic agent; Z98.1 Arthrodesis status; R00.0 Tachycardia, unspecified; E11.9 Type 2 diabetes mellitus without complications; I10 Essential (primary) hypertension; Z87.891 Personal history of nicotine dependence; E78.5 Hyperlipidemia, unspecified; F39 Unspecified mood [affective] disorder

== ENCOUNTER 2022-06-23 11:56 | Inpatient (IN) ==
[2022-06-23 12:39] LABS: Basophils # (auto) 0.04 K/uL (0-0.2); Basophils % (auto) 0.4 %; Eosinophils # (auto) 0.03 K/uL (0-0.50); Eosinophils % (auto) 0.3 %; Hematocrit (blood only) 42.8 % (40.1-51.0); Lymphocytes # (auto) 0.89 K/uL (1.2-3.4); Lymphocytes % (auto) 8.8 %; Mean Corpuscular Hemoglobin 31.1 pg (25.0-34.0); Mean Corpuscular Volume 88.6 fL (80.0-100.0); Mean Platelet Volume 12.4 fL (9.4-12.4); Monocytes # (auto) 0.48 K/uL (0.24-0.82); Monocytes % (auto) 4.8 %; Neutrophils # (auto) 8.53 K/uL (1.4-6.5); Neutrophils % (auto) 84.7 %; Platelet Count 179 K/uL (130-400); RDW Coefficient of Variation 13.6 % (11.5-14.5); RDW Standard Deviation 44.3 fL (36.4-46.3); Red Blood Count 4.83 M/uL (4.63-6.08); White Blood Count 10.07 K/ul (4.8-10.8)
[2022-06-23 13:05] LABS: Alanine Aminotransferase 27 U/L (7-52); Albumin Globulin Ratio 1.7 (0.9-2); Albumin Level 4.5 gm/dl (3.4-5.0); Alkaline Phosphatase 36 U/L (34-104); Anion Gap 12 (3-11); Aspartate Aminotransferase 20 U/L (13-39); BUN Creatinine Ratio 36.8 (10-20); Bilirubin,Total 0.8 mg/dl (0.2-1.0); Blood Urea Nitrogen 28 mg/dl (6-23); Calcium 9.3 mg/dl (8.5-10.1); Carbon Dioxide 22 mmol/L (21-32); Chloride 99 mmol/L (98-107); Est GFR (African American) 111.7 ml/min; Est GFR (Non-African American) 96.4 ml/min; Globulin 2.6 gm/dl (2.5-4.0); Glucose 255 mg/dl (70-99(Fasting)); Potassium 4.5 mmol/L (3.5-5.1); Sodium 133 mmol/L (136-145); Total Protein 7.1 gm/dl (6.0-8.3)
[2022-06-23] MEDS ORDERED: ONDANSETRON INJ 2 MG/ML 2 ML VIAL IV STA (13:47)
[2022-06-23] MEDS ORDERED: SODIUM CHLORIDE 0.9% 1000ML 1,000 ML IV ONE ×2 (13:47→20:27)
[2022-06-23] MEDS ORDERED: MoRPHine SULFATE 10 MG/ML CARP/VIAL IV STA ×2 (13:47→15:34)
--- NOTE | 2022-06-23 14:03 | Emergency Department Note ---
Impression & Plan Disc herniation, Back pain, Radiculopathy, HTN (hypertension) ED Provider Note NAME: ANDRESSA AUSTIN AGE: 66 SEX: M : 1955 ARRIVES VIA: Walk-In INFORMANT: Patient ED PROVIDER(S): Jm Crowe DO CHIEF COMPLAINT: back pain HPI: Patient is a 66-year-old male with a past medical history of back surgeries x3. He has had chronic back pain over the past 3 years. He fell over the summer then again last week. He was seen and evaluated. He has been having persistent pain since then. He is unable to get up and move around due to severe 8 out of 10 pain. It improves with rest. Follows with Dr. Baig and was referred in. Last night while he was sleeping he wet the bed. He has been able to urinate and move his bowels without difficulty while awake. Denies any chest pain or shortness of breath. No other exacerbating or remitting factors. ROS: See above HPI for pertinent positives & negatives. A total of 10 systems r eviewed and were otherwise negative. PAST MEDICAL HISTORY:See Below PAST SURGICAL HISTORY:See Below FAMILY HISTORY:See Below SOCIAL HISTORY:See Below HOME MEDICATIONS:See Below ALLERGIES:See Below VITALS:See Below PHYSICAL EXAMINATION: GENERAL: Sitting up in bed, alert, well appearing, well nourished, no distress, non-toxic EYE EXAM: normal conjunctiva. OROPHARYNX: no exudate, no erythema, lips, buccal mucosa, and tongue normal and mucous membranes are moist NECK: supple, no nuchal rigidity, no adenopathy, non-tender LUNGS: Clear to auscultation. Normal chest wall mechanics HEART: no murmurs, S1 normal and S2 normal ABDOMEN: abdomen soft, non-tender, normo-active bowel sounds, no masses, no rebound or guarding. BACK: Back is symmetrical on inspection and there is no deformity, severe tenderness in the lower lumbar spine UPPER EXTREMITIES: upper extremities are grossly normal. LOWER EXTREMITIES: Flexion and extension of the hips, knees, ankles, and EHL 4/5 bilaterally. Gross sensation is intact. DPs are 2/4 bilateral. Patellar and Achilles reflexes are 2/4 bilateral NEURO EXAM: Normal sensorium, cranial nerves II-XII grossly intact, normal speech, no gross weakness of arms, no gross weakness of legs. MEDICAL DECISION MAKING: Patient is a 66-year-old male who presents ER for severe back pain. IV was established blood work was obtained. Labs show no significant leukocytosis or anemia. BMP with mild hyponatremia 133. Glucose slightly up at 255. LFTs bilirubin was unremarkable. Patient was given dose steroids and 2 dose of IV narcotics. Discussed with Dr. Baig and recommended MRI of the spine. Following the result of the MRI discussed with Kesha Balderas. We reviewed the results of the development of bilateral paracentral disc extrusion at L2-3 with ligamentous migration abutting and displacing bilateral L2 nerve roots causing moderate central canal and bilateral neural foraminal narrowing. Discussed the case with Dr. Elizabeth per spine and he agrees to see the patient and admit him overnight. Dr. Baig service will see him in the morning. Start Time: 1330 Reason: Patient with PMHx of chronic back issues underwent ED Observation for back pain. Fam Hx: No pertinent family history SocHx: See Below Assessment(s): As described above Summary: As described above Disposition: 06/23/2022 at 1930 Total Time: 6hrs Triage Nursing notes reviewed. Limited review of prior medical records performed Vital Signs: reviewed and remarkable for HTN Differential diagnosis: Musculoskeletal, disc herniation, fracture, metastatic disease, cord compression, discitis, sciatica, cauda equina, infection, aortic disease, renal colic, gastrointestinal, as well as other pathologies. ER treatment provided: See below Diagnostics interpreted by me: ECG: none Cardiac Monitoring: An order was placed for continuous cardiac monitoring. The monitor shows a rate of 90 with sinus rhythm. Laboratory studies: As stated above and show below. Imaging studies: MRI as described above Consultation(s): As described above discussed with Petros Baig prior to the MRI and Kesha Balderas following the MRI. Discussed with Dr. Werner Elizabeth for admission Procedures: none Critical Care: None Past Med/Surg History Medical History (Updated 06/23/22 @ 19:44 by Jm Crowe DO) Anemia S/p blood transfusion x 2 (09/23/19 and 09/27/19). Subsequent Hgb checks stable in 9.2-10.0 range Arthritis Diabetes IDDM Diabetes mellitus, type II Dyslipidemia Gout History of bleeding peptic ulcer History of GI bleed Mood disorder Pancreatic mass NEWLY FOUND AND NEEDS EUS ON 10/19 Surgical History (Updated 06/14/22 @ 17:00 by Cale Cerda) H/O vein stripping RIGHT AND LEFT History of esophagogastroduodenoscopy (EGD) Hx of colonoscopy Hx of laminectomy LUMBAR FOR HERNIATED DISC 10/01/19 Hx of right knee surgery BONE SPUR REMOVED S/P herniorrhaphy UMBILICAL HERNIA REPAIR Family History Other Cancer Diabetes Heart disease Hypertension Denies family history of No pertinent family history Social History Smoking Status: Never smoker Tobacco Type: Cigarettes Second Hand Exposure: No; Hx Alcohol Use: No Hx Substance Use: No Preferred Language: Greenlandic Communication Ability: Effective Visual Impairment: No Limitations Hearing Ability: Normal Allergy Specialist Required: No Beliefs That Will Affect Care: None marital status: Current Living Situation: Spouse Current Living Situation Comment: home current occupational status: employed Feels Safe at Home: Yes Assistive Devices: Glasses Allergies Allergies Allergy/AdvReac Type Severity Reaction Status Date / Time NSAIDS (Non-Steroidal AdvReac Unknown HX OF GI Verified 06/23/22 16:13 Anti-Inflamma BLEED Home Meds Home Medications Medication Instructions Recorded Confirmed metformin 500 mg tablet,extended 500 mg PO BID 09/23/19 06/23/22 release 24 hr acetaminophen 500 mg tablet 1,000 mg PO QID PRN Pain 06/10/21 06/23/22 (Tylenol Extra Strength) semaglutide 1 mg/dose (2 mg/1.5 1 mg subcut WK 06/10/21 06/23/22 mL) subcutaneous pen injector (Empressr) metoprolol succinate 25 mg 25 mg PO DAILY 06/23/21 06/23/22 tablet,extended release 24 hr sertraline 25 mg tablet 25 mg PO DAILY 06/23/21 06/23/22 diclofenac sodium 75 mg 75 mg PO BID 06/23/22 06/23/22 tablet,delayed release gabapentin 400 mg capsule 400 mg PO QID 06/23/22 06/23/22 Results & Data (ED) Vital Signs Vital Signs - 24 hr 06/23/22 12:00 06/23/22 14:15 06/23/22 16:00 Temperature 36.8 C Temperature Source Temporal Artery Scan Pulse Rate 105 H Pulse Rate [Right Finger] 109 H 94 H Pulse Rhythm [Right Finger] Regular Pulse Strength [Right Finger] Normal Respiratory Rate 18 18 Respiratory Effort / Characteristics Non-Labored Respiratory Depth Normal Respiratory Pattern Regular Blood Pressure 162/98 H Blood Pressure [Right Arm] 168/87 H 168/97 H Blood Pressure Mean 119 Blood Pressure Mean [Right Arm] 114 120 Blood Pressure Position Sitting Pulse Oximetry 96 98 97 Oxygen Delivery Method Room Air Room Air Room Air Sepsis Recent Fever Within 48 Hours No Sepsis New/Unexplained Change in Mental Status No Sepsis Action Taken by Nursing No Action Required Laboratory Data Result diagrams: 06/23/22 12:19 06/23/22 12:19 Lab Results 06/23/22 06/23/22 Range/Units 12:19 12:19 WBC 10.07 (4.8-10.8) K/ul RBC 4.83 (4.63-6.08) M/uL Hgb 15.0 (14.0-18.0) g/dl Hct 42.8 (40.1-51.0) % MCV 88.6 (80.0-100.0) fL MCH 31.1 (25.0-34.0) pg MCHC 35.0 (32.0-36.0) g/dL RDW Std Deviation 44.3 (36.4-46.3) fL RDW Coeff of Justin 13.6 (11.5-14.5) % Plt Count 179 (130-400) K/uL MPV 12.4 (9.4-12.4) fL Immature Gran % (Auto) 1.0 % Neut % (Auto) 84.7 % Lymph % (Auto) 8.8 % [place] % (Auto) 4.8 % Eos % (Auto) 0.3 % Baso % (Auto) 0.4 % Neut # (Auto) 8.53 H (1.4-6.5) K/uL Lymph # (Auto) 0.89 L (1.2-3.4) K/uL [place] # (Auto) 0.48 (0.24-0.82) K/uL Eos # (Auto) 0.03 (0-0.50) K/uL Baso # (Auto) 0.04 (0-0.2) K/uL Immature Gran # (Auto) 0.10 H (0.00-0.02) K/uL Sodium 133 L (136-145) mmol/L Potassium 4.5 (3.5-5.1) mmol/L Chloride 99 (98-107) mmol/L Carbon Dioxide 22 (21-32) mmol/L Anion Gap 12 H (3-11) BUN 28 H (6-23) mg/dl Creatinine 0.76 (0.6-1.4) mg/dl Est Cr Clr Drug Dosing Not Reportable Est GFR ( Amer) 111.7 ml/min Est GFR (Non-Af Amer) 96.4 ml/min BUN/Creatinine Ratio 36.8 H (10-20) Glucose 255 H (70-99(Fasting)) mg/dl Calcium 9.3 (8.5-10.1) mg/dl Total Bilirubin 0.8 (0.2-1.0) mg/dl AST 20 (13-39) U/L ALT 27 (7-52) U/L Alkaline Phosphatase 36 (34-104) U/L Total Protein 7.1 (6.0-8.3) gm/dl Albumin 4.5 (3.4-5.0) gm/dl Globulin 2.6 (2.5-4.0) gm/dl Albumin/Globulin Ratio 1.7 (0.9-2) Administered Medications Discontinued Medications Sodium Chloride (Nss 1000ml) 1,000 mls @ 999 mls/hr IV .Q1H1M ONE Stop: 06/23/22 14:47 Last Infusion: 06/23/22 16:06 Dose: 0 mls/hr Documented By: RSSrinivas Admin: 06/23/22 14:12 Dose: 999 mls/hr Documented By: MES Morphine Sulfate (Morphine Sulfate 10 Mg/Ml Carp/Vial) 6 mg IV NOW STA Stop: 06/23/22 13:48 Last Admin: 06/23/22 14:09 Dose: 6 mg Documented By: MES Morphine Sulfate (Morphine Sulfate 10 Mg/Ml Carp/Vial) 6 mg IV NOW STA Stop: 06/23/22 15:35 Last Admin: 06/23/22 15:45 Dose: 6 mg Documented By: RSL Ondansetron HCl (Ondansetron Inj 2 Mg/Ml 2 Ml Vial) 4 mg IV NOW STA Stop: 06/23/22 13:48 Last Admin: 10/05/22 14:09 Dose: 4 mg Documented By: GLENDA Discharge Plan Visit Data Chief Complaint: Back Injury/Pain Stated Complaint: back pain, can't walk, incontinent ED Provider: Jm Crowe Discharge Problem: Disc herniation, Back pain, Radiculopathy, HTN (hypertension) Forms Stand Alone Forms: [facility] Prescriptions Prescriptions: No Action metformin 500 mg tablet extended release 24 hr 500 mg PO BID acetaminophen [Tylenol Extra Strength] 500 mg Tablet 1,000 mg PO QID PRN (Reason: Pain) Ozempic 1 mg/dose (2 mg/1.5 mL) Pen Injector 1 mg SUBCUT WK Rx Instructions: tuesday metoprolol succinate 25 mg tablet extended release 24 hr 25 mg PO DAILY sertraline 25 mg tablet 25 mg PO DAILY gabapentin 400 mg capsule 400 mg PO QID diclofenac sodium 75 mg tablet,delayed release (DR/EC) 75 mg PO BID Referrals Referrals: Ginny Carvalho DO [Primary Care Provider] -
[2022-06-23] MEDS ORDERED: MoRPHine SULFATE 2 MG/ML CARP IV PRN (19:41)
[2022-06-23] MEDS ORDERED: MoRPHine SULFATE 4 MG/ML 1 ML CARP\\VIAL IV PRN ×2 (19:41→20:27)
--- NOTE | 2022-06-23 20:22 | History & Physical Report ---
Date of Service June 23, 2022 Assessment & Plan (1) Back pain: Plan: Lumbar radiculopathy History of multiple surgeries Recent trauma. Patient now presenting with urinary incontinence symptoms HTN, slightly elevated Hyperlipidemia on statin Rx DM 2 on oral medications, well-controlled as of recent hemoglobin A1c of 7 last September 2021 anxiety/mood disorder, at baseline History PUD/diverticulosis past tobacco abuse OBS [facility] Orthopedic spine consult Re: traumatic back pain N.p.o. until patient seen by orthopedics in a.m in anticipation of procedural intervention. Basal insulin adjusted for n.p.o. status, ISS BG goal 1 10-1 40, update hemoglobin A1c DVT prophylaxis. SCDs Re: Possible procedure Text document was generated using [employer] voice recognition software. It may contain grammatical or spelling errors. Kindly contact undersigned for clarification of any documentation item in question. History of Present Illness Chief Complaint: Worsening back pain Primary Care Provider: Ginny Carvalho DO History obtained from patient and records. Medical history significant for HTN, DM 2 on oral medications, hyperlipidemia, osteoarthritis, anxiety/mood disorder, past tobacco abuse, PUD/diverticulosis. Last confinement June 2021 under Orthopedics spine service for elective lumbar decompression surgery for lumbar disc herniation with radiculopathy. Patient slid from the roof of his home about 10 days ago while painting it. Patient twisted his back. Noted achy low back pain with radiation to the left lower leg. No fever, no chills. No incontinence symptoms. Patient seen at the ER. No acute fractures on lumbar spine x-ray. Patient subsequently discharged home. Worsening pain especially on ambulation in the last week. Pain radiating more to the right leg. Patient seen at PCP's office yesterday. Patient started on gabapentin, lidocaine, and diclofenac. Outpatient lumbar spine MRI and orthopedic spine consult recommended. This morning, patient noted urinary incontinence symptoms. Patient brought to the ER by for evaluation. 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 Allergies Allergy/AdvReac Type Severity Reaction Status Date / Time NSAIDS (Non-Steroidal AdvReac Unknown HX OF GI Verified 06/23/22 16:13 Anti-Inflamma BLEED Home Medications Medication Instructions Recorded Confirmed Type metformin 500 mg tablet,extended 500 mg PO BID 09/23/19 06/23/22 History release 24 hr acetaminophen 500 mg tablet 1,000 mg PO QID PRN Pain 06/10/21 06/23/22 History (Tylenol Extra Strength) semaglutide 1 mg/dose (2 mg/1.5 1 mg subcut WK 06/10/21 06/23/22 History mL) subcutaneous pen injector (Ozempic) metoprolol succinate 25 mg 25 mg PO DAILY 06/23/21 06/23/22 History tablet,extended release 24 hr sertraline 25 mg tablet 25 mg PO DAILY 06/23/21 06/23/22 History diclofenac sodium 75 mg 75 mg PO BID 06/23/22 06/23/22 History tablet,delayed release gabapentin 400 mg capsule 400 mg PO QID 06/23/22 06/23/22 History Past Med/Surg History Medical History (Updated 06/23/22 @ 19:44 by Jm Crowe DO) Anemia S/p blood transfusion x 2 (09/23/19 and 09/27/19). Subsequent Hgb checks stable in 9.2-10.0 range Arthritis Diabetes IDDM Diabetes mellitus, type II Dyslipidemia Gout History of bleeding peptic ulcer History of GI bleed Mood disorder Pancreatic mass NEWLY FOUND AND NEEDS EUS ON 10/19 Surgical History (Updated 06/14/22 @ 17:00 by Cale Cerda) H/O vein stripping RIGHT AND LEFT History of esophagogastroduodenoscopy (EGD) Hx of colonoscopy Hx of laminectomy LUMBAR FOR HERNIATED DISC 10/01/19 Hx of right knee surgery BONE SPUR REMOVED S/P herniorrhaphy UMBILICAL HERNIA REPAIR Family History Other Cancer Diabetes Heart disease Hypertension Denies family history of No pertinent family history Social History Smoking Status: Former smoker Tobacco Type: Cigarettes Cigarettes Per Day: A pack a day 20 years ago.; Smoking End Date: 20 years ago.; Second Hand Exposure: No; Do You Dip or Chew Tobacco: Yes (Used to quit smoking.); Tobacco Cessation Education Requested by Patient: No Hx Alcohol Use: Yes Alcohol type: beer Hx Substance Use: No Preferred Language: Singaporean Communication Ability: Effective Visual Impairment: No Limitations Hearing Ability: Normal Manager Multimedia Required: No Beliefs That Will Affect Care: None marital status: Current Living Situation: Alone Current Living Situation Comment: home current occupational status: employed Other Information That Helps Us Care for You: No Feels Safe at Home: Yes Safety Concerns: Feels Safe At This Time Assistive Devices: Denture - Upper, Denture - Lower and Glasses Review of Systems Review of Systems: As per HPI, all other systems reviewed and negative Physical Exam Physical Exam: GENERAL: Slightly uncomfortable, pleasant, no respiratory distress SKIN: Normal color, warm HEENT: Bespectacled, pink palpebral conjunctivae, no ptosis, dry buccal mucosa NECK : Supple, no tenderness CHEST : CTA, no tenderness HEART : RRR, no obvious murmurs ABDOMEN: Some distention, nontender BACK : Low back tenderness, negative SLR EXTREMITIES : No LE swelling/tenderness, no other conspicuous deformities noted NEUROLOGIC : Coherent, no facial asymmetry, gait and stance not assessed Results & Data Results & Data ([facility]) Vital Signs (Past 12 Hours) Vital Signs Temp Pulse Pulse Resp BP BP Pulse Ox 06/23/22 18:00 92 H 20 137/87 98 06/23/22 16:00 94 H 18 168/97 H 97 06/23/22 14:15 109 H 168/87 H 98 06/23/22 12:00 36.8 C 105 H 18 162/98 H 96 O2 Del Method 06/23/22 18:00 Room Air 06/23/22 16:00 Room Air 06/23/22 14:15 Room Air 06/23/22 12:00 Room Air Laboratory Results Laboratory Results WBC 10.07 K/ul (4.8-10.8) 06/23/22 12:19 RBC 4.83 M/uL (4.63-6.08) 06/23/22 12:19 Hgb 15.0 g/dl (14.0-18.0) 06/23/22 12:19 Hct 42.8 % (40.1-51.0) 06/23/22 12:19 MCV 88.6 fL (80.0-100.0) 06/23/22 12:19 MCH 31.1 pg (25.0-34.0) 06/23/22 12:19 MCHC 35.0 g/dL (32.0-36.0) 06/23/22 12:19 RDW Std Deviation 44.3 fL (36.4-46.3) 06/23/22 12:19 RDW Coeff of Justin 13.6 % (11.5-14.5) 06/23/22 12:19 Plt Count 179 K/uL (130-400) 06/23/22 12:19 MPV 12.4 fL (9.4-12.4) 06/23/22 12:19 Immature Gran % (Auto) 1.0 % 06/23/22 12:19 Neut % (Auto) 84.7 % 06/23/22 12:19 Lymph % (Auto) 8.8 % 06/23/22 12:19 [place] % (Auto) 4.8 % 06/23/22 12:19 Eos % (Auto) 0.3 % 06/23/22 12:19 Baso % (Auto) 0.4 % 06/23/22 12:19 Neut # (Auto) 8.53 K/uL (1.4-6.5) H 06/23/22 12:19 Lymph # (Auto) 0.89 K/uL (1.2-3.4) L 06/23/22 12:19 [place] # (Auto) 0.48 K/uL (0.24-0.82) 06/23/22 12:19 Eos # (Auto) 0.03 K/uL (0-0.50) 06/23/22 12:19 Baso # (Auto) 0.04 K/uL (0-0.2) 06/23/22 12:19 Immature Gran # (Auto) 0.10 K/uL (0.00-0.02) H 06/23/22 12:19 Sodium 133 mmol/L (136-145) L 06/23/22 12:19 Potassium 4.5 mmol/L (3.5-5.1) 06/23/22 12:19 Chloride 99 mmol/L (98-107) 06/23/22 12:19 Carbon Dioxide 22 mmol/L (21-32) 06/23/22 12:19 Anion Gap 12 (3-11) H 06/23/22 12:19 BUN 28 mg/dl (6-23) H 06/23/22 12:19 Creatinine 0.76 mg/dl (0.6-1.4) 06/23/22 12:19 Est Cr Clr Drug Dosing Not Reportable 06/23/22 12:19 Est GFR ( Amer) 111.7 ml/min 06/23/22 12:19 Est GFR (Non-Af Amer) 96.4 ml/min 06/23/22 12:19 BUN/Creatinine Ratio 36.8 (10-20) H 06/23/22 12:19 Glucose 255 mg/dl (70-99(Fasting)) H 06/23/22 12:19 Calcium 9.3 mg/dl (8.5-10.1) 06/23/22 12:19 Total Bilirubin 0.8 mg/dl (0.2-1.0) 06/23/22 12:19 AST 20 U/L (13-39) 06/23/22 12:19 ALT 27 U/L (7-52) 06/23/22 12:19 Alkaline Phosphatase 36 U/L (34-104) 06/23/22 12:19 Total Protein 7.1 gm/dl (6.0-8.3) 06/23/22 12:19 Albumin 4.5 gm/dl (3.4-5.0) 06/23/22 12:19 Globulin 2.6 gm/dl (2.5-4.0) 06/23/22 12:19 Albumin/Globulin Ratio 1.7 (0.9-2) 06/23/22 12:19 Diagnostic Findings Lumbar spine MRI: 1. Interval development of bilateral paracentral disc extrusions at L2-L3 which demonstrate superior subligamentous migration. These abut/displace the bilateral transiting L2 nerve roots. There is also mild to moderate central canal and mild to moderate bilateral neural foraminal narrowing at L2-L3. 2. Additional areas of bilateral neural foraminal narrowing as described above. 3. Posterior decompression and fusion from L3 through L5 with pedicle screws and rods. 4. No fracture or subluxation. (1) Back pain Back pain laterality: bilateral Back pain location: low back pain Chronicity: acute Sciatica laterality: bilateral sciatica Sciatica presence: with sciatica Qualified Code(s): M54.42 - Lumbago with sciatica, left side; M54.41 - Lumbago with sciatica, right side
[2022-06-23] MEDS ORDERED: LORazepam 0.5 MG TAB PO PRN (20:27)
[2022-06-23] MEDS ORDERED: PROMETHAZINE HCL 12.5 MG in SODIUM CHLORIDE 0.9% 50 ML IV PRN (20:27)
--- NOTE | 2022-06-23 20:30 | Magnetic Resonance Report ---
LUMBAR SPINE MRI HISTORY: severe lower back pain TECHNIQUE: Multiplanar multisequence MRI of the lumbar spine was performed without the use of contras t. COMPARISON: Lumbar spine radiograph 06/14/2022. Lumbar spine CT 03/01/2022. Lumbar spine MRI 06/23/2021 . FINDINGS: For the purpose of the report the L5-S1 disc space will be located on axial image 27 of 30. Straightening of the lumbar spine. No acute fracture or subluxation. The visualized sacrum is intact. Paravertebral soft tissues are unremarkable. Small fluid collection at the L4-5 laminectomy site noelle suring 18 mm. This favors a postoperative seroma. There is posterior decompression fusion from L3 thr ough L5 with pedicle screws and rods. There is moderate disc space narrowing at L5-S1, unchanged. The re is mild disc space narrowing at L2-L3 which has progressed. The conus terminate at the L1 level. L1-L2: Small broad-based posterior disc bulge with a focal central annular tear. No significant centr al canal or neural foraminal narrowing. L2-L3: Bilateral paracentral disc extrusions demonstrating superior subligamentous migration. The lef t paracentral disc extrusion measures 19 x 8 x 5 mm and appears to abut and compress the transiting l eft L2 nerve root. The right paracentral disc extrusion measures 17 x 6 x 5 mm and likely abuts the t ransiting right L2 nerve root. These result in mild to moderate central canal narrowing at these leve ls with the AP diameter measuring 9 mm. There is also mild to moderate bilateral neural foraminal mason rowing due to the broad-based posterior disc bulge and facet hypertrophy. L3-L4: No significant central canal narrowing due to the posterior decompression. There is moderate r ight and mild left neural foraminal narrowing. L4-L5: No significant central canal narrowing due to the posterior decompression. There is severe rig ht and moderate left neural foraminal narrowing. L5-S1: No significant central canal narrowing due to the posterior decompression. There is moderate t o severe bilateral neural foraminal narrowing. IMPRESSION: 1. Interval development of bilateral paracentral disc extrusions at L2-L3 which demonstrate superior subligamentous migration. These abut/displace the bilateral transiting L2 nerve roots. There is also mild to moderate central canal and mild to moderate bilateral neural foraminal narrowing at L2-L3. 2. Additional areas of bilateral neural foraminal narrowing as described above. 3. Posterior decompression and fusion from L3 through L5 with pedicle screws and rods. 4. No fracture or subluxation. ACT 112: Negative or not required by law. Electronically signed by: David Galvan M.D. 06/23/2022 8:28 PM
[2022-06-23] MEDS ORDERED: GLUCOSE 40% GEL 15 GM TUBE PO PRN (22:48)
[2022-06-23] MEDS ORDERED: CARBOHYDRATES FOR HYPOGLYCEMIA PO PRN (22:48)
[2022-06-23] MEDS ORDERED: GLUCAGON FOR INJ 1 MG VIAL SQ PRN (22:48)
[2022-06-23] MEDS ORDERED: INSULIN ASPART PER UNIT SC SCH (22:48)
[2022-06-23] MEDS ORDERED: DEXTROSE 50% 50 ML SYRINGE IV PRN (22:48)
[2022-06-23] MEDS ORDERED: GLUCOSE 10 TAB/TUBE PO PRN (22:48)
[2022-06-23] MEDS: oxyCODONE HCL IR 5 MG TAB (IMMEDIATE RELEASE) PO PRN (23:41)
[2022-06-23] MEDS: LIDOCAINE 5% 1 PATCH TD SCH (23:42)
[2022-06-23] MEDS: GABAPENTIN 400 MG CAP PO SCH (23:42)
[2022-06-23] MEDS: LANTUS PER UNIT CHARGE SQ SCH (23:54)
[2022-06-24 01:47] LABS: Appearance Urine Clear (Clear); Bilirubin Urine Negative (Negative); Blood Urine Negative (Negative); Color Urine Yellow; Glucose Urine UA 1+ (Negative); Ketones Urine Negative (Negative); Leukocyte Esterase Urine Negative (Negative); Nitrite Urine Negative (Negative); Protein Urine Negative (Negative); Specific Gravity Urine 1.021 (1.000-1.030); Urobilinogen Urine Negative (Negative)
[2022-06-24] MEDS: oxyCODONE HCL IR 5 MG TAB (IMMEDIATE RELEASE) PO PRN ×3 (04:37→19:29)
[2022-06-24] MEDS ORDERED: INSULIN ASPART PER UNIT SC SCH (06:00)
[2022-06-24 07:39] LABS: Estimated Average Glucose 171 mg/dl; Hemoglobin A1C 7.6 % (4.5-5.6)
--- NOTE | 2022-06-24 08:24 | Orthopedic Consultation ---
Date of Consultation June 24, 2022 Assessment & Plan (1) Lumbar disc herniation with radiculopathy: Assessment lumbar disc herniation with severe spinal stenosis and neuroforaminal disease L2-L3. Plan at this time the patient has evidence of adjacent level disc herniation with subsequent stenosis and incapacitating pain. We discussed treatment options. In light of his pain and decline over the past several weeks he would like to pursue surgical intervention. Would require a lumbar decompression and fusion L2-L3 with removal of instrumentation L3-L5. He would require wide decompression bilaterally creating iatrogenic instability subsequently requiring fusion. He also has evidence of extraforaminal disc on the right requiring total facetectomy to adequately address. Risk benefits pros cons alternatives were outlined in detail. Patient understands agrees. We will make him n.p.o. after midnight plan for surgery tomorrow. History of Present Illness Reason for Consultation: Severe back and bilateral leg pain Attending Physician: Crystal Colin MD History of Present Illness This is a 66-year-old male well-known to me the presents now for the second time emergency room with severe back and bilateral thigh pain. He states he did have a fall a few weeks ago and was seen in the emergency room with similar compl aints. His symptoms have progressed since that time. He describes pain rating across the lumbosacral junction into the bilateral buttocks and anterior thighs. Any standing walking or sitting is intolerable. He is requiring IV narcotics to control his symptoms. He is unable to stand or walk for any period of time without severe discomfort. He notes numbness in the thighs but does not appreciate gross strength deficit at this time. Allergies Allergy/AdvReac Type Severity Reaction Status Date / Time NSAIDS (Non-Steroidal AdvReac Unknown HX OF GI Verified 06/23/22 16:13 Anti-Inflamma BLEED Home Medications Medication Instructions Recorded Confirmed Type metformin 500 mg tablet,extended 500 mg PO BID 09/23/19 06/23/22 History release 24 hr acetaminophen 500 mg tablet 1,000 mg PO QID PRN Pain 06/10/21 06/23/22 History (Tylenol Extra Strength) semaglutide 1 mg/dose (2 mg/1.5 1 mg subcut WK 06/10/21 06/23/22 History mL) subcutaneous pen injector (Ozempic) metoprolol succinate 25 mg 25 mg PO DAILY 06/23/21 06/23/22 History tablet,extended release 24 hr sertraline 25 mg tablet 25 mg PO DAILY 06/23/21 06/23/22 History diclofenac sodium 75 mg 75 mg PO BID 06/23/22 06/23/22 History tablet,delayed release gabapentin 400 mg capsule 400 mg PO QID 06/23/22 06/23/22 History Patient History Medical History (Updated 06/23/22 @ 19:44 by Jm Crowe DO) Anemia S/p blood transfusion x 2 (09/23/19 and 09/27/19). Subsequent Hgb checks stable in 9.2-10.0 range Arthritis Diabetes IDDM Diabetes mellitus, type II Dyslipidemia Gout History of bleeding peptic ulcer History of GI bleed Mood disorder Pancreatic mass NEWLY FOUND AND NEEDS EUS ON 10/19 Surgical History (Updated 06/14/22 @ 17:00 by Cale Cerda) H/O vein stripping RIGHT AND LEFT History of esophagogastroduodenoscopy (EGD) Hx of colonoscopy Hx of laminectomy LUMBAR FOR HERNIATED DISC 10/01/19 Hx of right knee surgery BONE SPUR REMOVED S/P herniorrhaphy UMBILICAL HERNIA REPAIR Family History Other Cancer Diabetes Heart disease Hypertension Denies family history of No pertinent family history Social History Smoking Status: Former smoker Tobacco Type: Cigarettes Cigarettes Per Day: A pack a day 20 years ago.; Smoking End Date: 20 years ago.; Second Hand Exposure: No; Do You Dip or Chew Tobacco: Yes (Used to quit smoking.); Tobacco Cessation Education Requested by Patient: No Hx Alcohol Use: Yes Alcohol type: beer Hx Substance Use: No Preferred Language: Ukrainian Communication Ability: Effective Visual Impairment: No Limitations Hearing Ability: Normal Senior Marketing 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 He is cooperative over. Is able to sit on the side of the bed. He has reasonable strength in bilateral quadriceps plantar flexion dorsiflexion. Sensory appears to be intact distally diminished on the thighs. Deep tendon reflexes diminished. Results & Data ([facility]) Vital Signs (Past 12 Hours) Vital Signs Temp Pulse Resp BP Pulse Ox O2 Del Method 06/24/22 07:51 36.5 C 86 18 142/96 H 93 Room Air 06/23/22 22:45 Room Air 06/23/22 22:45 Room Air 06/23/22 22:45 36.6 C 90 18 161/80 H 94 Room Air 06/23/22 22:00 75 18 135/77 97 Room Air
[2022-06-24] MEDS ORDERED: Nursing to Pharmacy Communication SCH (08:45)
[2022-06-24] MEDS: GABAPENTIN 400 MG CAP PO SCH ×4 (09:06→20:37)
[2022-06-24] MEDS: SERTRALINE HCL 50 MG TABLET PO SCH (09:07)
[2022-06-24] MEDS: METOPROLOL SUCC 25MG EXT REL TAB PO SCH (09:07)
[2022-06-24] MEDS: HYDROmorphone INJ 0.5 MG/0.5 ML SYR IV PRN ×3 (10:49→22:54)
[2022-06-24] MEDS: INSULIN ASPART PER UNIT SC SCH ×3 (12:37→21:05)
--- NOTE | 2022-06-24 16:43 | Hospitalist Progress Note ---
Date of Service June 24, 2022 Assessment & Plan (1) Left lumbar radiculitis: (2) History of lumbar spinal fusion: (3) HTN (hypertension): (4) Diabetes mellitus, type II: (5) Mood disorder: (6) Dyslipidemia: Plan Left lumbar radiculitis History of lumbar spinal fusion Recent trauma Patient now presenting with urinary incontinence symptoms Plan for OR tomorrow with Dr. Baig for Lumbar decompression and fusion and removal of instrumentation Will obtain pre-op CXR and ECG this evening N.p.o. after midnight Analgesics PRN Avoid NSAIDs when possible given history of GI bleeding DM II Hold oral medications Well-controlled as of recent hemoglobin A1c of 7 last September 2021 SSI while in-patient BSG AC HS Hyperlipidemia Continue statin Anxiety/mood disorder Stable. Continue sertraline DVT Ppx: SCDs Code status: FULL Dispo: Admitted to med/surg Admission and Anticipated Discharge Date Admission Date: June 24, 2022 Supervising Physician Co-Signing Physician Notes Patient seen and examined at bedside as a follow-up of lumbar disc herniation with radiculopathy, patient reports radicular pain in his LLE. Patient slid from the roof of his home about 10 days ago while painting it and landed on his feet and buttock. Patient does have a history of lumbar surgery in the past. Patient reports pain under control, plan for surgery by Dr. Baig tomorrow. We will continue to monitor clinically and labs. On examination, patient on room air, heart/lung/abdomen examination with in normal limit, no vertebral tenderness on palpation. Rest of the examination as above. I have seen and examined the patient and have discussed the case with the provider above. I agree with the assessment and plan as stated. Subjective Patient seen and examined in 306. Continuing to have right lateral hip pain with ambulatory dysfunction. Was able to walk to the bathroom earlier to wash his face with became weak and had to sit down. No numbness to bilateral lower extremities. Planning for OR tomorrow with Dr. Baig. No fever, chills, headache, lightheadedness, chest pain, shortness of breath, nausea, vomiting, abdominal pain, dysuria, diarrhea or constipation. Review of Systems Review of Systems: At least ten systems reviewed and negative except as noted in the HPI. Physical Exam Physical Exam: Gen: WD/WN, NAD, lying in bed, A&Ox3 HEENT: Normocephalic, atraumatic, conjunctivae moist, sclerae anicteric, mucous membranes moist Lung: Clear to Auscultation bilaterally, no wheezes/rales/rhonchi Heart: Regular rate, regular rhythm, no murmurs, rubs, or gallops Abdomen: Soft, NT, ND +BS x 4 Extremities: TTP of lateral R right. No deformities noted. No edema Skin: Warm, no rash Results & Data Results & Data ([facility]) Vital Signs (Past 12 Hours) Vital Signs Temp Pulse Resp BP Pulse Ox O2 Del Method 06/24/22 15:38 36.7 C 89 18 156/90 H 90 06/24/22 11:19 36.6 C 88 18 146/86 H 95 Room Air 06/24/22 07:51 36.5 C 86 18 142/96 H 93 Room Air Laboratory Results Urine 06/24/22 Range/Units 01:25 Urine Color Yellow Urine Appearance Clear (Clear) Urine pH 5.0 (4.5-7.5) Ur Specific [place] 1.021 (1.000-1.030) Urine Protein Negative (Negative) Urine Glucose (UA) 1+ H (Negative) Diagnostic Findings Lumbar Spine MRI 06/23/22 13:47 LUMBAR SPINE MRI HISTORY: severe lower back pain TECHNIQUE: Multiplanar multisequence MRI of the lumbar spine was performed without the use of contrast. COMPARISON: Lumbar spine radiograph 06/14/2022. Lumbar spine CT 03/01/2022. Lumbar spine MRI 06/23/2021. FINDINGS: For the purpose of the report the L5-S1 disc space will be located on axial image 27 of 30. Straightening of the lumbar spine. No acute fracture or subluxation. The visualized sacrum is intact. Paravertebral soft tissues are unremarkable. Small fluid collection at the L4-5 laminectomy site measuring 18 mm. This favors a postoperative seroma. There is posterior decompression fusion from L3 through L5 with pedicle screws and rods. There is moderate disc space narrowing at L5-S1, unchanged. There is mild disc space narrowing at L2-L3 which has progressed. The conus terminate at the L1 level. L1-L2: Small broad-based posterior disc bulge with a focal central annular tear. No significant central canal or neural foraminal narrowing. L2-L3: Bilateral paracentral disc extrusions demonstrating superior subligamentous migration. The left paracentral disc extrusion measures 19 x 8 x 5 mm and appears to abut and compress the transiting left L2 nerve root. The right paracentral disc extrusion measures 17 x 6 x 5 mm and likely abuts the transiting right L2 nerve root. These result in mild to moderate central canal narrowing at these levels with the AP diameter measuring 9 mm. There is also mild to moderate bilateral neural foraminal narrowing due to the broad-based posterior disc bulge and facet hypertrophy. L3-L4: No significant central canal narrowing due to the posterior decompression. There is moderate right and mild left neural foraminal narrowing. L4-L5: No significant central canal narrowing due to the posterior decompression. There is severe right and moderate left neural foraminal narrowing. L5-S1: No significant central canal narrowing due to the posterior decompression. There is moderate to severe bilateral neural foraminal narrowing. IMPRESSION: 1. Interval development of bilateral paracentral disc extrusions at L2-L3 which demonstrate superior subligamentous migration. These abut/displace the bilateral transiting L2 nerve roots. There is also mild to moderate central canal and mild to moderate bilateral neural foraminal narrowing at L2-L3. 2. Additional areas of bilateral neural foraminal narrowing as described above. 3. Posterior decompression and fusion from L3 through L5 with pedicle screws and rods. 4. No fracture or subluxation. ACT 112: Negative or not required by law. Electronically signed by: David Galvan M.D. 06/23/2022 8:28 PM
--- NOTE | 2022-06-24 17:33 | XRay Report ---
SINGLE VIEW CHEST CLINICAL HISTORY: Preoperative examination FINDINGS: An AP, portable, upright chest radiograph is compared to study dated 06/24/2021 and correlat ed with chest CT dated 03/01/2022. The examination is degraded by portable technique and apical lordot ic positioning. The heart is enlarged. The pulmonary vasculature is noncongested. Chronic interstitia l thickening is similar to previous. Scarring/atelectasis is noted at the lung bases. The lungs and p leural spaces are clear. No pneumothorax is seen. The bony thorax is grossly intact. IMPRESSION: Cardiomegaly with no active disease in the chest. ACT 112: Negative or not required by law. Electronically signed by: Joe Fritz M.D. 06/24/2022 5:32 PM
[2022-06-24] MEDS: LIDOCAINE 5% 1 PATCH TD SCH (20:36)
[2022-06-24] MEDS: LANTUS PER UNIT CHARGE SQ SCH (21:06)
[2022-06-25] MEDS: oxyCODONE HCL IR 5 MG TAB (IMMEDIATE RELEASE) PO PRN ×3 (02:32→19:03)
[2022-06-25] MEDS: HYDROmorphone INJ 0.5 MG/0.5 ML SYR IV PRN (05:16)
[2022-06-25 06:19] LABS: Hematocrit (blood only) 41.4 % (40.1-51.0); Hemoglobin 14.3 g/dl (14.0-18.0); Mean Corpuscular Hemoglobin 31.1 pg (25.0-34.0); Mean Corpuscular Hgb Conc 34.5 g/dL (32.0-36.0); Platelet Count 158 K/uL (130-400); RDW Coefficient of Variation 13.4 % (11.5-14.5); RDW Standard Deviation 43.8 fL (36.4-46.3); White Blood Count 7.51 K/ul (4.8-10.8)
[2022-06-25] MEDS ORDERED: Nursing to Pharmacy Communication SCH ×2 (07:00→17:00)
[2022-06-25 07:04] LABS: Calcium 8.7 mg/dl (8.5-10.1); Est GFR (African American) 112.4 ml/min; Est GFR (Non-African American) 96.9 ml/min; Potassium 3.8 mmol/L (3.5-5.1)
[2022-06-25] MEDS ORDERED: oxyCODONE/ACETAMINOPHEN 5mg/325mg TAB PO STA (07:24)
[2022-06-25] MEDS: INSULIN ASPART PER UNIT SC SCH ×4 (07:28→21:27)
[2022-06-25] MEDS: SERTRALINE HCL 50 MG TABLET PO SCH (08:16)
[2022-06-25] MEDS: METOPROLOL SUCC 25MG EXT REL TAB PO SCH (08:16)
[2022-06-25] MEDS: GABAPENTIN 400 MG CAP PO SCH ×4 (08:17→20:33)
[2022-06-25] MEDS ORDERED: ATROPINE SULFATE 0.1 MG/ML 10ML SYR IV PRN (10:21)
[2022-06-25] MEDS ORDERED: ONDANSETRON INJ 2 MG/ML 2 ML VIAL IV PRN ×2 (10:21→16:43)
[2022-06-25] MEDS ORDERED: ePHEDrine sulfate 50 MG/ML AMP IV PRN (10:21)
[2022-06-25] MEDS ORDERED: fentaNYL citrate 100 MCG/2 ML VIAL IV PRN (10:21)
[2022-06-25] MEDS ORDERED: LABETALOL HCL IV 5 MG/ML 20ML IV PRN (10:21)
[2022-06-25] MEDS ORDERED: HYDROmorphone INJ 1 MG/ML SYRINGE IV PRN ×2 (10:21→16:43)
[2022-06-25] MEDS ORDERED: PHENYLEPHRINE 100MCG/ML 5ML SYR IV PRN (10:21)
--- NOTE | 2022-06-25 10:22 | Anesthesiology Consultation ---
Date of Service June 25, 2022 Assessment & Plan (1) Encounter for pre-operative examination: Chart Review Chart Review: Acceptable Risk for Surgery (necessary surgery) and Patient NOT seen in Pre Admission Testing Consults Requested none History Surgery Operation Date: 06/25/22 11:55 Proposed Procedures p L2-L3 Lumbar Decompression Fusion, L3-L5 Hardware Removal - Emmett Baig DO Height/Weight Height: 5 ft 8 in Weight: 87.4 kg Allergies Allergy/AdvReac Type Severity Reaction Status Date / Time NSAIDS (Non-Steroidal AdvReac Unknown HX OF GI Verified 06/23/22 16:13 Anti-Inflamma BLEED Medications Home Medications Medication Instructions Recorded Confirmed Last Taken metformin 500 mg tablet,extended 500 mg PO BID 09/23/19 06/23/22 06/23/22 08:00 release 24 hr acetaminophen 500 mg tablet 1,000 mg PO QID PRN Pain 06/10/21 06/23/22 06/10/21 07:00 (Tylenol Extra Strength) 1000 mg semaglutide 1 mg/dose (2 mg/1.5 1 mg subcut WK 06/10/21 06/23/22 06/19/22 mL) subcutaneous pen injector (SweetLabs) metoprolol succinate 25 mg 25 mg PO DAILY 06/23/21 06/23/22 06/23/22 tablet,extended release 24 hr sertraline 25 mg tablet 25 mg PO DAILY 06/23/21 06/23/22 06/23/22 diclofenac sodium 75 mg 75 mg PO BID 06/23/22 06/23/22 06/23/22 08:00 tablet,delayed release gabapentin 400 mg capsule 400 mg PO QID 06/23/22 06/23/22 06/23/22 12:00 Active Medications Generic Name Dose Route Start Last Admin Trade Name Freq PRN Reason Stop Dose Admin Gabapentin 400 mg 06/23/22 22:48 06/25/22 08:17 Gabapentin 400 Mg Cap PO 07/23/22 22:47 400 mg QID JHON Administration Hydromorphone HCl 0.5 mg 06/24/22 08:24 06/25/22 05:16 Hydromorphone Inj 0.5 Mg/0.5 Ml Syr IV 07/08/22 08:23 0.5 mg Q6H PRN Administration Pain Insulin Aspart 0 units 06/25/22 06:45 06/25/22 07:28 Insulin Aspart Per Unit SC 07/25/22 06:44 1 units Q6 JHON Administration Insulin Glargine 10 units 06/23/22 22:48 06/24/22 21:06 Lantus Per Unit Charge SQ 07/23/22 22:47 10 units HS JHON Administration Lidocaine 1 patch 06/23/22 22:48 06/24/22 20:36 Lidocaine 5% 1 Patch TD 07/23/22 22:47 Not Given HS JHON Lorazepam 0.5 mg 06/23/22 20:27 06/24/22 22:57 Lorazepam 0.5 Mg Tab PO 07/23/22 20:26 0.5 mg TID PRN Administration Anxiety Metoprolol Succinate 25 mg 06/24/22 09:00 06/25/22 08:16 Metoprolol Succ 25mg Ext Rel Tab PO 07/24/22 08:59 25 mg DAILY JHON Administration Miscellaneous 1 each 06/24/22 09:00 06/25/22 08:16 Remove Lidoderm Patch N/A 07/24/22 08:59 1 each DAILY@0900 JHON Administration Oxycodone HCl 5 - 10 mg 06/23/22 20:27 06/25/22 10:06 Oxycodone Hcl Ir 5 Mg Tab (Immediate Release) PO 07/07/22 20:26 10 mg QID PRN Administration Pain Sertraline HCl 25 mg 06/24/22 09:00 06/25/22 08:16 Sertraline Hcl 50 Mg Tablet PO 07/24/22 08:59 25 mg DAILY JHON Administration NPO Date Last Intake of Fluids: 06/23/22 Time Last Intake of Fluids: 23:59 Date Last Intake of Solids: 06/23/22 Time Last Intake of Solids: 23:59 Past Medical History Medical History (Updated 06/25/22 @ 10:22 by David Zhang MD) Anemia S/p blood transfusion x 2 (09/23/19 and 09/27/19). Subsequent Hgb checks stable in 9.2-10.0 range Arthritis Diabetes IDDM Diabetes mellitus, type II Dyslipidemia Gout History of bleeding peptic ulcer History of GI bleed Mood disorder Pancreatic mass NEWLY FOUND AND NEEDS EUS ON 10/19 Past Family History Family History Other Cancer Diabetes Heart disease Hypertension Denies family history of No pertinent family history Past Surgical History Surgical History H/O vein stripping RIGHT AND LEFT History of esophagogastroduodenoscopy (EGD) Hx of colonoscopy Hx of laminectomy LUMBAR FOR HERNIATED DISC 10/01/19 Hx of right knee surgery BONE SPUR REMOVED S/P herniorrhaphy UMBILICAL HERNIA REPAIR Social History Smoking Status: Former smoker tobacco type: cigarettes Smoking cigarettes per day: A pack a day 20 years ago. Do You Dip or Chew Tobacco: Yes (Used to quit smoking.) Smoking End Date: 20 years ago. Hx Alcohol Use: Yes Alcohol type: beer alcohol intake frequency: a few times a month Hx Substance Use: No substance use type: does not use Physical Exam Vital Signs Last Vital Signs Temp 36.8 C 06/25/22 07:15 Pulse 95 H 06/25/22 07:15 Resp 16 06/25/22 07:15 BP 160/92 H 06/25/22 07:15 Pulse Ox 94 06/25/22 07:15 O2 Del Method 06/25/22 07:15 Testing Laboratory Results 06/25/22 05:41 06/25/22 05:41 Hemoglobin A1c 7.6 % (4.5-5.6) H 06/23/22 12:19 Urine Color Yellow 06/24/22 01:25 Urine Appearance Clear (Clear) 06/24/22 01:25 Urine pH 5.0 (4.5-7.5) 06/24/22 01:25 Ur Specific [place] 1.021 (1.000-1.030) 06/24/22 01:25 Urine Protein Negative (Negative) 06/24/22 01:25 Urine Glucose (UA) 1+ (Negative) H 06/24/22 01:25 Urine Ketones Negative (Negative) 06/24/22 01:25 Urine Nitrite Negative (Negative) 06/24/22 01:25 Ur Leukocyte Esterase Negative (Negative) 06/24/22 01:25 Blood Type A Positive 06/24/22 19:21 Antibody Screen NEGATIVE 06/24/22 19:21 06/25/22 06/25/22 07:22 05:59 POC Glucose 150 H 143 H Electrocardiogram Date: 06/25/22 Findings: + NSR @ (100) and + T wave inversion inferior infarct Chest X-Ray Date: 06/24/22 SINGLE VIEW CHEST CLINICAL HISTORY: Preoperative examination FINDINGS: An AP, portable, upright chest radiograph is compared to study dated 06/24/2021 and correlated with chest CT dated 03/01/2022. The examination is degraded by portable technique and apical lordotic positioning. The heart is enlarged. The pulmonary vasculature is noncongested. Chronic interstitial thickening is similar to previous. Scarring/atelectasis is noted at the lung bases. The lungs and pleural spaces are clear. No pneumothorax is seen. The bony thorax is grossly intact. IMPRESSION: Cardiomegaly with no active disease in the chest. ACT 112: Negative or not required by law. Electronically signed by: Joe Fritz M.D. 06/24/2022 5:32 PM
[2022-06-25] MEDS ORDERED: MIDAZOLAM HCL 1 MG/ML 2ML VIAL ONE (10:39)
[2022-06-25] MEDS ORDERED: fentaNYL citrate 100 MCG/2 ML VIAL ONE (10:39)
[2022-06-25] MEDS ORDERED: LIDOCAINE 2% MPF LOCAL 5 ML VIAL INFIL ONE (10:40)
[2022-06-25] MEDS ORDERED: DEXAMETHASONE SOD INJ 4 MG/ML VIAL ONE ×2 (10:40→14:26)
[2022-06-25] MEDS ORDERED: ROCURONIUM BROMIDE 10 MG/ML 5 ML VIAL IV ONE (10:40)
[2022-06-25] MEDS ORDERED: PROPOFOL IV EMULSION 10 MG/ML 20 ML VIAL IV ONE (10:40)
[2022-06-25] MEDS ORDERED: ONDANSETRON INJ 2 MG/ML 2 ML VIAL ONE (10:40)
--- NOTE | 2022-06-25 12:36 | History & Physical Bridge Note ---
Date of Service June 25, 2022 History & Physical Bridge Note I have examined the patient, reviewed the History & Physical and in the interval since the performance of the History & Physical I have noted the following changes of clinical significance: no changes noted Lumbar decompression and fusion L2-L3 with hardware removal L3-L5
[2022-06-25] MEDS ORDERED: ceFAZolin 2000MG 2,000 MG/15 ML SYR IV ONE (12:41)
[2022-06-25] MEDS ORDERED: ceFAZolin 2,000 MG/15 ML IV PUSH IV ONE (12:42)
[2022-06-25] MEDS ORDERED: BUPIVACAINE/EPINEPHRINE 0.25% 1:200,000 30 ML VIAL ONE (12:52)
[2022-06-25] MEDS ORDERED: ceFAZolin 330 MG/ML 1 GM VIAL ONE (12:52)
[2022-06-25] MEDS ORDERED: HYDROmorphone INJ 2 MG/ML SYR/VIAL ONE (13:31)
--- NOTE | 2022-06-25 13:38 | Electrocardiogram Report ---
Test Reason : Blood Pressure : / mmHG Vent. Rate : 094 BPM Atrial Rate : 094 BPM P-R Int : 158 ms QRS Dur : 098 ms QT Int : 340 ms P-R-T Axes : 037 -10 052 degrees QTc Int : 425 ms Normal sinus rhythm Poor R wave progression, consider anterior SC vs. lead placement vs. LVH Abnormal ECG When compared with ECG of 01-MAR-2022 13:49, Minimal criteria for Anterior infarct are now Present Criteria for Inferior infarct are no longer Present Confirmed by Phan Em ([id number]) on 06/25/2022 1:38:45 PM Referred By: REFERRED SELF Confirmed By:Ryan Em
--- NOTE | 2022-06-25 13:54 | Electrocardiogram Report ---
Test Reason : Blood Pressure : / mmHG Vent. Rate : 100 BPM Atrial Rate : 100 BPM P-R Int : 154 ms QRS Dur : 100 ms QT Int : 338 ms P-R-T Axes : 028 -05 002 degrees QTc Int : 436 ms Normal sinus rhythm possible Inferior infarct , age undetermined Abnormal ECG When compared with ECG of 24-JUN-2022 18:10, (unconfirmed) Inferior infarct is now Present T wave inversion now evident in Inferior leads Confirmed by Phan Em ([id number]) on 06/25/2022 1:53:36 PM Referred By: REFERRED SELF Confirmed By:Ryan Em
[2022-06-25] MEDS ORDERED: PHENYLEPHRINE HCL 10 MG/ML VIAL ONE (13:57)
[2022-06-25] MEDS ORDERED: FLOSEAL HEMOSTATIC MATRIX 10ML TOP ONE (13:59)
--- NOTE | 2022-06-25 14:16 | Hospitalist Progress Note ---
Date of Service June 25, 2022 Assessment & Plan (1) Left lumbar radiculitis: (2) History of lumbar spinal fusion: (3) HTN (hypertension): (4) Diabetes mellitus, type II: (5) Mood disorder: (6) Dyslipidemia: Plan Left lumbar radiculitis History of lumbar spinal fusion Recent trauma Patient now presenting with urinary incontinence symptoms Plan for OR this afternoon with Dr. Baig for Lumbar decompression and fusion and removal of instrumentation Pre-op CXR with no intracranial abnormalities. ECG with abnormal ST findings although no significant changes from previous. No chest pain Remains NPO Analgesics PRN Avoid NSAIDs when possible given history of GI bleeding DM II Hold oral medications Well-controlled as of recent hemoglobin A1c of 7 last September 2021 SSI while in-patient BSG AC HS Hyperlipidemia Continue statin Anxiety/mood disorder Stable. Continue sertraline DVT Ppx: SCDs Code status: FULL Dispo: Admitted to med/surg Admission and Anticipated Discharge Date Admission Date: June 24, 2022 Supervising Physician Co-Signing Physician Notes Patient seen and examined at bedside as a follow-up of lumbar disc herniation with radiculopathy, patient reports radicular pain in his LLE. Patient slid from the roof of his home about 10 days ago while painting it and landed on his feet and buttock. Patient does have a history of lumbar surgery in the past. Patient reports pain under control, lumbar decompression and fusion by Dr. Baig today. We will continue to monitor clinically and labs. On examination, patient on room air, heart/lung/abdomen examination with in normal limit, no vertebral tenderness on palpation. Rest of the examination as above. I have seen and examined the patient and have discussed the case with the provider above. I agree with the assessment and plan as stated. Subjective Patient seen and examined in 306. Continuing to have right lateral hip pain with ambulatory dysfunction that is similar to yesterday. Just received pain medication from RN. No numbness to bilateral lower extremities. Planning for this afternoon with Dr. Baig. No fever, chills, headache, lightheadedness, chest pain, shortness of breath, nausea, vomiting, abdominal pain, dysuria, diarrhea or constipation. Review of Systems Review of Systems: At least ten systems reviewed and negative except as noted in the HPI. Physical Exam Physical Exam: Gen: WD/WN, NAD, lying in bed, A&Ox3 HEENT: Normocephalic, atraumatic, conjunctivae moist, sclerae anicteric, mucous membranes moist Lung: Clear to Auscultation bilaterally, no wheezes/rales/rhonchi Heart: Regular rate, regular rhythm, no murmurs, rubs, or gallops Abdomen: Soft, NT, ND +BS x 4 Extremities: TTP of lateral R right. No deformities noted. No edema Skin: Warm, no rash Results & Data Results & Data ([facility]) Vital Signs (Past 12 Hours) Vital Signs Temp Pulse Resp BP Pulse Ox O2 Del Method 06/25/22 11:14 36.8 C 99 H 20 141/88 H 97 Room Air 06/25/22 07:15 36.8 C 95 H 16 160/92 H 94 Room Air Laboratory Results Short CBC 06/25/22 Range/Units 05:41 WBC 7.51 (4.8-10.8) K/ul Hgb 14.3 (14.0-18.0) g/dl Hct 41.4 (40.1-51.0) % Plt Count 158 (130-400) K/uL BMP 06/25/22 05:41 Sodium 133 L Potassium 3.8 Chloride 99 Carbon Dioxide 26 BUN 21 Creatinine 0.75 Glucose 158 H Calcium 8.7 Diagnostic Findings Lumbar Spine MRI 06/23/22 13:47 LUMBAR SPINE MRI HISTORY: severe lower back pain TECHNIQUE: Multiplanar multisequence MRI of the lumbar spine was performed without the use of contrast. COMPARISON: Lumbar spine radiograph 06/14/2022. Lumbar spine CT 03/01/2022. Lumbar spine MRI 06/23/2021. FINDINGS: For the purpose of the report the L5-S1 disc space will be located on axial image 27 of 30. Straightening of the lumbar spine. No acute fracture or subluxation. The visualized sacrum is intact. Paravertebral soft tissues are unremarkable. Small fluid collection at the L4-5 laminectomy site measuring 18 mm. This favors a postoperative seroma. There is posterior decompression fusion from L3 through L5 with pedicle screws and rods. There is moderate disc space narrowing at L5-S1, unchanged. There is mild disc space narrowing at L2-L3 which has progressed. The conus terminate at the L1 level. L1-L2: Small broad-based posterior disc bulge with a focal central annular tear. No significant central canal or neural foraminal narrowing. L2-L3: Bilateral paracentral disc extrusions demonstrating superior subligamentous migration. The left paracentral disc extrusion measures 19 x 8 x 5 mm and appears to abut and compress the transiting left L2 nerve root. The right paracentral disc extrusion measures 17 x 6 x 5 mm and likely abuts the transiting right L2 nerve root. These result in mild to moderate central canal narrowing at these levels with the AP diameter measuring 9 mm. There is also mild to moderate bilateral neural foraminal narrowing due to the broad-based posterior disc bulge and facet hypertrophy. L3-L4: No significant central canal narrowing due to the posterior d ecompression. There is moderate right and mild left neural foraminal narrowing. L4-L5: No significant central canal narrowing due to the posterior decompression. There is severe right and moderate left neural foraminal narrowing. L5-S1: No significant central canal narrowing due to the posterior decompression. There is moderate to severe bilateral neural foraminal narrowing. IMPRESSION: 1. Interval development of bilateral paracentral disc extrusions at L2-L3 which demonstrate superior subligamentous migration. These abut/displace the bilateral transiting L2 nerve roots. There is also mild to moderate central canal and mild to moderate bilateral neural foraminal narrowing at L2-L3. 2. Additional areas of bilateral neural foraminal narrowing as described above. 3. Posterior decompression and fusion from L3 through L5 with pedicle screws and rods. 4. No fracture or subluxation. ACT 112: Negative or not required by law. Electronically signed by: David Galvan M.D. 06/23/2022 8:28 PM Chest X-Ray 06/24/22 16:44 SINGLE VIEW CHEST CLINICAL HISTORY: Preoperative examination FINDINGS: An AP, portable, upright chest radiograph is compared to study dated 06/24/2021 and correlated with chest CT dated 03/01/2022. The examination is degraded by portable technique and apical lordotic positioning. The heart is enlarged. The pulmonary vasculature is noncongested. Chronic interstitial thickening is similar to previous. Scarring/atelectasis is noted at the lung bases. The lungs and pleural spaces are clear. No pneumothorax is seen. The bony thorax is grossly intact. IMPRESSION: Cardiomegaly with no active disease in the chest. ACT 112: Negative or not required by law. Electronically signed by: Joe Fritz M.D. 06/24/2022 5:32 PM
[2022-06-25] MEDS ORDERED: SUGAMMADEX SODIUM 200 MG/2 ML VIAL IV ONE (15:26)
--- NOTE | 2022-06-25 15:28 | Operative Report ---
Post Operative Report Pre & Post Diagnosis Operation Date: 06/25/22 11:55 Pre-Op Diagnosis: (1) Lumbar disc herniation with radiculopathy Post-Op Diagnosis: (1) Lumbar disc herniation with radiculopathy I identified the patient and participated in the time-out.: Yes Procedure Operation Date: 06/25/22 11:55 Actual Procedures #1 removal of posterior instrumentation L3-S1. #2 exploration of fusion L3-S1. #3 lumbar decompression bilateral medial facetectomies and foraminotomies L2-L3. #4 posterior spinal fusion L2-L3. #5 placement posterior instrumentation L2- L5. #6 interbody fusion L2-L3. #7 placement of Spira 13 x 26 mm cage at L2-L3. #8 placement locally harvested morselized autograft in the posterior gutters. #9 placement of I factor model V toss interbody space and posterior lateral gutters. Surgeon Emmett Baig, Apple Sorter Milan Holm Estimated Blood Loss 150 Findings Consistent with Post-Op Diagnosis Specimens None Indications This 66-year-old male who presents again to the ER with severe back and bilateral leg pain. Imaging confirms massive disc herniation with extension into the foramen at L2-L3. Subsequently is here for urgent decompression fusion. Description of Procedure Patient was met with identified informed consent obtained. Patient was then taken to the operative suite underwent a patient placed in a prone position the Yantis table top Kain frame. All bony prominences well-padded eyes inspected to ensure no external pressure placed upon the. This point the lumbar spine was prepped and draped in normal sterile fashion. Sharp dissection with the assistance of bradycardia was performed down to and exposing the lamina and transverse processes of L2 and instrumentation at L3-L4-L5 bilaterally. I then proceeded move the hardware bilaterally explore the fusion mass noting it to be maturing and intact. Informed complete laminectomy of L2 including bilateral medial facetectomies and foraminotomies addressing severe stenosis and extension of disc material into bilateral foramen. After complete decompression pedicle screws were placed in L2 L3-L4-L5 bilaterally with assistance of fluoroscopy and appropriately sized jeffery placed. By way of transforaminal approach and right complete discectomy of L2-L3 was performed endplates curetted to subcortically bone a 13 x 26 mm spiral cage filled with I factor tapped the position. Rods were then locked into final position bilaterally for the transverse processes of L2-L3 burred to subcortically bone. I factor model V toss and locally harvested morselized autograft was placed in the posterior gutters. 15 round MAG drain inserted. The incision was then closed with 1 Vicryl in the fascia 2-0 Vicryl subcutaneously and 4 Monocryl for final skin closure. Steri-Strip sterile dressings placed. Patient waken taken to PACU stable condition. Please note spinal cord monitoring was utilized at the procedure no changes noted. Lastly Milan Holm was present at the entire surgery and while the patient positioning complex portions of the surgery and final skin closure. I attest to the content of the Intraoperative Record and any orders documented therein. Any exceptions are noted below.
--- NOTE | 2022-06-25 15:45 | Fluoroscopy Report ---
INTRAOPERATIVE RADIOGRAPHS CLINICAL HISTORY: Lumbar spinal fusion. Fluoroscopy time: 11 seconds. FINDINGS: 2 spot fluoroscopic views of the lumbar spine are presented. There is evidence of multileve l discectomy with laminectomy and spinal fusion throughout the lumbar spine. This is reportedly at L2 -L5. Interpedicular screws are present at all levels. The orthopedic hardware appears intact. IMPRESSION: Intraoperative images from lumbar spinal fusion surgery as above. Electronically signed by: Joe Fritz M.D. 06/25/2022 3:43 PM
--- NOTE | 2022-06-25 16:28 | Anesthesiology Progress Note ---
Date of Service June 25, 2022 Anesthesia Post Procedure Vital Signs Vital Signs: Temp Pulse Pulse Resp BP Pulse Ox O2 Del Method 06/25/22 16:05 110 H 12 160/91 H 99 Oxymask 06/25/22 16:25 98.1 F 106 H 12 140/97 95 Room Air 06/25/22 16:15 108 H 13 148/91 H 96 Room Air 06/25/22 15:58 97.5 F L 106 H 14 169/95 H 97 Oxymask 06/25/22 11:14 98.2 F 99 H 20 141/88 H 97 Room Air 06/25/22 07:15 98.2 F 95 H 16 160/92 H 94 Room Air 06/24/22 22:20 97.5 F L 98 H 14 145/90 H 94 Room Air 06/24/22 19:51 Room Air O2 Flow Rate 06/25/22 16:05 12 06/25/22 16:25 2 06/25/22 16:15 2 06/25/22 15:58 12 06/25/22 11:14 06/25/22 07:15 06/24/22 22:20 06/24/22 19:51 Pain Intensity Back: Pain Intensity: 10 Right Hip: Pain Intensity: 10 Transfer of Care Handoff Completed per policy Notes Mental Status: alert / awake / arousable and participated in evaluation Patient Amnestic to Procedure: Yes Nausea / Vomiting: adequately controlled Pain: adequately controlled Airway Patency, RR, SpO2: stable & adequate BP & HR: stable & adequate Hydration State: stable & adequate Anesthetic Complications: no major complications apparent and Pt Satisfied with anesthetic care
[2022-06-25] MEDS ORDERED: ACETAMINOPHEN 1,000 MG/100 ML VIAL IV PRN (16:43)
[2022-06-25] MEDS ORDERED: ACETAMINOPHEN 500 MG TAB PO PRN (16:43)
[2022-06-25] MEDS ORDERED: traMADol HCL 50 MG TABLET PO PRN (16:43)
[2022-06-25] MEDS ORDERED: ALUMINUM/MAGNESIUM SUSP 30 ML UDC PO PRN (16:43)
[2022-06-25] MEDS ORDERED: bisacodyL 10 MG SUPP PR PRN (16:43)
[2022-06-25] MEDS ORDERED: diphenhydrAMINE Capsule 25 MG CAP PO PRN (16:43)
[2022-06-25] MEDS ORDERED: hydrOXYzine HCl 25 MG TAB PO PRN (16:43)
[2022-06-25] MEDS ORDERED: HYDROmorphone INJ 0.5 MG/0.5 ML SYR IV PRN (16:43)
[2022-06-25] MEDS ORDERED: LORazepam 0.5 MG TAB PO PRN (16:43)
[2022-06-25] MEDS ORDERED: ONDANSETRON 4 MG OD TAB PO PRN (16:43)
[2022-06-25] MEDS ORDERED: LORazepam 0.5 MG in SYRINGE 0 ML IV PRN (16:43)
[2022-06-25] MEDS ORDERED: NALOXONE HCL 0.4 MG/1 ML VIAL/CARP IV PRN (16:43)
[2022-06-25] MEDS ORDERED: FAMOTIDINE 20 MG TAB PO PRN (16:43)
[2022-06-25] MEDS ORDERED: METOCLOPRAMIDE HCL INJ 5 MG/ML 2 ML VIAL IV PRN (16:43)
[2022-06-25] MEDS ORDERED: PROMETHAZINE HCL 12.5 MG in SODIUM CHLORIDE 0.9% 50 ML IV PRN (16:43)
[2022-06-25] MEDS ORDERED: MAGNESIUM HYDROXIDE SUSP 30 ML UDC PO PRN (16:43)
[2022-06-25] MEDS ORDERED: SOD PHOSPHATE/SOD BIPHOSPHATE ENEMA 132 ML BTL PR PRN (16:43)
[2022-06-25] MEDS: SODIUM CHLORIDE 0.9% 1000ML 1,000 ML IV SCH (17:14)
[2022-06-25] MEDS: DOCUSATE SODIUM/SENNA 50/8.6MG TAB PO SCH (20:33)
[2022-06-25] MEDS: ceFAZolin 2000MG 2,000 MG/15 ML SYR IV SCH (20:35)
[2022-06-25] MEDS: LANTUS PER UNIT CHARGE SQ SCH (21:27)
[2022-06-26] MEDS: oxyCODONE HCL IR 5 MG TAB (IMMEDIATE RELEASE) PO PRN ×6 (00:11→21:25)
[2022-06-26] MEDS ORDERED: ACETAMINOPHEN 325 MG TAB PO STA (03:33)
[2022-06-26] MEDS ORDERED: POTASSIUM CHLORIDE CRTAB 20 MEQ TABCR PO STA (03:35)
[2022-06-26] MEDS ORDERED: LACTATED RINGER'S 1,000 ML IV ONE ×3 (03:36→20:27)
[2022-06-26] MEDS: METOPROLOL SUCC 50MG EXT REL TAB PO SCH (03:55)
[2022-06-26] MEDS: SODIUM CHLORIDE 0.9% 1000ML 1,000 ML IV SCH (04:22)
[2022-06-26 04:36] LABS: Basophils # (auto) 0.03 K/uL (0-0.2); Basophils % (auto) 0.2 %; Hematocrit (blood only) 35.9 % (40.1-51.0); Hemoglobin 12.6 g/dl (14.0-18.0); Immature Granulocytes # (auto) 0.08 K/uL (0.00-0.02); Immature Granulocytes % (auto) 0.6 %; Lymphocytes # (auto) 0.77 K/uL (1.2-3.4); Lymphocytes % (auto) 5.7 %; Mean Corpuscular Hemoglobin 31.5 pg (25.0-34.0); Mean Corpuscular Hgb Conc 35.1 g/dL (32.0-36.0); Mean Corpuscular Volume 89.8 fL (80.0-100.0); Monocytes % (auto) 8.2 %; Neutrophils # (auto) 11.49 K/uL (1.4-6.5); Neutrophils % (auto) 85.3 %; Platelet Count 144 K/uL (130-400); RDW Coefficient of Variation 13.5 % (11.5-14.5); RDW Standard Deviation 44.5 fL (36.4-46.3); White Blood Count 13.47 K/ul (4.8-10.8)
[2022-06-26 05:01] LABS: BUN Creatinine Ratio 24.7 (10-20); Calcium 8.4 mg/dl (8.5-10.1); Est GFR (African American) 108.9 ml/min; Est GFR (Non-African American) 93.9 ml/min; Magnesium 1.8 mg/dl (1.7-2.4); Potassium 3.9 mmol/L (3.5-5.1)
[2022-06-26] MEDS ORDERED: MAGNESIUM SULFATE / D5W 1 GM/100 ML BAG IV ONE (05:16)
[2022-06-26] MEDS: ceFAZolin 2000MG 2,000 MG/15 ML SYR IV SCH (05:32)
[2022-06-26] MEDS: POLYETHYLENE (MIRALAX) 17 GM PACK PO SCH ×3 (06:13→17:14)
[2022-06-26 07:11] LABS: Appearance Urine Clear (Clear); Bacteria Urine Automated Negative (Negative); Bilirubin Urine Negative (Negative); Blood Urine 1+ (Negative); Color Urine Yellow; Glucose Urine UA 1+ (Negative); Ketones Urine Negative (Negative); Leukocyte Esterase Urine Trace (Negative); Nitrite Urine Negative (Negative); Protein Urine Negative (Negative); Specific Gravity Urine 1.022 (1.000-1.030); Urobilinogen Urine Negative (Negative)
[2022-06-26] MEDS: GABAPENTIN 400 MG CAP PO SCH ×4 (08:05→21:25)
[2022-06-26] MEDS: SERTRALINE HCL 50 MG TABLET PO SCH (08:05)
[2022-06-26] MEDS: dexAMETHasone 6 MG in SYRINGE 0 ML IV SCH (08:05)
[2022-06-26] MEDS: INSULIN ASPART PER UNIT SC SCH ×4 (09:37→21:41)
--- NOTE | 2022-06-26 10:09 | Orthopedic Progress Note ---
Date of Service June 26, 2022 Assessment & Plan (1) Left lumbar radiculitis: Plan: This time continue physical therapy monitor his MAG output. We will discontinue his Winston this morning. Possible discharge home Tuesday. Admission and Anticipated Discharge Date Admission Date: June 24, 2022 Subjective Back pain controlled leg pain markedly improved Physical Exam Physical Exam: Patient is in bed. Is comfortable. He has been up and ambulating. Has good strength testing. Results & Data ([facility]) Vital Signs (Past 12 Hours) Vital Signs Temp Pulse Pulse Resp BP Pulse Ox O2 Del Method 06/26/22 07:47 37.0 C 110 H 16 127/76 92 Room Air 06/26/22 07:00 107 H 06/26/22 03:05 37.7 C H 130 H 20 152/82 H 92 Room Air 06/25/22 22:43 37.2 C 127 H 18 140/86 95 Nasal Cannula O2 Flow Rate 06/26/22 07:47 06/26/22 07:00 06/26/22 03:05 06/25/22 22:43 2.0
--- NOTE | 2022-06-26 16:36 | Electrocardiogram Report ---
Test Reason : Blood Pressure : / mmHG Vent. Rate : 125 BPM Atrial Rate : 125 BPM P-R Int : 154 ms QRS Dur : 092 ms QT Int : 308 ms P-R-T Axes : 030 -08 -04 degrees QTc Int : 444 ms Sinus tachycardia Inferior infarct (cited on or before 01-MAR-2022) Abnormal ECG When compared with ECG of 25-JUN-2022 09:18, No significant change was found Confirmed by Nirmal Sharma ([id number]) on 06/26/2022 4:35:57 PM Referred By: REFERRED SELF Confirmed By:Nirmal Sharma
--- NOTE | 2022-06-26 18:32 | Hospitalist Progress Note ---
Date of Service June 26, 2022 Assessment & Plan (1) Left lumbar radiculitis: (2) History of lumbar spinal fusion: (3) HTN (hypertension): (4) Diabetes mellitus, type II: (5) Mood disorder: (6) Dyslipidemia: Plan Left lumbar radiculitis History of lumbar spinal fusion Recent trauma Patient now presenting with urinary incontinence symptoms Status post lumbar decompression and fusion and removal of instrumentation by Dr. Baig on 06/25/2022 Patient reports improvement in pain and pain under control. PT OT/DVT prophylaxis per orthospine. Continue pain management, monitor bowel movement, monitor for drop in hemoglobin, Avoid NSAIDs when possible given history of GI bleeding Sinus tachycardia: Patient had an event of sinus tachycardia in the night of 06/25-06/26, patient reports he had intermittent tachycardia for which he has been worked up as an outpatient and has been placed on metoprolol, his metoprolol dose has been uptitrated. DM II Hold oral medications Well-controlled as of recent hemoglobin A1c of 7 last September 2021 SSI while in-patient BSG AC HS Hyperlipidemia Continue statin Anxiety/mood disorder Stable. Continue sertraline DVT Ppx: SCDs Code status: FULL Dispo: Admitted to med/surg Admission and Anticipated Discharge Date Admission Date: June 24, 2022 Subjective Patient seen and examined at bedside as a follow-up of left lumbar radiculitis status post lumbar surgery on 06/25/[address] Baig. patient was lying in bed, on room air, NAD, had tachycardic event overnight, patient reports that he does have tachycardia intermittently and has been worked up as an outpatient and started on metoprolol for the same as an outpatient. We will uptitrate his metoprolol dose while in here and continue to monitor. EKG overnight showed sinus tachycardia. Likely triggered by the acute stress of surgery. Patient denies any headache or dizziness or chest pain or or chest tightness or chest pressure or belly pain or acute changes in his bladder habit lately. Patient is eating okay, moving gas, has not moved bowel. Patient reports pain under control. Physical Exam Physical Exam: GENERAL: Alert and oriented x3. NAD, on RA. HEENT: No pallor, no icterus. Pupils equal, round and reactive to light. Oral mucosa moist. NECK: No JVD, no neck masses. HEART: S1 and S2 heard. Regular rate and rhythm. No murmur, no gallop. RESPIRATORY SYSTEM: Normal AP diameter. No accessory muscle use. No wheezing, no crackles. ABDOMEN: Soft, bowel sounds present, nontender, no distention. CENTRAL NERVOUS SYSTEM: No facial droop. Speech is clear. Obeys simple commands. Moves extremities. EXTREMITIES: No edema, no erythema seen. Low back with clean dressing without soakage. MAG drain in situ with serosanguineous collection noted. Results & Data Results & Data ([facility]) Vital Signs (Past 12 Hours) Vital Signs Temp Pulse Pulse Resp BP Pulse Ox O2 Del Method 06/26/22 15:13 36.6 C 103 H 16 155/91 H 97 Room Air 06/26/22 07:47 37.0 C 110 H 16 127/76 92 Room Air 06/26/22 07:00 107 H
[2022-06-26] MEDS ORDERED: LANTUS PER UNIT CHARGE SQ SCH (20:30)
[2022-06-26] MEDS: DOCUSATE SODIUM/SENNA 50/8.6MG TAB PO SCH (21:25)
[2022-06-26 21:34] LABS: BUN Creatinine Ratio 22.2 (10-20); Calcium 8.8 mg/dl (8.5-10.1); Est GFR (African American) 108.9 ml/min; Est GFR (Non-African American) 93.9 ml/min; Magnesium 2.1 mg/dl (1.7-2.4)
[2022-06-26 21:35] LABS: Potassium 4.2 mmol/L (3.5-5.1)
[2022-06-26] MEDS ORDERED: SODIUM CHLORIDE 0.9% 1000ML 1,000 ML IV ONE (22:35)
--- NOTE | 2022-06-26 22:46 | Communication Note ---
Date of Service: June 26, 2022
[2022-06-27] MEDS: POLYETHYLENE (MIRALAX) 17 GM PACK PO SCH ×3 (01:03→11:49)
[2022-06-27 01:23] LABS: Appearance Urine Clear (Clear); Bilirubin Urine Negative (Negative); Blood Urine Negative (Negative); Color Urine Yellow; Glucose Urine UA 2+ (Negative); Ketones Urine Negative (Negative); Leukocyte Esterase Urine Negative (Negative); Nitrite Urine Negative (Negative); Protein Urine Negative (Negative); Specific Gravity Urine 1.009 (1.000-1.030); Urobilinogen Urine Negative (Negative); pH Urine 6.5 (4.5-7.5)
[2022-06-27 02:26] LABS: Hematocrit (blood only) 30.8 % (40.1-51.0); Hemoglobin 10.5 g/dl (14.0-18.0); Mean Corpuscular Hemoglobin 30.5 pg (25.0-34.0); Mean Corpuscular Hgb Conc 34.1 g/dL (32.0-36.0); Mean Corpuscular Volume 89.5 fL (80.0-100.0); RDW Coefficient of Variation 13.2 % (11.5-14.5); RDW Standard Deviation 43.2 fL (36.4-46.3); Red Blood Count 3.44 M/uL (4.63-6.08); White Blood Count 12.95 K/ul (4.8-10.8)
[2022-06-27 02:45] LABS: BUN Creatinine Ratio 30.2 (10-20); Calcium 8.8 mg/dl (8.5-10.1); Creatinine Clr Calc Pharmacy 151.4 ml/min; Est GFR (African American) 129.6 ml/min; Est GFR (Non-African American) 111.8 ml/min; Phosphorus 1.8 mg/dl (2.5-4.9); Potassium 3.9 mmol/L (3.5-5.1)
[2022-06-27 02:55] LABS: Thyroid Stimulating Hormone 0.199 uIu/ml (0.300-4.500)
[2022-06-27 03:25] LABS: Basophils # (auto) 0.02 K/uL (0-0.2); Basophils % (auto) 0.2 %; Eosinophils # (auto) 0.01 K/uL (0-0.50); Eosinophils % (auto) 0.1 %; Immature Granulocytes # (auto) 0.09 K/uL (0.00-0.02); Immature Granulocytes % (auto) 0.7 %; Lymphocytes # (auto) 1.19 K/uL (1.2-3.4); Lymphocytes % (auto) 9.2 %; Mean Platelet Volume 11.7 fL (9.4-12.4); Monocytes # (auto) 1.05 K/uL (0.24-0.82); Monocytes % (auto) 8.1 %; Neutrophils # (auto) 10.59 K/uL (1.4-6.5); Neutrophils % (auto) 81.7 %; Platelet Count 125 K/uL (130-400); Platelet Estimate Decreased (Normal); RBC Morphology Unremarkable
[2022-06-27 03:44] LABS: T4 Free Thyroxine 1.19 ng/dl (0.61-1.60)
[2022-06-27] MEDS ORDERED: POTASSIUM PHOS 3 MMOL/1 ML INFUSION IV STA (03:52)
[2022-06-27] MEDS ORDERED: POTASSIUM PHOSPHATE 40 MMOL in SODIUM CHLORIDE 0.9% 1000ML 1,000 ML IV ONE (04:00)
[2022-06-27] MEDS: oxyCODONE HCL IR 5 MG TAB (IMMEDIATE RELEASE) PO PRN ×4 (06:02→21:34)
--- NOTE | 2022-06-27 08:36 | Orthopedic Progress Note ---
Date of Service June 27, 2022 Assessment & Plan (1) Lumbar disc herniation with radiculopathy: Plan: Patient is postop day 2 status post hardware removal, decompression instrumented fusion lumbar spine. He is doing great. We will continue physical therapy. Continue with pain control. DVT prophylaxis in the form teds and SCDs. Maintain MAG drain and dressing. Anticipate discharge home tomorrow. Admission and Anticipated Discharge Date Admission Date: June 24, 2022 Subjective Gwyn is postoperative day 2 status post hardware removal, decompression instrumented fusion lumbar spine. He is doing well. Has some soreness in his back but radicular pain is resolved. He had a bowel movement. MAG drain output last shift was 65 cc. H&H is morning are 10.5 and 30.8 respectively. Yesterday in physical therapy ambulating roughly 250 feet. No other complaints. Review of Systems 2 Review of Systems: All systems reviewed & are unremarkable except as noted in HPI & below Physical Exam Physical Exam: He is lying in bed in no acute distress Alert and oriented x3 Lumbar dressing is clean dry intact with functioning MAG drain Strength is intact bilateral lower extremity Calf soft nontender bilaterally Results & Data ([facility]) Vital Signs (Past 12 Hours) Vital Signs Temp Pulse Resp BP Pulse Ox O2 Del Method 06/27/22 07:38 36.5 C 103 H 16 145/75 H 95 Room Air 06/26/22 21:54 142/87 H 06/26/22 20:57 36.6 C 108 H 18 149/99 H 96 Room Air
[2022-06-27] MEDS: SERTRALINE HCL 50 MG TABLET PO SCH (09:19)
[2022-06-27] MEDS: GABAPENTIN 400 MG CAP PO SCH ×4 (09:20→21:34)
[2022-06-27] MEDS: METOPROLOL SUCC 50MG EXT REL TAB PO SCH (09:20)
[2022-06-27] MEDS: dexAMETHasone 6 MG in SYRINGE 0 ML IV SCH (09:20)
[2022-06-27] MEDS: INSULIN ASPART PER UNIT SC SCH ×4 (09:25→21:23)
[2022-06-27] MEDS ORDERED: Nursing to Pharmacy Communication SCH (12:00)
[2022-06-27] MEDS: THIAMINE HCL 100 MG TAB PO SCH (14:47)
--- NOTE | 2022-06-27 16:30 | Hospitalist Progress Note ---
Date of Service June 27, 2022 Assessment & Plan (1) Left lumbar radiculitis: (2) History of lumbar spinal fusion: (3) HTN (hypertension): (4) Diabetes mellitus, type II: (5) Mood disorder: (6) Dyslipidemia: Plan Left lumbar radiculitis History of lumbar spinal fusion Recent trauma Patient now presenting with urinary incontinence symptoms Status post lumbar decompression and fusion and removal of instrumentation by Dr. Baig on 06/25/2022 Patient reports improvement in pain and pain under control. PT OT/DVT prophylaxis per orthospine. Continue pain management, monitor bowel movement, monitor for drop in hemoglobin, Avoid NSAIDs when possible given history of GI bleeding Acute blood loss anemia: Likely postoperative, hemoglobin dropped to 10.5 on 06/27. Preoperative hemoglobin of 14.3. Continue to monitor. Patient without dizziness or chest pain. Sinus tachycardia: Patient had an event of sinus tachycardia in the night of 06/25-06/26, patient reports he had intermittent tachycardia for which he has been worked up as an outpatient and has been placed on metoprolol, his metoprolol dose has been uptitrated. DM II Hold oral medications Well-controlled as of recent hemoglobin A1c of 7 last September 2021 SSI while in-patient BSG AC HS Hyperlipidemia Continue statin Anxiety/mood disorder Stable. Continue sertraline DVT Ppx: SCDs Code status: FULL Dispo: Admitted to med/surg Admission and Anticipated Discharge Date Admission Date: June 24, 2022 Subjective Patient seen and examined at bedside as a follow-up of left lumbar radiculitis status post lumbar surgery on 06/25/[address] Baig. patient was sitting up in bed, on room air, NAD, denies any chest pain or tightness or palpitation. Patient was continued on IV fluid due to elevated lactate, lactate has normalized. Patient denies any headache or dizziness or chest pain or or chest tightness or chest pressure or belly pain or acute changes in his bladder habit lately. Patient is eating okay, moving bowels okay. Patient reports pain under control. Patient reports some soreness at incision site but improvement in radicular symptoms. Physical Exam Physical Exam: GENERAL: Alert and oriented x3. NAD, on RA. HEENT: No pallor, no icterus. Pupils equal, round and reactive to light. Oral mucosa moist. NECK: No JVD, no neck masses. HEART: S1 and S2 heard. Regular rate and rhythm. No murmur, no gallop. RESPIRATORY SYSTEM: Normal AP diameter. No accessory muscle use. No wheezing, no crackles. ABDOMEN: Soft, bowel sounds present, nontender, no distention. CENTRAL NERVOUS SYSTEM: No facial droop. Speech is clear. Obeys simple commands. Moves extremities. EXTREMITIES: No edema, no erythema seen. Low back with dressing with soakage. MAG drain in situ with serosanguineous collection noted. Results & Data Results & Data ([facility]) Vital Signs (Past 12 Hours) Vital Signs Temp Pulse Resp BP Pulse Ox O2 Del Method 06/27/22 14:50 36.6 C 98 H 16 150/86 H 94 Room Air 06/27/22 07:38 36.5 C 103 H 16 145/75 H 95 Room Air
[2022-06-27] MEDS ORDERED: LANTUS PER UNIT CHARGE SQ SCH (19:30)
[2022-06-27] MEDS: DOCUSATE SODIUM/SENNA 50/8.6MG TAB PO SCH (21:34)
[2022-06-28 06:16] LABS: Mean Corpuscular Hgb Conc 34.5 g/dL (32.0-36.0); Mean Corpuscular Volume 89.8 fL (80.0-100.0); Mean Platelet Volume 12.1 fL (9.4-12.4); Platelet Count 141 K/uL (130-400); RDW Coefficient of Variation 13.2 % (11.5-14.5); RDW Standard Deviation 44.3 fL (36.4-46.3); Red Blood Count 3.23 M/uL (4.63-6.08); White Blood Count 13.01 K/ul (4.8-10.8)
[2022-06-28 06:56] LABS: BUN Creatinine Ratio 25.7 (10-20); Creatinine Clr Calc Pharmacy 114.6 ml/min; Est GFR (African American) 115.6 ml/min; Est GFR (Non-African American) 99.7 ml/min; Magnesium 1.8 mg/dl (1.7-2.4); Phosphorus 2.8 mg/dl (2.5-4.9); Potassium 3.9 mmol/L (3.5-5.1)
[2022-06-28] MEDS: oxyCODONE HCL IR 5 MG TAB (IMMEDIATE RELEASE) PO PRN (07:59)
[2022-06-28] MEDS: THIAMINE HCL 100 MG TAB PO SCH (08:58)
[2022-06-28] MEDS: dexAMETHasone 6 MG in SYRINGE 0 ML IV SCH (08:58)
[2022-06-28] MEDS: METOPROLOL SUCC 50MG EXT REL TAB PO SCH (08:58)
[2022-06-28] MEDS: SERTRALINE HCL 50 MG TABLET PO SCH (08:58)
[2022-06-28] MEDS: GABAPENTIN 400 MG CAP PO SCH ×2 (08:58→12:34)
[2022-06-28] MEDS: INSULIN ASPART PER UNIT SC SCH ×2 (09:08→12:33)
--- NOTE | 2022-06-28 10:14 | Discharge Summary ---
Date of Service June 28, 2022 Admission HPI Per Admitting Provider History obtained from patient and records. Medical history significant for HTN, DM 2 on oral medications, hyperlipidemia, osteoarthritis, anxiety/mood disorder, past tobacco abuse, PUD/diverticulosis. Last confinement June 2021 under Orthopedics spine service for elective lumbar decompression surgery for lumbar disc herniation with radiculopathy. Patient slid from the roof of his home about 10 days ago while painting it. Patient twisted his back. Noted achy low back pain with radiation to the left lower leg. No fever, no chills. No incontinence symptoms. Patient seen at the ER. No acute fractures on lumbar spine x-ray. Patient subsequently discharged home. Worsening pain especially on ambulation in the last week. Pain radiating more to the right leg. Patient seen at PCP's office yesterday. Patient started on gabapentin, lidocaine, and diclofenac. Outpatient lumbar spine MRI and orthopedic spine consult recommended. This morning, patient noted urinary incontinence symptoms. Patient brought to the ER by for evaluation. 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 Principal Diagnosis Lumbar disc herniation with radiculopathy Discharge Data Allergies Allergy/AdvReac Type Severity Reaction Status Date / Time NSAIDS (Non-Steroidal AdvReac Unknown HX OF GI Verified 06/23/22 16:13 Anti-Inflamma BLEED Consultations 06/23/22 19:35 ED Decision to Admit Stat 06/23/22 20:26 Consult Orthopedic Surgery Routine Procedures Performed Operation Date: 06/25/22 11:55 Actual Procedures p L2-L3 Lumbar Decompression, L3-L5 Hardware Removal, L2-L5 Fusion, Spinal cord Monitoring(Not Applicable) - Emmett Baig, Ordered Studies 06/23/22 13:47 MR lumbar spine wo con Stat 06/25/22 11:55 FL lumbar spine 2-3V Routine Hospital Course (1) Left lumbar radiculitis: Patient was admitted with severe back and bilateral leg pain underwent urgent decompression fusion the following day. Postop day 1 is up and ambulating progress postop day #2 and 3. Leg pain markedly improved. Strength improved. MAG drain decreased probably. Subsequent discharge home. Discharge orders instructions from the chart for further review. Total Time Total Time Spent Total Time Spent (In Minutes): 20 minutes Discharge Plan Discharge Items Patient Disposition: Home - Self-Care Reason For Visit: BACK PAIN Discharge Diagnosis: Lumbar disc condition with bilateral radiculopathy Activity: As commented below Non-emergency contact: Primary Care Provider Call non-emergency contact if: you have any medication questions Follow-up/Referrals: Ginny Carvalho DO [Primary Care Provider] - Diet: Regular Addtl Attending Provider Instructions: ACTIVITY RECOMMENDATIONS: SELF CARE INSTRUCTIONS AFTER CERVICAL FUSIONS 1. No smoking. Smoking drastically decreases the chance of a solid fusion. 2. No bending, lifting more than 5 pounds, or twisting (roll like a log when turning in bed). 3. You may shower 3 days after surgery. Thoroughly dry wound. Do not soak in the tub. 4. Cervical collar: Must be worn at all times including sleeping. You may remove the brace only to bath, eat and if you are sitting in a recliner. 5. Please walk as much as you can for exercise. Gradually increase the distance that you walk as your endurance increases. SPECIAL CARE INSTRUCTIONS: VERY IMPORTANT TO READ AND REVIEW A. Do not take any anti-inflammatory medications (i.e. Indocin, Advil, Aspirin, Naprosyn, Aleve, Motrin, etc.) as these may inhibit the chance of a solid fusion. Tylenol is okay to take. B. Your surgical incision has been closed with a cosmetic suture under the skin that will dissolve in about 6 weeks. In 14 days, you can use a pair of clean scissors and cut the suture that is left outside of the skin at the ends of your incision. C. Complications are uncommon, but please contact us if you have any signs or symptoms of: 1. wound infection (fever higher than 102.5 degrees F, redness, separation of wound, drainage, or increasing pain from the incision) 2. blood clots in legs (pain, swelling, redness and warmth in legs) 3. urinary tract infection (fever higher than 102.5 degrees, burning upon urination or increased frequency of urination) 4. nerve problems (inability to walk on your toes or heels, numbness, loss of bowel or bladder control) 5. any other symptoms that concern you. D. Please call the office at if you have any concerns or question s about your operation or recovery. MANAGING PAIN AFTER SPINAL SURGERY 1. Narcotic medication is intended for short-term use and will be provided for surgical pain. Surgical pain usually lasts for a period of 4-6 weeks. Narcotic medication includes Percocet, Vicodin, Darvocet, Tylenol #3 or Lortab. 2. Longer-term pain is more appropriately treated with non-narcotic medication such as Tylenol ES. 3. Muscle spasm is not appropriately treated with narcotics. Muscle relaxers such as Soma, Flexeril or Skelaxin can be used along with Tylenol ES. 4. Remember that we all live with some "aches and pains". This is not unusual or uncommon after an injury or as we get older. 5. We will provide appropriate medication within the normal guidelines of their prescribed use. We will also be very cautious and aware of potential abuse and extended duration of patients' medication needs. 6. Please allow 2-3 days to process refills. Prescriptions will not be mailed but must be picked up at the office. FOLLOW UP VISIT: Keep your scheduled follow-up appointment. Any questions, please call the office at . Pending Studies at Discharge: No Stand-Alone Forms: My [facility] Attune RTD, Smoking Cessation Medications and DC Order Prescriptions: New tramadol 50 mg tablet 50 mg PO Q6H PRN (Reason: pain, moderate) Qty: 30 0RF oxycodone 5 mg tablet 5 mg PO Q6H PRN (Reason: pain, severe) Qty: 30 0RF Continued metformin 500 mg tablet extended release 24 hr 500 mg PO BID acetaminophen [Tylenol Extra Strength] 500 mg Tablet 1,000 mg PO QID PRN (Reason: Pain) Ozempic 1 mg/dose (2 mg/1.5 mL) Pen Injector 1 mg SUBCUT WK Rx Instructions: tuesday metoprolol succinate 25 mg tablet extended release 24 hr 25 mg PO DAILY sertraline 25 mg tablet 25 mg PO DAILY gabapentin 400 mg capsule 400 mg PO QID diclofenac sodium 75 mg tablet,delayed release (DR/EC) 75 mg PO BID Discharge Orders: Discharge Order (Routine); Ordered 06/28/22 Ordered By: Emmett De La Vega/Other Patient Handouts: Managing Type 2 Diabetes Admission Data Admit Date/Time: 06/24/22 13:12 Attending Provider: Crystal Colin Admit Provider: Jamie Tadeo Primary Care Provider: Ginny Carvalho Other Providers: Soledad Padilla ; Jamie Tadeo ; Emmett Baig
--- NOTE | 2022-06-28 12:46 | Hospitalist Progress Note ---
Date of Service June 28, 2022 Assessment & Plan (1) Left lumbar radiculitis: (2) History of lumbar spinal fusion: (3) HTN (hypertension): (4) Diabetes mellitus, type II: (5) Mood disorder: (6) Dyslipidemia: Plan Left lumbar radiculitis History of lumbar spinal fusion Recent trauma Patient now presenting with urinary incontinence symptoms Status post lumbar decompression and fusion and removal of instrumentation by Dr. Baig on 06/25/2022 Patient reports improvement in pain and pain under control. PT OT/DVT prophylaxis per orthospine. Continue pain management, monitor bowel movement, monitor for drop in hemoglobin, Avoid NSAIDs when possible given history of GI bleeding Acute blood loss anemia: Likely postoperative, hemoglobin dropped to 10.5 on 06/27. Preoperative hemoglobin of 14.3. Continue to monitor. Patient without dizziness or chest pain. Sinus tachycardia: Patient had an event of sinus tachycardia in the night of 06/25-06/26, patient reports he had intermittent tachycardia for which he has been worked up as an outpatient and has been placed on metoprolol, his metoprolol dose has been uptitrated. DM II Hold oral medications Well-controlled as of recent hemoglobin A1c of 7 last September 2021 SSI while in-patient BS[facility] AC HS Hyperlipidemia Continue statin Anxiety/mood disorder Stable. Continue sertraline DVT Ppx: SCDs Code status: FULL Dispo: Admitted to med/surg Admission and Anticipated Discharge Date Admission Date: June 24, 2022 Subjective Patient seen and examined at bedside as a follow-up of left lumbar radiculitis status post lumbar surgery on 06/25/[address] Baig. patient was sitting up in bed, on room air, NAD, denies any chest pain or tightness or palpitation. Patient denies any headache or dizziness or chest pain or or chest tightness or chest pressure or belly pain or acute changes in his bladder habit lately. Patient is eating okay, moving bowels okay. Patient reports pain under control. Physical Exam Physical Exam: GENERAL: Alert and oriented x3. NAD, on RA. HEENT: No pallor, no icterus. Pupils equal, round and reactive to light. Oral mucosa moist. NECK: No JVD, no neck masses. HEART: S1 and S2 heard. Regular rate and rhythm. No murmur, no gallop. RESPIRATORY SYSTEM: Normal AP diameter. No accessory muscle use. No wheezing, no crackles. ABDOMEN: Soft, bowel sounds present, nontender, no distention. CENTRAL NERVOUS SYSTEM: No facial droop. Speech is clear. Obeys simple commands. Moves extremities. EXTREMITIES: No edema, no erythema seen. Low back with dressing without soakage. Results & Data Results & Data ([facility]) Vital Signs (Past 12 Hours) Vital Signs Temp Pulse Pulse Resp BP Pulse Ox O2 Del Method 06/28/22 10:51 36.6 C 89 99 H 16 130/85 95 06/28/22 07:17 36.6 C 89 16 130/85 95 Room Air
== END 2022-06-28 13:09 | disposition home or self-care (01) | DRG 454 ==
LOC: 3E 11:56 → ED 11:56 → 3E 22:30